=== PATIENT | male | born 1935 | race Caucasian/White ===

== ENCOUNTER → 2016-09-01 | Outpatient (CLI) | payer MEDICARE, OTHER ==
[~2016-09-01] MED LIST: ASPI81TA85 PO; CEFD1CAP8 PO; CLAR10CA3 PO; COUM1TAB17 PO; FAMO20TA PO; FISH1000 PO; FURO40TA2 PO; HYDR1TAB97 PO; IRBE75TA5 PO; NEUR300C PO; NIAC1TAB5 PO; NITR4TASL SL; VITA100041 PO; VITA500T53 PO; ZOCO20TA PO; ZYRT10CA PO
[2016-09-01 09:30] LABS: MEAN CORPUSCULAR HEMOGLOBIN 37.7 pg (27.0-33.0); MEAN CORPUSCULAR VOLUME 110.8 fl (80.0-96.0); WHITE BLOOD COUNT 4.5 K/mm3 (4.0-10.0)
[2016-09-01 09:43] LABS: ALBUMIN 3.6 GM/DL (3.2-5.2); ALBUMIN/GLOBULIN RATIO 1.29 (1.00-1.93); BILIRUBIN,TOTAL 0.5 MG/DL (0.2-1.0); CALCIUM LEVEL 8.3 MG/DL (8.8-10.2); CREATININE FOR GFR 1.49 MG/DL (0.70-1.30); GLOMERULAR FILTRATION RATE 48.3 (>35); MAGNESIUM LEVEL 2.4 MG/DL (1.8-2.4); TOTAL PROTEIN 6.4 GM/DL (6.4-8.2)
== END | disposition home or self-care (01) ==
LOC: M WUC 08:16
PROVIDERS: ATTEND Physician Assistant
DX: I48.2 Chronic atrial fibrillation (principal); I25.10 Atherosclerotic heart disease of native coronary artery without angina pectoris; I50.32 Chronic diastolic (congestive) heart failure; E78.00 Pure hypercholesterolemia, unspecified; Z51.81 Encounter for therapeutic drug level monitoring; Z79.01 Long term (current) use of anticoagulants

== ENCOUNTER → 2016-09-01 | Outpatient (CLI) | payer MEDICARE, OTHER ==
[2016-09-01 09:27] LABS: INR 2.87
== END ==
LOC: M WUC 08:20
PROVIDERS: ATTEND Nurse Practitioner Family
DX: I48.91 Unspecified atrial fibrillation (principal); Z51.81 Encounter for therapeutic drug level monitoring; Z79.01 Long term (current) use of anticoagulants

== ENCOUNTER → 2016-09-02 | Outpatient (REF) | payer MEDICARE, OTHER | END | disposition home or self-care (01) | LOC: M LAB REF 16:26 | PROVIDERS: ATTEND Physician Assistant | DX: Z12.11 Encounter for screening for malignant neoplasm of colon (principal); D64.9 Anemia, unspecified ==

== ENCOUNTER → 2016-09-03 | Outpatient (REF) | payer MEDICARE, OTHER ==
[2016-09-03 18:41] LABS: PERCENT SATURATION 17.8 % (19.7-37.4)
== END | disposition home or self-care (01) ==
LOC: M LAB REF 16:27
PROVIDERS: ATTEND Internal Medicine
DX: D64.9 Anemia, unspecified (principal)

== ENCOUNTER → 2016-09-17 | Outpatient (REF) | payer MEDICARE, OTHER ==
[~2016-09-17] MED LIST changes: +HYDR-3713 PO; -HYDR1TAB97 PO
[2016-09-17 16:31] LABS: INR 2.76
== END | disposition home or self-care (01) ==
LOC: M LAB REF 16:08
PROVIDERS: ATTEND Internal Medicine
DX: I48.2 Chronic atrial fibrillation (principal); Z79.01 Long term (current) use of anticoagulants

== ENCOUNTER → 2016-10-19 | Outpatient (CLI) | payer MEDICARE, OTHER ==
[2016-10-19 15:46] LABS: ALBUMIN 3.5 GM/DL (3.2-5.2); CALCIUM LEVEL 7.6 MG/DL (8.8-10.2); CREATININE FOR GFR 1.65 MG/DL (0.70-1.30); GLOMERULAR FILTRATION RATE 42.9 (>35); PHOSPHORUS LEVEL 2.4 MG/DL (2.5-4.9); POTASSIUM SERUM 4.3 MEQ/L (3.5-5.1)
== END ==
LOC: M WUC 10:57
PROVIDERS: ATTEND Physician Assistant
DX: I50.32 Chronic diastolic (congestive) heart failure (principal)

== ENCOUNTER → 2016-10-27 | Outpatient (CLI) | payer MEDICARE, OTHER ==
[2016-10-27 18:00] LABS: INR 2.23
[2016-10-27 18:01] LABS: CALCIUM LEVEL 8.5 MG/DL (8.8-10.2); CREATININE FOR GFR 1.77 MG/DL (0.70-1.30); GLOMERULAR FILTRATION RATE 39.6 (>35); PHOSPHORUS LEVEL 3.4 MG/DL (2.5-4.9); POTASSIUM SERUM 4.3 MEQ/L (3.5-5.1)
== END ==
LOC: M WUC 11:45
PROVIDERS: ATTEND Physician Assistant
DX: I48.2 Chronic atrial fibrillation (principal); I50.32 Chronic diastolic (congestive) heart failure

== ENCOUNTER → 2016-11-23 | Outpatient (CLI) | payer MEDICARE, OTHER ==
[2016-11-23 13:18] LABS: INR 2.2
== END ==
LOC: M WUC 10:51
PROVIDERS: ATTEND Physician Assistant
DX: I48.2 Chronic atrial fibrillation (principal)

== ENCOUNTER → 2016-12-10 | Outpatient (REF) | payer MEDICARE, OTHER | LOC: M LAB REF 12:13 | PROVIDERS: ATTEND Internal Medicine | DX: D64.9 Anemia, unspecified (principal) ==

== ENCOUNTER → 2017-01-10 | Outpatient (CLI) | payer MEDICARE, OTHER ==
[2017-01-10 17:26] LABS: INR 2.2
== END ==
LOC: M WUC 12:22
PROVIDERS: ATTEND Physician Assistant
DX: I48.2 Chronic atrial fibrillation (principal)

== ENCOUNTER → 2017-01-14 | Outpatient (CLI) | payer MEDICARE, OTHER ==
[~2017-01-14] MED LIST changes: +ALLE180T33 PO; +CALC-196 PO; +FERR140T PO; +MELA5CHW PO; +SPIR25TA2 PO; +TORS20TA2 PO; +TYLE650T35 PO
[2017-01-14 17:55] LABS: ALBUMIN 3.7 GM/DL (3.2-5.2); CALCIUM LEVEL 8.3 MG/DL (8.8-10.2); CREATININE FOR GFR 1.75 MG/DL (0.70-1.30); GLOMERULAR FILTRATION RATE 40.1 (>35); MAGNESIUM LEVEL 2.3 MG/DL (1.8-2.4); PHOSPHORUS LEVEL 2.9 MG/DL (2.5-4.9); POTASSIUM SERUM 4.4 MEQ/L (3.5-5.1)
== END ==
LOC: M WUC 11:51
PROVIDERS: ATTEND Physician Assistant
DX: I50.32 Chronic diastolic (congestive) heart failure (principal); I48.2 Chronic atrial fibrillation

== ENCOUNTER → 2017-01-25 | Outpatient (REF) | payer MEDICARE, OTHER | LOC: M LAB REF 12:46 | PROVIDERS: ATTEND Internal Medicine | DX: I50.33 Acute on chronic diastolic (congestive) heart failure (principal) ==

== ENCOUNTER → 2017-02-07 | Day surgery (SDC) | payer MEDICARE, OTHER ==
[~2017-02-07] VITALS: Ht 182.9 cm; Wt 113.4 kg
[~2017-02-07] MED LIST changes: +ACETAMINOPHEN 325 MG TAB PO PRN; +AcetaZOLAMIDE 500 MG ER CAP PO ONE; +BSS with VANC/TOB/EPI for EYE CASES IR ONE; +CYCLOPENTOLATE 2% OPHTH SOLN 2ML BTL As Ordered ONE; +CYCLOPENTOLATE 2% OPHTH SOLN 2ML BTL OD ONE; +HEALON DUET (HEALON 10MG/ML 0.55ML & HEALON ENDOCOAT 30MG/ML 0.85ML) As Ordered ONE; +KETOROLAC 0.5% OPHTH SOLN OD ONE; +LIDOCAINE 1% SDV 5 ML VIAL As Ordered ONE; +LIDOCAINE 4% INJ 5 ML AMP OU ONE; +LR 1,000 ML IV SCH; +MIDAZOLAM INJ 2 MG/2 ML VIAL (J2250) As Ordered ONE; +MOXIFLOXACIN IN BSS 0.25MG/0.25ML INTRACAMERAL INJ (OR EYE ONLY)(J2280) As Ordered ONE; +OFLOXACIN 0.3 % (OCUFLOX) OPTH SOL 5ML As Ordered ONE; +OFLOXACIN 0.3 % (OCUFLOX) OPTH SOL 5ML OD ONE; +PHENYLEPHRINE 2.5% OPHTH SOL 2ML As Ordered ONE; +PHENYLEPHRINE 2.5% OPHTH SOL 2ML OD ONE; +POVIDONE-IODINE 5% OPHTH PREP SOL 30ML As Ordered ONE; +PROPARACAINE 0.5% OPHTH SOL 15ML OD PRN; +TRIAMCINOLONE PRES FR 40 MG/ML 1ML(TRIESENCE)(OR EYE ONLY)(J3300 PER 1MG) As Ordered ONE; +TRIMETHOBENZAMIDE 300 MG CAP PO PRN; +TROPICAMIDE 1% OPHTH SOLN 2ML As Ordered ONE; +TROPICAMIDE 1% OPHTH SOLN 2ML OD ONE; +fentaNYL 100 MCG/2 ML INJECTION (J3010) As Ordered ONE
[2017-02-07 09:35] VITALS: BP 136/68
== END | disposition home or self-care (01) ==
LOC: M SDC 06:58
PROVIDERS: ATTEND Ophthalmology
DX: H26.9 Unspecified cataract (principal); I25.10 Atherosclerotic heart disease of native coronary artery without angina pectoris; E78.5 Hyperlipidemia, unspecified; R60.0 Localized edema; I13.0 Hypertensive heart and chronic kidney disease with heart failure and stage 1 through stage 4 chronic kidney disease, or unspecified chronic kidney disease; I73.9 Peripheral vascular disease, unspecified; K21.9 Gastro-esophageal reflux disease without esophagitis; D50.9 Iron deficiency anemia, unspecified; R29.898 Other symptoms and signs involving the musculoskeletal system; M12.9 Arthropathy, unspecified; M54.9 Dorsalgia, unspecified; I48.91 Unspecified atrial fibrillation; I50.32 Chronic diastolic (congestive) heart failure; G89.29 Other chronic pain; L40.9 Psoriasis, unspecified; G62.9 Polyneuropathy, unspecified; N18.3 Chronic kidney disease, stage 3 (moderate); Z87.891 Personal history of nicotine dependence; Z88.0 Allergy status to penicillin; Z79.899 Other long term (current) drug therapy; Z79.82 Long term (current) use of aspirin; Z79.01 Long term (current) use of anticoagulants; Z85.9 Personal history of malignant neoplasm, unspecified; Z95.0 Presence of cardiac pacemaker; Z86.718 Personal history of other venous thrombosis and embolism; Z95.5 Presence of coronary angioplasty implant and graft
CPT/HCPCS: 66984; J2250; J2280; J3010; J3300; V2632

== ENCOUNTER → 2017-02-14 | Outpatient (CLI) | payer MEDICARE, OTHER ==
[~2017-02-14] MED LIST changes: -ACETAMINOPHEN 325 MG TAB PO PRN; -AcetaZOLAMIDE 500 MG ER CAP PO ONE; -BSS with VANC/TOB/EPI for EYE CASES IR ONE; -CYCLOPENTOLATE 2% OPHTH SOLN 2ML BTL As Ordered ONE; -CYCLOPENTOLATE 2% OPHTH SOLN 2ML BTL OD ONE; -HEALON DUET (HEALON 10MG/ML 0.55ML & HEALON ENDOCOAT 30MG/ML 0.85ML) As Ordered ONE; -KETOROLAC 0.5% OPHTH SOLN OD ONE; -LIDOCAINE 1% SDV 5 ML VIAL As Ordered ONE; -LIDOCAINE 4% INJ 5 ML AMP OU ONE; -LR 1,000 ML IV SCH; -MIDAZOLAM INJ 2 MG/2 ML VIAL (J2250) As Ordered ONE; -MOXIFLOXACIN IN BSS 0.25MG/0.25ML INTRACAMERAL INJ (OR EYE ONLY)(J2280) As Ordered ONE; -OFLOXACIN 0.3 % (OCUFLOX) OPTH SOL 5ML As Ordered ONE; -OFLOXACIN 0.3 % (OCUFLOX) OPTH SOL 5ML OD ONE; -PHENYLEPHRINE 2.5% OPHTH SOL 2ML As Ordered ONE; -PHENYLEPHRINE 2.5% OPHTH SOL 2ML OD ONE; -POVIDONE-IODINE 5% OPHTH PREP SOL 30ML As Ordered ONE; -PROPARACAINE 0.5% OPHTH SOL 15ML OD PRN; -TRIAMCINOLONE PRES FR 40 MG/ML 1ML(TRIESENCE)(OR EYE ONLY)(J3300 PER 1MG) As Ordered ONE; -TRIMETHOBENZAMIDE 300 MG CAP PO PRN; -TROPICAMIDE 1% OPHTH SOLN 2ML As Ordered ONE; -TROPICAMIDE 1% OPHTH SOLN 2ML OD ONE; -fentaNYL 100 MCG/2 ML INJECTION (J3010) As Ordered ONE
[2017-02-14 12:37] LABS: INR 1.69
== END ==
LOC: M WUC 10:02
PROVIDERS: ATTEND Nurse Practitioner Family
DX: I48.2 Chronic atrial fibrillation (principal)

== ENCOUNTER → 2017-02-15 | Day surgery (SDC) | payer MEDICARE, OTHER ==
[~2017-02-15] VITALS: Ht 182.9 cm; Wt 113.4 kg
[~2017-02-15] MED LIST changes: +ACETAMINOPHEN 325 MG TAB PO PRN; +AcetaZOLAMIDE 500 MG ER CAP PO ONE; +BSS with VANC/TOB/EPI for EYE CASES IR ONE; +CYCLOPENTOLATE 2% OPHTH SOLN 2ML BTL OS ONE; +FERR325T3 PO; +HEALON DUET (HEALON 10MG/ML 0.55ML & HEALON ENDOCOAT 30MG/ML 0.85ML) As Ordered ONE; +KETOROLAC 0.5% OPHTH SOLN XX ONE; +LIDOCAINE 1% SDV 5 ML VIAL As Ordered ONE; +LIDOCAINE 4% INJ 5 ML AMP OU ONE; -MELA5CHW PO; +MELA5TAB20 PO; +MIDAZOLAM INJ 2 MG/2 ML VIAL (J2250) As Ordered ONE; +MOXIFLOXACIN IN BSS 0.25MG/0.25ML INTRACAMERAL INJ (OR EYE ONLY)(J2280) As Ordered ONE; +OFLOXACIN 0.3 % (OCUFLOX) OPTH SOL 5ML OS ONE; +PHENYLEPHRINE 2.5% OPHTH SOL 2ML OS ONE; +POVIDONE-IODINE 5% OPHTH PREP SOL 30ML As Ordered ONE; +PROPARACAINE 0.5% OPHTH SOL 15ML OS PRN; +TRIAMCINOLONE PRES FR 40 MG/ML 1ML(TRIESENCE)(OR EYE ONLY)(J3300 PER 1MG) As Ordered ONE; +TRIMETHOBENZAMIDE 300 MG CAP PO PRN; +TROPICAMIDE 1% OPHTH SOLN 2ML OS ONE; +VALS1TAB49 PO; +VITA-182 PO; -VITA100041 PO; +fentaNYL 100 MCG/2 ML INJECTION (J3010) As Ordered ONE
[2017-02-15 11:00] VITALS: BP 140/68
== END | disposition home or self-care (01) ==
LOC: M SDC 08:27
PROVIDERS: ATTEND Ophthalmology
DX: H26.9 Unspecified cataract (principal); I50.32 Chronic diastolic (congestive) heart failure; I49.5 Sick sinus syndrome; I13.0 Hypertensive heart and chronic kidney disease with heart failure and stage 1 through stage 4 chronic kidney disease, or unspecified chronic kidney disease; I25.10 Atherosclerotic heart disease of native coronary artery without angina pectoris; Z95.5 Presence of coronary angioplasty implant and graft; E78.5 Hyperlipidemia, unspecified; G89.29 Other chronic pain; I73.9 Peripheral vascular disease, unspecified; D50.9 Iron deficiency anemia, unspecified; G90.09 Other idiopathic peripheral autonomic neuropathy; N18.3 Chronic kidney disease, stage 3 (moderate); G47.9 Sleep disorder, unspecified; Z79.899 Other long term (current) drug therapy; Z79.01 Long term (current) use of anticoagulants; Z79.82 Long term (current) use of aspirin; Z88.0 Allergy status to penicillin; Z87.891 Personal history of nicotine dependence
CPT/HCPCS: 66984; J2250; J2280; J3010; J3300; V2632

== ENCOUNTER → 2017-02-21 | Outpatient (CLI) | payer MEDICARE, OTHER ==
[~2017-02-21] MED LIST changes: -ACETAMINOPHEN 325 MG TAB PO PRN; -AcetaZOLAMIDE 500 MG ER CAP PO ONE; -BSS with VANC/TOB/EPI for EYE CASES IR ONE; -CYCLOPENTOLATE 2% OPHTH SOLN 2ML BTL OS ONE; -HEALON DUET (HEALON 10MG/ML 0.55ML & HEALON ENDOCOAT 30MG/ML 0.85ML) As Ordered ONE; -KETOROLAC 0.5% OPHTH SOLN XX ONE; -LIDOCAINE 1% SDV 5 ML VIAL As Ordered ONE; -LIDOCAINE 4% INJ 5 ML AMP OU ONE; -MIDAZOLAM INJ 2 MG/2 ML VIAL (J2250) As Ordered ONE; -MOXIFLOXACIN IN BSS 0.25MG/0.25ML INTRACAMERAL INJ (OR EYE ONLY)(J2280) As Ordered ONE; -OFLOXACIN 0.3 % (OCUFLOX) OPTH SOL 5ML OS ONE; -PHENYLEPHRINE 2.5% OPHTH SOL 2ML OS ONE; -POVIDONE-IODINE 5% OPHTH PREP SOL 30ML As Ordered ONE; -PROPARACAINE 0.5% OPHTH SOL 15ML OS PRN; -TRIAMCINOLONE PRES FR 40 MG/ML 1ML(TRIESENCE)(OR EYE ONLY)(J3300 PER 1MG) As Ordered ONE; -TRIMETHOBENZAMIDE 300 MG CAP PO PRN; -TROPICAMIDE 1% OPHTH SOLN 2ML OS ONE; -fentaNYL 100 MCG/2 ML INJECTION (J3010) As Ordered ONE
[2017-02-21 19:28] LABS: INR 1.61
[2017-02-21 21:30] LABS: CALCIUM LEVEL 8.7 MG/DL (8.8-10.2); CREATININE FOR GFR 1.76 MG/DL (0.70-1.30); GLOMERULAR FILTRATION RATE 39.9 (>35); PHOSPHORUS LEVEL 3.4 MG/DL (2.5-4.9); POTASSIUM SERUM 4.1 MEQ/L (3.5-5.1)
== END ==
LOC: M WUC 11:29
PROVIDERS: ATTEND Physician Assistant
DX: I50.33 Acute on chronic diastolic (congestive) heart failure (principal)

== ENCOUNTER → 2017-03-08 | Outpatient (CLI) | payer MEDICARE, OTHER ==
[2017-03-08 16:36] LABS: INR 1.85
== END ==
LOC: M WUC 13:39
PROVIDERS: ATTEND Nurse Practitioner Family
DX: I48.2 Chronic atrial fibrillation (principal)

== ENCOUNTER → 2017-04-01 | Outpatient (REF) | payer MEDICARE, OTHER ==
[2017-04-05 00:06] LABS: Lyme Disease IgG/IgM Antibodie <0.91 ISR (0.00-0.90); Lyme Disease IgM Ab Quantitati <0.80 index (0.00-0.79)
== END ==
LOC: M LAB REF 17:17
PROVIDERS: ATTEND Internal Medicine
DX: M25.50 Pain in unspecified joint (principal)

== ENCOUNTER → 2017-04-14 | Outpatient (CLI) | payer MEDICARE, OTHER ==
[2017-04-14 17:58] LABS: INR 2.99
== END ==
LOC: M WUC 11:34
PROVIDERS: ATTEND Nurse Practitioner Family
DX: I48.2 Chronic atrial fibrillation (principal)

== ENCOUNTER → 2017-05-01 | Outpatient (CLI) | payer MEDICARE, OTHER ==
[2017-05-01 17:49] LABS: ALBUMIN 3.3 GM/DL (3.2-5.2); CALCIUM LEVEL 8.5 MG/DL (8.8-10.2); CREATININE FOR GFR 1.91 MG/DL (0.70-1.30); GLOMERULAR FILTRATION RATE 36.3 (>35); MAGNESIUM LEVEL 2.6 MG/DL (1.8-2.4); PHOSPHORUS LEVEL 2.8 MG/DL (2.5-4.9); POTASSIUM SERUM 4.4 MEQ/L (3.5-5.1)
== END ==
LOC: M WUC 13:49
PROVIDERS: ATTEND Physician Assistant
DX: I50.33 Acute on chronic diastolic (congestive) heart failure (principal); I48.2 Chronic atrial fibrillation

== ENCOUNTER → 2017-05-01 | Outpatient (CLI) | payer MEDICARE, OTHER ==
[2017-05-01 17:43] LABS: INR 1.95
== END ==
LOC: M WUC 13:45
PROVIDERS: ATTEND Internal Medicine Cardiovascular Disease
DX: I48.2 Chronic atrial fibrillation (principal)

== ENCOUNTER → 2017-05-13 | Outpatient (REF) | payer MEDICARE, OTHER ==
[2017-05-13 18:09] LABS: PERCENT SATURATION 33.7 % (19.7-50.0)
== END ==
LOC: M LAB REF 16:54
PROVIDERS: ATTEND Internal Medicine
DX: D50.9 Iron deficiency anemia, unspecified (principal)

== ENCOUNTER → 2017-05-31 | Outpatient (CLI) | payer MEDICARE, OTHER ==
[2017-05-31 17:23] LABS: INR 4.03
== END ==
LOC: M WUC 11:22
PROVIDERS: ATTEND Nurse Practitioner Family
DX: I48.2 Chronic atrial fibrillation (principal)

== ENCOUNTER → 2017-06-13 | Outpatient (CLI) | payer MEDICARE, OTHER ==
[2017-06-13 20:27] LABS: ALBUMIN 3.5 GM/DL (3.2-5.2); CALCIUM LEVEL 8.4 MG/DL (8.8-10.2); CREATININE FOR GFR 1.69 MG/DL (0.70-1.30); GLOMERULAR FILTRATION RATE 41.7 (>35)
== END ==
LOC: M WUC 15:19
PROVIDERS: ATTEND Physician Assistant
DX: I50.32 Chronic diastolic (congestive) heart failure (principal)

== ENCOUNTER → 2017-06-13 | Outpatient (CLI) | payer MEDICARE, OTHER ==
[2017-06-13 19:43] LABS: INR 3.1
== END ==
LOC: M WUC 15:16
PROVIDERS: ATTEND Nurse Practitioner Family
DX: I48.2 Chronic atrial fibrillation (principal); Z51.81 Encounter for therapeutic drug level monitoring; Z79.01 Long term (current) use of anticoagulants; I50.32 Chronic diastolic (congestive) heart failure

== ENCOUNTER 2017-06-26 05:45 | Inpatient (IN) | payer MEDICARE, OTHER ==
[~2017-06-26] VITALS: Ht 182.9 cm; Wt 116.9 kg
[~2017-06-26 05:45] MED LIST changes: -FERR325T3 PO; -VALS1TAB49 PO
[2017-06-26] MEDS ORDERED: ACETAMINOPHEN 325 MG TAB PO ONE (06:30)
[2017-06-26] MEDS ORDERED: VANCOMYCIN HCL 1,000 MG, VIAL MATE ADAPTER 1 EACH in D5W 250 ML IV ONE (06:30)
[2017-06-26] MEDS ORDERED: NS 500 ML IV ONE ×4 (06:30→11:00)
[2017-06-26] MEDS ORDERED: IMIPENEM/CILASTATIN 500 MG in D5W MINI-BAG PLUS 100 ML IV ONE (06:30)
[2017-06-26 06:33] LABS: BASO % 0.2 % (0.0-1.0); IMMATURE GRANULOCYTE % 1.6 % (0-0); MEAN CORPUSCULAR HEMOGLOBIN 39.2 pg (27.0-33.0); MEAN CORPUSCULAR HGB CONC 33.3 g/dl (32.0-36.5); MONO # 0.2 10^3/uL (0.0-0.8); NEUTROPHILS # 4.5 10^3/uL (1.8-7.7); NEUTROPHILS % 90.2 % (36.0-66.0); PLATELET COUNT, AUTOMATED 146 10^3/uL (150-450); RED CELL DISTRIBUTION WIDTH 13.8 % (11.5-14.5)
[2017-06-26 06:59] LABS: LYMPH # 0.2 10^3/uL (1.5-4.5); MEAN CORPUSCULAR VOLUME 117.6 fl (80.0-96.0); POSITIVE DIFF POS FLAG; POSITIVE MORPH POS FLAG
[2017-06-26 07:00] LABS: ADD MORPHOLOGY? YES
[2017-06-26 07:04] LABS: ALBUMIN 3.1 GM/DL (3.2-5.2); ALBUMIN/GLOBULIN RATIO 1.03 (1.00-1.93); BILIRUBIN,DIRECT 0.5 MG/DL (0.0-0.2); BILIRUBIN,TOTAL 0.8 MG/DL (0.2-1.0); CALCIUM LEVEL 8.5 MG/DL (8.8-10.2); CREATININE FOR GFR 2.33 MG/DL (0.70-1.30); GLOMERULAR FILTRATION RATE 28.8 (>35); POTASSIUM SERUM 4.2 MEQ/L (3.5-5.1); TOTAL PROTEIN 6.1 GM/DL (6.4-8.2)
[2017-06-26] MEDS ORDERED: NS 1,000 ML IV ONE (07:45)
[2017-06-26 07:53] LABS: INR 2.3
--- NOTE | 2017-06-26 11:21 | HPEPDOC ---
General Surgery H&P Date of Admission Jun 26, 2017 Attending Physician: BARBER LAYNE MD History and Physical CHIEF COMPLAINT: abdominal pain, fever, change in mental status HISTORY OF PRESENT ILLNESS: Patient brought in by EMS after being called with patient noted to be confused this morning. He has been having lower quadrant abdominal pain, and fever (102) for the past two days. patient reports crampy abdominal pain associated with anorexia, slight nausea,one episode of vomiting, and loose stool. He initially attributes this to possible food poisoning, gastroenteritis. Reports no sick contacts. In the ER, he was noted to be hypotensive with SBP in the 80s. He has partially responded with IVF boluses. Workup shows possibility of perforated appendicitis vs. Cecitis. ALLERGIES: Please see below. HOME MEDICATIONS: Please see below. PAST MEDICAL HISTORY: 1. CAD 2. Atrial Fibrillation with pacer PAST SURGICAL HISTORY: 1. left bka 2. cardiac stents and pacemaker 3. cataract no abdominal surgery PERSONAL/SOCIAL HISTORY: Denies smoking, alcohol use, or recreational drug use. REVIEW OF SYSTEMS: GENERAL: Reports fever, confusion this morning, anorexia x 2 days. HEENT: Denies blurred vision and double vision. Denies ear symptoms. Denies hoarseness. NECK: Denies any neck pain. CARDIOVASCULAR: Denies chest pain and palpitations. MUSCULOSKELETAL: Reports back pain this morning. SKIN: Denies rash. NEUROLOGIC: Denies headache, stroke and transient ischemic attack. PSYCHIATRIC: Denies anxiety and depression. ENDOCRINE: Denies thyroid disease. HEMATOLOGY/ONCOLOGY: on coumadin. HEART: Denies any chest pains, palpitations, paroxysmal dyspnea, orthopnea. PULMONARY: Denies chronic cough, dyspnea and wheezing. GASTROINTESTINAL: denies rectal bleeding, no previous colonoscopies. GENITOURINARY: Denies dysuria, frequency, hematuria and nocturia. ENDOCRINE: Denies polydipsia, polyphagia, polyuria, heat or cold intolerance. INFECTIOUS: Denies any recent upper respiratory tract infection, UTI, need for use of antibiotics. NUTRITION: reports anorexia. PHYSICAL EXAMINATION: VITAL SIGNS: Please see below. GENERAL APPEARANCE: Patient seen at bedside, appears relatively comfortable. Awake, alert, oriented. HEENT: Normocephalic, atraumatic. Mildly pale palpebral conjunctivae. Anicteric sclerae. Lips dry. CHEST: No chest wall abnormalities. Normal respiratory motion/effort. NECK: Supple. No thyromegaly. No lymphadenopathies. LUNGS: Lung sounds are clear to auscultation bilaterally. No wheezing appreciated. HEART: No chest wall abnormalities. Heart rate 50 to 60s, paced. Pacer on left chest ABDOMEN: [Abdomen is obese, soft, markedly rounded. minimally distended. Mild tenderness to palpation on right lower quadrant area SKIN: Warm, dry EXTREMITIES: left bka, right leg with no edema, good capillary refill. NEUROLOGICAL: awake, alert, oriented ANCILLARIES: . LABORATORY DATA: Please see below. MICROBIOLOGY: Please see below. IMAGING: CT abdomen and pelvis Impression: 1. Extensive inflammatory changes about the cecum and appendix with the appendix dilated with extensive infiltration around it. This suggest appendicitis. There may be one air bubble near by so early perforation may be present versus that air bubble along the cecal margin representing a thin- walled diverticulum. No generalized free air or ascites but with infiltration tracking along the peroneal gutter and lateral caudal fascia below it. Plantar three changes are add and below the iliac crest. 2. Diverticulosis without diverticulitis in the transverse through the sigmoid colon. 3. There are no other significant acute finding is in the abdomen or pelvis. 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 IMPRESSION AND PLAN: Sepsis with hypotention Possible perforated appendicitis with peritonitis Patient came in hypotensive, has responded some with IVF boluses. Not clinically in heart failure. He is on coumadin and his INR is elevated as expected. I will give him 2 u FFP while awaiting OR. Would bring to the OR for diagnostic laparoscopy and appendectomy/bowel resection/ostomy/drainage for control of source of infection. I have communicated with the patient and family that he may get sicker and may get critically ill that may require prolonged ventilation after surgery. I have spokem to Dr. Duncan (critical care) and the hospitalist service to help with his care postoperatively. . Vital Signs Vital Signs Date Time Temp Pulse Resp B/P (MAP) Pulse Ox O2 Delivery O2 Flow Rate FiO2 06/26/17 10:30 92/54 (67) 06/26/17 10:21 56 98 06/26/17 09:51 18 06/26/17 08:52 99.5 06/26/17 07:00 Nasal Cannula 2.0 I&Os I&O- Last 24 Hours up to 6 AM 06/27/17 06:00 Intake Total 1870 ml Output Total 15 ml Balance 1855 ml Laboratory Data Labs 24H Laboratory Tests 2 06/26/17 06:07: Immature Granulocyte % (Auto) 1.6H, White Blood Count 5.0, Red Blood Count 2.22L , Hemoglobin 8.7L, Hematocrit 26.1L, Mean Corpuscular Volume 117.6H, Mean Corpuscular Hemoglobin 39.2H, Mean Corpuscular Hemoglobin Concent 33.3, Red Cell Distribution Width 13.8, Platelet Count 146L, Neutrophils (%) (Auto) 90.2H , Lymphocytes (%) (Auto) 4.0L, Monocytes (%) (Auto) 4.0, Eosinophils (%) (Auto) 0.0, Basophils (%) (Auto) 0.2, Neutrophils # (Auto) 4.5, Lymphocytes # (Auto) 0.2L, Monocytes # (Auto) 0.2, Eosinophils # (Auto) 0.0, Basophils # (Auto) 0.0, Immature Granulocyte # (Auto) 0.1H, Nucleated Red Blood Cells % (auto) 0.0, Platelet Estimate , Macrocytosis 3+, Prothrombin Time 26.2H, Prothromb Time International Ratio 2.30, Activated Partial Thromboplast Time 65.2H, Anion Gap 11, Glomerular Filtration Rate 28.8L, Lactic Acid Level 1.9, Calcium Level 8.5L , Aspartate Amino Transf (AST/SGOT) 40H, Alanine Aminotransferase (ALT/SGPT) 27 , Alkaline Phosphatase 61, Total Bilirubin 0.8, Direct Bilirubin 0.5H, Total Creatine Kinase 443H, Creatine Kinase MB 1.1, Creatine Kinase MB Relative Index 0.24, Troponin I 0.31H, Total Protein 6.1L, Albumin 3.1L, Albumin/Globulin Ratio 1.03 06/26/17 07:40: Urine Appearance HAZY, Urine Color YELLOW, Urine pH 5.0, Urine Specific [place] 1.012, Urine Protein NEGATIVE, Urine Glucose (UA) NEGATIVE, Urine Ketones NEGATIVE, Urine Urobilinogen 0.2, Urine Bilirubin NEGATIVE, Urine Leukocyte Esterase NEGATIVE, Urine Blood 1+H, Urine Nitrite NEGATIVE, Urine WBC (Auto) 2, Urine RBC (Auto) 1, Urine Hyaline Casts (Auto) 5, Urine Bacteria (Auto) NEGATIVE , Urine Squamous Epithelial Cells 1, Urine Sperm (Auto) CBC/BMP Laboratory Tests 06/26/17 06:07 Red Blood Count 2.22 L, Mean Corpuscular Volume 117.6 H, Mean Corpuscular Hemoglobin 39.2 H, Mean Corpuscular Hemoglobin Concent 33.3, Red Cell Distribution Width 13.8, Neutrophils (%) (Auto) 90.2 H, Lymphocytes (%) (Auto) 4.0 L, Monocytes (%) (Auto) 4.0, Eosinophils (%) (Auto) 0.0, Basophils (%) (Auto ) 0.2, Neutrophils # (Auto) 4.5, Lymphocytes # (Auto) 0.2 L, Monocytes # (Auto) 0.2, Eosinophils # (Auto) 0.0, Basophils # (Auto) 0.0 Microbiology Microbiology 06/26/17 Blood Culture, Received Pending 06/26/17 Influenza Virus Type A Antigen - Final, Complete 06/26/17 Influenza Virus Type B Antigen - Final, Complete 06/26/17 Urine Culture, Received Pending Home Medications Scheduled (Calcium Magnesium & Zinc 334-134-5 mg) 1 Tab Tab, 2 TABS PO BID, (Reported) (Melatonin) 5 Mg Chw, 10 MG PO QHS, (Reported) Acetaminophen (Tylenol 8 Hour Arthritis) 650 Mg Tab, 650 MG PO BID, (Reported) TAKES QAM AND NOON Aspirin (Aspir-81) 81 Mg Tab, 81 MG PO QHS, (Reported) Cholecalciferol (Vitamin D3) 1,000 Unit Cap, 1,000 UNIT PO DAILY, (Reported) Famotidine (Pepcid) 20 Mg Tab, 40 MG PO QHS, (Reported) Ferrous Sulfate (Ferrous Sulfate) 325 Mg Tab, 325 MG PO 3XW, (Reported) MON/TUE/FRI Fexofenadine Hydrochloride (Jackie Allergy) 180 Mg Tab, 180 MG PO DAILY, ( Reported) Fish Oil (Fish Oil) 1,000 Mg Cap, 2,000 MG PO DAILY, (Reported) Gabapentin (Neurontin) 300 Mg Cap, 300 MG PO BID, (Reported) Nitroglycerin (Nitrostat) 0.4 Mg Subl, 0.4 MG SL ASDIRECTED, (Reported) Simvastatin (Zocor) 20 Mg Tab, 20 MG PO QHS, (Reported) Torsemide (Torsemide) 20 Mg Tab, 40 MG PO BID, (Reported) Valsartan (Valsartan) 40 Mg Tab, 40 MG PO QHS, (Reported) Warfarin Sod (Coumadin) 5 Mg Tab, 5 MG PO QWEEK, (Reported) TUESDAY EVENINGS Warfarin Sod (Coumadin) 5 Mg Tab, 2.5 MG PO 6XWK, (Reported) EVERYDAY EXCEPT TUESDAY, EVENING TIME Allergies Coded Allergies: Penicillins (Verified Allergy, Unknown, HIVES, 11/27/12) Penicillins Cross Reactors (Verified Allergy, Unknown, HIVES, 11/27/12) BARBER LAYNE MD Jun 26, 2017 11:12
[2017-06-26] MEDS ORDERED: VALS1TAB49 PO (11:22)
[2017-06-26] MEDS ORDERED: FERR325T3 PO (11:22)
[2017-06-26] MEDS: LR 1,000 ML IV SCH ×2 (12:17→15:45)
[2017-06-26] MEDS ORDERED: LIDOCAINE 1% SDV INJ 30 ML VIAL As Ordered ONE (15:15)
[2017-06-26] MEDS ORDERED: BUPIVACAINE HCL 0.25% 30 ML VIAL As Ordered ONE (15:16)
[2017-06-26 15:33] LABS: INR 1.63
--- NOTE | 2017-06-26 15:59 | CR.PDOC ---
[facility] Consultation Consultation DATE OF CONSULTATION: Jun 26, 2017 at 10:45 PRIMARY CARE PHYSICIAN: Dr. Vane Lin REFERRING PROVIDER: Howard Tirado M.D. ATTENDING PHYSICIAN: Dr. Lucas REASON FOR CONSULTATION/CHIEF COMPLAINT: . Appendicitis, possible perforation, Cecitis HISTORY OF PRESENT ILLNESS: . 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 The patient states that this was associated with fevers of 102, nausea, an episode of vomiting, and generalized fatigue/malaise. This culminated over the last 24 hours, and the patient subsequently presents to the ER for further evaluation and management. In the ER, a CT scan of the abdomen revealed extensive inflammatory changes about the cecum and appendix with appendix dilated with extensive infiltration around his suggestive of appendicitis and possible perforation with cecitis. The patient was noted to be hypotensive in the ER with a systolic blood pressure in the 80s. The patient was provided with IV fluid hydration which has resulted in a adequate response of his hemodynamic status. The surgical service was called in the ER, and the patient will be taken emergently for laparoscopic evaluation. ALLERGIES: Please see below. HOME MEDICATIONS: Please see below. PAST MEDICAL HISTORY: As noted above REVIEW OF SYSTEMS: 10 point review of systems negative unless otherwise specified in HPI. PHYSICAL EXAMINATION: VITAL SIGNS: Please see below. GENERAL APPEARANCE: . Awake, alert, in mild distress HEENT: . Normocephalic, atraumatic RESPIRATORY: . Clear to auscultation bilaterally CARDIOVASCULAR: . Irregular rhythm, normal rate ABDOMEN: . Soft, mild tenderness to deep palpation in the lower quadrants. EXTREMITIES: . Left below the knee amputation noted LABORATORY DATA: Please see below. ASSESSMENT/PLAN: Possible Perforated Appendicitis with Peritonitis CT of the Abd/Pelvis noted The surgical service was called in the ER and will emergently take the patient for laparoscopic evaluation Sepsis 2/2 Above The patient's B/P has responded to IVF Hydration The patient has already had blood cultures drawn and been given a dose of empiric abx therapy with Vanco and Primaxin Elevated Troponin Level 2/2 Sepsis Patient with no acute c/o chest pain, palpitations, SOB The patient's Packaging Technician Dr. Mac was contacted by the ER physician Cont to monitor on Telemetry following surgery Acute Kidney Injury Superimposed on CKD Stage III 2/2 Above Serum Cr 2.33 on admission (Baseline 1.6-1.7) IVF Hydration given in the ER Hold Nephrotoxic meds and renally dose other meds Cont to monitor I/O's Will f/u with BMP in the AM Atrial Fibrillation on Coumadin Rate controlled Coumadin on hold 2/2 above--Patient given 2 Units of FFP to reverse INR for surgery The patient will be restarted on AC once cleared by surgery Hypertension Hold antihypertensives given hypotension in the ER Dyslipidemia On statin--held here as the patient is NPO and going for emergent surgery Hx of Left ielyb-bdg-cbin 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 DVT Prophylaxis As per surgery Prognosis: Critical Condition Vital Signs/I&O Vital Signs Date Time Temp Pulse Resp B/P (MAP) Pulse Ox O2 Delivery O2 Flow Rate FiO2 06/26/17 15:16 96.4 47 18 133/58 (83) 99 06/26/17 07:00 Nasal Cannula 2.0 I&O- Last 24 Hours up to 6 AM 06/27/17 06:00 Intake Total 3270 ml Output Total 175 ml Balance 3095 ml Laboratory Data Labs 24H Laboratory Tests 2 06/26/17 06:07: Immature Granulocyte % (Auto) 1.6H, White Blood Count 5.0, Red Blood Count 2.22L , Hemoglobin 8.7L, Hematocrit 26.1L, Mean Corpuscular Volume 117.6H, Mean Corpuscular Hemoglobin 39.2H, Mean Corpuscular Hemoglobin Concent 33.3, Red Cell Distribution Width 13.8, Platelet Count 146L, Neutrophils (%) (Auto) 90.2H , Lymphocytes (%) (Auto) 4.0L, Monocytes (%) (Auto) 4.0, Eosinophils (%) (Auto) 0.0, Basophils (%) (Auto) 0.2, Neutrophils # (Auto) 4.5, Lymphocytes # (Auto) 0.2L, Monocytes # (Auto) 0.2, Eosinophils # (Auto) 0.0, Basophils # (Auto) 0.0, Immature Granulocyte # (Auto) 0.1H, Nucleated Red Blood Cells % (auto) 0.0, Platelet Estimate , Macrocytosis 3+, Prothrombin Time 26.2H, Prothromb Time International Ratio 2.30, Activated Partial Thromboplast Time 65.2H, Anion Gap 11, Glomerular Filtration Rate 28.8L, Lactic Acid Level 1.9, Calcium Level 8.5L , Aspartate Amino Transf (AST/SGOT) 40H, Alanine Aminotransferase (ALT/SGPT) 27 , Alkaline Phosphatase 61, Total Bilirubin 0.8, Direct Bilirubin 0.5H, Total Creatine Kinase 443H, Creatine Kinase MB 1.1, Creatine Kinase MB Relative Index 0.24, Troponin I 0.31H, Total Protein 6.1L, Albumin 3.1L, Albumin/Globulin Ratio 1.03 06/26/17 07:40: Urine Appearance HAZY, Urine Color YELLOW, Urine pH 5.0, Urine Specific [place] 1.012, Urine Protein NEGATIVE, Urine Glucose (UA) NEGATIVE, Urine Ketones NEGATIVE, Urine Urobilinogen 0.2, Urine Bilirubin NEGATIVE, Urine Leukocyte Esterase NEGATIVE, Urine Blood 1+H, Urine Nitrite NEGATIVE, Urine WBC (Auto) 2, Urine RBC (Auto) 1, Urine Hyaline Casts (Auto) 5, Urine Bacteria (Auto) NEGATIVE , Urine Squamous Epithelial Cells 1, Urine Sperm (Auto) 06/26/17 15:15: Prothrombin Time 19.8H, Prothromb Time International Ratio 1.63 CBC/BMP Laboratory Tests 06/26/17 06:07 Red Blood Count 2.22 L, Mean Corpuscular Volume 117.6 H, Mean Corpuscular Hemoglobin 39.2 H, Mean Corpuscular Hemoglobin Concent 33.3, Red Cell Distribution Width 13.8, Neutrophils (%) (Auto) 90.2 H, Lymphocytes (%) (Auto) 4.0 L, Monocytes (%) (Auto) 4.0, Eosinophils (%) (Auto) 0.0, Basophils (%) (Auto ) 0.2, Neutrophils # (Auto) 4.5, Lymphocytes # (Auto) 0.2 L, Monocytes # (Auto) 0.2, Eosinophils # (Auto) 0.0, Basophils # (Auto) 0.0 Microbiology Microbiology 06/26/17 Blood Culture, Received Pending 06/26/17 Influenza Virus Type A Antigen - Final, Complete 06/26/17 Influenza Virus Type B Antigen - Final, Complete 11/5/17 Urine Culture, Received Pending Allergies Coded Allergies: Penicillins (Verified Allergy, Unknown, HIVES, 11/27/12) Penicillins Cross Reactors (Verified Allergy, Unknown, HIVES, 11/27/12) Home Medications Scheduled (Calcium Magnesium & Zinc 334-134-5 mg) 1 Tab Tab, 2 TABS PO BID, (Reported) (Melatonin) 5 Mg Chw, 10 MG PO QHS, (Reported) Acetaminophen (Tylenol 8 Hour Arthritis) 650 Mg Tab, 650 MG PO BID, (Reported) TAKES QAM AND NOON Aspirin (Aspir-81) 81 Mg Tab, 81 MG PO QHS, (Reported) Cetirizine HCl (Zyrtec Allergy) 10 Mg Cap, 20 MG PO QHS, (Reported) Cholecalciferol (Vitamin D3) 1,000 Unit Cap, 1,000 UNIT PO DAILY, (Reported) Famotidine (Pepcid) 20 Mg Tab, 40 MG PO QHS, (Reported) Ferrous Sulfate (Ferrous Sulfate) 325 Mg Tab, 325 MG PO 3XW, (Reported) TUE/TUE/TUE Fexofenadine Hydrochloride (Jackie Allergy) 180 Mg Tab, 180 MG PO DAILY, ( Reported) Fish Oil (Fish Oil) 1,000 Mg Cap, 2,000 MG PO DAILY, (Reported) Gabapentin (Neurontin) 300 Mg Cap, 300 MG PO BID, (Reported) Nitroglycerin (Nitrostat) 0.4 Mg Subl, 0.4 MG SL ASDIRECTED, (Reported) Simvastatin (Zocor) 20 Mg Tab, 20 MG PO QHS, (Reported) Torsemide (Torsemide) 20 Mg Tab, 40 MG PO BID, (Reported) Valsartan (Valsartan) 40 Mg Tab, 40 MG PO QHS, (Reported) Warfarin Sod (Coumadin) 5 Mg Tab, 5 MG PO QWEEK, (Reported) TUESDAY EVENINGS Warfarin Sod (Coumadin) 5 Mg Tab, 2.5 MG PO 6XWK, (Reported) EVERYDAY EXCEPT TUESDAY, EVENING TIME Scheduled PRN Acetaminophen/Hydrocodone (Hydrocodone/Acetaminophen 5-325 mg) 1 Tab Tab, 1 TAB PO QHS PRN for PAIN, (Reported) HOWARD TIRADO MD Jun 26, 2017 15:59
[2017-06-26] MEDS ORDERED: LIDOCAINE 2% INJ 100 MG/5 ML SDV (FOR ANES.) As Ordered ONE (16:27)
[2017-06-26] MEDS ORDERED: dexameTHASONE 4 MG/ML 1ML VIAL (J1100) As Ordered ONE (16:27)
[2017-06-26] MEDS ORDERED: fentaNYL 250 MCG/5 ML INJECTION (J3010) As Ordered ONE (16:27)
[2017-06-26] MEDS ORDERED: GLYCOPYRROLATE INJ 0.2 MG/ML 2 ML VIAL As Ordered ONE (16:27)
[2017-06-26] MEDS ORDERED: PROPOFOL 200 MG/20 ML VIAL As Ordered ONE (16:27)
[2017-06-26] MEDS ORDERED: ROCURONIUM BROMIDE 50 MG/5 ML VIAL As Ordered ONE (16:27)
[2017-06-26] MEDS ORDERED: KETOROLAC 60 MG/2 ML VIAL (J1885) As Ordered ONE (16:27)
[2017-06-26] MEDS ORDERED: MIDAZOLAM INJ 2 MG/2 ML VIAL (J2250) As Ordered ONE (16:27)
[2017-06-26] MEDS ORDERED: NEOSTIGMINE 10 MG/10 ML VIAL (J2710) As Ordered ONE (16:27)
[2017-06-26] MEDS ORDERED: ONDANSETRON 4MG/2ML VIAL (J2405) As Ordered ONE (16:27)
[2017-06-26] MEDS ORDERED: SUCCINYLCHOLINE 100 MG/5 ML SYRINGE (J0330) As Ordered ONE (16:32)
[2017-06-26] MEDS ORDERED: ONDANSETRON 4MG/2ML VIAL (J2405) IV PRN ×2 (17:45→18:15)
[2017-06-26] MEDS ORDERED: MORPHINE 4 MG/ML 1ML SYRINGE IV PRN (17:45)
[2017-06-26] MEDS ORDERED: ACETAMINOPHEN TAB 650MG DOSE (2X325MG) PO PRN (17:45)
[2017-06-26] MEDS ORDERED: NORCO, ANEXSIA 5/325MG TABLET (HYDROcodone/ACETAMINOPHEN) PO PRN (17:45)
[2017-06-26] MEDS ORDERED: NITROGLYCERIN 0.4 MG SUBL TABLET SL SCH (17:45)
--- NOTE | 2017-06-26 17:53 | ROOPDOC ---
[facility] Report Of Operation Report of Operation DATE OF PROCEDURE: 06/26/17 PREPROCEDURE DIAGNOSES: sepsis, acute abdomen. POSTPROCEDURE DIAGNOSES: perforated appendicitis. PROCEDURE: Diagnostic Laparoscopy, Laparoscopic Appendectomy. SURGEON: Luz Marina Lucas MD SPINDLE SANDER: ANESTHESIA: General Anesthesia. ESTIMATED BLOOD LOSS: Approximately 40 mL. COMPLICATIONS: none. REMARKS: 82 M with 2 days history of abdominal pain and fever, found hypotensive on arrival to the ED. He has been taking Coumadin with initial INR of 2.3. He received 2 u FFP prior to the OR. PROCEDURE NOTE: Retrocecal appendix with the appendix gangrenous throughout most of its course. Base appears relatively spared and healthy, but forshortened mesoappendix which needed to be controlled with clips as the mesoappendix was friable and broke apart with the harmonic scalpel. DESCRIPTION OF PROCEDURE: Patient presented to the emergency room with hypotension and sepsis associated with abdominal pain. He was suspected to have sepsis from an intra-abdominal catastrophe, possible perforation. There is evidence of perforated appendicitis on CT. He was given a dose of vancomycin and Invanz in the emergency room. He was resuscitated in the ER with IV fluids as well as given 2 units of fresh frozen plasma to reverse his anticoagulation. He was using Coumadin. He responded to diabetes fluids and the fresh frozen plasma with normalization of his initially low blood pressure. He was taken to the OR, placed supine on the table. Sequential compression device placed for DVT prophylaxis. General endotracheal anesthesia started. The abdomen prepped and draped in usual sterile fashion. After a surgical timeout, we began our surgery Entry into the abdomen done through an incision above the umbilicus. Veress needle inserted on a controlled fashion. Intra-abdominal placement confirmed with saline drop technique. CO2 insufflation started to a pressure of 15 mmHg. Using the same incision a 12 mm port was placed under direct vision of laparoscope. Insertion site was inspected for injury and none was found. He was placed on a Trendelenburg position the right side tilted to about 30 to allow for better visualization of the appendix. 2 working ports were placed at the suprapubic area and left lower quadrant area under direct vision. Operative findings: Initially appendix was not visible. There was hardness at the base of the cecum and this was traced behind it and lateral to it consistent with a retrocecal appendix. There was fibrous covering in the appendix. The midportion and tip of it is noted to be gangrenous with a fecalith visible at the area of the perforation. There was a good amount of purulent fluid in the right gutter and associated fibrin deposition and secondary inflammation of the peritoneum and surrounding mesentery and small bowel. Retrocecal appendix with the appendix gangrenous throughout most of its course. Base appears relatively spared and healthy, but forshortened mesoappendix which needed to be controlled with clips as the mesoappendix was friable and broke apart with the harmonic scalpel. The appendix was located, the adhered bowels and mesentery was widely dissected away from the appendix freeing up the appendix from the inflammatory adhesions using [place] instrument and suction irrigation. The Surrounding bowels retracted away from the appendix. The fibrous attachments of the appendix to the cecal wall was divided under direct vision with the Harmonic Scalpel. This was grasped to pull the base of the appendix into view. The mesoappendix was divided using Harmonic scalpel down to the base. As we were trying to get into the mesial appendix the mesial appendix broke off. Bleeding that was controlled with hemoclips. A 45 mm stapler with a blue load was used to divide the appendix at the base. The stump itself appears healthy. There is small amount of oozing in between the staple line which was controlled with Bovie cautery. Appendix was then delivered into an Endo Catch bag. After re-insufflation the surgical site was inspected for hemostasis, the visualized fluid collections irrigated and suctioned off until clear return. The previous bleeding at the mesial appendix was confirmed to be controlled and no further oozing at the area. Surrounding areas of the abdomen and inspected for fluid collections or signs of injury. A 10 flat ANTOINE drain was left in place close to the abdomen initial stump for monitoring and for drainage of fluid irrigation. The abdomen was deflated. All ports removed. The umbilical fascial defect repaired with 0 Vicryl in a mattress fashion. All skin incisions closed with 4-0 Monocryl in a subcuticular fashion. Steri-Strips and gauze dressing used for wound coverage. Patient was promptly awake and extubated and brought to recovery room stable. All counts of sponges and instruments verified to be correct. BARBER LUCAS MD Jun 26, 2017 17:53
[2017-06-26] MEDS ORDERED: PERCOCET 5MG/325MG TAB As Ordered ONE (17:59)
[2017-06-26] MEDS: PERCOCET 5MG/325MG TAB PO PRN ×2 (18:00→18:32)
[2017-06-26] MEDS ORDERED: LR 1,000 ML IV SCH ×2 (18:00→18:15)
[2017-06-26] MEDS ORDERED: fentaNYL 100 MCG/2 ML INJECTION (J3010) IV PRN (18:15)
[2017-06-26 18:50] VITALS: BP 154/69
--- NOTE | 2017-06-26 19:15 | ECGEPIP ---
Stationary ECG Study [facility] - ED Test Date: 2017-06-26 Pat Name: BERENICE ROSALES Department: Room: - Gender: M Roll Tension Tester: KELBY : [id number] Requested By: Damaris Sanchez Order Number: [id number] Reading MD: Damaris Sanchez Measurements Intervals [place] Rate: 74 P: AL: 0 QRS: -5 QRSD: 83 T: 57 QT: 383 QTc: 426 Interpretive Statements ATRIAL FIBRILLATION LOW QRS VOLTAGE IN PRECORDIAL LEADS SEPTAL MYOCARDIAL INFARCTION, PROBABLY OLD POSSIBLE INFERIOR MYOCARDIAL INFARCTION, PROBABLY OLD NO OLD ECG FOR COMPARISON Electronically Signed On 06-26-2017 19:14:46 EST by Damaris Sanchez
[2017-06-26 19:49] VITALS: BP 153/104
[2017-06-26] MEDS ORDERED: KETOROLAC 30 MG/ML VIAL (J1885) As Ordered ONE (20:14)
[2017-06-26] MEDS ORDERED: KETOROLAC 30 MG/ML VIAL (J1885) IV ONE (20:15)
[2017-06-26 20:30] VITALS: BP 158/70
[2017-06-26] MEDS: CIPROFLOXACIN 400 MG in APPROPRIATE DILUENT 1 EA IV SCH (20:37)
[2017-06-26 21:00] VITALS: BP 127/60
[2017-06-26] MEDS ORDERED: VALSARTAN 40MG TABLET (DIOVAN) PO SCH (21:00)
[2017-06-26] MEDS: FAMOTIDINE 20 MG TAB PO SCH (21:15)
[2017-06-26] MEDS: CETIRIZINE (ZyrTEC) 10 MG TAB PO SCH (21:15)
[2017-06-26] MEDS: GABAPENTIN 300 MG CAP PO SCH (21:15)
[2017-06-26] MEDS: SIMVASTATIN 20 MG TAB PO SCH (21:16)
[2017-06-26] MEDS: metroNIDAZOLE 500 MG in APPROPRIATE DILUENT 1 EA IV SCH (21:16)
[2017-06-26] MEDS: ASPIRIN 81 MG ENTERIC TAB PO SCH (21:16)
[2017-06-26] MEDS: SENOKOT S TAB PO SCH (21:16)
[2017-06-26 21:22] VITALS: BP 127/62
[2017-06-26 23:00] VITALS: BP 125/58
[2017-06-27] VITALS (13 sets, daily range): BP systolic 90–152; BP diastolic 51–67
[2017-06-27] MEDS ORDERED: INFLUENZA VIRUS VACCINE HIGH DOSE 0.5 ML SYRINGE (90662) IM SCH (03:00)
[2017-06-27] MEDS ORDERED: PREVNAR 13 VACCINE SYRINGE (CPT CODE:90670) IM SCH (03:00)
[2017-06-27] MEDS ORDERED: FUROSEMIDE 40 MG/4 ML VIAL (J1940) As Ordered ONE (03:07)
[2017-06-27] MEDS ORDERED: FUROSEMIDE 40 MG/4 ML VIAL (J1940) IV STA (03:10)
[2017-06-27 04:40] LABS: MEAN CORPUSCULAR HEMOGLOBIN 38.8 pg (27.0-33.0); MEAN CORPUSCULAR HGB CONC 32.7 g/dl (32.0-36.5); PLATELET COUNT, AUTOMATED 133 10^3/uL (150-450); RED CELL DISTRIBUTION WIDTH 13.3 % (11.5-14.5); WHITE BLOOD COUNT 7.6 10^3/uL (4.0-10.0)
[2017-06-27 04:41] LABS: ADD MANUAL DIFFER YES; BLASTS POS FLAG; DIFF SLIDE NUMBER 86; LEFT SHIFT POS FLAG; MEAN CORPUSCULAR VOLUME 118.9 fl (80.0-96.0); POSITIVE MORPH POS FLAG
[2017-06-27 04:49] LABS: INR 1.69
[2017-06-27] MEDS: metroNIDAZOLE 500 MG in APPROPRIATE DILUENT 1 EA IV SCH ×3 (04:50→20:15)
[2017-06-27 04:59] LABS: CALCIUM LEVEL 7.7 MG/DL (8.8-10.2); CREATININE FOR GFR 2.67 MG/DL (0.70-1.30); GLOMERULAR FILTRATION RATE 24.6 (>35); POTASSIUM SERUM 4.7 MEQ/L (3.5-5.1)
[2017-06-27 05:25] LABS: BANDS 1 % (< 11)
--- NOTE | 2017-06-27 06:13 | REP ---
CT ABDOMEN AND PELVIS WITHOUT CONTRAST: 06/26/2017. Clinical history: Fever, abdominal pain. Comparison: Portable chest today. Technique: No oral or IV contrast given per request. Coronal and sagittal reconstructions provided in the abdomen and pelvis. Findings: CT abdomen: Lung bases show deep sulcus atelectasis or patchy infiltrates right greater than left. There are calcified pleural plaques on the diaphragms. Some basilar fibrotic changes are noted. Heart shows some artifact from pacer wire. It is mildly prominent. A small hiatal hernia suspected but with abundant fat around it in the lower chest. There is no hepatomegaly or focal hepatic lesion. Some loss of detail as the patient's arms had to be over his lower chest and upper abdomen. There is no splenomegaly or focal splenic lesion. Gallbladder shows no calcified stone or mass. Pancreas without mass, ductal dilatation or inflammatory changes in the adjacent fat. No peripancreatic adenopathy. There is atherosclerotic calcification of the lower thoracic and the abdominal aorta as well as its origin vessels particularly celiac axis and SMA but also the renal artery origins. There is an JORGE with some calcifications noted as well. No adrenal mass identified. The kidneys show no stone, mass, hydronephrosis or cyst. Some perinephric stranding noted. No hydroureter or ureteral stone on either side. There is diverticulosis left colon with a few scattered diverticula in the transverse colon but no diverticulitis in those segments. Scant diverticula in the right colon. However, there are extensive inflammatory changes about the cecum and dilated appendix with inflammation adjacent to it suggesting acute appendicitis. There is one small air bubble on image [id number] adjacent to the cecum that could be a thin-walled diverticulum or free air. No other air bubbles or signs of free air. Inflammatory changes are seen along the lateral coronal fascia and peritoneal gutter. No gross ascites. Small bowel loops unremarkable. The bones show degenerative changes in the lumbar and lower thoracic spine and posterior elements without compression fracture. The visualized ribs were intact. CT pelvis: The bony hips, pelvis, sacrum, and SI joints show degenerative change without destructive lesion. Distal left colon, sigmoid and rectum shows changes of diverticulosis without diverticulitis. No pelvic free fluid or adenopathy. The bladder is nearly empty. No distal ureteral dilatation or stone or bladder calculus. No ventral or inguinal hernia nor pathologic inguinal adenopathy. Impression: 1. Extensive inflammatory changes about the cecum and appendix with the appendix dilated and with extensive infiltration around it. This suggest appendicitis. There may be one air bubble nearby so early perforation may be present versus that air bubble along the cecal margin representing a thin-walled diverticulum. No generalized free air or ascites but with infiltration tracking along the peritoneal gutter and lateral conal fascia below it. Inflammatory changes are at and below the iliac crest. 2. Diverticulosis without diverticulitis in the transverse through the sigmoid colon. 3. There are no other significant acute findings in the abdomen or pelvis. 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 4. Findings discussed with the attending ED physician at 9:38 AM. Signed by Cesar Jones MD 06/26/2017 07:05 P
[2017-06-27] MEDS ORDERED: FUROSEMIDE 100 MG/10 ML VIAL (J1940) IV ONE ×2 (06:30→17:45)
--- NOTE | 2017-06-27 07:38 | REP ---
AP PORTABLE CHEST: 06/26/2017 CLINICAL HISTORY: Fever. COMPARISON: Chest x-ray 05/29/2009. FINDINGS: A lordotic portable chest was performed. The lordotic projection with AP portable technique enlarges the cardiac silhouette beyond normal. It still appears somewhat prominent with a single lead pacer of the left upper chest with lead terminating in the right ventricle. There is pulmonary vascular redistribution. Underlying fibrosis makes early interstitial edema difficult to exclude. The posterior lower lung zones are very poorly evaluated on a lordotic chest. Calcified aortic arch without aneurysm. Airway midline. IMPRESSION: Cardiomegaly with pulmonary venous hypertension. The underlying fibrosis makes early interstitial edema difficult to exclude. No gross infiltrates visible but the posterior lower lung zones cannot be evaluated on a lordotic portable chest. Signed by Cesar Jones MD 06/27/2017 09:05 A
--- NOTE | 2017-06-27 07:39 | REP ---
Portable chest, 06:26 a.m., single AP view, patient sitting: Comparison is 06/26/2017. There is cardiomegaly, unchanged. There is mild interstitial coarsening, unchanged. This could be acute, chronic or combination. There is a pacemaker, unchanged. The elizabeth, mediastinum, bony thorax are unremarkable. Impression: No interval change. Cardiomegaly and mild interstitial coarsening. Signed by Eliecer Bullard MD 06/27/2017 07:30 A
[2017-06-27] MEDS: CIPROFLOXACIN 400 MG in APPROPRIATE DILUENT 1 EA IV SCH ×2 (08:18→20:11)
[2017-06-27] MEDS: VITAMIN D 1,000 INTERNATIONAL UNITS TABLET PO SCH (08:26)
[2017-06-27] MEDS: FEXOFENADINE 60 MG TAB PO SCH (08:26)
[2017-06-27] MEDS: OMEGA-3 1050MG CAPSULE PO SCH (08:26)
[2017-06-27] MEDS: GABAPENTIN 300 MG CAP PO SCH ×2 (08:27→20:14)
[2017-06-27] MEDS: SENOKOT S TAB PO SCH ×2 (08:27→20:14)
[2017-06-27] MEDS: FERROUS SULFATE 325MG TAB PO SCH (08:27)
[2017-06-27] MEDS: NORCO, ANEXSIA 5/325MG TABLET (HYDROcodone/ACETAMINOPHEN) PO PRN (08:35)
[2017-06-27] MEDS ORDERED: TORSEMIDE 20 MG TAB PO SCH (09:00)
--- NOTE | 2017-06-27 10:42 | IPNPDOC ---
Subjective General Date/Time Seen The patient was seen on 06/27/17 at 10:35. Subject Chief Complaint/History The patient is a 82-year-old male admitted with a reason for visit of sepsis from perforated appendicitis Patient remains hemodynamically stable though concerns for his breathing, possible fluid overload, low urine output overnight. He denies any abdominal pain, chest pain. He had some back pains last night. Current Medications Current Medications Current Medications Acetaminophen (Tylenol Tab) 650 mg Q4HP PRN PO MILD PAIN or TEMP > 101; Start 06/26/17 at 17:45; Stop 07/26/17 at 17:44 Acetaminophen/ Hydrocodone Bitart (Isle, Anexsia 5/325) 1 tab Q4HP PRN PO MODERATE PAIN (PS 5-7); Start 06/26/17 at 17:45; Stop 07/03/17 at 17:44 Acetaminophen/ Hydrocodone Bitart (Isle, Anexsia 5/325) 2 tab Q6HP PRN PO SEVERE PAIN (PS 8-10) Last administered on 06/27/17 08:35; Start 06/26/17 at 17 :45; Stop 07/03/17 at 17:44 Albuterol Sulfate (Proventil Neb) 2.5 mg Q4HP PRN NEB SOB/WHEEZING; Start 06/27 at 04:45; Stop 07/27/17 at 04:44 Aspirin (Ecotrin) 81 mg QHS PO Last administered on 06/26/17 21:16; Start 06/26/17 at 21:00; Stop 07/26/17 at 20:59 Cetirizine HCl (ZyrTEC) 20 mg QHS PO Last administered on 06/26/17 21:15; Start 06/26/17 at 21:00; Stop 07/26/17 at 20:59 Ciprofloxacin 400 mg/IV Miscellaneous Supplies 200 ml @ 200 mls/hr Q12H IV Last administered on 06/27/17 08:18; Start 06/26/17 at 20:00; Stop 07/03/17 at 19:59 Famotidine (Pepcid) 40 mg QHS PO Last administered on 06/26/17 21:15; Start 06/26/17 at 21:00; Stop 07/26/17 at 20:59 Fentanyl Citrate (Sublimaze) 25 mcg Q5MP PRN IV MODERATE PAIN (PS 4-7) Last administered on 06/26/17 18:10; Start 06/26/17 at 18:15; Stop 06/26/17 at 19:15 ; Status DC Ferrous Sulfate (Ferrous Sulfate) 325 mg DAILY PO Last administered on 08:27; Start 06/27/17 at 09:00; Stop 07/27/17 at 08:59 Fexofenadine HCl (Jackie) 180 mg DAILY PO Last administered on 06/27/17 08:26 ; Start 06/27/17 at 09:00; Stop 07/27/17 at 08:59 Fish Oil (Blanco-3 (1050mg)) 1 ea DAILY PO Last administered on 06/27/17 08:26 ; Start 06/27/17 at 09:00; Stop 07/27/17 at 08:59 Furosemide (LASIX injection) 40 mg STAT STAT IV Last administered on 03:17; Start 06/27/17 at 03:10; Stop 06/27/17 at 03:12; Status DC Gabapentin (Neurontin) 300 mg BID PO Last administered on 06/27/17 08:27; Start 06/26/17 at 21:00; Stop 07/26/17 at 20:59 Home Med (Med Rec Complete!) ASDIRECTED XX ; Start 06/26/17 at 11:30; Stop 06/26/17 at 11:30; Status DC Influenza Virus Vaccine (Fluzone High Dose) 0.5 ml ASDIRECTED IM ; Start at 03:00; Stop 07/27/17 at 02:59 Lactated Ringer's 1,000 ml @ 100 mls/hr Q10H IV Last administered on 21:23; Start 06/26/17 at 18:00; Stop 06/27/17 at 00:29; Status DC Lactated Ringer's 1,000 ml @ 100 mls/hr Q10H IV ; Start 06/26/17 at 18:15; Stop 06/26/17 at 19:15; Status DC Lactated Ringer's 1,000 ml @ 250 mls/hr Q4H IV Last administered on 06/26/17 12:17; Start 06/26/17 at 11:45; Stop 06/26/17 at 17:53; Status DC Metronidazole 500 mg/IV Miscellaneous Supplies 100 ml @ 100 mls/hr Q8H IV Last administered on 06/27/17 04:50; Start 06/26/17 at 21:00; Stop 07/03/17 at 20:59 Miscellaneous (Unresolved Clarification Entry) SEE LABEL COMMENTS UNRESOLVED XX ; Start 06/26/17 at 00:01; Stop 06/26/17 at 17:53; Status DC Morphine Sulfate (Morphine Sulfate Inj) 4 mg Q2HP PRN IV SEVERE PAIN (PS 8-10) Last administered on 06/26/17 19:45; Start 06/26/17 at 17:45; Stop 07/03/17 at 17:44 Nitroglycerin (Nitrostat (1/ 150)) 0.4 mg ASDIRECTED SL ; Start 06/26/17 at 17: 45; Stop 07/26/17 at 17:44 Ondansetron HCl (ZOFRAN INJection) 4 mg Q4HP PRN IV NAUSEA OR VOMITING; Start 06/26/17 at 18:15; Stop 06/26/17 at 19:15; Status DC Ondansetron HCl (ZOFRAN INJection) 4 mg Q6HP PRN IV NAUSEA OR VOMITING; Start 06/26/17 at 17:45; Stop 07/26/17 at 17:44 Oxycodone/ Acetaminophen (Percocet 5mg/ 325mg Tablet) 1 tab ASDIRECTED PRN PO MILD/MODERATE PAIN (PS 1-7) Last administered on 06/26/17 18:32; Start at 18:15; Stop 06/26/17 at 19:15; Status DC Pneumococcal Polyvalent Vaccine (Prevnar 13) 0.5 ml ASDIRECTED IM ; Start at 03:00; Stop 07/27/17 at 02:59 Senna/Docusate Sodium (Senokot S) 1 tab BID PO Last administered on 06/27/17 08:27; Start 06/26/17 at 21:00; Stop 07/26/17 at 20:59 Simvastatin (Zocor) 20 mg QHS PO Last administered on 06/26/17 21:16; Start 06/26/17 at 21:00; Stop 07/26/17 at 20:59 Torsemide (Demadex) 40 mg BID@0900,1700 PO Last administered on 06/27/17 08:27 ; Start 06/27/17 at 09:00; Stop 07/27/17 at 08:59 Valsartan (Diovan) 40 mg QHS PO Last administered on 06/26/17 21:22; Start at 21:00; Stop 06/27/17 at 07:43; Status DC Vitamin D (Vitamin D) 1,000 units DAILY PO Last administered on 06/27/17 08:26 ; Start 06/27/17 at 09:00; Stop 07/27/17 at 08:59 Allergies Coded Allergies: Penicillins (Verified Allergy, Unknown, HIVES, 11/27/12) Penicillins Cross Reactors (Verified Allergy, Unknown, HIVES, 11/27/12) Objective Physical Examination Examination GENERAL APPEARANCE: Appears comfortable. SKIN: Warm and dry. HEENT: Normocephalic, atraumatic. Mildly pale palpebral conjunctiva, anicteric sclerae. Lips and mucosa appear dry NECK: Supple, no thyromegaly. No obvious jugular venous distention. LUNGS: Audible gurgling with his breathing until his lung sounds are fairly clear with no wheezing, occasional mild crackles. HEART: No chest wall abnormalities. Regular rate and rhythm with no murmurs appreciated. Pacer located in the left chest ABDOMEN: Abdomen is round, soft, mild distended port sites are clean, dry and intact. ANTOINE drain has minimal serosanguineous fluid. EXTREMITIES: Left BKA. Mild edema identified. Vital Signs Vital Signs Date Time Temp Pulse Resp B/P (MAP) Pulse Ox O2 Delivery O2 Flow Rate FiO2 06/27/17 10:00 60 16 118/58 (78) 93 Nasal Cannula 3.0 06/27/17 08:00 99.0 I&Os I&O- Last 24 Hours up to 6 AM 06/28/17 06:00 Intake Total 240 ml Output Total 200 ml Balance 40 ml Laboratory Data Labs 24H Laboratory Tests 2 06/26/17 15:15: Prothrombin Time 19.8H, Prothromb Time International Ratio 1.63 06/27/17 04:14: Prothrombin Time 20.4H, Prothromb Time International Ratio 1.69, Nucleated Red Blood Cells % (auto) 0.0, Neutrophils 86H, Band Neutrophils 1, Lymphocytes ( Manual) 4L, Monocytes (Manual) 8, Myelocytes 1H, Platelet Estimate DECREASED, Macrocytosis 3+, Anion Gap 7L, Glomerular Filtration Rate 24.6L, Blood Urea Nitrogen 51H, Creatinine 2.67H, Sodium Level 135L, Potassium Level 4.7, Chloride Level 103, Carbon Dioxide Level 25, Calcium Level 7.7L, Total Creatine Kinase 945#H, Creatine Kinase MB 2.9, Creatine Kinase MB Relative Index 0.30, Troponin I 1.59#*H CBC/BMP Laboratory Tests 06/27/17 04:14 Red Blood Count 2.06 L, Mean Corpuscular Volume 118.9 H, Mean Corpuscular Hemoglobin 38.8 H, Mean Corpuscular Hemoglobin Concent 32.7, Red Cell Distribution Width 13.3, Calcium Level 7.7 L, Total Creatine Kinase 945 #H Microbiology Microbiology 06/26/17 Blood Culture - Preliminary, Resulted No growth after 24 hours . All specim... 06/26/17 Influenza Virus Type A Antigen - Final, Complete 06/26/17 Influenza Virus Type B Antigen - Final, Complete 06/26/17 Urine Culture, Received Pending Impression Sepsis with hypotension on presentation from perforated appendicitis status post laparoscopic appendectomy On anticoagulation with Coumadin which is reversed with FFP History of congestive heart failure Acute renal failure with oliguria He is starting to respond with 80 mg of Lasix. There were concerns over night of how he is breathing felt like he was fluid overloaded. IV fluid is on hold. He initially did not respond to 40 mg of Lasix. He appears relatively comfortable and not short of breath but not taking much deep breaths. His lungs sounds are fairly clear. Chest x-ray shows some mild coursing but no gross pulmonary edema. Hopefully the Lasix we'll convert his oliguria and would have to watch his fluid status carefully. He has some elevation of his troponin which is reactive to his hypotensive presentation, we'll trend this for now. I have resumed his aspirin and Coumadin is on hold. Probably can resume this later today has no signs of active bleeding on the ANTOINE drain. Medical services concurrently seeing him. Plan / VTE VTE Prophylaxis Ordered?: No VTE Exclusion Mechanical Proph: Other (on coumadin) BARBER LAYNE MD Jun 27, 2017 10:42
--- NOTE | 2017-06-27 11:40 | IPNPDOC ---
Subjective Date Seen The patient was seen on 06/27/17. Subjective Chief Complaint/HPI Patient seen and examined at the bedside. States that he is feeling a bit groggy this morning from the surgery last night. He denies any complaints of abdominal pain, or shortness of breath, chest pain, palpitations. Otherwise does not offer any acute complaints at this time. Objective Physical Examination General Exam: Positive: Alert, Cooperative, No Acute Distress ENT Exam: Positive: Atraumatic, Mucous membr. moist/pink Neck Exam: Negative: JVD Chest Exam: Positive: Diminished, Other (faint bibasilar crackles noted on auscultation) Heart Exam: Positive: Rate Normal, Normal S1, Normal S2 Abdomen Exam: Positive: Soft, Other (Mildly distended with ANTOINE drain noted to be draining serosanguionous fluid), Negative: Tenderness Extremity Exam: Positive: Other (Left BKA noted. ), Negative: Tenderness Assessment /Plan Plan/VTE VTE Prophylaxis Ordered?: Yes VTE Exclusion Mechanical Proph: Other (on coumadin) Plan Possible Perforated Appendicitis with Peritonitis s/p Laparoscopic Appendectomy on 06/26/17 CT of the Abd/Pelvis noted s/p ANTOINE Drain placement On Cipro/Flagyl as per surgery Sepsis 2/2 Above The patient's B/P responded to IVF Hydration Blood cultures pending Patient with normal WBC this am, and afebrile overnight Cont on Cipro and Flagyl as per surgery Elevated Troponin Level 2/2 Sepsis, Hypotension on presentation Patient with no acute c/o chest pain, palpitations, SOB The patient's Optical Assistant Dr. Mac was contacted by the ER physician Cont to monitor on Telemetry Acute Kidney Injury Superimposed on CKD Stage III 2/2 Above Serum Cr up from 2.33 to 2.67 this AM (Baseline 1.6-1.7) s/p IVF Hydration Hold Nephrotoxic meds and renally dose other meds The patient's UOP was low overnight, however he was given doses of Lasix due to dyspnea We will with hold further diuretic therapy at this time, as the patient's Serum Cr is worsening, and is likely attributable Sepsis, Hypotension Cont to monitor I/O's Will f/u with BMP in the AM Nephrology consulted Atrial Fibrillation on Coumadin Rate controlled Coumadin restarted as per Surgery--we will cont to monitor INR's Macrocytic Anemia Hgb down from 8.7 on admission to 8.0 this AM--likely 2/2 underlying CKD, surgical blood loss Consider blood transfusion for Hgb <8.0 Hypertension, stable Dyslipidemia On statin 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 VS, I&O, 24H, Fishbone Vital Signs/I&O Vital Signs Date Time Temp Pulse Resp B/P (MAP) Pulse Ox O2 Delivery O2 Flow Rate FiO2 06/27/17 10:00 60 16 118/58 (78) 93 Nasal Cannula 3.0 06/27/17 08:00 99.0 I&O- Last 24 Hours up to 6 AM 06/28/17 06:00 Intake Total 240 ml Output Total 200 ml Balance 40 ml Laboratory Data 24H LABS Laboratory Tests 2 06/26/17 15:15: Prothrombin Time 19.8H, Prothromb Time International Ratio 1.63 06/27/17 04:14: Prothrombin Time 20.4H, Prothromb Time International Ratio 1.69, Nucleated Red Blood Cells % (auto) 0.0, Neutrophils 86H, Band Neutrophils 1, Lymphocytes ( Manual) 4L, Monocytes (Manual) 8, Myelocytes 1H, Platelet Estimate DECREASED, Macrocytosis 3+, Anion Gap 7L, Glomerular Filtration Rate 24.6L, Blood Urea Nitrogen 51H, Creatinine 2.67H, Sodium Level 135L, Potassium Level 4.7, Chloride Level 103, Carbon Dioxide Level 25, Calcium Level 7.7L, Total Creatine Kinase 945#H, Creatine Kinase MB 2.9, Creatine Kinase MB Relative Index 0.30, Troponin I 1.59#*H CBC/BMP Laboratory Tests 06/27/17 04:14 Red Blood Count 2.06 L, Mean Corpuscular Volume 118.9 H, Mean Corpuscular Hemoglobin 38.8 H, Mean Corpuscular Hemoglobin Concent 32.7, Red Cell Distribution Width 13.3, Calcium Level 7.7 L, Total Creatine Kinase 945 #H Microbiology Microbiology 06/26/17 Blood Culture - Preliminary, Resulted No growth after 24 hours . All specim... 06/26/17 Influenza Virus Type A Antigen - Final, Complete 06/26/17 Influenza Virus Type B Antigen - Final, Complete 06/26/17 Urine Culture - Final, Complete EMILY TIRADO MD Jun 27, 2017 11:40
[2017-06-27 13:05] LABS: CALCIUM LEVEL 7.9 MG/DL (8.8-10.2); CREATININE FOR GFR 3.12 MG/DL (0.70-1.30); GLOMERULAR FILTRATION RATE 20.5 (>35); POTASSIUM SERUM 4.6 MEQ/L (3.5-5.1)
[2017-06-27] MEDS: WARFARIN SOD 2.5 MG TAB PO SCH (16:15)
[2017-06-27] MEDS: CETIRIZINE (ZyrTEC) 10 MG TAB PO SCH (20:14)
[2017-06-27] MEDS: SIMVASTATIN 20 MG TAB PO SCH (20:14)
[2017-06-27] MEDS: FAMOTIDINE 20 MG TAB PO SCH (20:14)
[2017-06-27] MEDS: ASPIRIN 81 MG ENTERIC TAB PO SCH (20:14)
[2017-06-28] VITALS (13 sets, daily range): BP systolic 92–153; BP diastolic 50–76
[2017-06-28] MEDS: metroNIDAZOLE 500 MG in APPROPRIATE DILUENT 1 EA IV SCH ×3 (05:11→21:50)
[2017-06-28 05:25] LABS: MEAN CORPUSCULAR HEMOGLOBIN 38.4 pg (27.0-33.0); MEAN CORPUSCULAR HGB CONC 32.4 g/dl (32.0-36.5); PLATELET COUNT, AUTOMATED 109 10^3/uL (150-450); RED CELL DISTRIBUTION WIDTH 13.3 % (11.5-14.5); WHITE BLOOD COUNT 6.7 10^3/uL (4.0-10.0)
[2017-06-28 05:26] LABS: ADD MANUAL DIFFER YES; DIFF SLIDE NUMBER 75; LEFT SHIFT POS FLAG; MEAN CORPUSCULAR VOLUME 118.4 fl (80.0-96.0); POS COUNT POS FLAG; POSITIVE MORPH POS FLAG
[2017-06-28 05:27] LABS: CALCIUM LEVEL 7.5 MG/DL (8.8-10.2); CREATININE FOR GFR 3.64 MG/DL (0.70-1.30); GLOMERULAR FILTRATION RATE 17.2 (>35); POTASSIUM SERUM 4.4 MEQ/L (3.5-5.1)
[2017-06-28 05:34] LABS: INR 2.26
[2017-06-28 06:34] LABS: BANDS 1 % (< 11)
[2017-06-28] MEDS: CIPROFLOXACIN 400 MG in APPROPRIATE DILUENT 1 EA IV SCH (07:43)
[2017-06-28] MEDS: VITAMIN D 1,000 INTERNATIONAL UNITS TABLET PO SCH (08:21)
[2017-06-28] MEDS: OMEGA-3 1050MG CAPSULE PO SCH (08:21)
[2017-06-28] MEDS: GABAPENTIN 300 MG CAP PO SCH ×2 (08:21→20:33)
[2017-06-28] MEDS: SENOKOT S TAB PO SCH ×2 (08:21→20:34)
[2017-06-28] MEDS: FERROUS SULFATE 325MG TAB PO SCH (08:21)
[2017-06-28] MEDS: FEXOFENADINE 60 MG TAB PO SCH (08:22)
[2017-06-28] MEDS ORDERED: FUROSEMIDE 100 MG/10 ML VIAL (J1940) IV ONE ×2 (09:45→20:00)
--- NOTE | 2017-06-28 11:54 | CR ---
DATE OF CONSULTATION: 06/27/2017 NEPHROLOGY CONSULTATION FOR: Gary Lucas MD at the request Dr. Howard Bernabe. REASON FOR CONSULTATION: Acute renal failure in this gentleman who is in intensive care unit following surgery for a ruptured appendix. HISTORY OF PRESENT ILLNESS: Mr. De Anda is 82-year-old gentleman who was brought to emergency room at [facility] on 06/26/2017 due to abdominal pain for 2 days and fever up to 102 degrees Fahrenheit. CAT scan of abdomen and pelvis done in emergency room showed inflammation around the appendix with possible air bubble. A diagnosis for early perforation of appendix was made and patient was taken to operating room (OR) last evening after fluid resuscitation for hypotension. On presentation to emergency room, he was quite hypotensive with blood pressure down in 70s. He has known history of atrial fibrillation and has been on chronic anticoagulation for which he received fresh frozen plasma (FFP) for reversal. Following surgery, he is admitted to intensive care unit and continued to have decreased urine output. His creatinine has increased to 3.1 today due to which a nephrology consultation was requested this afternoon. PAST MEDICAL AND SURGICAL HISTORY: Significant for: 1. History of hypertension. 2. History of coronary artery disease. 3. History of dyslipidemia. 4. 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 5. History of stage III of chronic kidney disease. 6. History of chronic atrial fibrillation on anticoagulation. 7. History of permanent pacemaker placement. Past surgical history is significant for pacemaker placement, left zyqpr-ngn-[id number] amputation, coronary angioplasty with stents. MEDICATIONS: His home medications include: - aspirin 81 mg daily - vitamin D 1000 units daily - Pepcid 20 mg at bedtime - ferrous sulfate 325 mg daily - Jackie 180 mg daily - gabapentin 300 mg twice a day - nitroglycerin as needed - simvastatin 20 mg daily - torsemide 20 mg daily - valsartan 40 mg daily - Coumadin 5 mg once a week and 2.5 mg six days a week Current medications in the hospital include: - Coumadin 2.5 mg daily - vitamin D 1000 units daily - ferrous sulfate 325 mg daily - Jackie 180 mg daily - fish oil one tablet daily - albuterol nebulizers every 4 hour as needed for dyspnea - metronidazole 500 mg every 8 hours - Senokot-S one tablet twice a day - aspirin 81 mg daily - Pepcid 40 mg daily - Neurontin 300 mg twice a day - Zocor 20 mg daily - ciprofloxacin 400 mg every 12 hours - He also receiving Truman for pain control in addition to morphine for severe pain and Zofran for nausea. ALLERGIES: Patient has allergy to PENICILLIN. PERSONAL AND SOCIAL HISTORY: Patient denies any alcohol or drug use. He has no history of smoking. REVIEW OF SYSTEMS: Patient is not a great historian. He is just not feeling well. He did have fever up to 102 degrees Fahrenheit prior to admission. He was hypotensive on admission and received aggressive IV fluid hydration with fluid boluses. He is currently in intensive care unit and not on any pressors. His appetite is poor and there is no vomiting. He underwent appendix surgery this last evening. He is not very active at home and reports difficulty with ambulating. He denies any chest pain. However, he is short of breath. On review of endocrine system, there is no history of diabetes or thyroid problems. Hematological system is significant for chronic anticoagulation with Coumadin due to atrial fibrillation. Neurological system is significant for peripheral neuropathy but no history of seizures. PHYSICAL EXAMINATION: Elderly gentleman, lying in the bed with head elevated at about 70 degrees. His temperature is 98.6 degrees Fahrenheit, heart rate about 60 per minute and respiratory rate 22 per minute. Blood pressure is 105/50 mmHg and he is using oxygen via nasal cannula. His oxygen saturation is about 90%. Head is atraumatic. Pupils are equal and reactive to light and sclera is anicteric. Neck veins are distended about 12 cm above sternal angle. There is no thyroid enlargement. Heart sounds are irregular in rhythm. Lungs have bilateral wheezing and rhonchi. Abdomen: Obese and soft. Surgical dressings are intact in lower abdomen. Bowel sounds are hypoactive. Extremities have no cyanosis or clubbing. He has left xktbb-cro-wdrk amputation and right leg has 2+ edema. Skin has no rash or ulcers. Neurologically, he is awake, grossly intact and able to answer questions. LABORATORY DATA: On admission, his BUN was 43 and creatinine 2.33. Today, his BUN is 56 and creatinine 3.12. CPK is up to 928 and troponin was initially 0.31, then 1.59 and today 0.93. Sodium is 135 and potassium 4.6. WBC count 7.6, hemoglobin 8.0, hematocrit 24.5. INR today is 1.69. Urinalysis showed only 1+ blood and no protein. Chest x-ray done this morning showed cardiomegaly and mild interstitial coarsening. CT scan of abdomen and pelvis that was done in the emergency room on admission showed extensive inflammatory changes about cecum and appendix with dilated appendix and extensive inflammation around it. Diverticulosis was noted. There was no hydronephrosis and kidneys were reported unremarkable. PROBLEMS: 1. Acute renal failure superimposed on chronic kidney disease. Patient has reported history of stage III of chronic kidney disease and he did have elevated creatinine on admission. His true baseline kidney function is not known. He is currently oliguric, which is most likely related to septic shock as patient presented with blood pressure in 70s yesterday. He has received large amount of IV fluid and now he is somewhat hypervolemic. He has not responded to doses of diuretic that he has received earlier. I have discussed with the patient and his family, who is present in the room, about potential need for dialysis within next 24 hours unless his kidney function starts improving. His blood pressure is only borderline and we can try a dose of Lasix 100 mg intravenously and see if he responds. 2. Congestive heart failure. At present, patient is volume overloaded and short of breath. He is not suitable for further IV fluid and we will try to diurese him with intravenous Lasix 100 mg and see how he responds. 3. Anemia. Most likely he has chronic anemia as he presented with hemoglobin of 8.7. He did not have any significant blood loss and some anemia is now related to dilution as he received large amount of IV fluid. We will hold off on any plans for transfusion due to volume overload. 4. Acute appendicitis with perforation, status post appendectomy and laparoscopy. Patient is on IV metronidazole and Cipro. We may need to cut down his dose of Cipro to 400 mg every 24 hours should his kidney function not improve in next well 12-24 hours. I have discussed with patient's family about his condition and prognosis. His prognosis remains guarded due to ongoing hypertension in the setting of sepsis and renal failure. It remains to be seen how his hemodynamics improve and if he will be able to tolerate dialysis should he reach a point where dialysis will need to be considered. I thank you for involving me in the care of Mr. De Anda. I will follow him along with you.
--- NOTE | 2017-06-28 15:21 | IPN ---
DATE: 06/28/2017 SUBJECTIVE: The patient is seen and examined in the room today. The patient is breathing comfortably in room air. Denies any acute complaints. The patient's abdominal pain has been improving. Per documentation, the patient started to have increased urinary output noted on the Ferguson catheter. OBJECTIVE: VITAL SIGNS: Temperature is 97.4, pulse is 62, respiratory rate 18, blood pressure is 143/67, pulse oximetry is 97% in room air. GENERAL: No sign of acute distress, alert and oriented times three. HEENT: Normocephalic, atraumatic. Extraocular motor grossly intact. CARDIOVASCULAR: Positive S1, S2, irregular. LUNGS: Positive crackles noted on the bilateral base. ABDOMEN: Slim-Willett (ANTOINE) drainage noted on the left lower abdomen, covered with a dressing. The dressing is clean and dry. Bowel sounds present. No abdominal tenderness upon palpation. EXTREMITIES: Left below-knee amputation (BKA). No sign of cyanosis. LABORATORY DATA: WBC is 6.7, hemoglobin 7.1, hematocrit 21.9, platelet count is 109. Sodium is 133, potassium 4.4, chloride is 99, carbon dioxide 24, BUN 64, creatinine is 3.64, GFR is 17.2, fasting glucose is 110, calcium is 7.5. ASSESSMENT AND PLAN: 1. Possible perforated appendicitis with peritonitis, status post laparoscopic appendectomy on 06/26/2017. Currently, the patient has a Slim-Willett (ANTOINE) drain in place. The patient is on Cipro and Flagyl. 2. Sepsis, secondary to possible perforated appendicitis and peritonitis. Blood pressure is in the satisfactory range. Currently, the patient is on Cipro and Flagyl. 3. Elevated troponin, secondary to septic shock. Troponin started to trend down on 06/27/2017. The patient denies any chest pain. 4. Acute on chronic kidney injury. At baseline, the patient has chronic kidney disease (CKD), stage III. Nephrology has been assisting on the case. We appreciate Dr. Quach's recommendations. The patient started to have good urinary output. The patient is getting intermittent Lasix based on the patient's clinical picture. 5. Atrial fibrillation, on Coumadin. Today's international normalized ratio (INR ) is in the therapeutic range. It is 2.26. Heart rate in the satisfactory range. 6. Dyslipidemia, on statin. 7. Hypertension. The patient previously had septic shock. Current blood pressure is in the satisfactory range. The patient's blood pressure medication has been on hold due to the acute on chronic kidney injury and prior septic shock. 8. 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 9. Acute on chronic anemia. The patient has a baseline macrocytic anemia. The patient also has chronic kidney disease. Today, the patient's hemoglobin dropped below 8. We will start two packed red blood cell transfusions. 10. Deep vein thrombosis (DVT) prophylaxis, on Coumadin. Therapeutic INR. MTDD
[2017-06-28] MEDS: WARFARIN SOD 2.5 MG TAB PO SCH (16:39)
[2017-06-28] MEDS: CETIRIZINE (ZyrTEC) 10 MG TAB PO SCH (20:33)
[2017-06-28] MEDS: SIMVASTATIN 20 MG TAB PO SCH (20:33)
[2017-06-28] MEDS: ASPIRIN 81 MG ENTERIC TAB PO SCH (20:33)
[2017-06-28] MEDS: FAMOTIDINE 20 MG TAB PO SCH (20:33)
[2017-06-29] VITALS (7 sets, daily range): BP systolic 118–164; BP diastolic 55–74
--- NOTE | 2017-06-29 01:18 | IPN ---
DATE OF SERVICE: 06/28/2017 Mr. De Anda is seen this morning on his bedside. He is sitting in the chair and just finished eating breakfast. He is feeling much better today compared with yesterday. He did have some urine output. However, no significant response to diuretic. He still has dyspnea, however, oxygenating well. The patient has no fever or chills. He denies any nausea or vomiting. PHYSICAL EXAMINATION: Temperature 98.6 degrees Fahrenheit, heart rate 60 per minute and respiratory rate 18 per minute. Blood pressure of 111/57 mmHg and oxygen saturation 92%. Intake and output records from last 24 hours showed total intake 1780 and output only 470 mL. His head is atraumatic. Neck veins are still markedly distended up to angle of the jaw. Nose and throat are unremarkable. Heart sounds are slightly irregular in rhythm. Lungs with bilateral rales. Abdomen: Soft, obese and nontender. Bowel sounds are present. Extremities have no cyanosis or clubbing. He has left zqrul-lms-nnct amputation and right leg 2+ edema. Neurologically, he is much more alert and oriented today. Today's labs show WBC count 6.7, hemoglobin 7.1 and hematocrit 21.9. Platelets 109. Sodium 133 and potassium 4.4. CO2 24, BUN 64 and creatinine 3.64. Calcium level 7.5. PROBLEMS: 1. Acute renal failure superimposed on chronic kidney disease. The patient has oliguric renal failure and continues to have increase in his BUN and creatinine. He is also volume overloaded due to large amounts of intravenous (IV) fluid given at the time of admission when he was in septic shock. At this point, he does not have any uremic symptoms and no significant electrolyte abnormalities. There is no emergent need for dialysis today and we will reevaluate him again tomorrow morning. In the meantime, we will continue to try to convert him to nonoliguric state. 2. Congestive heart failure. His volume status remains decompensated. He is oxygenating reasonably well. However, has not responded to diuretics. We will give him another dose of Lasix 100 mg intravenously and monitor response. I will repeat another dose of Lasix later in the afternoon. Should he not respond to diuretics and kidney function continues to get worse, then we will consider dialysis in next 24-48 hours. In any event, I will reevaluate him tomorrow for potential need for dialysis. 3. Anemia. The patient had significant chronic anemia with some acute worsening related to dilutional effect of IV fluids and surgery. He also had septic shock which probably contributed to his anemia. He will be transfused 2 units packed red blood cells (RBCs) and I will give him Lasix 100 mg prior to transfusion. 4. Hypotension and sepsis. The patient is hemodynamically stable and afebrile. He remains on intravenous antibiotics including metronidazole and Cipro.
[2017-06-29] MEDS: metroNIDAZOLE 500 MG in APPROPRIATE DILUENT 1 EA IV SCH ×3 (04:35→21:29)
[2017-06-29 06:05] LABS: BASO % 0.3 % (0.0-1.0); EOS # 0.1 10^3/uL (0.0-0.50); EOS % 1.7 % (0.0-3.0); LYMPH # 0.7 10^3/uL (1.5-4.5); LYMPH % 11.5 % (24.0-44.0); MEAN CORPUSCULAR HEMOGLOBIN 37.3 pg (27.0-33.0); MEAN CORPUSCULAR HGB CONC 34.2 g/dl (32.0-36.5); MONO # 0.5 10^3/uL (0.0-0.8); MONO % 9.2 % (0.0-5.0); NEUTROPHILS # 4.3 10^3/uL (1.8-7.7); NEUTROPHILS % 74.3 % (36.0-66.0); PLATELET COUNT, AUTOMATED 133 10^3/uL (150-450); RED CELL DISTRIBUTION WIDTH 17.4 % (11.5-14.5); WHITE BLOOD COUNT 5.7 10^3/uL (4.0-10.0)
[2017-06-29 06:13] LABS: INR 1.98
[2017-06-29 06:17] LABS: CALCIUM LEVEL 7.5 MG/DL (8.8-10.2); CREATININE FOR GFR 2.95 MG/DL (0.70-1.30); GLOMERULAR FILTRATION RATE 21.9 (>35); POTASSIUM SERUM 3.9 MEQ/L (3.5-5.1)
[2017-06-29] MEDS: NORCO, ANEXSIA 5/325MG TABLET (HYDROcodone/ACETAMINOPHEN) PO PRN ×2 (07:52→15:50)
[2017-06-29] MEDS: OMEGA-3 1050MG CAPSULE PO SCH (07:52)
[2017-06-29] MEDS: FEXOFENADINE 60 MG TAB PO SCH (07:52)
[2017-06-29] MEDS: FERROUS SULFATE 325MG TAB PO SCH (07:52)
[2017-06-29] MEDS: GABAPENTIN 300 MG CAP PO SCH ×2 (07:52→21:28)
[2017-06-29] MEDS: SENOKOT S TAB PO SCH ×2 (07:53→21:28)
[2017-06-29] MEDS: VITAMIN D 1,000 INTERNATIONAL UNITS TABLET PO SCH (07:53)
[2017-06-29] MEDS: CIPROFLOXACIN 400 MG in APPROPRIATE DILUENT 1 EA IV SCH (08:18)
[2017-06-29] MEDS ORDERED: INFLUENZA VIRUS VACCINE HIGH DOSE 0.5 ML SYRINGE (90662) IM ONE (09:00)
[2017-06-29] MEDS ORDERED: PREVNAR 13 VACCINE SYRINGE (CPT CODE:90670) IM ONE (09:00)
[2017-06-29] MEDS ORDERED: FUROSEMIDE 100 MG/10 ML VIAL (J1940) IV ONE (10:30)
[2017-06-29] MEDS ORDERED: NYSTATIN 100,000 UNITS/GM TOPICAL PWD 15 GM TOP PRN (12:00)
--- NOTE | 2017-06-29 18:19 | IPN ---
DATE: 06/26/2017 SUBJECTIVE: Patient seen and examined in the room today. Patient denies any acute complaints. Abdominal pain has been improving. Patient continues to have good urinary output. On the cardiac telemetry patient was noted to have bradycardia, especially during the evening time. Per patient, his pacemaker was inserted by Dr. Mac and he has his pacemaker checked. OBJECTIVE: VITAL SIGNS: Temperature is 97.7, pulse is 50, respirations 20, blood pressure is 121/55, pulse oximetry 98% in room air. GENERAL: Morbidly obese. No sign of acute distress. Alert and oriented times three. HEENT: Normocephalic, atraumatic. Extraocular motor grossly intact. CARDIOVASCULAR: Positive S1, S2, irregular. LUNGS: Positive crackles, especially in bilateral bases. ABDOMEN: Slim-Willett (ANTOINE) drainage located at the left lower quadrant covered with a dressing. Dressing is clean and dry. Bowel sounds present. No abdominal tenderness upon palpation. EXTREMITIES: Patient has left below-knee amputation. Positive right lower extremity edema. LABORATORY DATA: WBC 5.7, hemoglobin 9.1, hematocrit is 26.6, platelet count is 133. Sodium is 137, potassium 3.9, chloride 103, carbon dioxide 23, BUN 71, creatinine is 2.95, GFR is 21.9, fasting glucose 109, calcium 7.5. ASSESSMENT AND PLAN: 1. Positive perforated appendicitis with peritonitis, status post laparoscopic appendectomy on 06/26/2017. Patient has ANTOINE drainage in place. Patient is currently on Cipro and Flagyl. 2. Sepsis secondary to positive perforated appendicitis and peritonitis. Blood pressure has been improved since patient on Cipro and Flagyl. One of the blood cultures obtained on 06/26/2017 preliminary showed positive for gram-negative rods. With current antibiotic regimen, patient's vital signs show improvement. No more hypotensive episodes. Will obtain a two sets of blood cultures. 3. Acute on chronic kidney injury. At baseline, patient has chronic kidney disease (CKD), stage III. In the last 24 hours patient's renal function has started to improve. Patient is currently on intermittent Lasix diuresis. Based on patient clinical picture Nephrology has been assisting on the case. We appreciate Dr. Quach's recommendations. 4. History of elevated troponin secondary to septic shock. Troponin started to trend down on 06/27/2017. Patient denies any chest pain. 5. Atrial fibrillation, Heart rate is in the satisfactory range. Intermittently patient was noted to have bradycardia. Patient is not on any rate control medications. Has pacemaker. warfarin is hold in case patient need dialysis cath placement. 6. Dyslipidemia, on statin. 7. Hypertension. Previously patient had septic shock. Blood pressure medication has been on hold due to shock. Currently blood pressure is in satisfactory range. We will continue to monitor. 8. 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 9. Acute on chronic anemia. Patient has baseline microcytic anemia. Patient with chronic kidney disease. Patient had 2 packed red blood cells transfusions on 06/28/2017. Will continue to follow patient's hemoglobin and hematocrit. 10. Deep vein thrombosis (DVT) prophylaxis. INR is close to 2. MTDD
--- NOTE | 2017-06-29 19:12 | IPN ---
DATE: 06/29/2017 The patient is now 3 days postoperative from a laparoscopic appendectomy for perforated appendicitis. He has had problems with decreased urine output, though this has been improved with diuresis by the customer pricing manager. The patient denies any nausea or vomiting. He is taking some food but his appetite is off. He has not had a bowel movement since surgery. Vital signs show that he has been afebrile with a pulse from 58 to 63 and an acceptable blood pressure. Intake and output yesterday; he had 1925 in and 1645 out. He did receive 2 units of packed red blood cells for a low hematocrit. His abdominal drain had 15 mL out yesterday and 15 mL this morning. PHYSICAL EXAMINATION The patient is alert and oriented. He has some faint wheezing with respiration, which he says is actually better than it has been. Heart exam shows a regular rhythm. The lungs do show a few faint end-expiratory wheezes on the right, in particular. The abdomen is obese and soft. He has three small bandages in place with a drain exiting his left lower quadrant connected to a Slim-Willett bulb. There is some minimal serosanguineous fluid in the bottle and in the tubing. He is wearing the rubber portion of his left below-knee amputation prosthesis but reports that he has been unable to wear the prosthesis itself because of swelling in his stump. LABORATORY DATA CBC shows a white count of 5.7 with 74% neutrophils and 12% lymphocytes with 9% monocytes. Hemoglobin is 9 with a hematocrit of 27. Chemistry profile shows BUN 71, creatinine 2.9, which is improved from 3.6 on the 7th. His electrolytes are normal. PT and INR today are 23.2 and 2. IMPRESSION: The patient is doing very well now 3 days after his laparoscopic appendectomy. His renal function is much improved with diuretics and diuresis. He has received 2 units of packed cells with improvement in his hematocrit. PLAN: The patient's antibiotics will be continued with Cipro and Flagyl. His renal function will continue to be managed by nephrology. I would anticipate that we will remove his abdominal drain in the next day or so. As he diureses, I anticipate the swelling in his stump will improve and he will be able to utilize his prosthesis. I note that an order has already been placed for physical therapy to assist in his rehabilitation. [facility]ITAL[facility]
[2017-06-29] MEDS: ASPIRIN 81 MG ENTERIC TAB PO SCH (21:27)
[2017-06-29] MEDS: FAMOTIDINE 20 MG TAB PO SCH (21:28)
[2017-06-29] MEDS: SIMVASTATIN 20 MG TAB PO SCH (21:28)
[2017-06-29] MEDS: CETIRIZINE (ZyrTEC) 10 MG TAB PO SCH (21:29)
[2017-06-30 04:00] VITALS: BP 142/67
[2017-06-30] MEDS: metroNIDAZOLE 500 MG in APPROPRIATE DILUENT 1 EA IV SCH ×2 (05:36→12:41)
[2017-06-30 06:13] LABS: MEAN CORPUSCULAR HEMOGLOBIN 36.2 pg (27.0-33.0); MEAN CORPUSCULAR HGB CONC 32.9 g/dl (32.0-36.5); PLATELET COUNT, AUTOMATED 158 10^3/uL (150-450); RED CELL DISTRIBUTION WIDTH 17.2 % (11.5-14.5); WHITE BLOOD COUNT 5.8 10^3/uL (4.0-10.0)
[2017-06-30 06:15] LABS: ADD MANUAL DIFFER YES; DIFF SLIDE NUMBER 30; POS COUNT POS FLAG; POSITIVE MORPH POS FLAG
[2017-06-30 06:17] LABS: INR 1.56
[2017-06-30 06:29] LABS: CALCIUM LEVEL 7.8 MG/DL (8.8-10.2); CREATININE FOR GFR 2.15 MG/DL (0.70-1.30); GLOMERULAR FILTRATION RATE 31.6 (>35); POTASSIUM SERUM 3.9 MEQ/L (3.5-5.1)
[2017-06-30 06:56] LABS: BASOPHILS 1 % (0-4); EOSINOPHILS 5 % (0-5)
[2017-06-30 06:58] LABS: ANISOCYTOSIS 1+; TOXIC GRANULATION 1+
[2017-06-30 07:30] VITALS: BP 171/77
[2017-06-30] MEDS: ALBUTEROL SULFATE 2.5 MG/0.5 ML INH NEB SOLN NEB PRN (08:16)
[2017-06-30] MEDS: GABAPENTIN 300 MG CAP PO SCH ×2 (08:47→20:48)
[2017-06-30] MEDS: VITAMIN D 1,000 INTERNATIONAL UNITS TABLET PO SCH (08:47)
[2017-06-30] MEDS: FERROUS SULFATE 325MG TAB PO SCH (08:47)
[2017-06-30] MEDS: FEXOFENADINE 60 MG TAB PO SCH (08:47)
[2017-06-30] MEDS: OMEGA-3 1050MG CAPSULE PO SCH (08:47)
[2017-06-30] MEDS: CIPROFLOXACIN 400 MG in APPROPRIATE DILUENT 1 EA IV SCH (08:47)
[2017-06-30] MEDS: SENOKOT S TAB PO SCH ×2 (08:48→20:47)
[2017-06-30] MEDS: NORCO, ANEXSIA 5/325MG TABLET (HYDROcodone/ACETAMINOPHEN) PO PRN (09:02)
[2017-06-30] MEDS ORDERED: POTASSIUM CHLORIDE 10 MEQ SR TABLET PO ONE (10:00)
[2017-06-30] MEDS ORDERED: FUROSEMIDE 100 MG/10 ML VIAL (J1940) IV ONE (10:00)
[2017-06-30 12:30] VITALS: BP 128/63
--- NOTE | 2017-06-30 15:22 | IPN ---
DATE: 06/29/2017 Mr. De Anda is seen this morning on his bedside. He is feeling better. However, he still has shortness of breath and peripheral edema. He denies any fever or chills. He is tolerating a diet very well. He was admitted with right lower quadrant abdominal pain and was found to have perforated appendix. He did undergo surgery and still has a Slim-Willett (ANTOINE) drain in place. He remains on antibiotics. He developed oliguric acute renal failure due to septic shock. However, he did make some urine yesterday with IV Lasix. The patient was also severely anemic and has received two units of packed red blood cells (RBCs). At present, he is feeling much better today. However, he is still weak and gets tired easily. PHYSICAL EXAMINATION: On physical examination, temperature 96.7 degrees Fahrenheit, heart rate 60 per minute and respiratory rate 20 per minute. Blood pressure 164/74 mmHg and oxygen saturation is 98% on room air. His head is atraumatic. Neck veins are significantly distended. There is no thyroid enlargement. Ears, nose and throat are unremarkable. Heart examination reveals irregular rhythm but no pericardial friction rub. Lungs have diminished breath sounds and bilateral rales. Abdomen is soft, obese and nontender. There is no palpable organomegaly. Neurologically, he is awake, alert and oriented times three. Extremities have no cyanosis or clubbing. He has left lqygb-odz-oppx amputation and right leg has at least 3+ edema. Skin has no rash or ulcers. LABORATORY DATA: Today's laboratories show WBC count 5.7, hemoglobin 9.1 and hematocrit 26.6. Platelets 133. Sodium 137 and potassium 3.9. BUN 71 and creatinine 2.95. PROBLEMS: 1. Oliguric acute renal failure, superimposed on chronic kidney disease. The patient is nonoliguric now and kidney function has slightly improved which is very encouraging. I was concerned about the potential need for dialysis yesterday. However, now I have reassured him that there does not seem to be any need for dialysis at this point. We will continue to monitor his kidney function on a daily basis. The patient does not have any uremic symptoms. 2. Hyponatremia. Sodium level has corrected and we will continue our efforts to diurese him as he is grossly volume overloaded. 3. Congestive heart failure, mostly related to oliguric acute renal failure. The patient has responded only mildly to IV diuretics. He was hypotensive initially and could not use high-dose diuretics. Now, his blood pressure has improved and he is more likely to respond to diuretic dose. We will give him 100 mg Lasix now and monitor his response. I will give doses of Lasix if needed. 4. Anemia. His anemia has improved following transfusion. At this point, no intervention is indicated. 5. Septic shock with perforated appendix. The patient is currently on metronidazole and Cipro. He is hemodynamically stable and improving. Cipro dose has already been adjusted for his renal function.
[2017-06-30 16:00] VITALS: BP 141/63
[2017-06-30] MEDS ORDERED: WARFARIN SOD 5 MG TAB PO ONE (17:00)
--- NOTE | 2017-06-30 17:23 | IPNPDOC ---
Text Note Date of Service The patient was seen on 06/30/17. NOTE SUBJECTIVE: Patient seen and examined in the room today. Patient denies any acute complaints. Abdominal pain has been improving. Patient continues to have good urinary output. On the cardiac telemetry patient continues having intermittent bradycardia. OBJECTIVE: VITAL SIGNS: Listed below GENERAL: Morbidly obese. No sign of acute distress. Alert and oriented times three. HEENT: Normocephalic, atraumatic. Extraocular motor grossly intact. CARDIOVASCULAR: Positive S1, S2, irregular. LUNGS: Positive crackles, especially in bilateral bases. ABDOMEN: Slim-Willett (ANTOINE) drainage located at the left lower quadrant covered with a dressing. Dressing is clean and dry. Bowel sounds present. No abdominal tenderness upon palpation. EXTREMITIES: Patient has left below-knee amputation. Positive right lower extremity edema. LABORATORY DATA: Listed below ASSESSMENT AND PLAN: 1. Positive perforated appendicitis with peritonitis, status post laparoscopic appendectomy on 06/26/2017. Patient has ANTOINE drainage in place. Patient is currently on Cipro and Flagyl. 2. Sepsis secondary to positive perforated appendicitis and peritonitis. Blood pressure has been improved since patient on Cipro and Flagyl. One of the blood cultures obtained on 06/26/2017 showed E coli sensitive to fluoroquinolone. With current antibiotic regimen, patient's vital signs show improvement. No more hypotensive episodes. Will follow new two sets of blood cultures. 3. Acute on chronic kidney injury. At baseline, patient has chronic kidney disease (CKD), stage III. In the last 24 hours patient's renal function has started to improve. Patient is currently on intermittent Lasix diuresis. Based on patient clinical picture Nephrology has been assisting on the case. We appreciate Dr. Quach's recommendations. 4. History of elevated troponin secondary to septic shock. Troponin started to trend down on 06/27/2017. Patient denies any chest pain. 5. Atrial fibrillation. Heart rate is in the satisfactory range. Intermittently patient was noted to have bradycardia. Patient is not on any rate control medications. Renal function is improving. No need for dialysis. Warfarin was on hold for possible dialysis cath placement. Will restart the warfarin. 6. Dyslipidemia, on statin. 7. Hypertension. Previously patient had septic shock. Blood pressure medication has been on hold due to shock. Currently blood pressure is in satisfactory range. We will continue to monitor. 8. 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 9. Acute on chronic anemia. Patient has baseline microcytic anemia. Patient with chronic kidney disease. Patient had 2 packed red blood cells transfusions on 06/28/2017. Will continue to follow patient's hemoglobin and hematocrit. 10. Deep vein thrombosis (DVT) prophylaxis. On compression stocking. Warfarin restarted. VS,Fishbone, I+O VS, Fishbone, I+O Laboratory Tests 06/30/17 05:28 Red Blood Count 2.60 L, Mean Corpuscular Volume 110.0 H, Mean Corpuscular Hemoglobin 36.2 H, Mean Corpuscular Hemoglobin Concent 32.9, Red Cell Distribution Width 17.2 H, Calcium Level 7.8 L Vital Signs Date Time Temp Pulse Resp B/P (MAP) Pulse Ox O2 Delivery O2 Flow Rate FiO2 06/30/17 16:00 97.7 60 20 141/63 (89) 99 Room Air 06/28/17 04:00 3.0 I&O- Last 24 Hours up to 6 AM 07/01/17 06:00 Intake Total 480 ml Output Total 865 ml Balance -385 ml LORNE AG DO Jun 30, 2017 17:23
[2017-06-30] MEDS: CIPROFLOXACIN 500 MG TAB PO SCH (17:29)
[2017-06-30 20:00] VITALS: BP 156/69
[2017-06-30] MEDS ORDERED: CIPROFLOXACIN 400 MG in APPROPRIATE DILUENT 1 EA IV SCH (20:00)
[2017-06-30] MEDS: metroNIDAZOLE (FLAGYL) 500 MG TAB PO SCH (20:47)
[2017-06-30] MEDS: FAMOTIDINE 20 MG TAB PO SCH (20:47)
[2017-06-30] MEDS: CETIRIZINE (ZyrTEC) 10 MG TAB PO SCH (20:48)
[2017-06-30] MEDS: SIMVASTATIN 20 MG TAB PO SCH (20:48)
[2017-06-30] MEDS: ASPIRIN 81 MG ENTERIC TAB PO SCH (20:48)
--- NOTE | 2017-06-30 22:16 | IPN ---
DATE: 06/30/2017 Mr. De Anda is seen this morning on his bedside. He still remains short of breath even at rest. He denies any nausea or vomiting. He is not feeling comfortable due to back pain. He denies any fever or chills. PHYSICAL EXAMINATION: Temperature 98.0 degrees Fahrenheit, heart rate 62 per minute and respiratory rate 20 per minute. Blood pressure 171/77 mmHg and oxygen saturation 95% on room air. Intake and output records from yesterday showed total intake 1980 and output 4210 mL. His head is atraumatic. Neck is supple and jugular venous distention (JVD) is significantly elevated. Ears, nose and throat are unremarkable. Heart: Sounds are regular and without a pericardial friction rub. Lungs: Have diminished breath sounds and bilateral rales. Abdomen: Obese, soft and nontender. Surgical drain is present in lower abdomen and surgical dressing is intact. Extremities have no cyanosis or clubbing. He has left [id number] amputation previously. His right extremity has significant edema. Neurologically, he is awake, alert and oriented times three. Skin has no rash or ulcers. Today's labs show WBC count 5.8, hemoglobin 9.4 and hematocrit 28.6. Platelets 158. Sodium 139 and potassium 3.9. BUN 66 and creatinine 2.15. Glucose 100 and calcium 7.8. PROBLEMS: 1. Acute renal failure. The patient is now nonoliguric while initially she had oliguric acute renal failure due to septic shock. Kidney function is improving with good urine output. 2. Congestive heart failure. The patient remains decompensated with significant volume overload as he was given a large amount of IV fluids due to septic shock. He is responding well to diuretics and we will give him another dose of Lasix 100 mg intravenously today. 3. Anemia. His anemia is stable since he was transfused and hemoglobin has improved slightly. Will continue to monitor and no intervention is indicated at present. 4. Septic shock. The patient presented with septic shock due to perforated appendix and underwent appendectomy. He remains on intravenous Cipro and metronidazole. I am going to change his Cipro dose back to 400 mg every 12 hours. His kidney function has now improved and the dose can be changed back to every 12 hours. 5. Hypotension. Blood pressure has improved and now in fact his blood pressure is high. I will not give him any antihypertensive at this point as at times he gets bradycardiac and hypertension is likely to improve with diuresis. All other issues are being addressed by hospitalist service and surgery.
[2017-06-30 23:59] VITALS: BP 156/62
[2017-07-01] MEDS: ALBUTEROL SULFATE 2.5 MG/0.5 ML INH NEB SOLN NEB PRN (00:02)
--- NOTE | 2017-07-01 00:19 | IPN ---
DATE: 06/30/2017 The patient is now day #4 from a laparoscopic appendectomy for perforated appendicitis. A blood culture from 06/26/2017 has grown Escherichia (E) coli sensitive to all tested antibiotics. Vital signs reveal that he has been afebrile for the past 24 hours. Pulse is in the 50s to 60s, and his blood pressure is fine. Intake and output yesterday showed 1980 in and 4200 out. His drain yesterday had 35 mL, and there is nothing recorded this morning. PHYSICAL EXAMINATION: The patient is dozing when I entered and rouses to voice and light touch. He seems quite tired. He reports that he is weak and has no appetite. Sclerae are anicteric. His mucous membranes are somewhat dry. Lung exam showed some faint expiratory wheezes on the right, though they seem improved from yesterday. His heart exam shows a regular rate and rhythm. The abdomen is obese and soft. His incisions are healing well. He has a drain in his left lower quadrant, which has a minimal amount of serosanguineous fluid in the tubing and the bulb. I tried to milk this and there was no additional drainage. The abdomen otherwise shows bowel sounds present and is soft and without undue tenderness. Laboratory studies showed a white count of 5.8 with a hemoglobin of 9, hematocrit of 29 and a platelet count of 158,000. Differential count shows 71% neutrophils , 15 lymphocytes and 6 monocytes. Chemistry profile shows normal electrolytes with a BUN of 66 and a creatinine down to 2.15 today. His PT was 19 with an INR of 1.56 today. MEDICATIONS: The patient has been on ciprofloxacin and Flagyl intravenously (IV) , and the pharmacy contacted me and we agreed to change these to oral. The hospitalist has ordered an increased dose of warfarin for today based on the patient labs. IMPRESSION: 1. Acute perforated appendicitis with positive Escherichia coli blood culture, now improving. 2. Acute kidney injury, resolving. 3. Hypertension. 4. Coronary artery disease. 5. Dyslipidemia. 6. Status post left below-knee amputation. 7. Chronic atrial fibrillation. PLAN: We will remove the patient's abdominal drain today. He has been screened by the acute rehabilitation unit, and they are willing to accept him for rehabilitation services effective 07/01/2017. He will remain on his oral antibiotics to complete a week of antibiotics. His Ferguson catheter remains in place at this time to monitor his urine output and due to his poor mobility at this time. FERNANDO
[2017-07-01 04:00] VITALS: BP 157/70
[2017-07-01 05:20] LABS: MEAN CORPUSCULAR HEMOGLOBIN 35.2 pg (27.0-33.0); MEAN CORPUSCULAR HGB CONC 32.3 g/dl (32.0-36.5); MEAN CORPUSCULAR VOLUME 108.9 fl (80.0-96.0); PLATELET COUNT, AUTOMATED 191 10^3/uL (150-450); RED CELL DISTRIBUTION WIDTH 16.6 % (11.5-14.5); WHITE BLOOD COUNT 6.3 10^3/uL (4.0-10.0)
[2017-07-01 05:23] LABS: POS COUNT POS FLAG; POSITIVE MORPH POS FLAG
[2017-07-01 05:24] LABS: ADD MANUAL DIFFER YES; DIFF SLIDE NUMBER 10
[2017-07-01 05:29] LABS: INR 1.66
[2017-07-01 05:38] LABS: CREATININE FOR GFR 1.75 MG/DL (0.70-1.30); POTASSIUM SERUM 4.1 MEQ/L (3.5-5.1)
[2017-07-01 05:53] LABS: BANDS 2 % (< 11); EOSINOPHILS 1 % (0-5)
[2017-07-01 05:54] LABS: ANISOCYTOSIS 1+
[2017-07-01] MEDS: CIPROFLOXACIN 500 MG TAB PO SCH (06:13)
[2017-07-01] MEDS: metroNIDAZOLE (FLAGYL) 500 MG TAB PO SCH (06:13)
[2017-07-01 08:00] VITALS: BP 144/66
[2017-07-01] MEDS: FEXOFENADINE 60 MG TAB PO SCH (08:28)
[2017-07-01] MEDS: SENOKOT S TAB PO SCH (08:28)
[2017-07-01] MEDS: VITAMIN D 1,000 INTERNATIONAL UNITS TABLET PO SCH (08:29)
[2017-07-01] MEDS: GABAPENTIN 300 MG CAP PO SCH (08:29)
[2017-07-01] MEDS: OMEGA-3 1050MG CAPSULE PO SCH (08:29)
[2017-07-01] MEDS: FERROUS SULFATE 325MG TAB PO SCH (08:29)
[2017-07-01] MEDS ORDERED: TORSEMIDE 20 MG TAB PO SCH (09:00)
[2017-07-01] MEDS ORDERED: NEOSPORIN TOP OINT 15GM TOP SCH (09:00)
--- NOTE | 2017-07-01 16:39 | IPNPDOC ---
Text Note Date of Service The patient was seen on 07/01/17. NOTE SUBJECTIVE: Patient seen and examined in the room today. Patient denies any acute complaints. Abdominal pain has been improving. On the cardiac telemetry patient continues having intermittent bradycardia. OBJECTIVE: VITAL SIGNS: Listed below GENERAL: Morbidly obese. No sign of acute distress. Alert and oriented times three. HEENT: Normocephalic, atraumatic. Extraocular motor grossly intact. CARDIOVASCULAR: Positive S1, S2, irregular. LUNGS: Positive crackles, especially in bilateral bases. ABDOMEN: Bowel sounds present. No abdominal tenderness upon palpation. EXTREMITIES: Patient has left below-knee amputation. Positive right lower extremity edema. LABORATORY DATA: Listed below ASSESSMENT AND PLAN: 1. Positive perforated appendicitis with peritonitis, status post laparoscopic appendectomy on 06/26/2017. Patient has ANTOINE drainage in place. Patient is currently on PO Cipro and Flagyl. 2. Sepsis secondary to positive perforated appendicitis and peritonitis. Blood pressure has been improved since patient on Cipro and Flagyl. One of the blood cultures obtained on 06/26/2017 showed E coli sensitive to fluoroquinolone. With current antibiotic regimen, patient's vital signs show improvement. No more hypotensive episodes. Will follow new two sets of blood cultures. 3. Acute on chronic kidney injury. At baseline, patient has chronic kidney disease (CKD), stage III. In the last 24 hours patient's renal function has started to improve. Patient is on scheduled diuretic. 4. History of elevated troponin secondary to septic shock. Troponin started to trend down on 06/27/2017. Patient denies any chest pain. 5. Atrial fibrillation. Heart rate is in the satisfactory range. Intermittently patient was noted to have bradycardia. Patient is not on any rate control medications. Renal function is improving. No need for dialysis. Warfarin was on hold for possible dialysis cath placement. Will restart the warfarin. 6. Dyslipidemia, on statin. 7. Hypertension. Previously patient had septic shock. Blood pressure medication has been on hold due to shock. Currently blood pressure is in satisfactory range. We will continue to monitor. 8. 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 9. Acute on chronic anemia. Patient has baseline microcytic anemia. Patient with chronic kidney disease. Patient had 2 packed red blood cells transfusions on 06/28/2017. Will continue to follow patient's hemoglobin and hematocrit. 10. Deep vein thrombosis (DVT) prophylaxis. On compression stocking. Warfarin restarted. VS,Fishbone, I+O VS, Fishbone, I+O Laboratory Tests 07/01/17 05:06 Red Blood Count 2.70 L, Mean Corpuscular Volume 108.9 H, Mean Corpuscular Hemoglobin 35.2 H, Mean Corpuscular Hemoglobin Concent 32.3, Red Cell Distribution Width 16.6 H, Calcium Level 8.0 L Vital Signs Date Time Temp Pulse Resp B/P (MAP) Pulse Ox O2 Delivery O2 Flow Rate FiO2 07/01/17 08:00 97.2 56 17 144/66 (92) 96 Room Air 06/28/17 04:00 3.0 I&O- Last 24 Hours up to 6 AM 07/02/17 06:00 Intake Total 360 ml Output Total 150 ml Balance 210 ml LORNE AG DO Jul 01, 2017 16:38
--- NOTE | 2017-07-02 00:56 | IPN ---
DATE OF SERVICE: 07/01/2017 Mr. De Anda is seen this morning on his bedside. He remains mostly bedridden. The patient denies any nausea or vomiting. He has chronic dyspnea, but denies any chest pain. He also has back problems. PHYSICAL EXAMINATION: Temperature 97.2 degrees Fahrenheit, heart rate 56 per minute and respiratory rate 18 per minute. Blood pressure 144/66 mmHg and oxygen saturation 96% on room air. Head is atraumatic. Neck is supple and jugular venous distention (JVD) is elevated at least about 12 cm above sternal angle. Ears, nose and throat are unremarkable. Heart sounds are regular with systolic murmur grade 2/6. There is no pericardial friction rub. Lungs with moderate air entry and diminished breath sounds at bases. There are bibasilar rales. Abdomen is obese, soft and nontender. Bowel sounds are normal. Extremities have no cyanosis or clubbing. His left [id number] amputation and right lower extremity have 3+ edema. Intake and output records from yesterday show a negative fluid balance of about 2 liters. Today's labs show WBC count 6.3, hemoglobin 9.5 and hematocrit 29.4. Sodium 141 and potassium 4.1. BUN 56 and creatinine 1.75. PROBLEMS: 1. Congestive heart failure. The patient remains decompensated; however, he is responding to diuretic very well. He has been in negative fluid balance of about 2 liters for the last few days. I am going to start him on torsemide 20 mg twice a day and will make further adjustments depending upon his response. 2. Acute renal failure superimposed on chronic kidney disease. Kidney function is improving every day and his electrolytes are within normal range. No intervention is indicated at this point. 3. Anemia. Anemia has been stable since he was transfused. He will continue with iron supplement. 4. Septic shock with perforated appendix. The patient underwent appendectomy and has been doing very well. He remains on Cipro and metronidazole. I will defer to surgery about his antibiotics. 5. Severe deconditioning. The patient remains severely deconditioned and he is being considered for acute rehabilitation. From a renal standpoint, the patient is stable for discharge to acute rehabilitation service. Nephrology service will continue to follow him for his hypervolemia, acute renal failure and diuretic adjustment.
--- NOTE | 2017-07-20 10:43 | DS.PDOC ---
Discharge Summary General Date of Admission Jun 26, 2017 at 19:37 Date of Discharge 07/01/2017 Attending Physician: BARBER LAYNE MD Specialist/Consultants Involve: Raza Quach MD Discharge Summary PROCEDURES PERFORMED DURING STAY: Laparoscopic appendectomy ADMITTING DIAGNOSES: 1. Sepsis with hypotension 2. Perforated appendicitis 3. Atrial fibrillation on Coumadin 4. Acute renal failure superimposed on Chronic kidney disease DISCHARGE DIAGNOSES: 1. Perforated Appendicitis status post laparoscopic appendectomy 2. Sepsis with hypotension resolved 3. Atrial fibrillation, resumed on Coumadin 4. Acute renal failure superimposed on chronic kidney disease improved to baseline COMPLICATIONS/CHIEF COMPLAINT: Hypotension HISTORY OF PRESENT ILLNESS: See HPI HOSPITAL COURSE: Patient presented with hypotension in the emergency room. Aggressive IV fluid resuscitation started. He has been having lower abdominal pain for [address] scan of the abdomen and pelvis was suggestive of either see colitis or perforated appendicitis. He was on Coumadin and initial INR was elevated. He was given 2 units of fresh frozen plasma to reverse this. His blood pressure improved with IV fluid administration as well as with the administration of fresh frozen plasma. He was seen by the hospitalist service for concurrent management of his medical problems. Have also spoken to our critical care person. He was subsequently brought to the operating room. He underwent laparoscopic appendectomy. He tolerated the procedure relatively well. He was extubated. A drain was left in place for monitoring. He was brought to the ICU for perioperative monitoring. Overnight he was noted to be wheezing and his urine output has dropped down markedly. His IV fluid was discontinued. He was given a dose of 40 mg of IV Lasix. He transiently responded with increased urine output for this. He continued to have low urine output with increasing evidence for fluid overload with increasing wheezing and decreasing pulse oximetry reading to below 90%. We consulted Dr. Quach ( nephrology) in anticipation for possible dialysis need. He was closely monitored. He was given high dose of IV Lasix. Initially did not respond to this. A second dose he started making or increasing his urine output. With increased urine output his breathing also has improved with improved oxygenation. Once he is to have lysed we started mobilizing him. His Coumadin was likewise restarted. Physical therapy was consulted. He had been debilitated secondary to his severe, septic presentation. Once he was stable and able to tolerate diet, he was subsequently transferred to acute rehabilitation care. DISCHARGE MEDICATIONS: Please see below. ALLERGIES: Please see below. PHYSICAL EXAMINATION ON DISCHARGE: VITAL SIGNS: Please see below. GENERAL: Comfortable HEENT: Mildly pale palpebral conjunctiva, lips and mucosa moist, NECK: short thick neck. No obvious jugular venous distention] CARDIOVASCULAR EXAMINATION: Irregular heart rhythm, regular rate RESPIRATORY EXAMINATION: Clear to auscultation bilaterally ABDOMINAL EXAMINATION: Round, soft, nondistended. Drain was removed. Drain site is clean and dry. Rest of the port site incisions are healing accordingly EXTREMITIES: Left below-knee amputation with a prosthesis, right leg with 2+ edema SKIN: No skin rashes NEUROLOGICAL EXAMINATION: Awake, alert, oriented PSYCHIATRIC EXAMINATION: Mood and affect are normal LABORATORY DATA: Please see below. IMAGING: CT scan of the abdomen and pelvis was done on presentation in the emergency room PROGNOSIS: Good ACTIVITY: As tolerated. DIET: Regular. DISCHARGE PLAN: Patient is discharged to rehabilitation facility for acute rehabilitation care DISPOSITION: 62 D/T Rehab Facility. DISCHARGE INSTRUCTIONS: Patient's regular medications are continued. He has been placed on oral diuretics and this is managed by nephrology. He was followed up by Dr. Ortiz in my absence. DISCHARGE CONDITION: Stable. TIME SPENT ON DISCHARGE: Greater than 45 minutes. Discharge Medications Scheduled (Calcium Magnesium & Zinc 334-134-5 mg) 1 Tab Tab, 2 TABS PO BID, (Reported) (Melatonin) 5 Mg Chw, 10 MG PO QHS, (Reported) Acetaminophen (Tylenol 8 Hour Arthritis) 650 Mg Tab, 650 MG PO BID, (Reported) TAKES QAM AND NOON Aspirin (Aspir-81) 81 Mg Tab, 81 MG PO QHS, (Reported) Cholecalciferol (Vitamin D3) 1,000 Unit Cap, 1,000 UNIT PO DAILY, (Reported) Famotidine (Pepcid) 20 Mg Tab, 40 MG PO QHS, (Reported) Ferrous Sulfate (Ferrous Sulfate) 325 Mg Tab, 325 MG PO 3XW, (Reported) MON/WED/FRI Fexofenadine Hydrochloride (Jackie Allergy) 180 Mg Tab, 180 MG PO DAILY, ( Reported) Fish Oil (Fish Oil) 1,000 Mg Cap, 2,000 MG PO DAILY, (Reported) Gabapentin (Neurontin) 300 Mg Cap, 300 MG PO BID, (Reported) Nitroglycerin (Nitrostat) 0.4 Mg Subl, 0.4 MG SL ASDIRECTED, (Reported) Simvastatin (Zocor) 20 Mg Tab, 20 MG PO QHS, (Reported) Torsemide (Torsemide) 20 Mg Tab, 40 MG PO BID, (Reported) Valsartan (Valsartan) 40 Mg Tab, 40 MG PO QHS, (Reported) Warfarin Sod (Coumadin) 5 Mg Tab, 5 MG PO QWEEK, (Reported) TUESDAY EVENINGS Warfarin Sod (Coumadin) 5 Mg Tab, 2.5 MG PO 6XWK, (Reported) EVERYDAY EXCEPT TUESDAY, EVENING TIME Allergies Coded Allergies: Penicillins (Verified Allergy, Unknown, HIVES, 11/27/12) Penicillins Cross Reactors (Verified Allergy, Unknown, HIVES, 11/27/12) BARBER LAYNE MD Jul 20, 2017 10:42
== END 2017-07-01 09:35 | DRG 853 ==
LOC: EDBD 05:45 → M ED 05:45 → M SDC 10:45 → M ICU 18:50 → M PCU 06-28 12:06
PROVIDERS: ADMIT Surgery; ATTEND Surgery
PROC: 30253N1 (ICD-10-PCS; 2017-06-26)
PROC: 30253K1 (ICD-10-PCS; 2017-06-26)
PROC: 0DTJ4ZZ Resection of Appendix, Percutaneous Endoscopic Approach (ICD-10-PCS; principal; 2017-06-26 11:11)
DX: A41.51 Sepsis due to Escherichia coli [E. coli] (principal); K35.2 Acute appendicitis with generalized peritonitis; R65.21 Severe sepsis with septic shock; N17.9 Acute kidney failure, unspecified; I13.0 Hypertensive heart and chronic kidney disease with heart failure and stage 1 through stage 4 chronic kidney disease, or unspecified chronic kidney disease; E87.1 Hypo-osmolality and hyponatremia; I25.10 Atherosclerotic heart disease of native coronary artery without angina pectoris; K57.30 Diverticulosis of large intestine without perforation or abscess without bleeding; N18.3 Chronic kidney disease, stage 3 (moderate); Z66 Do not resuscitate; E78.5 Hyperlipidemia, unspecified; E66.01 Morbid (severe) obesity due to excess calories; D63.1 Anemia in chronic kidney disease; I50.9 Heart failure, unspecified; I48.2 Chronic atrial fibrillation; Z95.0 Presence of cardiac pacemaker; Z89.512 Acquired absence of left leg below knee; Z95.5 Presence of coronary angioplasty implant and graft; Z79.01 Long term (current) use of anticoagulants; Z79.82 Long term (current) use of aspirin; Z79.899 Other long term (current) drug therapy; Z88.0 Allergy status to penicillin; Z68.37 Body mass index [BMI] 37.0-37.9, adult

== ENCOUNTER 2017-07-01 09:26 | Inpatient (IN) | payer MEDICARE, OTHER ==
[~2017-07-01] VITALS: Ht 182.9 cm; Wt 114.0 kg
[~2017-07-01 09:26] MED LIST changes: +FERR325T3 PO; +VALS1TAB49 PO
[2017-07-01] MEDS ORDERED: ALBUTEROL 90 MCG/ACT 8GM HFA INHALER INH PRN (09:45)
[2017-07-01] MEDS ORDERED: BISACODYL 5 MG TAB PO PRN (09:45)
[2017-07-01] MEDS ORDERED: NITROGLYCERIN 0.4 MG SUBL TABLET SL PRN (09:45)
[2017-07-01] MEDS ORDERED: MOM 30ML SUSPENSION UDC PO PRN (09:45)
[2017-07-01] MEDS ORDERED: NYSTATIN 100,000 UNITS/GM TOPICAL PWD 15 GM TOP PRN (09:45)
[2017-07-01 10:00] VITALS: BP 157/71
[2017-07-01 14:00] VITALS: BP 139/66
[2017-07-01] MEDS: metroNIDAZOLE (FLAGYL) 500 MG TAB PO SCH ×2 (14:37→21:46)
[2017-07-01] MEDS: NYSTATIN 500,000 U/5 ML SUSP UDC PO SCH ×3 (14:38→20:25)
[2017-07-01] MEDS: TORSEMIDE 5MG TABLET PO SCH (18:05)
[2017-07-01] MEDS: WARFARIN SOD 2.5 MG TAB PO SCH (18:05)
[2017-07-01] MEDS: CIPROFLOXACIN 500 MG TAB PO SCH (18:05)
[2017-07-01] MEDS: NEOSPORIN TOP OINT 15GM TOP SCH (18:06)
[2017-07-01 20:19] VITALS: BP 138/76
[2017-07-01] MEDS: CETIRIZINE (ZyrTEC) 10 MG TAB PO SCH (20:25)
[2017-07-01] MEDS: SIMVASTATIN 20 MG TAB PO SCH (20:25)
[2017-07-01] MEDS: FAMOTIDINE 20 MG TAB PO SCH (20:25)
[2017-07-01] MEDS: GABAPENTIN 300 MG CAP PO SCH (20:25)
[2017-07-01] MEDS: SENOKOT S TAB PO SCH (20:25)
[2017-07-01] MEDS: ACETAMINOPHEN TAB 650MG DOSE (2X325MG) PO PRN (20:25)
[2017-07-01] MEDS: ASPIRIN 81 MG ENTERIC TAB PO SCH (20:25)
[2017-07-01] MEDS: oxyCODONE 5MG TAB PO PRN (21:47)
[2017-07-02] MEDS: CIPROFLOXACIN 500 MG TAB PO SCH ×2 (05:12→17:24)
[2017-07-02] MEDS: metroNIDAZOLE (FLAGYL) 500 MG TAB PO SCH ×3 (05:12→21:53)
[2017-07-02 06:00] VITALS: BP 131/67
[2017-07-02 07:07] LABS: MEAN CORPUSCULAR HEMOGLOBIN 35.9 pg (27.0-33.0); MEAN CORPUSCULAR HGB CONC 32.2 g/dl (32.0-36.5); MEAN CORPUSCULAR VOLUME 111.6 fl (80.0-96.0); PLATELET COUNT, AUTOMATED 220 10^3/uL (150-450); RED CELL DISTRIBUTION WIDTH 16.5 % (11.5-14.5); WHITE BLOOD COUNT 6.3 10^3/uL (4.0-10.0)
[2017-07-02 07:12] LABS: ADD MANUAL DIFFER YES; DIFF SLIDE NUMBER 64; POS COUNT POS FLAG; POSITIVE MORPH POS FLAG
[2017-07-02 07:20] LABS: INR 1.9
[2017-07-02] MEDS: oxyCODONE 5MG TAB PO PRN ×3 (07:25→20:23)
[2017-07-02 07:31] LABS: ALBUMIN 2.5 GM/DL (3.2-5.2); ALBUMIN/GLOBULIN RATIO 0.93 (1.00-1.93); BILIRUBIN,TOTAL 0.5 MG/DL (0.2-1.0); CALCIUM LEVEL 7.9 MG/DL (8.8-10.2); CREATININE FOR GFR 1.5 MG/DL (0.70-1.30); GLOMERULAR FILTRATION RATE 47.8 (>35); POTASSIUM SERUM 4.1 MEQ/L (3.5-5.1); TOTAL PROTEIN 5.2 GM/DL (6.4-8.2)
[2017-07-02 07:35] LABS: BANDS 1 % (< 11); EOSINOPHILS 3 % (0-5)
[2017-07-02] MEDS: OMEGA-3 1050MG CAPSULE PO SCH (08:43)
[2017-07-02] MEDS: TORSEMIDE 5MG TABLET PO SCH (08:43)
[2017-07-02] MEDS: NYSTATIN 500,000 U/5 ML SUSP UDC PO SCH ×4 (08:43→20:20)
[2017-07-02] MEDS: SENOKOT S TAB PO SCH ×2 (08:44→20:20)
[2017-07-02] MEDS: NEOSPORIN TOP OINT 15GM TOP SCH (08:44)
[2017-07-02] MEDS: FEXOFENADINE 60 MG TAB PO SCH (08:44)
[2017-07-02] MEDS: FERROUS SULFATE 325MG TAB PO SCH (08:44)
[2017-07-02] MEDS: GABAPENTIN 300 MG CAP PO SCH ×2 (08:44→20:21)
[2017-07-02] MEDS: VITAMIN D 1,000 INTERNATIONAL UNITS TABLET PO SCH (08:44)
--- NOTE | 2017-07-02 11:48 | PMRHPE ---
DATE OF ADMISSION: 07/01/2017 REASON FOR ADMISSION: Rehabilitation of multi-illness debilitation in this right-handed gentleman status post ruptured appendix with sepsis, acute on chronic kidney disease stage III, congestive heart failure, and hypotension. HISTORY OF PRESENT ILLNESS: The patient is an 82-year-old white male who is right-handed with prior left below knee amputation, who was brought to [facility] emergency room due to abdominal pain of 2 days standing with a temperature of 102 degrees Fahrenheit. Evaluation disclosed an inflamed appendix with possible air in the peroneum. He was taken to the emergency room and was treated for ruptured appendix and also fluid resuscitated for hypotension with systolic blood pressures down in the 70s. This resulted in the patient having acute kidney injury with creatinine going up to 3.1 and stress on his atherosclerotic cardiovascular disease with congestive failure and extremity and pulmonary fluid retention being noted. The patient has been managed as well as general surgery by nephrology who has been managing his diuresis without hemodialysis or peritoneal dialysis. The patient has been treated with antibiotics and currently transitioned to Cipro and Flagyl. He was started in trials of physical therapy and occupational therapy and had noted difficult due to edema in the left lower extremity with pain into his prosthesis but now has been able to return to wearing it, but has only been able to do a couple of steps. The gentleman does need to markedly improve his ambulation and activities of daily living (ADLs) before returning home with his elderly . He is highly motivated to therapy. He has also been challenged by his diverticulosis as well as the hypotension, renal and congestive failure aspect. PAST MEDICAL HISTORY: Atherosclerotic cardiovascular disease. Coronary artery disease status post angioplasty with stent placement. Hypertension. Hyperlipidemia. Peripheral vascular disease. 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 He has chronic stage III kidney disease now exacerbated by acute kidney disease. He has chronic atrial fibrillation for which he remains on anticoagulation and has a permanent pacemaker placement. PAST SURGICAL HISTORY: Angioplasty with stent placement. Pacemaker placement. Below knee amputation. FAMILY HISTORY: Noncontributory to his current problems. SOCIAL HISTORY: The patient is retired and lives with his in a one-story home with four stairs into it. He does not smoke. Does not use alcohol and does not use recreational or illicit drugs. REVIEW OF SYSTEMS: He notes some fatigue and being very dry-mouthed. Otherwise negative 10-point evaluation except for those things noted above. ALLERGIES: PENICILLINS and PENICILLIN CROSS REACTORS. MEDICATIONS: (on admission) - Tylenol 650 mg every 6 hours as needed pain or fever - Proventil inhaler two puffs every 4 hours as needed shortness of breath - enteric coated aspirin 81 mg nightly for clot prevention and cardiac benefit - Dulcolax tablets 5 mg daily as needed constipation - Zyrtec 10 mg at night for allergies - Cipro 500 mg twice a day for sepsis - Senokot S one tablet by mouth twice a day for bowel program. - Pepcid 40 mg nightly for stomach protection - iron sulfate 325 mg daily for anemia - Jackie 180 mg every morning for allergies - gabapentin 300 mg twice a day for nerve pain - Flagyl 500 mg every 8 hours for sepsis - Milk of Magnesia 30 mL daily as needed constipation - Neosporin ointment to abdominal incision drain site with wound dressing - Nitrostat 1/150 one tablet sublingual every 5 minutes times three as needed for chest pain. - Nystatin powder to groin topically twice a day for rash - Nystatin suspension 5 mL four times a day, swish and expectorate for oral thrush - Bill III fatty acids 1 gram daily for hyperlipidemia - oxycodone 5 mg every 4 hours as needed moderate to severe pain - Zocor 20 mg nightly for cholesterol control - Demadex 5 mg by mouth twice a day for edema/congestion - vitamin D 1000 international units daily - Coumadin. Patient is currently on 2.5 mg daily target INR has not been given in discharge records for this gentleman. At this time, the patient is 1.66 and appears targeted range is 1.72 to 2.0. LABORATORY DATA: Hemoglobin and hematocrit 9.5 and 29.4. Electrolytes on BMP are normal, however , BUN is 56 and creatinine 1.75, which is notably improved during the course of the last 4 days. PHYSICAL EXAMINATION: The patient is a 6 foot tall, 125.7 kg elderly white male who actually looks a bit less than his stated age with some apparent peripheral edema but is alert and well oriented and pleasant and cooperative. VITAL SIGNS: Temperature 98.1, blood pressure 157/71, pulse 67, respirations 20, pulse oximetry 99% on room air. HEENT: Normocephalic, atraumatic. Of note, the patient is status post cataract surgery. Hearing is fairly good. No tenderness found. Head, face showing normal symmetry. Tongue is midline, however, does have notable thrush present and some crevices in the tongue with dark brown coating and erythema on the tongue itself. Extraocular motions are intact. Pupils equal, round, and reactive to light and accommodation and are 5 mm and react down to 4 mm briskly. Speech is clear without any dysarthria. No signs of any dysphagia noted. NECK: Supple, nontender. No carotid bruits were appreciated. LUNGS: Clear throughout but there is some dullness down to the lower aspects along the bases bilaterally. However, no rales, wheezes or rhonchi were appreciated. CORONARY: Irregularly irregular rhythm. However, rate is very stable with 2/4 to 3/4 bilateral radial pulses. Good perfusion in the hands and right lower extremity. Bilateral upper extremity with functional range of motion. Right lower extremity with functional range of motion. Left lower extremity with an Iceross suspension-lined modular prosthesis with simple-type connecting the socket to the foot, which was not examined inside this. The patient is unable to wear any stump socks. 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 Light touch or vibration are intact in bilateral upper extremity and the proximal two-thirds of the right lower extremity and left lower extremity. However in the distal third to the foot of the left lower extremity, light touch and vibration are somewhat decreased. Tone is within normal limits in bilateral upper and lower extremities. The patient is alert and oriented times four. Speech is, as noted above, clear, coherent and appropriate with out any dysarthria, curdling or abnormalities noted. Content is appropriate. Affect is pleasant, cooperative. Memory appears to be intact. Motor is functional in bilateral upper and right lower extremity. However, endurance is poor. Balance was not tested. The patient does have multiple abdominal healing laparoscopic sites in the midline to left upper and lower abdomen with mild distention. No palpable masses or significant tenderness and normal bowel sounds in all quadrants. ASSESSMENT/PLAN: 1. Debilitation secondary to multiple medical problems principally ruptured appendix and sepsis status post washout of peritonitis and bacteremia treatment with antibiotics but secondary hypotension causing acute on chronic kidney disease and hypotension. The patient medically is improving from these conditions and continuing on antibiotic management, diuretic management to treat the infections and normalize body fluid and control his congestion. However, he has become deconditioned by these events and needs reconditioning and retraining of efficient ADLs and mobility with physical and occupational therapy. Of important note is the left below knee amputation and the need to particularly get fluid control and limp shaped down to fit the prosthesis appropriately. Therefore, the stump vegetable trimmer should be used whenever the patient is not wearing the leg. [place] starch should be used for helping to slide it on appropriately. This will help the patient have better sensation and control of his prosthesis for standing transfers and ambulation, which will be the focus of physical therapy along with building his endurance. Occupational therapy will need to work on these and progressing in basic ADLs, essentially hygiene as well as appropriate dressing and the supportive transfer techniques. 2. Acute on chronic kidney disease, stage III. I will go ahead and consult Dr. Quach who will follow the patient and work to try and adjust medication to improve renal function, which is presumably improved on lab testing. This should also ease the burden on the patient and his atherosclerotic cardiovascular disease and allow him to have better energy for therapy. 3. Atherosclerotic cardiovascular disease including coronary artery disease, status post angioplasty with stent placement, congestive heart failure, hypertension and hyperlipidemia. We will go ahead and continue the mediations noted above for this as well as try to get better fluid balance. Medicine consultation has been sent. Dr. Feliciano has been notified and will coordinate our efforts to optimize this,. 4. Sepsis: The patient to continue on the antibiotics noted above and, of necessary, consultation with Dr. Talley and further adjustments. However, the patient seems to have responded fairly well to his current regimen. However, we will watch for any recurrence of infection especially as we start to stress the patient more. Just as we will be watching for increase in pleural effusions and other congestive effects for any stress upon the renal effects by the activity and exercising. POST ADMISSION EVALUATION: The patient is consistent with pre-admission and evaluation and screening. He is very motivated to participate and I do believe by appropriately having multiple sessions per day of physical therapy and occupational therapy to appropriate lengths, will be able to participate in and will benefit from 3 hours of acute intensive therapy per day with a fair to good prognosis for return to home with his . My estimated length of stay is 14 days. Time spent on history and physical, chart review and documentation is greater than 70 minutes. MTDD
[2017-07-02 14:00] VITALS: BP 149/68
[2017-07-02] MEDS: TORSEMIDE 20 MG TAB PO SCH (17:24)
[2017-07-02] MEDS: WARFARIN SOD 2.5 MG TAB PO SCH (17:25)
[2017-07-02] MEDS: ASPIRIN 81 MG ENTERIC TAB PO SCH (20:20)
[2017-07-02] MEDS: FAMOTIDINE 20 MG TAB PO SCH (20:21)
[2017-07-02] MEDS: SIMVASTATIN 20 MG TAB PO SCH (20:21)
[2017-07-02] MEDS: CETIRIZINE (ZyrTEC) 10 MG TAB PO SCH (20:21)
[2017-07-02 20:25] VITALS: BP 138/82
[2017-07-02] MEDS: ACETAMINOPHEN TAB 650MG DOSE (2X325MG) PO PRN (21:54)
[2017-07-03 06:00] VITALS: BP 140/76
[2017-07-03] MEDS: CIPROFLOXACIN 500 MG TAB PO SCH ×2 (06:01→17:17)
[2017-07-03] MEDS: metroNIDAZOLE (FLAGYL) 500 MG TAB PO SCH ×3 (06:01→21:51)
[2017-07-03] MEDS: oxyCODONE 5MG TAB PO PRN ×3 (06:03→20:25)
[2017-07-03 06:57] LABS: INR 2.2
[2017-07-03] MEDS: NYSTATIN 500,000 U/5 ML SUSP UDC PO SCH ×4 (08:33→20:24)
[2017-07-03] MEDS: FEXOFENADINE 60 MG TAB PO SCH (08:34)
[2017-07-03] MEDS: TORSEMIDE 20 MG TAB PO SCH ×2 (08:34→17:15)
[2017-07-03] MEDS: FERROUS SULFATE 325MG TAB PO SCH (08:34)
[2017-07-03] MEDS: OMEGA-3 1050MG CAPSULE PO SCH (08:34)
[2017-07-03] MEDS: GABAPENTIN 300 MG CAP PO SCH ×2 (08:34→20:24)
[2017-07-03] MEDS: ACETAMINOPHEN TAB 650MG DOSE (2X325MG) PO PRN ×3 (08:35→21:51)
[2017-07-03] MEDS: SENOKOT S TAB PO SCH ×2 (08:35→20:25)
[2017-07-03] MEDS: NEOSPORIN TOP OINT 15GM TOP SCH (08:35)
[2017-07-03] MEDS: VITAMIN D 1,000 INTERNATIONAL UNITS TABLET PO SCH (08:35)
[2017-07-03 08:59] LABS: ALBUMIN 2.4 GM/DL (3.2-5.2); ALBUMIN/GLOBULIN RATIO 0.73 (1.00-1.93); BILIRUBIN,TOTAL 0.5 MG/DL (0.2-1.0); CALCIUM LEVEL 8.1 MG/DL (8.8-10.2); CREATININE FOR GFR 1.6 MG/DL (0.70-1.30); GLOMERULAR FILTRATION RATE 44.4 (>35); POTASSIUM SERUM 4.1 MEQ/L (3.5-5.1); TOTAL PROTEIN 5.7 GM/DL (6.4-8.2)
[2017-07-03 14:00] VITALS: BP 141/65
--- NOTE | 2017-07-03 15:18 | IPN ---
DATE: 07/02/2017 SUBJECTIVE: The patient is seen this morning at the bedside. He is now transferred to the acute rehabilitation unit. He is feeling well, tolerating oral intake without issue. The patient requests Ferguson catheter to be discontinued for trial void. He reports back pain with physical therapy. Otherwise, no complaints. REVIEW OF SYSTEMS: Positive for back pain and debilitation. Review of systems is negative for fevers, chills, chest pain, palpitations, shortness of breath, nausea, vomiting, or diarrhea. Remainder of review of systems is negative. VITAL SIGNS: Temperature 98.2, pulse 59, respiratory rate 16, blood pressure 149/68, saturating 98% on room air. INTAKE AND OUTPUT: Urine output yesterday is recorded as 1025 mL and today thus far, the patient has made 1600 mL with two recorded bowel movements. PHYSICAL EXAMINATION: He is seen out of bed to chair, eating lunch, comfortable. Family is present at the bedside. He looks younger than his stated age. HEAD AND NECK: Normocephalic, atraumatic. Moist mucous membranes. Neck is supple. Extraocular muscles are intact. No significant jugular venous distention or bruit. LUNGS: Seen on room air, comfortable, diminished breath sounds at the base. CARDIAC: Mildly bradycardic, irregular rhythm, 2+ radial pulse bilaterally. Pitting edema is present in the peripheries in the dependent area and below the knees. ABDOMEN: Soft, obese, nontender. Positive bowel sounds with healing laparoscopic sites. GENITOURINARY: Ferguson catheter is present with urine. NEUROLOGIC: No focal deficits. PSYCHIATRIC: Appropriate mood and affect. LABORATORY DATA: White count 6.3, hemoglobin 9.3, platelets 220. Sodium 143, potassium 4.1, bicarbonate 28, BUN 43, creatinine 1.5, INR 1.9. INPATIENT MEDICATIONS: Reviewed by myself. The patient continues on ciprofloxacin and Flagyl, both orally. I have adjusted his diuretic to torsemide 20 mg by mouth twice a day. Remainder of medications are unchanged from prior. PLAN: 1. Acute renal failure superimposed on chronic kidney disease. The patient's baseline creatinine is about 1.6 to 1.7 and he is back to his baseline range. His electrolytes are stable. I will continue to hold his home angiotensin-receptor lopez (ARB), valsartan due to recent renal recovery from acute kidney injury. 2. Decompensated volume status. The patient remains with peripheral edema but is responding to torsemide well. His home regimen was torsemide 40 mg by mouth twice a day. Currently, he is doing well on torsemide 20 mg by mouth twice a day and remains in negative fluid balance. We will continue him on the same. 3. Anemia. Hemoglobin has been stable since his transfusion. He remains on oral iron supplement. 4. Recent septic shock, secondary to perforated appendix, status post appendectomy. The patient is significantly improved, hemodynamically stable, and now transferred to rehabilitation. He remains on oral ciprofloxacin and Flagyl. I will discontinue his Ferguson catheter at this time with a voiding trial. 5. Physical debilitation. The patient is now receiving acute rehabilitation with physical therapy and occupational therapy. He complains of back pain that is limiting his physical activity and range of motion. We will defer to the primary team regarding the same.
[2017-07-03] MEDS: WARFARIN SOD 2.5 MG TAB PO SCH (17:16)
--- NOTE | 2017-07-03 19:09 | IPN ---
DATE: 07/01/2017 The patient had presented initially with perforated appendicitis and developed acute renal failure secondary to sepsis following surgery. He was transferred to the acute rehabilitation unit on the morning of 07/01/2017. VITAL SIGNS: The patient has remained afebrile with the exception of a single temperature to 100.5 at about midnight on 06/30/2017. His pulse is in the high 50s to low 60s. Blood pressure is fine. Intake and output showed 960 in and 3 liters out on 06/30/2017. PHYSICAL EXAMINATION: The patient appears slightly less fatigued today than he did on 06/30/2017. He denies any significant pain. He denies any nausea or vomiting. He has been having bowel movements. Heart exam shows a regular rhythm. The lungs are clear. The abdomen is obese and soft. His drain site is covered with a small dressing which is dry and his other trocar sites are clean and healing well. The abdomen is soft and without undue tenderness. LABORATORY STUDIES: Show a white count of 6 with a hemoglobin of 10, hematocrit 29 and platelet count of 191,000. Chemistry profile showed normal electrolytes with BUN of 56 and a creatinine down to 1.75. IMPRESSION: The patient is responding well to treatment for his perforated appendicitis with sepsis. He has resolved his acute kidney injury and his urine output is good. He is tolerating a diet and has now been moved to rehabilitation. RECOMMENDATIONS: I would continue his antibiotics through one full week from the time of his surgery. He can participate in activity as tolerated. Once he is discharged he can followup with Dr. Lucas in the office in about 2 weeks. FERNANDO
--- NOTE | 2017-07-03 19:19 | IPN ---
DATE: 07/03/2017 SUBJECTIVE: The patient is seen this morning at the bedside. He complains of ongoing back pain, otherwise has no complaints. His Ferguson catheter was removed yesterday and he was voiding without issue afterwards. REVIEW OF SYSTEMS: Negative for fevers, chills, chest pain, palpitations, nausea, vomiting or diarrhea. Review of systems is positive for shortness of breath with exertion, right lower extremity edema and back pain worse from prior. Remainder of review of systems is negative. OBJECTIVE: VITAL SIGNS: Temperature 98.2, pulse 60, respiratory rate 18, blood pressure 140/76, saturating 97% on room air. INTAKE AND OUTPUT: Oral intake yesterday is not fully recorded it seems, only 600 mL. Urine output yesterday was 1900 mL. He is recorded as net-negative fluid balance of 1.3 liters; however, weight in the bed scale has increased compared to prior. PHYSICAL EXAMINATION: The patient is seen sitting out of bed to the chair in no acute distress. GENERAL: Comfortable. Appears younger than stated age. HEAD/NECK: Extraocular muscles are intact. Neck is supple. Oral mucosa is moist. LUNGS: There is coarse and diminished breath sounds at the bases. He is comfortable on room air in no respiratory distress. CARDIAC: S1, S2, two plus radial pulse. There is pitting edema present in the right lower extremity up to the hip 2+. There is also dependent edema in the left hip. ABDOMEN: Obese, nontender. bowel sounds present GENITOURINARY: No Ferguson catheter. Sin: no rash, normal temperature NEUROLOGIC: No focal deficits. PSYCHIATRIC: Appropriate mood and affect. LABORATORY DATA: White count 6.3, hemoglobin 9.3, platelets 220. Sodium 141, potassium 4.1, bicarbonate 28, BUN 36, creatinine 1.6, calcium corrected 9.3, glucose 113. INPATIENT MEDICATIONS: Reviewed by myself. There is no significant change in the past 24 hours. ASSESSMENT AND PLAN: 1. Decompensated volume status with pitting edema. I am going to increase the patient's torsemide. I do not think that his oral intake is being fully recorded. Despite having a documented net-negative weight, his daily weight seems to have risen, and at home, he is on a higher dose of torsemide chronically than what he has been receiving in the hospital. 2. Acute renal failure, resolved. The patient remains within his baseline renal function range, with stable electrolytes. His Ferguson was discontinued and he reports voiding without issue. 3. Back pain. The patient reports worsening back pain over the course of this admission. We will defer to the primary team regarding the same. 4. Status post episode of sepsis in the setting of perforated appendix. The patient remains on Flagyl and ciprofloxacin, and he is afebrile with no leukocytosis. 5. Anemia. The patient's hemoglobin has been low but stable, and he continues on iron supplement. MTDD
[2017-07-03] MEDS: CETIRIZINE (ZyrTEC) 10 MG TAB PO SCH (20:24)
[2017-07-03] MEDS: ASPIRIN 81 MG ENTERIC TAB PO SCH (20:24)
[2017-07-03] MEDS: FAMOTIDINE 20 MG TAB PO SCH (20:24)
[2017-07-03] MEDS: SIMVASTATIN 20 MG TAB PO SCH (20:24)
[2017-07-03 20:28] VITALS: BP 140/72
[2017-07-04] MEDS: oxyCODONE 5MG TAB PO PRN ×4 (01:51→21:12)
[2017-07-04 05:25] VITALS: BP 160/68
[2017-07-04] MEDS: ACETAMINOPHEN TAB 650MG DOSE (2X325MG) PO PRN (05:25)
[2017-07-04] MEDS: CIPROFLOXACIN 500 MG TAB PO SCH ×2 (05:25→17:34)
[2017-07-04] MEDS: metroNIDAZOLE (FLAGYL) 500 MG TAB PO SCH ×3 (05:25→21:11)
[2017-07-04 06:00] VITALS: BP 160/68
[2017-07-04 07:52] LABS: CALCIUM LEVEL 7.9 MG/DL (8.8-10.2); CREATININE FOR GFR 1.39 MG/DL (0.70-1.30); GLOMERULAR FILTRATION RATE 52.2 (>35); MAGNESIUM LEVEL 1.9 MG/DL (1.8-2.4); POTASSIUM SERUM 4.1 MEQ/L (3.5-5.1)
[2017-07-04 07:54] LABS: INR 2.57
[2017-07-04] MEDS: FEXOFENADINE 60 MG TAB PO SCH (08:29)
[2017-07-04] MEDS: TORSEMIDE 20 MG TAB PO SCH ×2 (08:29→17:34)
[2017-07-04] MEDS: NYSTATIN 500,000 U/5 ML SUSP UDC PO SCH ×4 (08:29→21:11)
[2017-07-04] MEDS: GABAPENTIN 300 MG CAP PO SCH ×2 (08:30→21:11)
[2017-07-04] MEDS: OMEGA-3 1050MG CAPSULE PO SCH (08:30)
[2017-07-04] MEDS: VITAMIN D 1,000 INTERNATIONAL UNITS TABLET PO SCH (08:30)
[2017-07-04] MEDS: FERROUS SULFATE 325MG TAB PO SCH (08:31)
[2017-07-04] MEDS: NEOSPORIN TOP OINT 15GM TOP SCH (08:31)
[2017-07-04] MEDS: SENOKOT S TAB PO SCH ×2 (08:34→21:11)
--- NOTE | 2017-07-04 11:24 | IPNPDOC ---
Date Seen The patient was seen on 07/04/17. Progress Note HPI: 82year old M with a past medical history significant for perforated appendicitis with peritonitis/sepsis s/p laparoscopic appendectomy 06/26/[address] Ortiz. nephrology following related to THALIA. Pt transferred to the care of [facility] Caldwell 07/02/17. Denies any fevers, chills, weakness, fatigue, Headache, Chest Pain, Shortness of breath, cough, palpitations, abdominal pain, N/V/D or changes in bowel or bladder habits. PMHx/PSHx: hypertension dyslipidemia left [id number] 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 coronary artery disease chronic kidney disease stage III atrial fibrillation on Coumadin GERD allergic rhinitis. Obesity PE: GEN: 82yoM, appears stated age. No acute distress. Alert and oriented x 3. HEENT: Normocephalic, atraumatic. Sclera are nonicteric. Conjunctiva without injection. Nose midline. No facial asymmetry. Moist mucous membranes. Pharynx pink and moist. Neck supple, trachea midline. No lymphadenopathy or thyromegaly appreciated. CHEST: irreg irreg+S1, +S2 LUNGS: Clear to auscultation bilaterally. No wheezes, rales, or rhonchi. Breathing appears symmetric and easy. ABD: Round, soft, non-tender, non-distended. +Bowel sounds throughout. No rebound or guarding. No costovertebral angle tenderness. EXT: 1-2mm lower extremity edema appreciated. SKIN: [place], dry, warm. Capillary refill <2sec. No rashes. NEURO: No focal deficits appreciated. A&P: 82year old M with a past medical history significant for perforated appendicitis with peritonitis/sepsis s/p laparoscopic cholecystectomy 06/26/[address] Ortiz. nephrology following related to THALIA. Pt transferred to the care of ABI Caldwell 07/02/17. 1. Perforated appendicitis, peritonitis, sepsis, S/P Lap appendectomy 06/26/17. BC x 1 06/26/17 E Coli sensitive to fluoroquinolone. BC x 2 06/29/17 neg. managment as per Surgery. Dr Ortiz following. Pt to finish course of Cipro/Flagyl. PT/OT as per Dr Jacklyn ALEX. Bowel care as per Dr Jacklyn ALEX. Pain control as per Dr Jacklyn ALEX. DVT prophylaxis. Pt is on coumadin. 2. THALIA/CKD3. Nephrology following/managing. SCr continues to trend downward. 3. HTN/Fluid overload. BP 138-160 Nephrology managing diuretics. Torsemide increased last PM to 30mg BID. Monitor need for additional antihypertensives. (Home dose Torsemide 40BID, Valsartan 40 HS.) 4. H/O elevated troponin. ASA 81mg SL NTG as needed. 5. Chronic Afib. HR 56-63 bpm. Coumadin 1 mg daily. (previous home dose 5 mg 1x/wk, 2.5mg daily ROW) INR 2.57 Cont INR daily. 6. HLD. Zocor 20 mg daily. 7. 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 8. Allergic rhinitis. Zyrtec. 9. GERD. Pepcid. 10. Fe def anemia. Continue Fe supplement. Hgb 9.3. 11. Obesity. Complicates care, BMI 36.5. VS, I&O, [facility]H, [facility] Vital Signs/I&O Vital Signs Date Time Temp Pulse Resp B/P (MAP) Pulse Ox O2 Delivery O2 Flow Rate FiO2 07/04/17 09:00 18 07/04/17 08:30 Room Air 07/04/17 06:00 98.2 63 160/68 (98) 97 I&O- Last 24 Hours up to 6 AM 07/05/17 06:00 Intake Total 360 ml Output Total 325 ml Balance 35 ml Laboratory Data 24H LABS Laboratory Tests 2 07/04/17 06:29: Prothrombin Time 28.7H, Prothromb Time International Ratio 2.57, Anion Gap 7L, Glomerular Filtration Rate 52.2, Blood Urea Nitrogen 32H, Creatinine 1.39H, Sodium Level 142, Potassium Level 4.1, Chloride Level 106, Carbon Dioxide Level 29, Calcium Level 7.9L, Magnesium Level 1.9 CBC/BMP Laboratory Tests 07/04/17 06:29 Calcium Level 7.9 L Paulette Meredith Jul 04, 2017 11:24
--- NOTE | 2017-07-04 12:30 | IPN ---
DATE OF SERVICE: 07/04/2017 SUBJECTIVE: The patient is seen this morning at the bedside. He reports he had therapy this morning and tolerated it well. Denies any shortness of breath with his exercises. Reports good oral intake and no trouble voiding urine. His creatinine has continued to trend down. REVIEW OF SYSTEMS: Is positive for back pain and increase in exercise tolerance. Otherwise, negative. VITAL SIGNS: Temperature 98.2, pulse 63, respiratory rate 18, blood pressure 160/68, saturating 97% on room air. INTAKE AND OUTPUT: Intake yesterday 660 mL. Urine output 1175 mL. Weight on the bed scale today 122.1 kg, likely inaccurate. Three recorded bowel movements. PHYSICAL EXAM: The patient is seen in bed. He is comfortable and in no acute distress. HEAD/NECK: Extraocular muscles are intact. His oral mucosa is moist. His lungs are clear to auscultation, and he is comfortable on room air. CARDIAC: S1, S2, 2+ radial pulse. Pitting edema is present in the right lower extremity below the knee and dependent in the hip as well. The abdomen is soft, nontender, obese. There is a small dressing at laparoscopic site. Neurologic: no focal deficit Psychiatric: appropriate mood and affect LABS: Sodium 142, potassium 4.1, bicarbonate 29, creatinine 1.3, BUN 32, magnesium 1.9. INPATIENT MEDICATIONS: The patient continues on ciprofloxacin and Flagyl. There are no significant changes in his medications from prior. PROBLEMS: 1. Decompensated volume status with pitting edema. The patient remains in daily negative fluid balance, although, it is likely that his complete oral intake may not be recorded. I will continue him on torsemide 30 mg by mouth twice a day for now, and he is diuresing well on that. 2. Acute renal failure, resolved. The patient's renal function remains within his baseline range. Creatinine has improved over the past couple days. His electrolytes are stable, and he is voiding well without Ferguson catheter. 3. Atrial fibrillation. The patient continues on Coumadin with therapeutic INR. At the present, he is not on any antiarrhythmics or rate controlling medications , and his heart rate is in the 60s. [facility]
[2017-07-04 13:19] LABS: CALCIUM LEVEL 7.8 MG/DL (8.8-10.2); CREATININE FOR GFR 1.5 MG/DL (0.70-1.30); GLOMERULAR FILTRATION RATE 47.8 (>35); POTASSIUM SERUM 4.4 MEQ/L (3.5-5.1)
[2017-07-04 14:00] VITALS: BP 160/65
--- NOTE | 2017-07-04 17:14 | IPNPDOC ---
PM&R Progress Note Submarine Advisory Team Watch Officer Progress Note DATE OF SERVICE: 07/04/17 DATE OF ADMISSION: Jul 01, 2017 at 09:37 INPATIENT REHABILITATION ADMISSION DAY: #4 SUBJECTIVE: Patient is a 82-year-old handed white male with multiple debilitation secondary to ruptured appendix with peritonitis/sepsis/bacteremia, acute kidney injury on chronic kidney disease 3, congestive heart failure. Patient participating in physical and occupational therapy using left BKA prosthesis for ambulation and transfers as well as occasional wheelchair mobility. A should also having problems with some incontinence of bowel and bladder. He does not note all these having to go to the bathroom and timely fashion as family notes that this existed before the recent illnesses area. Patient overall does note feeling better today though he remains fatigued and has limited endurance and therapy. He notes some back pain which he initially reported as new but his and our confirms it is been a chronic problem for him. Patient knowing the back pain as intractable appears to be in mild musculoskeletal distress. ALLERGIES: See Below MEDICATIONS: Reviewed, see below. OBJECTIVE: VITAL SIGNS: Please see below. PHYSICAL EXAMINATION: GENERAL: Overweight somewhat edematous elderly white male who is alert and oriented to person, place, time and general situation. Patient appears to be in mild musculoskeletal distress. HEENT: Normocephalic/atraumatic with less thrush on tongue. CARDIOVASCULAR: Regular paced ventricles with ongoing regular auricles and 2/4 bilateral radial pulses. LUNGS: Some initial crackles in the left base that cleared and good breath sounds heard further down into the bases bilaterally and and all other lung [place]. ABDOMEN: Obese, nontender with Steri-Stripped laparoscopy insertion sites that are noninflamed, and normal bowel sounds in all quadrants. NEUROLOGICAL: Memory is fair to good, affect is pleasant and cooperative with some anxiousness. Motor is fair in the upper and lower extremities with supportive fair endurance that is improving. SKIN: Left BKA skin intact with marked reduction in edema since Tuesday. Notable decrease edema in right lower extremity as well though pitting edema remains present. LABORATORY DATA: Reviewed. Please see below. MICROBIOLOGY: Please see below. IMAGING: No new imaging. DVT prophylaxis ordered?: Coumadin with YUNG hose and sequential stocking of the right lower extremity. Rn Surgical Pcu on the left lower extremity. INR 2.57 with target INR 2.0-3.0. ASSESSMENT AND PLAN: 1. Rehabilitation multiple debilitation: Patient has made significant improvements physically on his acute kidney injury and congestive heart failure with clearing of excess edema using oral diuretics. Patient has shown notable improvement in ambulation since Tuesday with physical therapy but continues have lots problems with transfers in and out of bed and gaiting his prosthesis and rapidly enough to remain continent. Patient will be started on voiding trials. Patient reviewed in rehabilitation team rounds today and anticipated length of stay is to 07/12/17. Please see attached therapy notes below. 2. Acute kidney injury on chronic kidney disease 3: Patient with notable improvement in BUN and creatinine down down to 32 for BUN and 1.39 for creatinine. Nephrology continues to follow and has patient on a regular dose of diuretics at this time. 3. Anemia: Patient with moderate anemia with H&H of 9.3 and 28.9 from 07/02/17. 4. Hypoalbuminemia: 07/02/17 labs shows albumin 2.4. We will work to improve this. 5. Left below-knee amputation: Patient doing much better with better fit on his prosthesis now actually becoming loose in the socket and having to add 8 ply of stump sock. By the end of therapy though more edema had cleared and patient needs to bring in additional stump socks from home. TIME SPENT: Chart Review, examination and documentation require greater than 25 minutes. Patient: Caio De Anda : 1935 Age/Sex: 82/M Unit#: [id number] Room/Bed: M4146/01 User: Alisa Cruz OT [facility] Date: 07/04/17 11:21 Type: OT Progress Time In * 07:02 Time Out * 08:03 OT Treatment Time-Minutes * 61 mins Type of Therapy Provided * Individual Precautions * Fall Unit * Acute Inpatient Rehab Pain Comment * No c/o pain this session, pt reports relief with heating pad. Subjective * Pt received for session supine in bed, reporting he feels tired as he did not sleep well last night but agreeable to OT session. Cognition * Within Normal Limits Cognition Comments * no significant cognitive impairments observed Supine to Sit * Minimum Assist Sit to Supine * Moderate Assist Rolling * Minimum Assist Bed Mobility Notes * Pt performed supine>sit with min A at posterior trunk with HOB elevated using bed rail. Pt required min A to roll side to side for performing hygiene/washing buttocks in bed. Pt returned to supine at end of session to use urinal with mod A for lifting LEs onto bed. Sit to Stand * Moderate Assist Stand to Sit * Minimum Assist Toilet/Commode * Moderate Assist Functional Transfer Notes: * Pt with improved functional mobility this date, ambulated bedside<>bathroom with RW and min A x 2 for initial sit>stand with bed elevated and mod A x 1 to perform sit>stand from raised commode. Bathing * Minimum Assist Dressing-Lower Body * Minimum Assist Toileting * Maximum Assist ADL Training Note * Pt participated with lower body bathing in supine using long handled sponge with assist to wash buttocks only. Pt trained on use of AE to perform LB dressing and was able to doff sock with dressing stick and don clean sock with sock aid, SBA and visual demo. Pt donned pants over LEs in sitting EOB with quality review specialist and donned pants to waist in standing with occasional support of RW and min A x 1 for maintaining bal. Min A provided this date for adjusting LLE sock and donning prosthesis. Pt performed toileting tasks s/p bm and required assistance for hygiene as well as clothing management due to fatigue; however, pt was able to pull pants up on L side with unilateral support on RW. Pt used urinal later in the session to void while supine in bed with s/u. C. Toileting Hygiene (not transfers): * 02.Substantial/Max Assist Toileting Hygiene Comments: * See ADL note E. Shower/Bathe Self (not transfers, can be sponge bath): * 03.Partial/Mod Assist Shower/Bathe Self Comments: * See ADL note. G. Lower Body Dressing (includes briefs and knee braces): * 03.Partial/Mod Assist Lower Body Dressing Comments: * See ADL note. H. Putting on/taking off footwear (includes TEDS and AFO): * 03.Partial/Mod Assist Putting on/taking off footwear Comments: * See ADL note. Sit-Static * G Sit-Dynamic * G- Stand-Static * G- Stand-Dynamic * F+ Balance Training Note * Sitting observed at EOB, standing during ADLs with and without use of RW OT Intervention Note * Pt participated with ADLs as noted above and demonstrates improved independence with functional mobility and increased functional activity tolerance. Pt left supine in bed at end of session to use urinal with mari garcia in reach, RN informed. OT Goal Note * Continue with OT plan of care. Discharge Recommendations * Home w/services Safe for discharge at this time * No Patient: AdilsonCaio : 1935 Age/Sex: 82/M Unit#: [id number] Room/Bed: M4146/01 User: Alisa Cruz OT [facility] Date: 07/04/17 11:37 Type: OT Progress Time In * 10:48 Time Out * 11:17 OT Treatment Time-Minutes * 29 mins Type of Therapy Provided * Individual Precautions * Fall Unit * Acute Inpatient Rehab Pain Comment * No c/o pain this session. Subjective * Pt received for session supine in bed resting comfortably, agreeable to OT session to focus on strengthening in room. Cognition * Within Normal Limits Cognition Comments * No significant cognitive deficits observed. OT Intervention Note * Pt participated with UB strengthening exercises to facilitate increased independence with ADL routines including bicep curls with 2# x 3 sets 10 reps BUEs, LUE chest press and flys with 1# x 3 sets 10 reps, active horizontal ab/adduction RUE and scapular retraction. Pt participated well throughout the session and was left supine in bed with call garcia in reach and all needs met. OT Goal Note * Continue with OT plan of care. Discharge Recommendations * Home w/services Safe for discharge at this time * No Patient: AdilsonCaio : 1935 Age/Sex: 82/M Unit#: [id number] Room/Bed: M4146/01 User: Carolyn Pierre PT [facility] PT Date: 07/04/17 12:48 Type: PT Progress Note Time In * 09:00 Time Out * 10:00 PT Treatment Time-Minutes * 60 mins Type of Therapy Provided * Individual Precautions * Fall Unit * Acute Inpatient Rehab Pain Start of Session * 5 Pain End of Session * 6 Subjective * Pt states "I was tired before I started". Reported prosthesis feeling loose by end of session. Willing to participate Cognition * Within Normal Limits Cognition Comments * No significant cognitive deficits observed. Supine to Sit * Not Tested Sit to Supine * Moderate Assist Rolling * Not Tested Bed Mobility Notes * Mod assist of 1 for sit to supine for right LE and repostioning in bed. Assists with right bridge but unable to fully clear buttocks. Sit to Stand * Moderate Assist Stand to Sit * Minimum Assist Bed to Chair * Minimum Assist Chair to Bed * Minimum Assist Toilet/Commode * Moderate Assist Transfer Training Notes * Mod assist 1 from chair with pillows in seat to elevate. Mod assist 2 from standard wheelchair height. Pt reports has 3 lift chairs at home. Sit-Static * G Sit-Dynamic * G- Stand-Static * G- Stand-Dynamic * F+ Balance Training Note * Sitting observed at EOB, standing during parallel bar activities and with RW Ambulation Distance * 90 Feet Ambulation Level of Assist * Contact Guard Assist Assistive Device Used * Rolling Walker * Lower Body Prosthesis * Gait Belt Gait Training Note * Pt given some VC's for improved posture. Slow step to gait pattern with left leading. Dec foot clearance. CG of 1 for support Wheelchair Mobility Level of Assist * Not Tested Number of Stairs Completed * 4 Stairs Level of Assist for Stairs * Minimum Assist Stair Training Note * 4 six inch steps, forward up and backward down Completed in parallel bars A. Roll Left and Right: * 88.Not Attempted B. Sit to Lying: * 03.Partial/Mod Assist Sit to Lying Comments: * modA with right LE and repositioning once in bed C. Lying to Sitting on Side of Bed: * 88.Not Attempted D. Sit to Stand: * 03.Partial/Mod Assist Sit to Stand Comments: * VC's for proper technique E. Chair/Sfe-tw-Lxgxd Transfer: * 03.Partial/Mod Assist Chair/Qtf-du-Llnfy Transfer Comments: * assist primarily for STS. once upright CG only F. Toilet Transfer: * 88.Not Attempted G. Car Transfer: * 88.Not Attempted H. Does the patient walk?: * 2. Yes I. Walk 10 Feet: * 04.Sup/Touch Assist J. Walk 50' with Two Turns: * 04.Sup/Touch Assist Walk 50' with Two Turns Comments: * see gait note K. Walk 150 Feet: * 88.Not Attempted L. Walking 10' on uneven surfaces: * 88.Not Attempted M. 1 Step (curb): * 88.Not Attempted N. 4 Steps (with or without railing): * 03.Partial/Mod Assist O. 12 Steps (with or without railing): * 88.Not Attempted P. Picking up Object from the Floor (from a standing): * 88.Not Attempted Q. Does the patient use a w/c (other than just transport): * 1. Yes R. Wheel 50' with 2 Turns(seated in w/c): * 88.Not Attempted RR. What type of w/c?: * 1. Manual S. Wheel 150' (seated in w/c): * 88.Not Attempted SS. What type of w/c?: * 1. Manual Lower Extremity Exercised * Bilateral Supine Exercises * Quad Sets * Glut Sets Sitting Exercises * Long Arc Quads * Marching * Hip Abduction * Hip Adduction Other Sitting Exercises * glute sets Number of Reps Sitting * 10-15 Reps Other Standing Exercises * sit to stand x 12 total from variety of surfaces. Varying amounts of assist depending on surface Therapeutic Exercises Note * Pt required [place] with LE's (B) in sitting PT Interventions * Gait Training * Therapeutic Excercise * Functional Training * Balance Activities * Safety/Precautions * Pt./Family Education PT Progress Note * Signif improved ambulation distance. Once upright requires only CG. Transfer assist varies depending on height of surface. Poor flexion of BKA limits ability to assist with left LE and needs some assist to stabilize left for transfer. PT Goal Note * Continue with POC Discharge Recommendations * Home w/services Safe for discharge at this time * No Patient: Caio De Anda : 1935 Age/Sex: 82/M Unit#: [id number] Room/Bed: M4146/01 User: Carolyn Pierre, HELGA [facility] PT Date: 07/04/17 15:03 Type: PT Progress Note Time In * 13:00 Time Out * 13:30 PT Treatment Time-Minutes * 30 mins Type of Therapy Provided * Individual Precautions * Fall Unit * Acute Inpatient Rehab Pain Start of Session * 5 Pain End of Session * 6 Pain Comment * No c/o pain this session. Subjective * Pt very fatigued. Agreed to participate but has less energy than this AM Cognition * Within Normal Limits Cognition Comments * No significant cognitive deficits observed. Supine to Sit * Minimum Assist Rolling * Moderate Assist Bed Mobility Notes * Min assist 1 sup to sit Sit to Stand * Minimum Assist Stand to Sit * Minimum Assist Bed to Chair * Not Tested Chair to Bed * Not Tested Toilet/Commode * Minimum Assist Transfer Training Notes * Min assist for transfers from elevated bed and commode Sit-Static * G Sit-Dynamic * G- Stand-Static * G- Stand-Dynamic * F+ Balance Training Note * Donning prosthesis indep Ambulation Distance * 20 Feet Ambulation Level of Assist * Contact Guard Assist Assistive Device Used * Rolling Walker * Lower Body Prosthesis * Gait Belt Gait Training Note * Dec distance, pt needing commode at end of session Wheelchair Mobility Level of Assist * Not Tested Number of Stairs Completed * 0 Stairs Level of Assist for Stairs * Minimum Assist Stair Training Note * 4 six inch steps, forward up and backward down Completed in parallel bars A. Roll Left and Right: * 03.Partial/Mod Assist B. Sit to Lying: * 88.Not Attempted Sit to Lying Comments: * modA with right LE and repositioning once in bed C. Lying to Sitting on Side of Bed: * 03.Partial/Mod Assist D. Sit to Stand: * 03.Partial/Mod Assist Sit to Stand Comments: * VC's for proper technique E. Chair/Pxj-wz-Tkjyz Transfer: * 03.Partial/Mod Assist Chair/Mxh-ud-Rcbfd Transfer Comments: * assist primarily for STS. once upright CG only F. Toilet Transfer: * 03.Partial/Mod Assist G. Car Transfer: * 88.Not Attempted H. Does the patient walk?: * 2. Yes I. Walk 10 Feet: * 04.Sup/Touch Assist Walk 10 Feet Comments: * see gait note J. Walk 50' with Two Turns: * 88.Not Attempted Walk 50' with Two Turns Comments: * see gait note K. Walk 150 Feet: * 88.Not Attempted L. Walking 10' on uneven surfaces: * 88.Not Attempted M. 1 Step (curb): * 88.Not Attempted N. 4 Steps (with or without railing): * 03.Partial/Mod Assist O. 12 Steps (with or without railing): * 88.Not Attempted P. Picking up Object from the Floor (from a standing): * 88.Not Attempted Q. Does the patient use a w/c (other than just transport): * 1. Yes R. Wheel 50' with 2 Turns(seated in w/c): * 88.Not Attempted RR. What type of w/c?: * 1. Manual S. Wheel 150' (seated in w/c): * 88.Not Attempted SS. What type of w/c?: * 1. Manual Lower Extremity Exercised * Bilateral Supine Exercises * Ankle Pumps * Quad Sets * Glut Sets * Heel Slides * Hip Abductions Other Supine Exercises * glute sets Number of Reps Sitting * 10-15 Reps PT Interventions * Gait Training * Therapeutic Excercise * Functional Training * Balance Activities * Safety/Precautions * Pt./Family Education PT Progress Note * Less difficulty with sup to sit than sit to supine. able to get bilat LE's over edge of bed. Slow with donning prosthesis, Needed mod assist to doff clothing for toileting, unable to do SLR with right LE. PT Goal Note * Continue with POC Discharge Recommendations * Home w/services Safe for discharge at this time * No Allergies Coded Allergies: Penicillins (Verified Allergy, Unknown, HIVES, 11/27/12) Penicillins Cross Reactors (Verified Allergy, Unknown, HIVES, 11/27/12) Vital Signs Vital Signs Date Time Temp Pulse Resp B/P (MAP) Pulse Ox O2 Delivery O2 Flow Rate FiO2 07/04/17 14:00 98.9 60 20 160/65 (96) 98 Room Air Laboratory Data CBC/BMP Laboratory Tests 07/04/17 06:29 Calcium Level 7.9 L 07/04/17 12:02 Calcium Level 7.8 L Labs 24H Laboratory Tests 2 07/04/17 06:29: Prothrombin Time 28.7H, Prothromb Time International Ratio 2.57, Anion Gap 7L, Glomerular Filtration Rate 52.2, Blood Urea Nitrogen 32H, Creatinine 1.39H, Sodium Level 142, Potassium Level 4.1, Chloride Level 106, Carbon Dioxide Level 29, Calcium Level 7.9L, Magnesium Level 1.9 07/04/17 12:02: Anion Gap 6L, Glomerular Filtration Rate 47.8, Blood Urea Nitrogen 32H, Creatinine 1.50H, Sodium Level 141, Potassium Level 4.4, Chloride Level 104, Carbon Dioxide Level 31, Calcium Level 7.8L Current Medications Current Medications Current Medications Acetaminophen (Tylenol Tab) 650 mg Q6HP PRN PO PAIN OR FEVER Last administered on 07/04/17 05:25; Start 07/01/17 at 09:45; Stop 07/31/17 at 09:44 Albuterol Sulfate (Proventil, Ventolin Hfa) 2 puff Q4HP PRN INH SHORTNESS OF BREATH; Start 07/01/17 at 09:45; Stop 07/31/17 at 09:44 Aspirin (Ecotrin) 81 mg QHS PO Last administered on 07/03/17 20:24; Start at 21:00; Stop 07/31/17 at 20:59 Bisacodyl (Dulcolax Tab) 5 mg DAILYPRN PRN PO CONSTIPATION; Start 07/01/17 at 09:45; Stop 07/31/17 at 09:44 Cetirizine HCl (ZyrTEC) 10 mg QHS PO Last administered on 07/03/17 20:24; Start 07/01/17 at 21:00; Stop 07/31/17 at 20:59 Ciprofloxacin (Cipro) 500 mg BID@06,18 PO Last administered on 07/04/17 05:25 ; Start 07/01/17 at 18:00; Stop 07/07/17 at 23:55 Famotidine (Pepcid) 40 mg QHS PO Last administered on 07/03/17 20:24; Start 07/01/17 at 21:00; Stop 07/31/17 at 20:59 Ferrous Sulfate (Ferrous Sulfate) 325 mg DAILY PO Last administered on 08:31; Start 07/02/17 at 09:00; Stop 08/01/17 at 08:59 Fexofenadine HCl (Jackie) 180 mg QAM PO Last administered on 07/04/17 08:29 ; Start 07/02/17 at 09:00; Stop 08/01/17 at 08:59 Fish Oil (Ruby-3 (1050mg)) 1 ea DAILY PO Last administered on 07/04/17 08:30 ; Start 07/02/17 at 09:00; Stop 08/01/17 at 08:59 Gabapentin (Neurontin) 300 mg BID PO Last administered on 07/04/17 08:30; Start 07/01/17 at 21:00; Stop 07/31/17 at 20:59 Magnesium Hydroxide (Milk Of Magnesia) 30 ml DAILYPRN PRN PO CONSTIPATION; Start 07/01/17 at 09:45; Stop 07/31/17 at 09:44 Metronidazole (Flagyl) 500 mg Q8H PO Last administered on 07/04/17 13:24; Start 07/01/17 at 14:00; Stop 07/07/17 at 13:59 Neomycin/ Polymyxin/ Bacitracin (Neosporin) Abdominal incision dress... DAILY TOP Last administered on 07/04/17 08:31; Start 07/01/17 at 09:00; Stop 06/07 at 08:59 Nitroglycerin (Nitrostat (1/ 150)) 0.4 mg Q5MP PRN SL CHEST PAIN; Start at 09:45; Stop 07/31/17 at 09:44 Nystatin (Mycostatin Powder, Nystop) APPLY TO GROIN AND FATTY FOLDS BIDP PRN TOP RASH; Start 07/01/17 at 09:45; Stop 07/31/17 at 09:44 Nystatin (Mycostatin) 5 ml QID PO Last administered on 07/04/17 13:24; Start 07/01/17 at 13:00; Stop 07/08/17 at 09:00 Oxycodone HCl (Roxicodone, Oxyir) 5 mg Q4HP PRN PO PAIN SCALE 6-10 Last administered on 07/04/17 13:25; Start 07/01/17 at 09:45; Stop 07/08/17 at 09 :44 Senna/Docusate Sodium (Senokot S) 1 tab BID PO Last administered on 07/04/17 08:34; Start 07/01/17 at 21:00; Stop 07/31/17 at 20:59 Simvastatin (Zocor) 20 mg QHS PO Last administered on 07/03/17 20:24; Start 07/01/17 at 21:00; Stop 07/31/17 at 20:59 Torsemide (Demadex) 5 mg BID@ PO Last administered on 07/02/17 08:43; Start 07/01/17 at 17:00; Stop 07/02/17 at 15:35; Status DC Torsemide (Demadex) 20 mg BID@, PO Last administered on 07/03/17 08:34; Start 07/02/17 at 17:00; Stop 07/03/17 at 13:20; Status DC Torsemide (Demadex) 30 mg BID@, PO Last administered on 07/04/17 08:29; Start 07/03/17 at 17:00; Stop 08/02/17 at 16:59 Vitamin D (Vitamin D) 1,000 units DAILY PO Last administered on 11/13/17at 08: 30; Start 07/02/17 at 09:00; Stop 08/01/17 at 08:59 Warfarin Sodium (Coumadin) 1 mg DAILY@17 PO ; Start 07/04/17 at 17:00; Stop at 09:00 Warfarin Sodium (Coumadin) 2.5 mg DAILY@17 PO Last administered on 07/03/17t 17:16; Start 07/01/17 at 17:00; Stop 07/04/17 at 08:44; Status DC SARAH SOTO MD Jul 04, 2017 17:14
[2017-07-04] MEDS: WARFARIN SOD 1 MG TAB PO SCH (17:34)
--- NOTE | 2017-07-04 17:53 | IPN ---
DATE: 07/04/2017 The patient remains on the acute rehabilitation unit, now eight days postoperative from his perforated appendicitis. He reports that he is doing well with no nausea or vomiting and is eating well and gaining strength. Vital signs show that he has been afebrile over the weekend with a pulse in the 60s and a good blood pressure. Intake and output for 07/03/2017 is 660 in and 1175 out. Physical examination reveals a somewhat obese man, lying quietly in the hospital bed. He is alert and oriented. He denies pain. Heart and lung examination is unremarkable. The abdomen is obese, soft and without significant tenderness. LABORATORY STUDIES: Show that he had a sodium of 141, potassium 4.4, chloride 104, CO2 of 31, BUN of 32, creatinine 1.5 and a glucose of 126. He did not have a CBC today. IMPRESSION: Excellent progress, now eight days postoperative from his laparoscopic appendectomy. PLAN: The patient remains on antibiotics but I believe they can be stopped at this point. He can continue his rehabilitation without restriction and he can be discharged home whenever he satisfies discharge criteria for rehabilitation. FERNANDO
[2017-07-04 17:54] LABS: CALCIUM LEVEL 7.9 MG/DL (8.8-10.2); CREATININE FOR GFR 1.52 MG/DL (0.70-1.30); GLOMERULAR FILTRATION RATE 47.1 (>35); POTASSIUM SERUM 3.6 MEQ/L (3.5-5.1)
[2017-07-04 20:14] VITALS: BP 168/66
[2017-07-04] MEDS: SIMVASTATIN 20 MG TAB PO SCH (21:11)
[2017-07-04] MEDS: ASPIRIN 81 MG ENTERIC TAB PO SCH (21:13)
[2017-07-04] MEDS: FAMOTIDINE 20 MG TAB PO SCH (21:13)
[2017-07-04] MEDS: CETIRIZINE (ZyrTEC) 10 MG TAB PO SCH (21:13)
[2017-07-04 23:50] LABS: CALCIUM LEVEL 8.1 MG/DL (8.8-10.2); CREATININE FOR GFR 1.48 MG/DL (0.70-1.30); GLOMERULAR FILTRATION RATE 48.6 (>35); POTASSIUM SERUM 4.3 MEQ/L (3.5-5.1)
[2017-07-05 04:57] VITALS: BP 168/66
[2017-07-05] MEDS: CIPROFLOXACIN 500 MG TAB PO SCH (04:59)
[2017-07-05] MEDS: metroNIDAZOLE (FLAGYL) 500 MG TAB PO SCH (04:59)
[2017-07-05] MEDS: oxyCODONE 5MG TAB PO PRN (04:59)
[2017-07-05 06:50] LABS: MEAN CORPUSCULAR HEMOGLOBIN 36.8 pg (27.0-33.0); MEAN CORPUSCULAR HGB CONC 33.2 g/dl (32.0-36.5); MEAN CORPUSCULAR VOLUME 110.7 fl (80.0-96.0); PLATELET COUNT, AUTOMATED 286 10^3/uL (150-450); WHITE BLOOD COUNT 7.3 10^3/uL (4.0-10.0)
[2017-07-05 07:03] LABS: INR 2.83
[2017-07-05 07:07] LABS: CALCIUM LEVEL 8.1 MG/DL (8.8-10.2); CREATININE FOR GFR 1.41 MG/DL (0.70-1.30); GLOMERULAR FILTRATION RATE 51.4 (>35); POTASSIUM SERUM 4.1 MEQ/L (3.5-5.1)
[2017-07-05] MEDS ORDERED: FLEET ENEMA PR PRN (09:00)
[2017-07-05] MEDS: VITAMIN D 1,000 INTERNATIONAL UNITS TABLET PO SCH (09:45)
[2017-07-05] MEDS: SENOKOT S TAB PO SCH ×2 (09:45→21:21)
[2017-07-05] MEDS: FERROUS SULFATE 325MG TAB PO SCH (09:45)
[2017-07-05] MEDS: OMEGA-3 1050MG CAPSULE PO SCH (09:45)
[2017-07-05] MEDS: GABAPENTIN 300 MG CAP PO SCH ×2 (09:45→21:20)
[2017-07-05] MEDS: TORSEMIDE 20 MG TAB PO SCH ×2 (09:46→16:59)
[2017-07-05] MEDS: FEXOFENADINE 60 MG TAB PO SCH (09:46)
[2017-07-05] MEDS: NYSTATIN 500,000 U/5 ML SUSP UDC PO SCH ×4 (09:48→21:20)
[2017-07-05] MEDS: NEOSPORIN TOP OINT 15GM TOP SCH (09:49)
--- NOTE | 2017-07-05 11:38 | IPNPDOC ---
PM&R Progress Note Car Installations Supervisor Progress Note DATE OF SERVICE: 07/05/17 DATE OF ADMISSION: Jul 01, 2017 at 09:37 INPATIENT REHABILITATION ADMISSION DAY: #5 SUBJECTIVE: Patient is a 82-year-old handed white male with multiple debilitation secondary to ruptured appendix with peritonitis/sepsis/bacteremia, acute kidney injury on chronic kidney disease 3, congestive heart failure. Patient participating in physical and occupational therapy using left BKA prosthesis for ambulation and transfers as well as occasional wheelchair mobility. A should also having problems with some incontinence of bowel and bladder. He does not note all these having to go to the bathroom and timely fashion as family notes that this existed before the recent illnesses area. Patient overall does note feeling better today though he remains fatigued and has limited endurance and therapy. He notes some back pain which he initially reported as new but his and our confirms it is been a chronic problem for him. Patient knowing the back pain as intractable appears to be in mild musculoskeletal distress. He declined OT this morning due to rectal pain and feeling bloated. ALLERGIES: See Below MEDICATIONS: Reviewed, see below. OBJECTIVE: VITAL SIGNS: Please see below. PHYSICAL EXAMINATION: GENERAL: Overweight somewhat edematous elderly white male who is alert and oriented to person, place, time and general situation. Patient appears to be in mild musculoskeletal distress. HEENT: Normocephalic/atraumatic with less thrush on tongue. CARDIOVASCULAR: Regular paced ventricles with ongoing regular auricles and 2/4 bilateral radial pulses. LUNGS: Some initial crackles in the left base that cleared and good breath sounds heard further down into the bases bilaterally and and all other lung [place]. ABDOMEN: Obese, nontender with Steri-Stripped laparoscopy insertion sites that are noninflamed, and normal bowel sounds in all quadrants, but tympany over gastric bubble and right upper quadrant at ascending/transverse colon junction with stool palpable in the ascending, transverse and decending colon. NEUROLOGICAL: Memory is fair to good, affect is pleasant and cooperative with some anxiousness. Motor is fair in the upper and lower extremities with supportive fair endurance that is improving. SKIN: Left BKA skin intact with marked reduction in edema since Tuesday. Notable decrease edema in right lower extremity as well though pitting edema remains present. LABORATORY DATA: Reviewed. Please see below. MICROBIOLOGY: Please see below. IMAGING: No new imaging. DVT prophylaxis ordered?: Coumadin with YUNG hose and sequential stocking of the right lower extremity. Historiography Teacher on the left lower extremity. INR 2.83 with target INR 2.0-3.0. ASSESSMENT AND PLAN: 1. Rehabilitation multiple debilitation: Patient has made significant improvements physically on his acute kidney injury and congestive heart failure with clearing of excess edema using oral diuretics. Patient has shown notable improvement in ambulation since Tuesday with physical therapy but continues have lots problems with transfers in and out of bed and gaiting his prosthesis and rapidly enough to remain continent. Patient will be started on voiding trials. Patient reviewed in rehabilitation team rounds today and anticipated length of stay is to 07/12/17. Please see attached therapy notes below. 2. Acute kidney injury on chronic kidney disease 3: Patient with notable improvement in BUN and creatinine down down to 29 for BUN and 1.41 for creatinine today on 07/05/17. Nephrology continues to follow and has patient on a regular dose of diuretics at this time. 3. Anemia: Patient with moderate anemia stable at H&H of 9.6 and 28.9 today on 07/05/17. 4. Hypoalbuminemia: 07/02/17 labs shows albumin 2.4. We will work to improve this. 5. Left below-knee amputation: Patient doing much better with better fit on his prosthesis now actually becoming loose in the socket and having to add 8 ply of stump sock. By the end of therapy though more edema had cleared and patient needs to bring in additional stump socks from home. 6. Constipation: Patient with gas and stool throughout the colon. I will try Dulcolax and Fleets this morning to clear and if not successful a large volume enema this afternoon. Patient with frequent small soft stools likely has a hard stool mass and some ball valve effect. He needs to clean out his colon. TIME SPENT: Chart Review, examination and documentation require greater than 25 minutes. Allergies Coded Allergies: Penicillins (Verified Allergy, Unknown, HIVES, 11/27/12) Penicillins Cross Reactors (Verified Allergy, Unknown, HIVES, 11/27/12) Vital Signs Vital Signs Date Time Temp Pulse Resp B/P (MAP) Pulse Ox O2 Delivery O2 Flow Rate FiO2 07/05/17 05:40 20 07/05/17 04:57 98.9 60 168/66 (100) 96 Room Air Laboratory Data CBC/BMP Laboratory Tests 07/04/17 12:02 Calcium Level 7.8 L 07/04/17 17:13 Calcium Level 7.9 L 07/04/17 23:10 Calcium Level 8.1 L 07/05/17 06:39 Calcium Level 8.1 L, Red Blood Count 2.61 L, Mean Corpuscular Volume 110.7 H, Mean Corpuscular Hemoglobin 36.8 H, Mean Corpuscular Hemoglobin Concent 33.2, Red Cell Distribution Width 16.0 H Labs 24H Laboratory Tests 2 07/04/17 12:02: Anion Gap 6L, Glomerular Filtration Rate 47.8, Blood Urea Nitrogen 32H, Creatinine 1.50H, Sodium Level 141, Potassium Level 4.4, Chloride Level 104, Carbon Dioxide Level 31, Calcium Level 7.8L 07/04/17 17:13: Anion Gap 7L, Glomerular Filtration Rate 47.1, Blood Urea Nitrogen 31H, Creatinine 1.52H, Sodium Level 139, Potassium Level 3.6, Chloride Level 104, Carbon Dioxide Level 28, Calcium Level 7.9L 07/04/17 20:26: Urine Appearance CLEAR, Urine Color YELLOW, Urine pH 5.0, Urine Specific [place] 1.009, Urine Protein NEGATIVE, Urine Glucose (UA) NEGATIVE, Urine Ketones NEGATIVE, Urine Urobilinogen 0.2, Urine Bilirubin NEGATIVE, Urine Leukocyte Esterase NEGATIVE, Urine Blood NEGATIVE, Urine Nitrite NEGATIVE, Urine WBC (Auto) 0, Urine RBC (Auto) 3, Urine Hyaline Casts (Auto) 17, Urine Bacteria (Auto) NEGATIVE, Urine Squamous Epithelial Cells 0, Urine Mucus (Auto) SMALL, Urine Sperm (Auto) 07/04/17 23:10: Anion Gap 4L, Glomerular Filtration Rate 48.6, Blood Urea Nitrogen 30H, Creatinine 1.48H, Sodium Level 142, Potassium Level 4.3, Chloride Level 104, Carbon Dioxide Level 34H, Calcium Level 8.1L 07/05/17 06:39: Nucleated Red Blood Cells % (auto) 0.0, Prothrombin Time 31.0H, Prothromb Time International Ratio 2.83, Anion Gap 8, Glomerular Filtration Rate 51.4, Blood Urea Nitrogen 29H, Creatinine 1.41H, Sodium Level 141, Potassium Level 4.1, Chloride Level 104, Carbon Dioxide Level 29, Calcium Level 8.1L Current Medications Current Medications Current Medications Acetaminophen (Tylenol Tab) 650 mg Q6HP PRN PO PAIN OR FEVER Last administered on 07/04/17 05:25; Start 07/01/17 at 09:45; Stop 07/31/17 at 09:44 Albuterol Sulfate (Proventil, Ventolin Hfa) 2 puff Q4HP PRN INH SHORTNESS OF BREATH; Start 07/01/17 at 09:45; Stop 07/31/17 at 09:44 Amlodipine Besylate (Norvasc) 2.5 mg DAILY PO ; Start 07/05/17 at 09:00; Stop 08/04/17 at 08:59 Aspirin (Ecotrin) 81 mg QHS PO Last administered on 07/04/17 21:13; Start at 21:00; Stop 07/31/17 at 20:59 Bisacodyl (Dulcolax Tab) 5 mg DAILYPRN PRN PO CONSTIPATION; Start 07/01/17 at 09:45; Stop 07/31/17 at 09:44 Cetirizine HCl (ZyrTEC) 10 mg QHS PO Last administered on 07/04/17 21:13; Start 07/01/17 at 21:00; Stop 07/31/17 at 20:59 Ciprofloxacin (Cipro) 500 mg BID@,18 PO Last administered on 07/05/17 04:59 ; Start 07/01/17 at 18:00; Stop 07/05/17 at 07:46; Status DC Famotidine (Pepcid) 40 mg QHS PO Last administered on 07/04/17 21:13; Start 07/01/17 at 21:00; Stop 07/31/17 at 20:59 Ferrous Sulfate (Ferrous Sulfate) 325 mg DAILY PO Last administered on 09:45; Start 07/02/17 at 09:00; Stop 08/01/17 at 08:59 Fexofenadine HCl (Jackie) 180 mg QAM PO Last administered on 07/05/17 09:46 ; Start 07/02/17 at 09:00; Stop 08/01/17 at 08:59 Fish Oil ([place]-3 (1050mg)) 1 ea DAILY PO Last administered on 07/05/17 09:45 ; Start 07/02/17 at 09:00; Stop 08/01/17 at 08:59 Gabapentin (Neurontin) 300 mg BID PO Last administered on 07/05/17 09:45; Start 07/01/17 at 21:00; Stop 07/31/17 at 20:59 Magnesium Hydroxide (Milk Of Magnesia) 30 ml DAILYPRN PRN PO CONSTIPATION; Start 07/01/17 at 09:45; Stop 07/31/17 at 09:44 Metronidazole (Flagyl) 500 mg Q8H PO Last administered on 07/05/17 04:59; Start 07/01/17 at 14:00; Stop 07/05/17 at 07:46; Status DC Neomycin/ Polymyxin/ Bacitracin (Neosporin) Abdominal incision dress... DAILY TOP Last administered on 07/05/17 09:49; Start 07/01/17 at 09:00; Stop 06/07 at 08:59 Nitroglycerin (Nitrostat (1/ 150)) 0.4 mg Q5MP PRN SL CHEST PAIN; Start at 09:45; Stop 07/31/17 at 09:44 Nystatin (Mycostatin Powder, Nystop) APPLY TO GROIN AND FATTY FOLDS BIDP PRN TOP RASH; Start 07/01/17 at 09:45; Stop 07/31/17 at 09:44 Nystatin (Mycostatin) 5 ml QID PO Last administered on 07/05/17 09:48; Start 07/01/17 at 13:00; Stop 07/08/17 at 09:00 Oxycodone HCl (Roxicodone, Oxyir) 5 mg Q4HP PRN PO PAIN SCALE 6-10 Last administered on 07/05/17 04:59; Start 07/01/17 at 09:45; Stop 07/08/17 at 09 :44 Senna/Docusate Sodium (Senokot S) 1 tab BID PO Last administered on 07/05/17 09:45; Start 07/01/17 at 21:00; Stop 07/31/17 at 20:59 Simvastatin (Zocor) 20 mg QHS PO Last administered on 07/04/17 21:11; Start 07/01/17 at 21:00; Stop 07/31/17 at 20:59 Sodium Biphosphate/ Sodium Phosphate (Fleet Enema) 1 ENEMA DAILYPRN PRN [place] CONSTIPATION; Start 07/05/17 at 09:00 Torsemide (Demadex) 5 mg BID@ PO Last administered on 07/02/17 08:43; Start 07/01/17 at 17:00; Stop 07/02/17 at 15:35; Status DC Torsemide (Demadex) 20 mg BID@ PO Last administered on 07/03/17 08:34; Start 07/02/17 at 17:00; Stop 07/03/17 at 13:20; Status DC Torsemide (Demadex) 30 mg BID@ PO Last administered on 07/05/17 09:46; Start 07/03/17 at 17:00; Stop 08/02/17 at 16:59 Vitamin D (Vitamin D) 1,000 units DAILY PO Last administered on 07/05/17 09: 45; Start 07/02/17 at 09:00; Stop 08/01/17 at 08:59 Warfarin Sodium (Coumadin) 1 mg DAILY@17 PO Last administered on 07/04/17 17: 34; Start 07/04/17 at 17:00; Stop 07/06/17 at 09:00 Warfarin Sodium (Coumadin) 2.5 mg DAILY@17 PO Last administered on 07/03/17 17:16; Start 07/01/17 at 17:00; Stop 07/04/17 at 08:44; Status DC SARAH SOTO MD Jul 05, 2017 11:38
[2017-07-05 14:00] VITALS: BP 160/72
[2017-07-05 14:14] LABS: CREATININE FOR GFR 1.61 MG/DL (0.70-1.30); GLOMERULAR FILTRATION RATE 44.1 (>35); POTASSIUM SERUM 4.3 MEQ/L (3.5-5.1)
[2017-07-05] MEDS: ACETAMINOPHEN TAB 650MG DOSE (2X325MG) PO PRN (15:22)
[2017-07-05] MEDS: WARFARIN SOD 1 MG TAB PO SCH (16:59)
--- NOTE | 2017-07-05 17:20 | IPN ---
DATE: 07/05/2017 SUBJECTIVE: Chart reviewed. Patient declined occupational therapy this morning. He is receiving a bowel regimen. I could not examine him as he was toileting. Noted that he is getting basic metabolic panel (BMP) every 6 hours and seems to be unnecessary. Discussed discontinuing every 6 hours BMP with the nursing staff. VITAL SIGNS: Temperature 98.9, pulse 60, respiratory rate 20, blood pressure 168/66, saturating 96% on room air. INTAKE AND OUTPUT: Urine output yesterday 2250 with 3 recorded bowel movements. PHYSICAL EXAMINATION: Patient could not be examined as he was toileting. LABORATORY: Sodium 141, potassium 4.1, bicarbonate 29, BUN 29, creatinine 1.4, calcium 8.1, hemoglobin 9.6, platelets 286. INPATIENT MEDICATIONS: I started the patient on Norvasc 2.5 mg by mouth daily today with holding parameter. His ciprofloxacin and Flagyl were discontinued. His remainder of medications are unchanged from prior. PROBLEMS: 1. Hypertension. The patient's blood pressure has been above goal. I will not start his home valsartan as he has recently recovered from acute kidney injury. Will put him on Norvasc 2.5 mg by mouth daily with holding parameters. 2. Decompensated volume status with pitting edema. The patient continues on torsemide 30 mg by mouth twice a day. I could not physically examine him today, but he does continue on daily net negative fluid balance. He does not need every 6 hourly BMP, and I have discussed with the nursing staff to discontinue the same. 3. Atrial fibrillation. The patient continues on Coumadin with therapeutic international normalized ratio (INR). 4. Rehabilitation with multiple debilitations. Continue as per rehab. 5. Anemia. The patient's hemoglobin is low but stable in the 9's.
[2017-07-05 20:30] VITALS: BP 157/85
[2017-07-05] MEDS: CETIRIZINE (ZyrTEC) 10 MG TAB PO SCH (21:21)
[2017-07-05] MEDS: ASPIRIN 81 MG ENTERIC TAB PO SCH (21:21)
[2017-07-05] MEDS: SIMVASTATIN 20 MG TAB PO SCH (21:21)
[2017-07-05] MEDS: FAMOTIDINE 20 MG TAB PO SCH (21:21)
[2017-07-06 05:42] VITALS: BP 158/63
[2017-07-06 07:16] LABS: MEAN CORPUSCULAR HEMOGLOBIN 35.2 pg (27.0-33.0); MEAN CORPUSCULAR HGB CONC 31.9 g/dl (32.0-36.5); MEAN CORPUSCULAR VOLUME 110.5 fl (80.0-96.0); PLATELET COUNT, AUTOMATED 327 10^3/uL (150-450); RED CELL DISTRIBUTION WIDTH 15.9 % (11.5-14.5); WHITE BLOOD COUNT 7.6 10^3/uL (4.0-10.0)
[2017-07-06 07:23] LABS: INR 2.85
[2017-07-06] MEDS: SENOKOT S TAB PO SCH ×2 (09:00→20:32)
[2017-07-06] MEDS: NYSTATIN 500,000 U/5 ML SUSP UDC PO SCH ×4 (09:18→20:32)
[2017-07-06] MEDS: OMEGA-3 1050MG CAPSULE PO SCH (09:18)
[2017-07-06] MEDS: FEXOFENADINE 60 MG TAB PO SCH (09:18)
[2017-07-06] MEDS: FERROUS SULFATE 325MG TAB PO SCH (09:19)
[2017-07-06] MEDS: VITAMIN D 1,000 INTERNATIONAL UNITS TABLET PO SCH (09:19)
[2017-07-06] MEDS: TORSEMIDE 20 MG TAB PO SCH ×2 (09:19→17:36)
[2017-07-06] MEDS: GABAPENTIN 300 MG CAP PO SCH ×2 (09:19→20:32)
[2017-07-06] MEDS: NEOSPORIN TOP OINT 15GM TOP SCH (09:20)
[2017-07-06 10:08] LABS: CALCIUM LEVEL 7.8 MG/DL (8.8-10.2); CREATININE FOR GFR 1.43 MG/DL (0.70-1.30); GLOMERULAR FILTRATION RATE 50.5 (>35); POTASSIUM SERUM 3.7 MEQ/L (3.5-5.1)
[2017-07-06 14:00] VITALS: BP 162/70
--- NOTE | 2017-07-06 16:14 | IPN ---
DATE: 07/06/2017 SUBJECTIVE: The patient is seen this morning out of bed to the chair. He reports he feels very well after having multiple bowel movements yesterday. He denies any acute complaints, has been receiving physical therapy and denies any significant dyspnea on exertion. REVIEW OF SYSTEMS: Negative for dizziness, headaches, fevers, chills, chest pain, palpitations, shortness of breath at rest, nausea, vomiting. Positive for lower extremity edema, recent bowel movements and improving physical activity. Remainder of review of systems is negative. VITAL SIGNS: Temperature 97.8, pulse 96, respiratory rate 18, blood pressure 158/63, saturating 97% on room air. INTAKE AND OUTPUT: Urine output yesterday does not appear to be fully recorded. There is no weight on the bed scale to day. PHYSICAL EXAMINATION: The patient is seen sitting out of bed to the chair, comfortable, in no acute distress, eating lunch. Extraocular muscles are intact. His oral mucosa is moist. His neck is supple. His lungs are clear to auscultation bilaterally and comfortable in room air. Cardiac: S1, S2. 2+ radial pulse. There is pitting edema present on the right lower extremity all the way to the hip, which does not seem significantly changed from prior. The abdomen is soft, obese, nontender. Extremity: Right lower extremity with edema to the hip. Left lower extremity status post [id number] (BKA). Skin: No rashes. Neurologic: No focal deficits. Appropriate interactive and conversational. Psychiatric: Appropriate mood and affect. LABORATORIES: Sodium 142, potassium 3.7, bicarbonate 31, BUN 31, creatinine 1.4, calcium 7.8 without albumin for correction. White count 7.6, hemoglobin 9.4, platelets 327. INPATIENT MEDICATIONS: The patient is started on Norvasc 2.5 mg by mouth daily. Remainder of medications are unchanged from prior. PROBLEMS: 1. Hypertension: The patient's blood pressures have been ranging from systolic 150s-160s. I will increase his Norvasc with holding parameters. Will continue to hold his home angiotensin receptor lopez (ARB) due to recent acute kidney injury. 2. Decompensated volume status with pitting edema: The patient's renal function has remained fairly stable on current dose of diuretics, torsemide 30 mg by mouth twice a day, and he remains a net negative volume status. His urine output has not been fully recorded due to incontinent voids. Continue torsemide 30 mg by mouth twice a day. 3. Atrial fibrillation. The patient continues on Coumadin with a therapeutic international normalized ratio (INR). 4. Rehabilitation with multiple debilitations. The patient is improving. Continue as per rehabilitation. 5. Anemia. The patient's hemoglobin is low in the 9s but stable, and he continues on an iron supplement.
--- NOTE | 2017-07-06 17:33 | IPNPDOC ---
PM&R Progress Note Senior Scrum Master Progress Note DATE OF SERVICE: 07/06/17 DATE OF ADMISSION: Jul 01, 2017 at 09:37 INPATIENT REHABILITATION ADMISSION DAY: #6 SUBJECTIVE: Patient is a 82-year-old handed white male with multiple debilitation secondary to ruptured appendix with peritonitis/sepsis/bacteremia, acute kidney injury on chronic kidney disease 3, congestive heart failure. Patient participating in physical and occupational therapy using left BKA prosthesis for ambulation and transfers as well as occasional wheelchair mobility. A should also having problems with some incontinence of bowel and bladder. He does not note all these having to go to the bathroom and timely fashion as family notes that this existed before the recent illnesses area. Patient overall does note feeling better today though he remains fatigued and has limited endurance and therapy. He notes some back pain which he initially reported as new but his and our confirms it is been a chronic problem for him. Patient feels much better today with just his normal arthritis pain. ALLERGIES: See Below MEDICATIONS: Reviewed, see below. OBJECTIVE: VITAL SIGNS: Please see below. PHYSICAL EXAMINATION: GENERAL: Overweight somewhat edematous elderly white male who is alert and oriented to person, place, time and general situation. Patient appears to be in mild musculoskeletal distress. HEENT: Normocephalic/atraumatic with less thrush on tongue. CARDIOVASCULAR: Regular paced ventricles with ongoing regular auricles and 2/4 bilateral radial pulses. LUNGS: Some initial crackles in the left base that cleared and good breath sounds heard further down into the bases bilaterally and and all other lung [place]. ABDOMEN: Obese, nontender with Steri-Stripped laparoscopy insertion sites that are noninflamed, and normal bowel sounds in all quadrants. NEUROLOGICAL: Memory is fair to good, affect is pleasant and cooperative with some anxiousness. Motor is fair in the upper and lower extremities with supportive fair endurance that is improving. SKIN: Left BKA skin intact with marked reduction in edema since Tuesday. Notable decrease edema in right lower extremity as well though pitting edema remains present. LABORATORY DATA: Reviewed. Please see below. MICROBIOLOGY: Please see below. IMAGING: No new imaging. DVT prophylaxis ordered?: Coumadin with YUNG hose and sequential stocking of the right lower extremity. Biomass Technician on the left lower extremity. INR 2.85 with target INR 2.0-3.0. 1mg of Coumadin today. ASSESSMENT AND PLAN: 1. Rehabilitation multiple debilitation: Patient has made significant improvements physically on his acute kidney injury and congestive heart failure with clearing of excess edema using oral diuretics. Patient has shown notable improvement in ambulation since Tuesday with physical therapy but continues have lots problems with transfers in and out of bed and gaiting his prosthesis and rapidly enough to remain continent. Patient will be started on voiding trials. Patient reviewed in rehabilitation team rounds today and anticipated length of stay is to 07/12/17. 2. Acute kidney injury on chronic kidney disease 3: Patient with 31 for BUN and 1.43 for creatinine today on 07/06/17. Nephrology continues to follow and has patient on a regular dose of diuretics at this time. 3. Anemia: Patient with moderate anemia stable at H&H of 9.4 and 29.5 today on 07/06/17. 4. Hypoalbuminemia: 07/02/17 labs shows albumin 2.4. We will work to improve this. 5. Left below-knee amputation: Patient doing much better with better fit on his prosthesis now actually becoming loose in the socket and having to add 8 ply of stump sock. By the end of therapy though more edema had cleared and patient needs to bring in additional stump socks from home. 6. Constipation:Since high volume enema yesterday started the patient has cleared a lot of gas and soft to liquid stool, and this morning the large firm stools without the abdominal and rectal pain now. Patient tolerating therapy much better and abdominal exam without the tympany and palpable stools now. TIME SPENT: Chart Review, examination and documentation require greater than 25 minutes. Allergies Coded Allergies: Penicillins (Verified Allergy, Unknown, HIVES, 11/27/12) Penicillins Cross Reactors (Verified Allergy, Unknown, HIVES, 11/27/12) Vital Signs Vital Signs Date Time Temp Pulse Resp B/P (MAP) Pulse Ox O2 Delivery O2 Flow Rate FiO2 07/06/17 14:00 97.6 69 18 162/70 (100) 97 Room Air Laboratory Data CBC/BMP Laboratory Tests 07/06/17 06:55 Calcium Level 7.8 L 07/06/17 06:57 Red Blood Count 2.67 L, Mean Corpuscular Volume 110.5 H, Mean Corpuscular Hemoglobin 35.2 H, Mean Corpuscular Hemoglobin Concent 31.9 L, Red Cell Distribution Width 15.9 H Labs 24H Laboratory Tests 2 07/06/17 06:55: Anion Gap 6L, Glomerular Filtration Rate 50.5, Blood Urea Nitrogen 31H, Creatinine 1.43H, Sodium Level 142, Potassium Level 3.7, Chloride Level 105, Carbon Dioxide Level 31, Calcium Level 7.8L 07/06/17 06:57: Nucleated Red Blood Cells % (auto) 0.0, Prothrombin Time 31.1H, Prothromb Time International Ratio 2.85 Current Medications Current Medications Current Medications Acetaminophen (Tylenol Tab) 650 mg Q6HP PRN PO PAIN OR FEVER Last administered on 07/05/17 15:22; Start 07/01/17 at 09:45; Stop 07/31/17 at 09:44 Albuterol Sulfate (Proventil, Ventolin Hfa) 2 puff Q4HP PRN INH SHORTNESS OF BREATH; Start 07/01/17 at 09:45; Stop 07/31/17 at 09:44 Amlodipine Besylate (Norvasc) 2.5 mg DAILY PO Last administered on 07/06/17 09:19; Start 07/05/17 at 09:00; Stop 07/06/17 at 15:42; Status DC Amlodipine Besylate (Norvasc) 5 mg DAILY PO ; Start 07/07/17 at 09:00; Stop at 08:59 Aspirin (Ecotrin) 81 mg QHS PO Last administered on 07/05/17 21:21; Start at 21:00; Stop 07/31/17 at 20:59 Bisacodyl (Dulcolax Tab) 5 mg DAILYPRN PRN PO CONSTIPATION; Start 07/01/17 at 09:45; Stop 07/31/17 at 09:44 Cetirizine HCl (ZyrTEC) 10 mg QHS PO Last administered on 07/05/17 21:21; Start 07/01/17 at 21:00; Stop 07/31/17 at 20:59 Ciprofloxacin (Cipro) 500 mg BID@,18 PO Last administered on 07/05/17 04:59 ; Start 07/01/17 at 18:00; Stop 07/05/17 at 07:46; Status DC Famotidine (Pepcid) 40 mg QHS PO Last administered on 07/05/17 21:21; Start 07/01/17 at 21:00; Stop 07/31/17 at 20:59 Ferrous Sulfate (Ferrous Sulfate) 325 mg DAILY PO Last administered on 09:19; Start 07/02/17 at 09:00; Stop 08/01/17 at 08:59 Fexofenadine HCl (Jackie) 180 mg QAM PO Last administered on 07/06/17 09:18 ; Start 07/02/17 at 09:00; Stop 08/01/17 at 08:59 Fish Oil ([place]-3 (1050mg)) 1 ea DAILY PO Last administered on 07/06/17 09:18 ; Start 07/02/17 at 09:00; Stop 08/01/17 at 08:59 Gabapentin (Neurontin) 300 mg BID PO Last administered on 07/06/17 09:19; Start 07/01/17 at 21:00; Stop 07/31/17 at 20:59 Magnesium Hydroxide (Milk Of Magnesia) 30 ml DAILYPRN PRN PO CONSTIPATION; Start 07/01/17 at 09:45; Stop 07/31/17 at 09:44 Metronidazole (Flagyl) 500 mg Q8H PO Last administered on 07/05/17 04:59; Start 07/01/17 at 14:00; Stop 07/05/17 at 07:46; Status DC Neomycin/ Polymyxin/ Bacitracin (Neosporin) Abdominal incision dress... DAILY TOP Last administered on 07/06/17 09:20; Start 07/01/17 at 09:00; Stop 06/07 at 08:59 Nitroglycerin (Nitrostat (1/ 150)) 0.4 mg Q5MP PRN SL CHEST PAIN; Start at 09:45; Stop 07/31/17 at 09:44 Nystatin (Mycostatin Powder, Nystop) APPLY TO GROIN AND FATTY FOLDS BIDP PRN TOP RASH; Start 07/01/17 at 09:45; Stop 07/31/17 at 09:44 Nystatin (Mycostatin) 5 ml QID PO Last administered on 07/06/17 13:09; Start 07/01/17 at 13:00; Stop 07/08/17 at 09:00 Oxycodone HCl (Roxicodone, Oxyir) 5 mg Q4HP PRN PO PAIN SCALE 6-10 Last administered on 07/05/17 04:59; Start 07/01/17 at 09:45; Stop 07/13/17 at 23 :55 Senna/Docusate Sodium (Senokot S) 1 tab BID PO Last administered on 07/05/17 21:21; Start 07/01/17 at 21:00; Stop 07/31/17 at 20:59 Simvastatin (Zocor) 20 mg QHS PO Last administered on 07/05/17 21:21; Start 07/01/17 at 21:00; Stop 07/31/17 at 20:59 Sodium Biphosphate/ Sodium Phosphate (Fleet Enema) 1 ENEMA DAILYPRN PRN [place] CONSTIPATION Last administered on 07/05/17 15:15; Start 07/05/17 at 09:00; Stop 07/05/17 at 15:15; Status DC Torsemide (Demadex) 5 mg BID@ PO Last administered on 07/02/17 08:43; Start 07/01/17 at 17:00; Stop 07/02/17 at 15:35; Status DC Torsemide (Demadex) 20 mg BID@, PO Last administered on 07/03/17 08:34; Start 07/02/17 at 17:00; Stop 07/03/17 at 13:20; Status DC Torsemide (Demadex) 30 mg BID@ PO Last administered on 07/06/17 09:19; Start 07/03/17 at 17:00; Stop 08/02/17 at 16:59 Vitamin D (Vitamin D) 1,000 units DAILY PO Last administered on 07/06/17 09: 19; Start 07/02/17 at 09:00; Stop 08/01/17 at 08:59 Warfarin Sodium (Coumadin) 1 mg DAILY@17 PO Last administered on 07/05/17 16: 59; Start 07/04/17 at 17:00; Stop 07/07/17 at 09:00 Warfarin Sodium (Coumadin) 2.5 mg DAILY@17 PO Last administered on 07/03/17 17:16; Start 07/01/17 at 17:00; Stop 07/04/17 at 08:44; Status DC SARAH SOTO MD Jul 06, 2017 17:33
[2017-07-06] MEDS: WARFARIN SOD 1 MG TAB PO SCH (17:36)
[2017-07-06] MEDS: SIMVASTATIN 20 MG TAB PO SCH (20:32)
[2017-07-06] MEDS: FAMOTIDINE 20 MG TAB PO SCH (20:32)
[2017-07-06] MEDS: ASPIRIN 81 MG ENTERIC TAB PO SCH (20:32)
[2017-07-06] MEDS: CETIRIZINE (ZyrTEC) 10 MG TAB PO SCH (20:32)
[2017-07-06 22:08] VITALS: BP 124/54
--- NOTE | 2017-07-07 06:26 | IPN ---
DATE OF VISIT: 07/05/2017 The patient is now approximately 10 days postoperative from his surgery for perforated appendicitis. He today is sitting up in a chair with his prosthesis in place and reports he that feels pretty good. PHYSICAL EXAMINATION: VITAL SIGNS: Vital signs show that he has been afebrile with stable vitals over the last 24 hours. Intake and output shows 700 in and 700 out with several bowel movements. GENERAL: The patient is alert, oriented and cooperative. He denies any pain and has no nausea or vomiting. HEART: Heart exam shows a regular rhythm. LUNGS: Lungs are clear. ABDOMEN: The abdomen is obese but soft and nontender. LABORATORY STUDIES: White count of 7.6 and a hemoglobin of 30. Chemistry shows normal electrolytes with a BUN of 31, creatinine 1.4. IMPRESSION: The patient is doing well status post appendicitis with perforation and sepsis. RECOMMENDATIONS: There is no need for any further acute care for his appendicitis. He has been off antibiotics and shows no signs of recurrent infection. He can be discharged whenever he satisfies discharge criteria for rehabilitation. He should follow up with Dr. Lucas in a week to ten days after discharge for his final postoperative check. FERNANDO
[2017-07-07 06:47] VITALS: BP 162/72
[2017-07-07 06:50] LABS: MEAN CORPUSCULAR HEMOGLOBIN 35.8 pg (27.0-33.0); MEAN CORPUSCULAR HGB CONC 32.6 g/dl (32.0-36.5); MEAN CORPUSCULAR VOLUME 109.9 fl (80.0-96.0); PLATELET COUNT, AUTOMATED 386 10^3/uL (150-450); RED CELL DISTRIBUTION WIDTH 15.9 % (11.5-14.5); WHITE BLOOD COUNT 7.9 10^3/uL (4.0-10.0)
[2017-07-07 07:02] LABS: INR 2.54
[2017-07-07 07:15] LABS: CALCIUM LEVEL 8.3 MG/DL (8.8-10.2); CREATININE FOR GFR 1.49 MG/DL (0.70-1.30); GLOMERULAR FILTRATION RATE 48.2 (>35); POTASSIUM SERUM 3.4 MEQ/L (3.5-5.1)
[2017-07-07] MEDS: NYSTATIN 500,000 U/5 ML SUSP UDC PO SCH ×4 (09:19→20:08)
[2017-07-07] MEDS: FEXOFENADINE 60 MG TAB PO SCH (09:19)
[2017-07-07] MEDS: FERROUS SULFATE 325MG TAB PO SCH (09:19)
[2017-07-07] MEDS: OMEGA-3 1050MG CAPSULE PO SCH (09:20)
[2017-07-07] MEDS: amLODIPine 5 MG TAB PO SCH (09:20)
[2017-07-07] MEDS: SENOKOT S TAB PO SCH ×2 (09:20→20:08)
[2017-07-07] MEDS: GABAPENTIN 300 MG CAP PO SCH ×2 (09:20→20:08)
[2017-07-07] MEDS: VITAMIN D 1,000 INTERNATIONAL UNITS TABLET PO SCH (09:20)
[2017-07-07] MEDS: NEOSPORIN TOP OINT 15GM TOP SCH (09:21)
[2017-07-07] MEDS: TORSEMIDE 20 MG TAB PO SCH ×2 (11:06→17:56)
[2017-07-07] MEDS ORDERED: POTASSIUM CHLORIDE 10 MEQ SR TABLET PO ONE (12:00)
--- NOTE | 2017-07-07 12:00 | IPNPDOC ---
Date Seen The patient was seen on 07/07/17. Progress Note HPI: 82year old M with a past medical history significant for perforated appendicitis with peritonitis/sepsis s/p laparoscopic appendectomy 06/26/[address] Ortiz. nephrology following related to THALIA. Pt transferred to the care of ABI Caldwell 07/02/17. Pt is OOB with PT this AM. States he feels like he is gaining strength. Denies any fevers, chills, weakness, fatigue, Headache, Chest Pain, Shortness of breath, cough, palpitations, abdominal pain, N/V/D or changes in bowel or bladder habits. 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 Obesity PE: GEN: 82yoM, appears stated age. No acute distress. Alert and oriented x 3. HEENT: Normocephalic, atraumatic. Sclera are nonicteric. Conjunctiva without injection.Moist mucous membranes. CHEST: irreg irreg+S1, +S2 LUNGS: Clear to auscultation bilaterally. No wheezes, rales, or rhonchi. Breathing appears symmetric and easy. ABD: Round, soft, non-tender, non-distended. +Bowel sounds throughout. No rebound or guarding. No costovertebral angle tenderness. EXT: 1-2mm RLE edema appreciated. SKIN: [place], dry, warm. Capillary refill <2sec. No rashes. NEURO: No focal deficits appreciated. A&P: 82year old M with a past medical history significant for perforated appendicitis with peritonitis/sepsis s/p laparoscopic cholecystectomy 06/26/[address] Ortiz. nephrology following related to THALIA. Pt transferred to the care of ABI Caldwell 07/02/17. 1. Perforated appendicitis, peritonitis, sepsis, S/P Lap appendectomy 06/26/17. BC x 1 06/26/17 E Coli sensitive to fluoroquinolone. BC x 2 06/29/17 neg. managment as per Surgery. Plan is for outpt F/U with Surgery. Pt completed course of Cipro/Flagyl. PT/OT as per Dr Jacklyn ALEX. Bowel care as per Dr Jacklyn ALEX. Pain control as per Dr Jacklyn ALEX. DVT prophylaxis. Pt is on coumadin. 2. THALIA/CKD3. Nephrology following/managing. SCr 1.49. 3. HTN/Fluid overload. Nephrology managing diuretics. Torsemide increased to 40mg BID. Norvasc 5 mg daily. (Home dose Torsemide 40BID, Valsartan 40 HS.) ARB d/cd related to THALIA. 4. H/O elevated troponin. ASA 81mg SL NTG as needed. 5. Chronic Afib. HR 56-63 bpm. Coumadin 2 mg daily. (previous home dose 5 mg 1x/wk, 2.5mg daily ROW) INR 2.54 Cont INR daily. 6. HLD. Zocor 20 mg daily. 7. 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 8. Allergic rhinitis. Zyrtec. 9. GERD. Pepcid. 10. Fe def anemia. Continue Fe supplement. Hgb 9.8. 11. Obesity. Complicates care, BMI 36.5. 12. Hypokalemia. K 3.4 as per labs today. KCL po x 1 dose today. Recheck BMP in AM. VS, I&O, 24H, Fishbone Vital Signs/I&O Vital Signs Date Time Temp Pulse Resp B/P (MAP) Pulse Ox O2 Delivery O2 Flow Rate FiO2 07/07/17 09:20 58 162/72 07/07/17 06:47 99.2 16 95 Room Air I&O- Last 24 Hours up to 6 AM 07/08/17 06:00 Intake Total 360 ml Output Total 475 ml Balance -115 ml Laboratory Data 24H LABS Laboratory Tests 2 07/07/17 06:31: Nucleated Red Blood Cells % (auto) 0.0, Prothrombin Time 28.3H, Prothromb Time International Ratio 2.54, Anion Gap 9, Glomerular Filtration Rate 48.2, Blood Urea Nitrogen 30H, Creatinine 1.49H, Sodium Level 143, Potassium Level 3.4L, Chloride Level 105, Carbon Dioxide Level 29, Calcium Level 8.3L CBC/BMP Laboratory Tests 07/07/17 06:31 Red Blood Count 2.74 L, Mean Corpuscular Volume 109.9 H, Mean Corpuscular Hemoglobin 35.8 H, Mean Corpuscular Hemoglobin Concent 32.6, Red Cell Distribution Width 15.9 H, Calcium Level 8.3 L Paulette Meredith Jul 07, 2017 12:00
--- NOTE | 2017-07-07 12:57 | IPNPDOC ---
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 Patient participating in physical and occupational therapy using left BKA prosthesis for ambulation and transfers as well as occasional wheelchair mobility. A should also having problems with some incontinence of bowel and bladder. He does not note all these having to go to the bathroom and timely fashion as family notes that this existed before the recent illnesses area. Patient overall does note feeling better today though he remains fatigued and has limited endurance and therapy. He notes some back pain which he initially reported as new but his and our confirms it is been a chronic problem for him. Patient feels much better today with just his normal arthritis pain. ALLERGIES: See Below MEDICATIONS: Reviewed, see below. OBJECTIVE: VITAL SIGNS: Please see below. PHYSICAL EXAMINATION: GENERAL: Overweight somewhat edematous elderly white male who is alert and oriented to person, place, time and general situation. Patient appears to be in mild musculoskeletal distress. HEENT: Normocephalic/atraumatic with less thrush on tongue. CARDIOVASCULAR: Regular paced ventricles with ongoing regular auricles and 2/4 bilateral radial pulses. LUNGS: Some initial crackles in the left base that cleared and good breath sounds heard further down into the bases bilaterally and and all other lung [place]. ABDOMEN: Obese, nontender with Steri-Stripped laparoscopy insertion sites that are noninflamed, and normal bowel sounds in all quadrants. NEUROLOGICAL: Memory is fair to good, affect is pleasant and cooperative with some anxiousness. Motor is fair in the upper and lower extremities with supportive fair endurance that is improving. SKIN: Left BKA skin intact with marked reduction in edema since Tuesday. Notable decrease edema in right lower extremity as well though pitting edema remains present. LABORATORY DATA: Reviewed. Please see below. MICROBIOLOGY: Please see below. IMAGING: No new imaging. DVT prophylaxis ordered?: Coumadin with YUNG hose and sequential stocking of the right lower extremity. Radiotelephone Technical Operator on the left lower extremity. INR 2.54 with target INR 2.0-3.0. 2mg of Coumadin daily for the next four nights at 1700 hours. ASSESSMENT AND PLAN: 1. Rehabilitation multiple debilitation: Patient has made significant improvements physically on his acute kidney injury and congestive heart failure with clearing of excess edema using oral diuretics. Patient has shown notable improvement in ambulation since Tuesday with physical therapy but continues have lots problems with transfers in and out of bed and gaiting his prosthesis and rapidly enough to remain continent. Patient will be started on voiding trials. Patient to be reviewed in rehabilitation team rounds today and anticipated length of stay is to 07/12/17. 2. Acute kidney injury on chronic kidney disease 3: Patient with 30 for BUN and 1.49 for creatinine today on 07/07/17 which is stable. Nephrology continues to follow and has patient on a regular dose of diuretics at this time. 3. Anemia: Patient with moderate anemia stable at H&H of 9.8 and 30.1% today on 07/07/17. 4. Hypoalbuminemia: 07/02/17 labs shows albumin 2.4. We will work to improve this. 5. Left below-knee amputation: Patient doing much better with better fit on his prosthesis now actually becoming loose in the socket and having to add 8 ply of stump sock. By the end of therapy though more edema had cleared and patient needs to bring in additional stump socks from home. 6. Constipation: Since the high volume enema, the patient is without the abdominal and rectal pain now. Patient tolerating therapy much better and abdominal exam without the tympany and palpable stools now. TIME SPENT: Chart Review, examination and documentation require greater than 25 minutes. Allergies Coded Allergies: Penicillins (Verified Allergy, Unknown, HIVES, 11/27/12) Penicillins Cross Reactors (Verified Allergy, Unknown, HIVES, 11/27/12) Vital Signs Vital Signs Date Time Temp Pulse Resp B/P (MAP) Pulse Ox O2 Delivery O2 Flow Rate FiO2 07/07/17 09:20 58 162/72 07/07/17 06:47 99.2 16 95 Room Air Laboratory Data CBC/BMP Laboratory Tests 07/07/17 06:31 Red Blood Count 2.74 L, Mean Corpuscular Volume 109.9 H, Mean Corpuscular Hemoglobin 35.8 H, Mean Corpuscular Hemoglobin Concent 32.6, Red Cell Distribution Width 15.9 H, Calcium Level 8.3 L Labs 24H Laboratory Tests 2 07/07/17 06:31: Nucleated Red Blood Cells % (auto) 0.0, Prothrombin Time 28.3H, Prothromb Time International Ratio 2.54, Anion Gap 9, Glomerular Filtration Rate 48.2, Blood Urea Nitrogen 30H, Creatinine 1.49H, Sodium Level 143, Potassium Level 3.4L, Chloride Level 105, Carbon Dioxide Level 29, Calcium Level 8.3L Current Medications Current Medications Current Medications Acetaminophen (Tylenol Tab) 650 mg Q6HP PRN PO PAIN OR FEVER Last administered on 07/05/17 15:22; Start 07/01/17 at 09:45; Stop 07/31/17 at 09:44 Albuterol Sulfate (Proventil, Ventolin Hfa) 2 puff Q4HP PRN INH SHORTNESS OF BREATH; Start 07/01/17 at 09:45; Stop 07/31/17 at 09:44 Amlodipine Besylate (Norvasc) 2.5 mg DAILY PO Last administered on 07/06/17 09:19; Start 07/05/17 at 09:00; Stop 07/06/17 at 15:42; Status DC Amlodipine Besylate (Norvasc) 5 mg DAILY PO Last administered on 07/07/17 09: 20; Start 07/07/17 at 09:00; Stop 08/06/17 at 08:59 Aspirin (Ecotrin) 81 mg QHS PO Last administered on 07/06/17 20:32; Start at 21:00; Stop 07/31/17 at 20:59 Bisacodyl (Dulcolax Tab) 5 mg DAILYPRN PRN PO CONSTIPATION; Start 07/01/17 at 09:45; Stop 07/31/17 at 09:44 Cetirizine HCl (ZyrTEC) 10 mg QHS PO Last administered on 07/06/17 20:32; Start 07/01/17 at 21:00; Stop 07/31/17 at 20:59 Ciprofloxacin (Cipro) 500 mg BID@,18 PO Last administered on 07/05/17 04:59 ; Start 07/01/17 at 18:00; Stop 07/05/17 at 07:46; Status DC Famotidine (Pepcid) 40 mg QHS PO Last administered on 07/06/17 20:32; Start 07/01/17 at 21:00; Stop 07/31/17 at 20:59 Ferrous Sulfate (Ferrous Sulfate) 325 mg DAILY PO Last administered on 09:19; Start 07/02/17 at 09:00; Stop 08/01/17 at 08:59 Fexofenadine HCl (Jackie) 180 mg QAM PO Last administered on 07/07/17 09:19 ; Start 07/02/17 at 09:00; Stop 08/01/17 at 08:59 Fish Oil (Mary Alice-3 (1050mg)) 1 ea DAILY PO Last administered on 07/07/17 09:20 ; Start 07/02/17 at 09:00; Stop 08/01/17 at 08:59 Gabapentin (Neurontin) 300 mg BID PO Last administered on 07/07/17 09:20; Start 07/01/17 at 21:00; Stop 07/31/17 at 20:59 Magnesium Hydroxide (Milk Of Magnesia) 30 ml DAILYPRN PRN PO CONSTIPATION; Start 07/01/17 at 09:45; Stop 07/31/17 at 09:44 Metronidazole (Flagyl) 500 mg Q8H PO Last administered on 07/05/17 04:59; Start 07/01/17 at 14:00; Stop 07/05/17 at 07:46; Status DC Neomycin/ Polymyxin/ Bacitracin (Neosporin) Abdominal incision dress... DAILY TOP Last administered on 07/07/17 09:21; Start 07/01/17 at 09:00; Stop 06/07 at 08:59 Nitroglycerin (Nitrostat (1/ 150)) 0.4 mg Q5MP PRN SL CHEST PAIN; Start at 09:45; Stop 07/31/17 at 09:44 Nystatin (Mycostatin Powder, Nystop) APPLY TO GROIN AND FATTY FOLDS BIDP PRN TOP RASH; Start 07/01/17 at 09:45; Stop 07/31/17 at 09:44 Nystatin (Mycostatin) 5 ml QID PO Last administered on 07/07/17 12:44; Start 07/01/17 at 13:00; Stop 07/08/17 at 09:00 Oxycodone HCl (Roxicodone, Oxyir) 5 mg Q4HP PRN PO PAIN SCALE 6-10 Last administered on 07/05/17 04:59; Start 07/01/17 at 09:45; Stop 07/13/17 at 23 :55 Senna/Docusate Sodium (Senokot S) 1 tab BID PO Last administered on 07/07/17 09:20; Start 07/01/17 at 21:00; Stop 07/31/17 at 20:59 Simvastatin (Zocor) 20 mg QHS PO Last administered on 07/06/17 20:32; Start 07/01/17 at 21:00; Stop 07/31/17 at 20:59 Sodium Biphosphate/ Sodium Phosphate (Fleet Enema) 1 ENEMA DAILYPRN PRN MT CONSTIPATION Last administered on 07/05/17 15:15; Start 07/05/17 at 09:00; Stop 07/05/17 at 15:15; Status DC Torsemide (Demadex) 5 mg BID@ PO Last administered on 07/02/17 08:43; Start 07/01/17 at 17:00; Stop 07/02/17 at 15:35; Status DC Torsemide (Demadex) 20 mg BID@ PO Last administered on 07/03/17 08:34; Start 07/02/17 at 17:00; Stop 07/03/17 at 13:20; Status DC Torsemide (Demadex) 30 mg BID@, PO Last administered on 07/06/17 17:36; Start 07/03/17 at 17:00; Stop 07/07/17 at 09:19; Status DC Torsemide (Demadex) 40 mg BID@ PO Last administered on 07/07/17 11:06; Start 07/07/17 at 09:00; Stop 08/06/17 at 08:59 Vitamin D (Vitamin D) 1,000 units DAILY PO Last administered on 07/07/17 09: 20; Start 07/02/17 at 09:00; Stop 08/01/17 at 08:59 Warfarin Sodium (Coumadin) 1 mg DAILY@17 PO Last administered on 07/06/17 17: 36; Start 07/04/17 at 17:00; Stop 07/07/17 at 08:49; Status DC Warfarin Sodium (Coumadin) 2 mg DAILY@17 PO ; Start 07/07/17 at 17:00; Stop at 16:59 Warfarin Sodium (Coumadin) 2.5 mg DAILY@17 PO Last administered on 07/03/17t 17:16; Start 07/01/17 at 17:00; Stop 07/04/17 at 08:44; Status DC SARAH SOTO MD Jul 07, 2017 12:57
[2017-07-07 14:00] VITALS: BP 129/62
[2017-07-07] MEDS: WARFARIN SOD 1 MG TAB PO SCH (17:56)
[2017-07-07 20:00] VITALS: BP 120/58
[2017-07-07] MEDS: ASPIRIN 81 MG ENTERIC TAB PO SCH (20:08)
[2017-07-07] MEDS: FAMOTIDINE 20 MG TAB PO SCH (20:08)
[2017-07-07] MEDS: SIMVASTATIN 20 MG TAB PO SCH (20:08)
[2017-07-07] MEDS: CETIRIZINE (ZyrTEC) 10 MG TAB PO SCH (20:08)
--- NOTE | 2017-07-07 22:19 | IPN ---
DATE: 07/07/2017 SUBJECTIVE: The patient is seen this morning at the gym where he is receiving therapy. He denies any acute complaints. No issues overnight. He states he feels like he is getting much stronger and wonders when he can be discharged. Reports good appetite. No trouble voiding. He does continue to have edema present in the right lower extremity. REVIEW OF SYSTEMS: The patient denies headache, fevers, chills, chest pains, palpitations, shortness of breath at rest, nausea, vomiting, diarrhea, trouble passing urine, abdominal cramps, rashes or depression. Remainder of review of systems is negative. VITAL SIGNS: Temperature 97.8, pulse 69, respiratory rate 18, blood pressure 129/62, saturating 98% on room air. INTAKE AND OUTPUT: Oral intake yesterday was 1680 mL. Urine output seems to not be fully recorded due to incontinent voids. There is no weight on the bed scale today. PHYSICAL EXAMINATION: The patient is seen in the gym, sitting in a wheelchair receiving physical therapy, in no acute distress. He appears a little bit younger than stated age. He is in good spirits. HEAD AND NECK: Extraocular muscles are intact but sclerae are anicteric. The oral mucosa is moist. The neck is supple. CARDIOVASCULAR: S1, S2, 2+ radial pulse, pitting edema present in the right lower extremity, all the way up to the hip and dependent areas. There is much less pitting edema present in the left lower extremity. LUNGS: Moving air well bilaterally. Comfortable on room air No accessory muscle use. ABDOMEN: Soft, obese, nontender. Positive bowel sounds. NEUROLOGIC: No focal deficits. The patient is appropriately interactive and conversational. PSYCHIATRIC: Appropriate mood and affect. EXTREMITIES: Right lower extremity with pitting edema all the way to the hip and dependent area. Left lower extremity status post below-knee amputation (BKA) and the thigh and hip have less edema. LABORATORY: White count 7.9, hemoglobin 9.8, platelets 386. Sodium 143, potassium 3.4, bicarbonate 29, BUN 30, creatinine 1.4, calcium 8.3, glucose 113. INPATIENT MEDICATIONS: The patient continues on the inpatient medications. I have increased the patient's amlodipine to 5 mg by mouth daily, and I have also increased his torsemide to his home regimen of 40 mg by mouth twice a day. He received a one-time dose of potassium today, and his remainder medications are unchanged from prior. PROBLEMS: 1. Hypertension. The patient's blood pressures have remained a little bit suboptimal with systolic blood pressure ranging from 120s to 160s. I increased the patient's Norvasc to 5 mg by mouth daily with holding parameters. As an outpatient, we can decide about resuming his ARB or keeping him off of it indefinitely due to underlying advanced age and moderate chronic kidney disease. 2. Decompensated volume status with pitting edema. I have increased the patient' s torsemide to 40 mg by mouth daily, which was his home regimen. It looks like his urine output is not being fully recorded due to incontinent voids. Continue with oral fluid restriction. 3. Atrial fibrillation. The patient continues on Coumadin with a therapeutic international normalized ratio (INR). MTDD
[2017-07-08 06:00] VITALS: BP 141/67
[2017-07-08 06:39] LABS: MEAN CORPUSCULAR HEMOGLOBIN 35.3 pg (27.0-33.0); MEAN CORPUSCULAR HGB CONC 31.8 g/dl (32.0-36.5); MEAN CORPUSCULAR VOLUME 110.9 fl (80.0-96.0); PLATELET COUNT, AUTOMATED 394 10^3/uL (150-450); RED CELL DISTRIBUTION WIDTH 15.9 % (11.5-14.5); WHITE BLOOD COUNT 6.4 10^3/uL (4.0-10.0)
[2017-07-08 06:54] LABS: INR 2.47
[2017-07-08 07:00] LABS: CALCIUM LEVEL 7.9 MG/DL (8.8-10.2); CREATININE FOR GFR 1.38 MG/DL (0.70-1.30); GLOMERULAR FILTRATION RATE 52.6 (>35); MAGNESIUM LEVEL 1.9 MG/DL (1.8-2.4); POTASSIUM SERUM 3.8 MEQ/L (3.5-5.1)
[2017-07-08] MEDS: NYSTATIN 500,000 U/5 ML SUSP UDC PO SCH (08:50)
[2017-07-08] MEDS: FEXOFENADINE 60 MG TAB PO SCH (08:50)
[2017-07-08] MEDS: GABAPENTIN 300 MG CAP PO SCH ×2 (08:50→20:24)
[2017-07-08] MEDS: TORSEMIDE 20 MG TAB PO SCH ×2 (08:50→16:06)
[2017-07-08] MEDS: OMEGA-3 1050MG CAPSULE PO SCH (08:50)
[2017-07-08] MEDS: FERROUS SULFATE 325MG TAB PO SCH (08:51)
[2017-07-08] MEDS: SENOKOT S TAB PO SCH ×2 (08:51→20:24)
[2017-07-08] MEDS: VITAMIN D 1,000 INTERNATIONAL UNITS TABLET PO SCH (08:51)
[2017-07-08] MEDS: amLODIPine 5 MG TAB PO SCH (08:54)
[2017-07-08] MEDS: NEOSPORIN TOP OINT 15GM TOP SCH (09:39)
--- NOTE | 2017-07-08 12:40 | IPNPDOC ---
Date Seen The patient was seen on 07/08/17. Progress Note HPI: 82year old M with a past medical history significant for perforated appendicitis with peritonitis/sepsis s/p laparoscopic appendectomy 06/26/[address] Ortiz. nephrology following related to THALIA. Pt transferred to the care of ABI Caldwell 07/02/17. Pt noted to have 3 skin breaks on the stump and one where prosthesis touches inner thigh. Denies any fevers, chills, weakness, fatigue, Headache, Chest Pain, Shortness of breath, cough, palpitations, abdominal pain, N/V/D or changes in bowel or bladder habits. PMHx/PSHx: hypertension dyslipidemia left alfzc-afy-oxoy 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 coronary artery disease chronic kidney disease stage III atrial fibrillation on Coumadin GERD allergic rhinitis. Obesity PE: GEN: 82yoM, appears stated age. No acute distress. Alert and oriented x 3. HEENT: Normocephalic, atraumatic. Sclera are nonicteric. Conjunctiva without injection.Moist mucous membranes. CHEST: irreg irreg+S1, +S2 LUNGS: Clear to auscultation bilaterally. No wheezes, rales, or rhonchi. Breathing appears symmetric and easy. ABD: Round, soft, non-tender, non-distended. +Bowel sounds throughout. No rebound or guarding. No costovertebral angle tenderness. EXT: 1-2mm RLE edema appreciated. SKIN: [place], dry, warm. Capillary refill <2sec. No rashes. NEURO: No focal deficits appreciated. A&P: 82year old M with a past medical history significant for perforated appendicitis with peritonitis/sepsis s/p laparoscopic cholecystectomy 06/26/[address] Ortiz. nephrology following related to THALIA. Pt transferred to the care of ABI Caldwell 07/02/17. 1. Perforated appendicitis, peritonitis, sepsis, S/P Lap appendectomy 06/26/17. BC x 1 06/26/17 E Coli sensitive to fluoroquinolone. BC x 2 06/29/17 neg. managment as per Surgery. Plan is for outpt F/U with Surgery. Pt completed course of Cipro/Flagyl. PT/OT as per Dr Jacklyn ALEX. Bowel care as per Dr Jacklyn ALEX. Pain control as per Dr Jacklyn ALEX. DVT prophylaxis. Pt is on coumadin. 2. THALIA/CKD3. Nephrology following/managing. SCr 1.49. 3. HTN/Fluid overload. Nephrology managing diuretics. Torsemide increased to 40mg BID. Norvasc 5 mg daily. (Home dose Torsemide 40BID, Valsartan 40 HS.) ARB d/cd related to THALIA. 4. H/O elevated troponin. ASA 81mg SL NTG as needed. 5. Chronic Afib. HR 56-63 bpm. Coumadin 2 mg daily. (previous home dose 5 mg 1x/wk, 2.5mg daily ROW) INR 2.47 Cont INR daily. 6. HLD. Zocor 20 mg daily. 7. 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 8. Allergic rhinitis. Zyrtec. 9. GERD. Pepcid. 10. Fe def anemia. Continue Fe supplement. 11. Obesity. Complicates care, BMI 36.5. 12. Hypokalemia. s/p supplement. WNL. 13. Lt BKA. Pt noted to have 3 small areas on stump and 1 on thigh. Wound care/foam dressing. Pt to ensure he wears sock under prosthesis. VS, I&O, 24H, Fishbone Vital Signs/I&O Vital Signs Date Time Temp Pulse Resp B/P (MAP) Pulse Ox O2 Delivery O2 Flow Rate FiO2 07/08/17 08:54 65 169/79 07/08/17 06:00 98.0 16 96 Room Air I&O- Last 24 Hours up to 6 AM 07/09/17 06:00 Intake Total 566 ml Balance 566 ml Laboratory Data 24H LABS Laboratory Tests 2 07/08/17 06:23: Nucleated Red Blood Cells % (auto) 0.0, Prothrombin Time 27.8H, Prothromb Time International Ratio 2.47, Anion Gap 7L, Glomerular Filtration Rate 52.6, Blood Urea Nitrogen 30H, Creatinine 1.38H, Sodium Level 141, Potassium Level 3.8, Chloride Level 105, Carbon Dioxide Level 29, Calcium Level 7.9L, Magnesium Level 1.9 CBC/BMP Laboratory Tests 07/08/17 06:23 Red Blood Count 2.75 L, Mean Corpuscular Volume 110.9 H, Mean Corpuscular Hemoglobin 35.3 H, Mean Corpuscular Hemoglobin Concent 31.8 L, Red Cell Distribution Width 15.9 H, Calcium Level 7.9 L Paulette Meredith Jul 08, 2017 12:40
[2017-07-08 14:12] VITALS: BP 144/74
[2017-07-08] MEDS: WARFARIN SOD 1 MG TAB PO SCH (16:06)
[2017-07-08 20:00] VITALS: BP 165/70
[2017-07-08] MEDS: CETIRIZINE (ZyrTEC) 10 MG TAB PO SCH (20:24)
[2017-07-08] MEDS: SIMVASTATIN 20 MG TAB PO SCH (20:24)
[2017-07-08] MEDS: FAMOTIDINE 20 MG TAB PO SCH (20:24)
[2017-07-08] MEDS: ASPIRIN 81 MG ENTERIC TAB PO SCH (20:24)
[2017-07-09 04:53] VITALS: BP 170/77
[2017-07-09 06:56] LABS: MEAN CORPUSCULAR HEMOGLOBIN 35.6 pg (27.0-33.0); MEAN CORPUSCULAR HGB CONC 32.4 g/dl (32.0-36.5); MEAN CORPUSCULAR VOLUME 109.7 fl (80.0-96.0); PLATELET COUNT, AUTOMATED 397 10^3/uL (150-450); RED CELL DISTRIBUTION WIDTH 15.9 % (11.5-14.5)
[2017-07-09 07:09] LABS: INR 2.43
[2017-07-09] MEDS: OMEGA-3 1050MG CAPSULE PO SCH (08:53)
[2017-07-09] MEDS: GABAPENTIN 300 MG CAP PO SCH ×2 (08:53→20:47)
[2017-07-09] MEDS: FEXOFENADINE 60 MG TAB PO SCH (08:53)
[2017-07-09] MEDS: FERROUS SULFATE 325MG TAB PO SCH (08:53)
[2017-07-09] MEDS: VITAMIN D 1,000 INTERNATIONAL UNITS TABLET PO SCH (08:53)
[2017-07-09] MEDS: SENOKOT S TAB PO SCH ×2 (08:53→20:48)
[2017-07-09] MEDS: TORSEMIDE 20 MG TAB PO SCH ×2 (08:53→18:37)
[2017-07-09] MEDS: amLODIPine 5 MG TAB PO SCH (08:54)
[2017-07-09] MEDS: NEOSPORIN TOP OINT 15GM TOP SCH (08:55)
[2017-07-09] MEDS: VALSARTAN 40MG TABLET (DIOVAN) PO SCH (12:41)
[2017-07-09 14:00] VITALS: BP 131/60
--- NOTE | 2017-07-09 16:03 | IPN ---
DATE: 07/09/2017 SUBJECTIVE: Patient was seen and examined today morning in the rehabilitation unit. Patient was sitting in the chair. He denies any active complaints at this time apart from edema of the right leg. He is otherwise hemodynamically stable, and renal function continues to gradually improved. Creatinine is down to 1.3 today. REVIEW OF SYSTEMS: Patient denies any fevers, chills, rigors, headaches, nausea, vomiting, chest pain, shortness of breath. He does report lower extremity edema. Rest of review of systems is negative. OBJECTIVE: Vital signs: Temperature is 98.3 degrees Fahrenheit, blood pressure is 131/60, pulse is 58, respiratory rate of 18, saturating 99% on room air. His blood pressures last 24 hours were ranging in systolic of 160s to 170s. Intake and output: Urine output is not recorded well. Bed scale weight is not available today. PHYSICAL EXAMINATION: GENERAL: Patient is awake, alert, oriented times three, sitting in the chair in No apparent distress. HEAD AND NECK: Extraocular muscles intact. Pupils equally round and reactive to light. Mucous membranes are moist. Neck is supple. There is no jugular venous distention (JVD). CARDIOVASCULAR: S1, S2, regular rate. Patient is 2+ pitting edema of the right leg. RESPIRATORY: Chest is Clear to auscultation bilaterally. Bilateral equal air entry. No rales or rhonchi. ABDOMEN: Soft, obese, nontender. Positive bowel sounds. Patient has Steri-Strips at the surgical in the abdomen. MUSCULOSKELETAL: Patient as left below-knee amputation, and he has a prosthesis on the left leg. His right extremity has about 2+ edema. PSYCHIATRIC: Normal mood and affect. CENTRAL NERVOUS SYSTEM: No focal neurologic deficit. Power is 5/5 in all extremities. LABORATORY REVIEW: CBC showed a WBC of 6, hemoglobin 9.5, platelets are 297. BMP showed sodium 141, potassium 3.8, chloride 105, bicarbonate 29, BUN is 30. Creatinine is 1.38; it was 1.49 yesterday. Calcium is 7.9. CURRENT INPATIENT MEDICATIONS: Patient's medications were all reviewed by me. He continues to be on torsemide 40 mg by mouth twice a day. I also started him back on valsartan 40 mg by mouth daily. ASSESSMENT: An 82-year-old male with recent acute kidney injury secondary to sepsis, hypertension, and lower extremity edema. PLAN: 1. Acute kidney injury. Patient's renal function is stable. Creatinine has been fluctuating at around 1.4. Okay to continue the diuretics, and it is okay to restart the angiotensin receptor blockers as well. 2. Hypertension. Blood pressure is not well controlled at this time. Patient is only on amlodipine at this time. I am going to restart the valsartan 40 mg daily, and while he is here we can keep an eye on his renal function as well. 3. Lower extremity edema. Patient has pitting edema in the right leg. Continue current dose of torsemide 40 mg by mouth twice a day. His intake and output are not recorded very well, but as reported by nursing, patient is making good amount of urine.
[2017-07-09] MEDS: WARFARIN SOD 1 MG TAB PO SCH (18:37)
[2017-07-09 20:25] VITALS: BP 151/68
[2017-07-09] MEDS: SIMVASTATIN 20 MG TAB PO SCH (20:47)
[2017-07-09] MEDS: CETIRIZINE (ZyrTEC) 10 MG TAB PO SCH (20:48)
[2017-07-09] MEDS: ASPIRIN 81 MG ENTERIC TAB PO SCH (20:48)
[2017-07-09] MEDS: FAMOTIDINE 20 MG TAB PO SCH (20:48)
[2017-07-10 05:23] VITALS: BP 152/71
[2017-07-10 06:54] LABS: MEAN CORPUSCULAR HEMOGLOBIN 36.1 pg (27.0-33.0); MEAN CORPUSCULAR HGB CONC 32.7 g/dl (32.0-36.5); MEAN CORPUSCULAR VOLUME 110.4 fl (80.0-96.0); PLATELET COUNT, AUTOMATED 373 10^3/uL (150-450); WHITE BLOOD COUNT 5.5 10^3/uL (4.0-10.0)
[2017-07-10 07:07] LABS: INR 2.38
[2017-07-10] MEDS: FERROUS SULFATE 325MG TAB PO SCH (09:38)
[2017-07-10] MEDS: TORSEMIDE 20 MG TAB PO SCH ×2 (09:38→17:29)
[2017-07-10] MEDS: VITAMIN D 1,000 INTERNATIONAL UNITS TABLET PO SCH (09:38)
[2017-07-10] MEDS: FEXOFENADINE 60 MG TAB PO SCH (09:38)
[2017-07-10] MEDS: OMEGA-3 1050MG CAPSULE PO SCH (09:38)
[2017-07-10] MEDS: GABAPENTIN 300 MG CAP PO SCH ×2 (09:39→21:10)
[2017-07-10] MEDS: SENOKOT S TAB PO SCH ×2 (09:39→21:11)
[2017-07-10] MEDS: VALSARTAN 40MG TABLET (DIOVAN) PO SCH (09:39)
[2017-07-10] MEDS: NEOSPORIN TOP OINT 15GM TOP SCH (09:39)
[2017-07-10] MEDS: amLODIPine 5 MG TAB PO SCH (09:39)
[2017-07-10 14:00] VITALS: BP 118/58
[2017-07-10] MEDS: WARFARIN SOD 1 MG TAB PO SCH (17:29)
[2017-07-10 20:00] VITALS: BP 145/67
[2017-07-10] MEDS: SIMVASTATIN 20 MG TAB PO SCH (21:11)
[2017-07-10] MEDS: FAMOTIDINE 20 MG TAB PO SCH (21:11)
[2017-07-10] MEDS: CETIRIZINE (ZyrTEC) 10 MG TAB PO SCH (21:11)
[2017-07-10] MEDS: ASPIRIN 81 MG ENTERIC TAB PO SCH (21:11)
--- NOTE | 2017-07-10 21:27 | IPN ---
DATE: 07/10/2017 SUBJECTIVE: Patient was seen and examined at the bedside today morning. In the rehabilitation unit, patient was getting his physical therapy done. He is hemodynamically stable. Blood pressure is slightly better today. He continues to have right lower extremity edema. Renal function is stable. Creatinine has improved to 1.3 today. REVIEW OF SYSTEMS: Patient denies any fevers, chills, rigors, headaches, nausea, vomiting, chest pain, shortness of breath, pain in abdomen, constipation, or diarrhea. He does report right lower extremity edema. Rest of review of systems is negative. OBJECTIVE: VITAL SIGNS: Temperature is 97.3 degrees Fahrenheit, blood pressure is 118/58, pulse is 60, respiratory rate of 18, saturating 99% on room air. Intake and output: Urine output recorded is 150 mL overnight, however is not being recorded well, patient has multiple incontinent voids. Weight in the bed scale is 112.9 kg. PHYSICAL EXAMINATION: GENERAL: Patient is awake, alert, oriented times three, sitting in the sofa, no apparent distress. HEAD and NECK EXAM: Extraocular muscles intact. Pupils equally round and reactive to light. Mucous membranes are moist. Neck is supple. There is no jugular venous distention (JVD). CARDIOVASCULAR: S1, S2, regular rate. Patient has 2+ edema of the right lower extremity. RESPIRATORY: Chest is clear to auscultation bilaterally. Bilateral equal air entry. No rales or rhonchi. ABDOMEN: Soft, obese. Positive bowel sounds. Nontender. No ascites. No organomegaly. MUSCULOSKELETAL: Patient has left below-knee amputation and has a prosthesis. Right extremity has a compression dressing and it has 2+ edema. PSYCHIATRIC: Normal mood and affect. CENTRAL NERVOUS SYSTEM (SITE MEDICAL DIRECTOR): No focal neurologic deficit. Power is 5/5 in all extremities. LABORATORY REVIEW: CBC showed a WBC of 5.5, hemoglobin 9, platelets are 373. INR is 2.3. BMP showed sodium 141, potassium 3.8, chloride 105, bicarbonate 29, BUN 30, creatinine is 1.38; it was 1.49 yesterday, calcium is 7.9, magnesium 1.9. CURRENT INPATIENT MEDICATIONS: Patient's medications were all reviewed by me. He was started on valsartan yesterday. There is no other change in the medications today as compared with yesterday. ASSESSMENT: 82-year-old male with recent acute kidney injury secondary to sepsis, hypertension, and lower extremity edema. PLAN: 1. Acute kidney injury. Patient's renal function continues to improve. Creatinine is down to 1.3. Okay to continue the diuretics. Angiotensin receptor lopez was started yesterday and renal function is stable. 2. Hypertension. Blood pressure is better controlled now. He was started on valsartan 40 mg daily. Continue current dose of amlodipine as well. If blood pressure drops to less than 110, then amlodipine will be slowly weaned off. 3. Lower extremity edema. Continue current dose of torsemide 40 mg by mouth twice a day. Continue daily weights. Patient is slowly losing weight and edema is gradually improving.
[2017-07-11 06:00] VITALS: BP 142/72
[2017-07-11 07:00] LABS: MEAN CORPUSCULAR HEMOGLOBIN 35.7 pg (27.0-33.0); MEAN CORPUSCULAR HGB CONC 32.7 g/dl (32.0-36.5); MEAN CORPUSCULAR VOLUME 109.2 fl (80.0-96.0); PLATELET COUNT, AUTOMATED 471 10^3/uL (150-450); WHITE BLOOD COUNT 6.3 10^3/uL (4.0-10.0)
[2017-07-11 07:10] LABS: INR 2.17
[2017-07-11] MEDS: FERROUS SULFATE 325MG TAB PO SCH (09:22)
[2017-07-11] MEDS: FEXOFENADINE 60 MG TAB PO SCH (09:22)
[2017-07-11] MEDS: VITAMIN D 1,000 INTERNATIONAL UNITS TABLET PO SCH (09:22)
[2017-07-11] MEDS: VALSARTAN 40MG TABLET (DIOVAN) PO SCH (09:22)
[2017-07-11] MEDS: NEOSPORIN TOP OINT 15GM TOP SCH (09:23)
[2017-07-11] MEDS: SENOKOT S TAB PO SCH ×2 (09:23→19:42)
[2017-07-11] MEDS: GABAPENTIN 300 MG CAP PO SCH ×2 (09:23→19:42)
[2017-07-11] MEDS: amLODIPine 5 MG TAB PO SCH (09:23)
[2017-07-11] MEDS: TORSEMIDE 20 MG TAB PO SCH ×2 (09:23→18:05)
[2017-07-11] MEDS: OMEGA-3 1050MG CAPSULE PO SCH (09:23)
--- NOTE | 2017-07-11 12:59 | IPN ---
DATE OF SERVICE: 07/11/2017 SUBJECTIVE: The patient was seen and examined at the bedside today morning. The patient reports lower extremity edema. He is otherwise getting physical therapy, getting stronger. His blood pressures are also better controlled at this time. REVIEW OF SYSTEMS: The patient denies any fevers, chills, rigors, headache, chest pain, shortness of breath, pain abdomen, constipation, or diarrhea. He does report lower extremity edema. The rest of review of systems is negative. OBJECTIVE: VITAL SIGNS: Temperature is 98.8 degrees Fahrenheit, blood pressure is 142/72, pulse is 68, respiratory rate of 18, saturating 95% on room air. INTAKE AND OUTPUT: Urine output is not recorded well. Weight in the bed scale is 114.2 kg, which is higher than yesterday. PHYSICAL EXAMINATION: GENERAL: The patient is awake, alert, oriented times three, sitting in the sofa, no apparent distress. HEAD AND NECK EXAMINATION: Extraocular muscles intact. Pupils equally round and reactive to light. Mucous membranes are moist. Neck is supple. There is no jugular venous distention (JVD). CARDIOVASCULAR: S1, S2, regular rate. He has 2+ edema of the right lower extremity. RESPIRATORY: Chest is clear to auscultation bilaterally. Bilateral equal air entry. No rales or rhonchi. ABDOMEN: Soft, obese. Positive bowel sounds. Nontender. No ascites. No organomegaly. MUSCULOSKELETAL: The patient has left below-knee amputation with a prosthesis. He has edema in the left thigh and right extremity has a compression dressing and he has 2+ edema of the right leg. PSYCHIATRIC: Normal mood and affect. CENTRAL NERVOUS SYSTEM (VIDEO SYSTEM REPAIRER): No focal neurological deficit. Power is 5/5 in all extremities. LABORATORY REVIEW: CBC showed a hemoglobin of 10 today. Today, BMP is pending. CURRENT INPATIENT MEDICATIONS: The patient's medications were all reviewed by me. He continues to be on amlodipine 5 mg daily, valsartan 40 mg daily, and torsemide 40 mg by mouth twice a day. There is no change in the medications today. ASSESSMENT: An 82-year-old male with recent acute kidney injury secondary to sepsis, hypertension, and lower extremity edema. PLAN: 1. Acute kidney injury. The patient's creatinine was 1.3 three days ago. Today's basic metabolic profile (BMP) is pending. Okay to continue diuretics and angiotensin-converting enzyme (DAVI) inhibitors at this time. 2. Hypertension. The patient's blood pressure is still fluctuating. Continue current dose of valsartan 40 mg daily. Continue current dose of amlodipine 5 mg daily. If the patient's potassium is acceptable, I would add spironolactone which will lower blood pressure and improve edema, as well. 3. Lower extremity edema. Continue current dose of torsemide 40 mg by mouth twice a day. I am going to start the patient on spironolactone, as well.
[2017-07-11] MEDS: SPIRONOLACTONE 25 MG TAB PO SCH (13:02)
[2017-07-11 14:00] VITALS: BP 139/70
[2017-07-11] MEDS ORDERED: WARFARIN SOD 2 MG TAB PO ONE (17:00)
[2017-07-11 18:47] LABS: CALCIUM LEVEL 8.2 MG/DL (8.8-10.2); CREATININE FOR GFR 1.36 MG/DL (0.70-1.30); GLOMERULAR FILTRATION RATE 53.5 (>35); PHOSPHORUS LEVEL 3.4 MG/DL (2.5-4.9)
[2017-07-11] MEDS: FAMOTIDINE 20 MG TAB PO SCH (19:42)
[2017-07-11] MEDS: CETIRIZINE (ZyrTEC) 10 MG TAB PO SCH (19:42)
[2017-07-11] MEDS: ASPIRIN 81 MG ENTERIC TAB PO SCH (19:42)
[2017-07-11] MEDS: SIMVASTATIN 20 MG TAB PO SCH (19:42)
[2017-07-11 20:00] VITALS: BP 138/60
[2017-07-12 06:00] VITALS: BP 130/58
[2017-07-12 06:50] LABS: INR 2.13
[2017-07-12] MEDS: OMEGA-3 1050MG CAPSULE PO SCH (09:02)
[2017-07-12 09:03] VITALS: BP 130/58
[2017-07-12] MEDS: VITAMIN D 1,000 INTERNATIONAL UNITS TABLET PO SCH (09:03)
[2017-07-12] MEDS: SPIRONOLACTONE 25 MG TAB PO SCH (09:03)
[2017-07-12] MEDS: FERROUS SULFATE 325MG TAB PO SCH (09:03)
[2017-07-12] MEDS: amLODIPine 5 MG TAB PO SCH (09:03)
[2017-07-12] MEDS: TORSEMIDE 20 MG TAB PO SCH (09:03)
[2017-07-12] MEDS: VALSARTAN 40MG TABLET (DIOVAN) PO SCH (09:03)
[2017-07-12] MEDS: GABAPENTIN 300 MG CAP PO SCH (09:03)
[2017-07-12] MEDS: SENOKOT S TAB PO SCH (09:03)
[2017-07-12] MEDS: FEXOFENADINE 60 MG TAB PO SCH (09:04)
[2017-07-12] MEDS: NEOSPORIN TOP OINT 15GM TOP SCH (09:05)
--- NOTE | 2017-07-12 10:41 | IPNPDOC ---
Date Seen The patient was seen on 07/11/17. Progress Note HPI: 82year old M with a past medical history significant for perforated appendicitis with peritonitis/sepsis s/p laparoscopic appendectomy 06/26/[address] Ortiz. nephrology following related to THALIA. Pt transferred to the care of ABI Caldwell 07/02/17. Denies any fevers, chills, weakness, fatigue, Headache, Chest Pain, Shortness of breath, cough, palpitations, abdominal pain, N/V/D or changes in bowel or bladder habits. 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 Obesity PE: GEN: 82yoM, appears stated age. No acute distress. Alert and oriented x 3. HEENT: Normocephalic, atraumatic. Sclera are nonicteric. Conjunctiva without injection.Moist mucous membranes. CHEST: irreg irreg+S1, +S2 LUNGS: Clear to auscultation bilaterally. No wheezes, rales, or rhonchi. Breathing appears symmetric and easy. ABD: Round, soft, non-tender, non-distended. +Bowel sounds throughout. No rebound or guarding. No costovertebral angle tenderness. EXT: 1-2mm RLE edema appreciated. SKIN: Manti, dry, warm. Capillary refill <2sec. No rashes. NEURO: No focal deficits appreciated. A&P: 82year old M with a past medical history significant for perforated appendicitis with peritonitis/sepsis s/p laparoscopic cholecystectomy 06/26/[address] Ortiz. nephrology following related to THALIA. Pt transferred to the care of ABI Caldwell 07/02/17. 1. Perforated appendicitis, peritonitis, sepsis, S/P Lap appendectomy 06/26/17. BC x 1 06/26/17 E Coli sensitive to fluoroquinolone. BC x 2 06/29/17 neg. managment as per Surgery. Plan is for outpt F/U with Surgery. Pt completed course of Cipro/Flagyl. PT/OT as per Dr Jacklyn ALEX. Bowel care as per Dr Jacklyn ALEX. Pain control as per Dr Jacklyn ALEX. DVT prophylaxis. Pt is on coumadin. 2. THALIA/CKD3. Nephrology following/managing. Arrange Oupt f/u as well. SCr 1.36. 3. HTN/Fluid overload. Nephrology managing diuretics. Torsemide 40mg BID. Norvasc 5 mg daily. Valsartan 40 daily 4. H/O elevated troponin. ASA 81mg SL NTG as needed. 5. Chronic Afib. HR 56-63 bpm. Coumadin 2 mg daily. (previous home dose 5 mg 1x/wk, 2.5mg daily ROW) INR 2.13 Cont INR daily. 6. HLD. Zocor 20 mg daily. 7. 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 8. Allergic rhinitis. Zyrtec. 9. GERD. Pepcid. 10. Fe def anemia. Continue Fe supplement. 11. Obesity. Complicates care, BMI 36.5. 12. Hypokalemia. s/p supplement. WNL. VS, I&O, 24H, Fishbone Vital Signs/I&O Vital Signs Date Time Temp Pulse Resp B/P (MAP) Pulse Ox O2 Delivery O2 Flow Rate FiO2 07/12/17 09:03 130/58 07/12/17 09:03 60 07/12/17 06:00 98.4 16 96 Room Air I&O- Last 24 Hours up to 6 AM 07/13/17 05:59 Intake Total 360 ml Output Total 350 ml Balance 10 ml Laboratory Data 24H LABS Laboratory Tests 2 07/12/17 06:21: Prothrombin Time 24.6H, Prothromb Time International Ratio 2.13 Paulette Meredith Jul 12, 2017 10:41
--- NOTE | 2017-07-13 06:39 | IPN ---
DATE: 07/12/2017 SUBJECTIVE: The patient was seen and examined at the bedside today morning. He was sitting on the sofa. The patient reports that his leg edema is getting better. He is tolerating the spironolactone dose. Patient is hemodynamically stable. OBJECTIVE: VITAL SIGNS: Temperature is 98.4 degrees Fahrenheit, blood pressure is 130/58, pulse is 60, respiratory rate of 16, saturating 96% on room air. INTAKE AND OUTPUT: Urine output is not recorded well. Weight in the bed scale is 114 kg. PHYSICAL EXAMINATION: GENERAL: The patient is awake, alert, oriented times three, sitting on the sofa, no apparent distress. HEAD AND NECK EXAMINATION: Extraocular muscles intact. Pupils equally round and reactive to light. CARDIOVASCULAR: S1, S2, regular rate. He has 1+ edema of the right lower extremity, which has a compression stocking as well. RESPIRATORY: Chest is clear to auscultation bilaterally. Bilateral equal air entry. No rales or rhonchi. ABDOMEN: Soft, obese. Positive bowel sounds. Nontender. No ascites. No organomegaly. MUSCULOSKELETAL: The patient has left below-knee amputation and he has edema of the right leg, which is improving. CENTRAL NERVOUS SYSTEM (ESOL INSTRUCTOR): No focal neurological deficit. LABORATORY REVIEW: There are no labs available from today. The latest creatinine is from yesterday, which was 1.36. CURRENT INPATIENT MEDICATIONS: The patient's medications were all reviewed by me and there is no change in the medications today as compared with yesterday. ASSESSMENT: 82-year-old male with recent acute kidney injury secondary to sepsis, hypotension. The patient has lower extremity edema. PLAN: 1. Lower extremity edema. Continue current dose of torsemide 40 mg by mouth twice a day and spironolactone 25 mg daily. 2. Hypertension. Blood pressure is controlled. Continue current dose of valsartan and amlodipine along with spironolactone. 3. Acute kidney injury. Renal function continues to gradually improve. Latest creatinine is 1.36 from yesterday. DISPOSITION: It is okay to discharge the patient from a nephrology standpoint.
--- NOTE | 2017-07-17 15:57 | PMRDS ---
DATE OF ADMISSION: 07/01/2017 DATE OF DISCHARGE: 07/12/2016 DISCHARGE DIAGNOSIS: Rehabilitation of multiple debilitation secondary to ruptured appendix with sepsis causing acute on chronic kidney disease stage III, congestive heart failure, respiratory distress, and hypotension. HISTORY/HOSPITAL COURSE: The patient is a right-handed 82-year-old white male who has peripheral vascular disease and is status post left below-knee amputation and developed onset of abdominal pain and then got progressively worse, and the patient became more ill over the course of the next two days, and then sought care at [facility] on June 26, 2017. He was found to have peritonitis from a ruptured appendix and had developed acute kidney failure, hypotension related to the secondary sepsis. The patient had respiratory distress with this and was medically managed and followed by medicine, nephrology, and general surgery services. The patient was unable to function at a level that would allow him to go home, and was admitted on 07/01/2017, to acute rehabilitation unit for training with physical and occupational therapy, rehabilitation nursing, physiatry, internal medicine, and also for ongoing surgical followup. The patient participated in three hours of acute intensive rehabilitation for almost all days of his admission, though he did have some difficulty throughout with endurance and fever regulation. However, the patient was able to participate in the therapies and advance from total assist in toileting, toilet transfers, other transfers, and minimal assist with bed mobility and only fair to fair plus balance, to modified independence to standby assistance in activities of daily living (ADLs) and transfers, with good balance, and in physical therapy from being able to only walk six feet with minimum assist of two people and a front-wheel walker and gait belt and not able to do any stairs, to modified independence, ambulating 150 or more feet at a time with modified independence using the rolling walker and his left BKA prosthesis which was now fitting again following some compression from stump shrinkers when not in the device, and having 200 foot wheelchair distance and being able to do eight stairs. Past medical history of non-ST segment elevation myocardial infarction, coronary artery disease, thrush, and neuropathy, and status post coronary artery angioplasty with stent and left below-knee amputation (BKA). The patient's laboratory shows a hemoglobin and hematocrit of 9.3 and 28.9% on admission, and improved to 10.1 and 30.9 at the time of discharge, with BUN and creatinine on admission of 32 and 1.39 improved to 28 and 1.36 at the time of discharge. DISCHARGE MEDICATIONS: - Tylenol eight-hour arthritis 650 mg twice a day - aspirin 81 mg at bedtime - calcium, magnesium, zinc tablets two tablets twice a day - vitamin D3 1000 international units daily - Pepcid 40 mg at bedtime - iron sulfate 325 mg three times a week - Jackie 180 mg daily - fish oil 1000 mg capsules two capsules daily - gabapentin 300 mg twice a day - melatonin 5 mg chewable tablets, two tablets at bedtime for sleep - Nitrostat as needed for angina - simvastatin 30 mg at bedtime for cholesterol - torsemide 40 mg twice a day for fluid control - valsartan 40 mg at bedtime for hypertension - Coumadin 5 mg once a week and the other six days 2.5 mg for atrial fibrillation The patient is discharged to home with family and home care, to see primary care within two weeks and surgery within two weeks. Patient with home care nursing, physical therapy (PT) and occupational therapy (OT). TIME SPENT ON DISCHARGE: Greater than 35 minutes. MTDD
== END 2017-07-12 12:50 | disposition home health service (06) | DRG 947 ==
LOC: M PM&R 09:37
PROVIDERS: ADMIT Physical Medicine & Rehabilitation; ATTEND Physical Medicine & Rehabilitation
DX: R53.81 Other malaise (principal); A41.9 Sepsis, unspecified organism; B37.0 Candidal stomatitis; I13.0 Hypertensive heart and chronic kidney disease with heart failure and stage 1 through stage 4 chronic kidney disease, or unspecified chronic kidney disease; I25.10 Atherosclerotic heart disease of native coronary artery without angina pectoris; E78.5 Hyperlipidemia, unspecified; I73.9 Peripheral vascular disease, unspecified; N18.3 Chronic kidney disease, stage 3 (moderate); I48.2 Chronic atrial fibrillation; K21.9 Gastro-esophageal reflux disease without esophagitis; I50.9 Heart failure, unspecified; I25.2 Old myocardial infarction; E66.9 Obesity, unspecified; R15.9 Full incontinence of feces; E88.09 Other disorders of plasma-protein metabolism, not elsewhere classified; M54.9 Dorsalgia, unspecified; K59.00 Constipation, unspecified; R32 Unspecified urinary incontinence; K57.90 Diverticulosis of intestine, part unspecified, without perforation or abscess without bleeding; D50.9 Iron deficiency anemia, unspecified; E87.6 Hypokalemia; Z95.0 Presence of cardiac pacemaker; Z95.5 Presence of coronary angioplasty implant and graft; Z79.01 Long term (current) use of anticoagulants; Z79.899 Other long term (current) drug therapy; Z89.512 Acquired absence of left leg below knee; Z68.36 Body mass index [BMI] 36.0-36.9, adult; Z98.890 Other specified postprocedural states

== ENCOUNTER → 2017-07-22 | Outpatient (CLI) | payer MEDICARE, OTHER ==
[2017-07-22 19:07] LABS: INR 2.85
== END ==
LOC: M WUC 13:16
PROVIDERS: ATTEND Nurse Practitioner Family
DX: I48.2 Chronic atrial fibrillation (principal)

== ENCOUNTER 2017-08-04 10:25 | Inpatient (IN) | payer MEDICARE, OTHER ==
[2017-08-04 11:53] LABS: BASO % 0.2 % (0.0-1.0); IMMATURE GRANULOCYTE % 0.7 % (0-0); LYMPH # 0.8 10^3/uL (1.5-4.5); LYMPH % 13.1 % (24.0-44.0); MEAN CORPUSCULAR HEMOGLOBIN 36.4 pg (27.0-33.0); MEAN CORPUSCULAR HGB CONC 33.1 g/dl (32.0-36.5); MEAN CORPUSCULAR VOLUME 110.1 fl (80.0-96.0); MONO # 0.6 10^3/uL (0.0-0.8); NEUTROPHILS # 4.3 10^3/uL (1.8-7.7); PLATELET COUNT, AUTOMATED 136 10^3/uL (150-450); RED CELL DISTRIBUTION WIDTH 16.2 % (11.5-14.5); WHITE BLOOD COUNT 5.7 10^3/uL (4.0-10.0)
[2017-08-04 12:04] LABS: INR 2.18
[2017-08-04 12:38] LABS: ALBUMIN 3.1 GM/DL (3.2-5.2); ALBUMIN/GLOBULIN RATIO 0.91 (1.00-1.93); ALKALINE PHOSPHATASE 66 U/L (45-117); ALT/SGPT 18 U/L (12-78); ANION GAP 7 MEQ/L (8-16); AST/SGOT 25 U/L (7-37); BILIRUBIN,DIRECT 0.2 MG/DL (0.0-0.2); BILIRUBIN,TOTAL 0.6 MG/DL (0.2-1.0); BLOOD UREA NITROGEN 27 MG/DL (7-18); CARBON DIOXIDE LEVEL 29 MEQ/L (21-32); CHLORIDE LEVEL 102 MEQ/L (98-107); CREATININE FOR GFR 1.87 MG/DL (0.70-1.30); GLOMERULAR FILTRATION RATE 37.1 (>35); GLUCOSE, FASTING 139 MG/DL (83-110); POTASSIUM SERUM 4.4 MEQ/L (3.5-5.1); SODIUM LEVEL 138 MEQ/L (136-145); TOTAL PROTEIN 6.5 GM/DL (6.4-8.2)
[2017-08-04 12:41] LABS: LACTIC ACID SEPSIS PROTOCOL 2.4 MMOL/L (0.4-2.0)
[2017-08-04] MEDS: ACETAMINOPHEN 325 MG TAB PO (12:52)
[2017-08-04] MEDS: LevoFLOXacin IV 750 MG in APPROPRIATE DILUENT 1 EA IV (13:55)
[2017-08-04] MEDS: FUROSEMIDE 40 MG/4 ML VIAL (J1940) IV ×2 (13:55→20:56)
[2017-08-04] MEDS ORDERED: NITROGLYCERIN 0.4 MG SUBL TABLET SL (16:30)
[2017-08-04] MEDS: NORCO, ANEXSIA 5/325MG TABLET (HYDROcodone/ACETAMINOPHEN) PO (17:28)
[2017-08-04] MEDS: ASPIRIN 81 MG ENTERIC TAB PO (18:12)
[2017-08-04] MEDS: WARFARIN SOD 2.5 MG TAB PO (18:13)
[2017-08-04] MEDS: GABAPENTIN 300 MG CAP PO (20:56)
[2017-08-04] MEDS: SIMVASTATIN 20 MG TAB PO (20:56)
[2017-08-04] MEDS: FAMOTIDINE 20 MG TAB PO (20:56)
[2017-08-04] MEDS: ACETAMINOPHEN 650MG ER TAB (TYLENOL ARTHRITIS) PO (21:23)
[2017-08-05] MEDS: ACETAMINOPHEN 650MG ER TAB (TYLENOL ARTHRITIS) PO ×3 (06:09→21:00)
[2017-08-05 06:37] LABS: MEAN CORPUSCULAR HGB CONC 33.1 g/dl (32.0-36.5); MEAN CORPUSCULAR VOLUME 108.7 fl (80.0-96.0); PLATELET COUNT, AUTOMATED 121 10^3/uL (150-450); RED CELL DISTRIBUTION WIDTH 16.1 % (11.5-14.5); WHITE BLOOD COUNT 5.5 10^3/uL (4.0-10.0)
[2017-08-05 07:03] LABS: ALBUMIN 2.8 GM/DL (3.2-5.2); ANION GAP 10 MEQ/L (8-16); BLOOD UREA NITROGEN 27 MG/DL (7-18); CALCIUM LEVEL 7.7 MG/DL (8.8-10.2); CARBON DIOXIDE LEVEL 27 MEQ/L (21-32); CHLORIDE LEVEL 102 MEQ/L (98-107); CREATININE FOR GFR 1.78 MG/DL (0.70-1.30); GLOMERULAR FILTRATION RATE 39.2 (>35); GLUCOSE, FASTING 114 MG/DL (83-110); MAGNESIUM LEVEL 2.5 MG/DL (1.8-2.4); POTASSIUM SERUM 3.8 MEQ/L (3.5-5.1); SODIUM LEVEL 139 MEQ/L (136-145)
[2017-08-05] MEDS: CALCIUM GLUCONATE 1,000 MG in D5W MINI-BAG PLUS 100 ML IV (08:56)
[2017-08-05] MEDS: VITAMIN D 1,000 INTERNATIONAL UNITS TABLET PO (08:56)
[2017-08-05] MEDS: GABAPENTIN 300 MG CAP PO ×2 (08:56→20:58)
[2017-08-05] MEDS: FEXOFENADINE 60 MG TAB PO (08:56)
[2017-08-05] MEDS: FERROUS SULFATE 325MG TAB PO (08:56)
[2017-08-05 10:55] LABS: FERRITIN 219 NG/ML (26-388); PERCENT SATURATION 10.4 % (19.7-50.0); TOTAL IRON BINDING CAPACITY 222 UG/DL (250-450)
[2017-08-05] MEDS: VANCOMYCIN HCL 1,000 MG, VIAL MATE ADAPTER 1 EACH in D5W 250 ML IV (11:15)
[2017-08-05 11:41] LABS: ERYTHROCYTE SEDIMENTATION RATE 91 mm/hr (0-20)
[2017-08-05] MEDS: VANCOMYCIN HCL 750 MG, VIAL MATE ADAPTER 1 EACH in D5W 250 ML IV (12:40)
[2017-08-05] MEDS: WARFARIN SOD 2.5 MG TAB PO (18:19)
[2017-08-05] MEDS: ASPIRIN 81 MG ENTERIC TAB PO (18:19)
[2017-08-05] MEDS: SIMVASTATIN 20 MG TAB PO (20:58)
[2017-08-05] MEDS: FAMOTIDINE 20 MG TAB PO (20:59)
[2017-08-05] MEDS: amLODIPine 5 MG TAB PO (22:20)
[2017-08-06] MEDS: VANCOMYCIN HCL 750 MG, VIAL MATE ADAPTER 1 EACH in D5W 250 ML IV ×2 (00:09→11:59)
[2017-08-06] MEDS: ACETAMINOPHEN 650MG ER TAB (TYLENOL ARTHRITIS) PO ×3 (05:59→21:19)
[2017-08-06] MEDS: AZTREONAM IV ×3 (06:00→21:18)
[2017-08-06] MEDS: DILUENT IV ×3 (06:00→21:18)
[2017-08-06] MEDS: amLODIPine 5 MG TAB PO (08:46)
[2017-08-06] MEDS: GABAPENTIN 300 MG CAP PO ×2 (08:56→21:19)
[2017-08-06] MEDS: VITAMIN D 1,000 INTERNATIONAL UNITS TABLET PO (08:56)
[2017-08-06] MEDS: FEXOFENADINE 60 MG TAB PO (10:20)
[2017-08-06 11:49] LABS: BASO % 0.2 % (0.0-1.0); EOS % 0.7 % (0.0-3.0); IMMATURE GRANULOCYTE % 0.9 % (0-0); LYMPH # 0.8 10^3/uL (1.5-4.5); MEAN CORPUSCULAR HEMOGLOBIN 35.6 pg (27.0-33.0); MEAN CORPUSCULAR HGB CONC 32.7 g/dl (32.0-36.5); MEAN CORPUSCULAR VOLUME 108.9 fl (80.0-96.0); MONO # 0.5 10^3/uL (0.0-0.8); MONO % 11.4 % (0.0-5.0); NEUTROPHILS # 2.9 10^3/uL (1.8-7.7); NEUTROPHILS % 67.8 % (36.0-66.0); PLATELET COUNT, AUTOMATED 134 10^3/uL (150-450); RED CELL DISTRIBUTION WIDTH 15.8 % (11.5-14.5); WHITE BLOOD COUNT 4.3 10^3/uL (4.0-10.0)
[2017-08-06 11:58] LABS: INR 2.11
[2017-08-06 12:29] LABS: ALBUMIN 2.9 GM/DL (3.2-5.2); ANION GAP 6 MEQ/L (8-16); BLOOD UREA NITROGEN 26 MG/DL (7-18); CALCIUM LEVEL 8.2 MG/DL (8.8-10.2); CARBON DIOXIDE LEVEL 31 MEQ/L (21-32); CHLORIDE LEVEL 101 MEQ/L (98-107); CREATININE FOR GFR 1.44 MG/DL (0.70-1.30); GLOMERULAR FILTRATION RATE 50.1 (>35); GLUCOSE, FASTING 129 MG/DL (83-110); PHOSPHORUS LEVEL 2.9 MG/DL (2.5-4.9); POTASSIUM SERUM 3.5 MEQ/L (3.5-5.1); SODIUM LEVEL 138 MEQ/L (136-145)
[2017-08-06] MEDS: ASPIRIN 81 MG ENTERIC TAB PO (17:45)
[2017-08-06] MEDS: WARFARIN SOD 2.5 MG TAB PO (17:46)
[2017-08-06] MEDS: SIMVASTATIN 20 MG TAB PO (21:19)
[2017-08-06] MEDS: FAMOTIDINE 20 MG TAB PO (21:19)
[2017-08-07] MEDS: VANCOMYCIN HCL 750 MG, VIAL MATE ADAPTER 1 EACH in D5W 250 ML IV
[2017-08-07] MEDS: MORPHINE 2 MG/ML 1ML SYRINGE IV ×2 (01:25→21:39)
[2017-08-07] MEDS: ACETAMINOPHEN 650MG ER TAB (TYLENOL ARTHRITIS) PO ×3 (05:31→21:33)
[2017-08-07] MEDS: DILUENT IV ×3 (05:31→21:32)
[2017-08-07] MEDS: AZTREONAM IV ×3 (05:31→21:32)
[2017-08-07 05:37] LABS: BASO % 0.3 % (0.0-1.0); EOS # 0.1 10^3/uL (0.0-0.50); EOS % 3.9 % (0.0-3.0); IMMATURE GRANULOCYTE % 1.3 % (0-0); LYMPH % 31.8 % (24.0-44.0); MEAN CORPUSCULAR HEMOGLOBIN 35.5 pg (27.0-33.0); MEAN CORPUSCULAR VOLUME 107.5 fl (80.0-96.0); MONO # 0.3 10^3/uL (0.0-0.8); NEUTROPHILS # 1.6 10^3/uL (1.8-7.7); NEUTROPHILS % 51.7 % (36.0-66.0); PLATELET COUNT, AUTOMATED 124 10^3/uL (150-450); RED CELL DISTRIBUTION WIDTH 15.7 % (11.5-14.5); WHITE BLOOD COUNT 3.1 10^3/uL (4.0-10.0)
[2017-08-07 05:47] LABS: INR 2.21
[2017-08-07 05:49] LABS: ALBUMIN 2.3 GM/DL (3.2-5.2); ANION GAP 9 MEQ/L (8-16); BLOOD UREA NITROGEN 33 MG/DL (7-18); CALCIUM LEVEL 7.1 MG/DL (8.8-10.2); CARBON DIOXIDE LEVEL 25 MEQ/L (21-32); CHLORIDE LEVEL 106 MEQ/L (98-107); CREATININE FOR GFR 1.46 MG/DL (0.70-1.30); GLOMERULAR FILTRATION RATE 49.3 (>35); GLUCOSE, FASTING 129 MG/DL (83-110); PHOSPHORUS LEVEL 4.5 MG/DL (2.5-4.9); POTASSIUM SERUM 3.3 MEQ/L (3.5-5.1); SODIUM LEVEL 140 MEQ/L (136-145)
[2017-08-07] MEDS: VITAMIN D 1,000 INTERNATIONAL UNITS TABLET PO (08:33)
[2017-08-07] MEDS: GABAPENTIN 300 MG CAP PO ×2 (08:33→21:32)
[2017-08-07] MEDS: amLODIPine 5 MG TAB PO (08:33)
[2017-08-07] MEDS: FEXOFENADINE 60 MG TAB PO (08:33)
[2017-08-07] MEDS: POTASSIUM CHLORIDE 10 MEQ SR TABLET PO ×2 (11:42→16:54)
[2017-08-07] MEDS: TORSEMIDE 10 MG TABLET PO (12:29)
[2017-08-07] MEDS: ASPIRIN 81 MG ENTERIC TAB PO (16:54)
[2017-08-07] MEDS: WARFARIN SOD 2.5 MG TAB PO (16:54)
[2017-08-07] MEDS: SIMVASTATIN 20 MG TAB PO (21:32)
[2017-08-07] MEDS: FAMOTIDINE 20 MG TAB PO (21:32)
[2017-08-08 05:27] LABS: BASO % 0.3 % (0.0-1.0); EOS # 0.2 10^3/uL (0.0-0.50); EOS % 6.1 % (0.0-3.0); IMMATURE GRANULOCYTE # 0.1 10^3/uL (0-0); IMMATURE GRANULOCYTE % 1.5 % (0-0); LYMPH # 1.2 10^3/uL (1.5-4.5); LYMPH % 33.7 % (24.0-44.0); MEAN CORPUSCULAR HEMOGLOBIN 36.3 pg (27.0-33.0); MEAN CORPUSCULAR HGB CONC 32.9 g/dl (32.0-36.5); MEAN CORPUSCULAR VOLUME 110.3 fl (80.0-96.0); MONO # 0.3 10^3/uL (0.0-0.8); MONO % 9.9 % (0.0-5.0); NEUTROPHILS # 1.7 10^3/uL (1.8-7.7); NEUTROPHILS % 48.5 % (36.0-66.0); PLATELET COUNT, AUTOMATED 152 10^3/uL (150-450); RED CELL DISTRIBUTION WIDTH 15.9 % (11.5-14.5); WHITE BLOOD COUNT 3.4 10^3/uL (4.0-10.0)
[2017-08-08 05:48] LABS: INR 2.44
[2017-08-08 05:49] LABS: ALBUMIN 2.5 GM/DL (3.2-5.2); ANION GAP 7 MEQ/L (8-16); BLOOD UREA NITROGEN 36 MG/DL (7-18); CARBON DIOXIDE LEVEL 28 MEQ/L (21-32); CHLORIDE LEVEL 108 MEQ/L (98-107); CREATININE FOR GFR 1.34 MG/DL (0.70-1.30); GLOMERULAR FILTRATION RATE 54.5 (>35); GLUCOSE, FASTING 108 MG/DL (83-110); PHOSPHORUS LEVEL 3.6 MG/DL (2.5-4.9); POTASSIUM SERUM 4.5 MEQ/L (3.5-5.1); SODIUM LEVEL 143 MEQ/L (136-145)
[2017-08-08] MEDS: AZTREONAM IV ×2 (05:56→13:44)
[2017-08-08] MEDS: DILUENT IV ×2 (05:56→13:44)
[2017-08-08] MEDS: ACETAMINOPHEN 650MG ER TAB (TYLENOL ARTHRITIS) PO ×3 (05:57→21:27)
[2017-08-08] MEDS: amLODIPine 5 MG TAB PO (08:40)
[2017-08-08] MEDS: TORSEMIDE 10 MG TABLET PO (08:41)
[2017-08-08] MEDS: VITAMIN D 1,000 INTERNATIONAL UNITS TABLET PO (08:41)
[2017-08-08] MEDS: GABAPENTIN 300 MG CAP PO ×2 (08:41→21:27)
[2017-08-08] MEDS: FERROUS SULFATE 325MG TAB PO (08:41)
[2017-08-08] MEDS: FEXOFENADINE 60 MG TAB PO (08:41)
[2017-08-08 15:24] LABS: FOLATE 11.5 NG/ML (>5.4)
[2017-08-08 15:24] LABS: VITAMIN B12 LEVEL 481 PG/ML (247-911)
[2017-08-08] MEDS: TORSEMIDE 20 MG TAB PO (17:23)
[2017-08-08] MEDS: ASPIRIN 81 MG ENTERIC TAB PO (17:23)
[2017-08-08] MEDS: WARFARIN SOD 5 MG TAB PO (17:24)
[2017-08-08] MEDS: VANCOMYCIN HCL 1,000 MG, VIAL MATE ADAPTER 1 EACH in D5W 250 ML IV (17:24)
[2017-08-08] MEDS: SIMVASTATIN 20 MG TAB PO (21:27)
[2017-08-08] MEDS: FAMOTIDINE 20 MG TAB PO (21:27)
[2017-08-08] MEDS: MORPHINE 2 MG/ML 1ML SYRINGE IV (21:32)
[2017-08-09 05:25] LABS: BASO % 0.3 % (0.0-1.0); EOS # 0.2 10^3/uL (0.0-0.50); EOS % 5.7 % (0.0-3.0); IMMATURE GRANULOCYTE # 0.1 10^3/uL (0-0); IMMATURE GRANULOCYTE % 2.1 % (0-0); LYMPH # 1.2 10^3/uL (1.5-4.5); MEAN CORPUSCULAR HEMOGLOBIN 35.1 pg (27.0-33.0); MEAN CORPUSCULAR HGB CONC 32.4 g/dl (32.0-36.5); MEAN CORPUSCULAR VOLUME 108.2 fl (80.0-96.0); MONO # 0.5 10^3/uL (0.0-0.8); NEUTROPHILS # 1.8 10^3/uL (1.8-7.7); NEUTROPHILS % 47.9 % (36.0-66.0); PLATELET COUNT, AUTOMATED 187 10^3/uL (150-450); RED CELL DISTRIBUTION WIDTH 15.7 % (11.5-14.5); WHITE BLOOD COUNT 3.8 10^3/uL (4.0-10.0)
[2017-08-09 05:45] LABS: INR 2.53
[2017-08-09 05:50] LABS: ALBUMIN 2.6 GM/DL (3.2-5.2); ANION GAP 9 MEQ/L (8-16); BLOOD UREA NITROGEN 35 MG/DL (7-18); CALCIUM LEVEL 7.3 MG/DL (8.8-10.2); CARBON DIOXIDE LEVEL 23 MEQ/L (21-32); CHLORIDE LEVEL 108 MEQ/L (98-107); CREATININE FOR GFR 1.32 MG/DL (0.70-1.30); GLOMERULAR FILTRATION RATE 55.4 (>35); GLUCOSE, FASTING 99 MG/DL (83-110); PHOSPHORUS LEVEL 3.2 MG/DL (2.5-4.9); POTASSIUM SERUM 3.9 MEQ/L (3.5-5.1); SODIUM LEVEL 140 MEQ/L (136-145)
[2017-08-09] MEDS: ACETAMINOPHEN 650MG ER TAB (TYLENOL ARTHRITIS) PO ×3 (05:50→21:58)
[2017-08-09] MEDS: VANCOMYCIN HCL 1,000 MG, VIAL MATE ADAPTER 1 EACH in D5W 250 ML IV ×2 (05:50→17:33)
[2017-08-09 06:55] LABS: ERYTHROCYTE SEDIMENTATION RATE 107 mm/hr (0-20)
[2017-08-09] MEDS: VITAMIN D 1,000 INTERNATIONAL UNITS TABLET PO (09:42)
[2017-08-09] MEDS: TORSEMIDE 20 MG TAB PO ×2 (09:43→17:33)
[2017-08-09] MEDS: FEXOFENADINE 60 MG TAB PO (09:43)
[2017-08-09] MEDS: GABAPENTIN 300 MG CAP PO ×2 (09:43→21:13)
[2017-08-09] MEDS: amLODIPine 5 MG TAB PO (09:44)
[2017-08-09] MEDS ORDERED: LevoFLOXacin IV 750 MG in APPROPRIATE DILUENT 1 EA IV (16:00)
[2017-08-09] MEDS: WARFARIN SOD 2.5 MG TAB PO (17:34)
[2017-08-09] MEDS: ASPIRIN 81 MG ENTERIC TAB PO (17:35)
[2017-08-09] MEDS: FAMOTIDINE 20 MG TAB PO (21:13)
[2017-08-09] MEDS: SIMVASTATIN 20 MG TAB PO (21:13)
[2017-08-10 05:00] LABS: BASO % 0.5 % (0.0-1.0); EOS # 0.2 10^3/uL (0.0-0.50); EOS % 4.6 % (0.0-3.0); IMMATURE GRANULOCYTE # 0.1 10^3/uL (0-0); IMMATURE GRANULOCYTE % 2.7 % (0-0); LYMPH # 1.3 10^3/uL (1.5-4.5); LYMPH % 30.4 % (24.0-44.0); MEAN CORPUSCULAR HEMOGLOBIN 35.9 pg (27.0-33.0); MEAN CORPUSCULAR HGB CONC 33.7 g/dl (32.0-36.5); MEAN CORPUSCULAR VOLUME 106.5 fl (80.0-96.0); MONO # 0.6 10^3/uL (0.0-0.8); MONO % 13.2 % (0.0-5.0); NEUTROPHILS # 2.1 10^3/uL (1.8-7.7); NEUTROPHILS % 48.6 % (36.0-66.0); PLATELET COUNT, AUTOMATED 210 10^3/uL (150-450); RED CELL DISTRIBUTION WIDTH 15.6 % (11.5-14.5); WHITE BLOOD COUNT 4.4 10^3/uL (4.0-10.0)
[2017-08-10] MEDS: VANCOMYCIN HCL 1,000 MG, VIAL MATE ADAPTER 1 EACH in D5W 250 ML IV ×2 (05:00→12:10)
[2017-08-10 05:19] LABS: INR 2.71
[2017-08-10] MEDS: ACETAMINOPHEN 650MG ER TAB (TYLENOL ARTHRITIS) PO ×3 (07:52→22:12)
[2017-08-10 08:06] LABS: ANION GAP 8 MEQ/L (8-16); BLOOD UREA NITROGEN 33 MG/DL (7-18); CALCIUM LEVEL 7.5 MG/DL (8.8-10.2); CARBON DIOXIDE LEVEL 26 MEQ/L (21-32); CHLORIDE LEVEL 107 MEQ/L (98-107); CREATININE FOR GFR 1.27 MG/DL (0.70-1.30); GLOMERULAR FILTRATION RATE 57.9 (>35); GLUCOSE, FASTING 100 MG/DL (83-110); POTASSIUM SERUM 3.9 MEQ/L (3.5-5.1); SODIUM LEVEL 141 MEQ/L (136-145)
[2017-08-10] MEDS: EUCERIN 120GM CREAM TOP ×2 (09:00→18:52)
[2017-08-10] MEDS: FEXOFENADINE 60 MG TAB PO (09:14)
[2017-08-10] MEDS: VITAMIN D 1,000 INTERNATIONAL UNITS TABLET PO (09:14)
[2017-08-10] MEDS: FERROUS SULFATE 325MG TAB PO (09:14)
[2017-08-10] MEDS: GABAPENTIN 300 MG CAP PO ×2 (09:14→22:11)
[2017-08-10] MEDS: amLODIPine 5 MG TAB PO (09:15)
[2017-08-10] MEDS: TORSEMIDE 20 MG TAB PO ×2 (09:15→18:37)
[2017-08-10] MEDS ORDERED: SLF 3 ML SYR IV (13:00)
[2017-08-10] MEDS: SLF 3 ML SYR IV ×2 (14:25→22:12)
[2017-08-10] MEDS ORDERED: fentaNYL 100 MCG/2 ML INJECTION (J3010) As Ordered (17:23)
[2017-08-10] MEDS ORDERED: LIDOCAINE 2% INJ 100 MG/5 ML SDV (FOR ANES.) As Ordered (17:23)
[2017-08-10] MEDS ORDERED: PROPOFOL 200 MG/20 ML VIAL As Ordered (17:23)
[2017-08-10] MEDS ORDERED: fentaNYL 100 MCG/2 ML INJECTION (J3010) IV (18:15)
[2017-08-10] MEDS: LR 1,000 ML IV (18:15)
[2017-08-10] MEDS ORDERED: ONDANSETRON 4MG/2ML VIAL (J2405) IV (18:15)
[2017-08-10] MEDS: WARFARIN SOD 2.5 MG TAB PO (18:35)
[2017-08-10] MEDS: ASPIRIN 81 MG ENTERIC TAB PO (18:35)
[2017-08-10] MEDS: FAMOTIDINE 20 MG TAB PO (22:11)
[2017-08-10] MEDS: SIMVASTATIN 20 MG TAB PO (22:12)
[2017-08-11 05:52] LABS: BASO % 0.2 % (0.0-1.0); EOS # 0.2 10^3/uL (0.0-0.50); EOS % 3.7 % (0.0-3.0); IMMATURE GRANULOCYTE # 0.1 10^3/uL (0-0); LYMPH # 1.2 10^3/uL (1.5-4.5); LYMPH % 29.9 % (24.0-44.0); MEAN CORPUSCULAR HEMOGLOBIN 35.1 pg (27.0-33.0); MEAN CORPUSCULAR HGB CONC 32.9 g/dl (32.0-36.5); MEAN CORPUSCULAR VOLUME 106.8 fl (80.0-96.0); MONO # 0.6 10^3/uL (0.0-0.8); MONO % 14.9 % (0.0-5.0); NEUTROPHILS % 49.3 % (36.0-66.0); PLATELET COUNT, AUTOMATED 233 10^3/uL (150-450); RED CELL DISTRIBUTION WIDTH 15.7 % (11.5-14.5)
[2017-08-11 06:07] LABS: ANION GAP 8 MEQ/L (8-16); BLOOD UREA NITROGEN 33 MG/DL (7-18); CALCIUM LEVEL 7.3 MG/DL (8.8-10.2); CARBON DIOXIDE LEVEL 27 MEQ/L (21-32); CHLORIDE LEVEL 108 MEQ/L (98-107); CREATININE FOR GFR 1.14 MG/DL (0.70-1.30); GLOMERULAR FILTRATION RATE > 60.0 (>35); GLUCOSE, FASTING 114 MG/DL (83-110); POTASSIUM SERUM 3.3 MEQ/L (3.5-5.1); SODIUM LEVEL 143 MEQ/L (136-145)
[2017-08-11] MEDS: ACETAMINOPHEN 650MG ER TAB (TYLENOL ARTHRITIS) PO ×2 (06:08→14:08)
[2017-08-11] MEDS: SLF 3 ML SYR IV (06:09)
[2017-08-11 06:10] LABS: VANCOMYCIN RANDOM 22.3 UG/ML
[2017-08-11 06:16] LABS: INR 2.63
[2017-08-11] MEDS: FEXOFENADINE 60 MG TAB PO (09:07)
[2017-08-11] MEDS: TORSEMIDE 20 MG TAB PO (09:07)
[2017-08-11] MEDS: GABAPENTIN 300 MG CAP PO (09:07)
[2017-08-11] MEDS: VITAMIN D 1,000 INTERNATIONAL UNITS TABLET PO (09:07)
[2017-08-11] MEDS: amLODIPine 5 MG TAB PO (09:07)
[2017-08-11] MEDS: POTASSIUM CHLORIDE 10 MEQ SR TABLET PO (09:08)
[2017-08-11] MEDS: EUCERIN 120GM CREAM TOP (09:08)
== END 2017-08-11 16:22 | disposition home health service (06) | DRG 872 ==
LOC: M PCU 08-05 22:55 → M ED 10:25 → M ED INP 13:09
PROC: B246ZZ4 Ultrasonography of Right and Left Heart, Transesophageal (ICD-10-PCS; principal; 2017-08-10 08:51)
DX: R78.81 Bacteremia (principal); N17.9 Acute kidney failure, unspecified; I13.0 Hypertensive heart and chronic kidney disease with heart failure and stage 1 through stage 4 chronic kidney disease, or unspecified chronic kidney disease; I50.9 Heart failure, unspecified; I25.10 Atherosclerotic heart disease of native coronary artery without angina pectoris; N18.3 Chronic kidney disease, stage 3 (moderate); D51.9 Vitamin B12 deficiency anemia, unspecified; E78.5 Hyperlipidemia, unspecified; I48.2 Chronic atrial fibrillation; E66.9 Obesity, unspecified; E88.81 Metabolic syndrome and other insulin resistance; G89.29 Other chronic pain; E87.6 Hypokalemia; B95.2 Enterococcus as the cause of diseases classified elsewhere; D50.9 Iron deficiency anemia, unspecified; E55.9 Vitamin D deficiency, unspecified; Z88.0 Allergy status to penicillin; Z79.82 Long term (current) use of aspirin; Z79.899 Other long term (current) drug therapy; Z95.5 Presence of coronary angioplasty implant and graft; Z95.0 Presence of cardiac pacemaker; Z79.01 Long term (current) use of anticoagulants; Z89.512 Acquired absence of left leg below knee; Z85.828 Personal history of other malignant neoplasm of skin

== ENCOUNTER → 2017-08-28 | Outpatient (CLI) | payer MEDICARE, OTHER ==
[2017-08-28 18:13] LABS: INR 2.96; PROTHROMBIN TIME 32.1 SECONDS (12.4-14.5)
[2017-08-28 18:25] LABS: ALBUMIN 3.4 GM/DL (3.2-5.2); ANION GAP 9 MEQ/L (8-16); BLOOD UREA NITROGEN 40 MG/DL (7-18); CALCIUM LEVEL 7.8 MG/DL (8.8-10.2); CARBON DIOXIDE LEVEL 29 MEQ/L (21-32); CHLORIDE LEVEL 104 MEQ/L (98-107); CREATININE FOR GFR 2.06 MG/DL (0.70-1.30); GLOMERULAR FILTRATION RATE 33.2 (>35); GLUCOSE, FASTING 136 MG/DL (83-110); PHOSPHORUS LEVEL 3.5 MG/DL (2.5-4.9); POTASSIUM SERUM 4.1 MEQ/L (3.5-5.1); SODIUM LEVEL 142 MEQ/L (136-145)
== END ==
LOC: M WUC 13:37
DX: I48.2 Chronic atrial fibrillation (principal); I50.32 Chronic diastolic (congestive) heart failure
CPT/HCPCS: 80069

== ENCOUNTER → 2017-09-01 | Outpatient (CLI) | payer MEDICARE, OTHER | LOC: M WUC 11:16 | DX: I51.7 Cardiomegaly (principal); I50.40 Unspecified combined systolic (congestive) and diastolic (congestive) heart failure; Z95.0 Presence of cardiac pacemaker | CPT/HCPCS: 71046 ==

== ENCOUNTER → 2017-09-04 | Outpatient (CLI) | payer MEDICARE, OTHER ==
[2017-09-04 18:41] LABS: ALBUMIN 3.5 GM/DL (3.2-5.2); ANION GAP 9 MEQ/L (8-16); BLOOD UREA NITROGEN 30 MG/DL (7-18); CALCIUM LEVEL 8.1 MG/DL (8.8-10.2); CARBON DIOXIDE LEVEL 29 MEQ/L (21-32); CHLORIDE LEVEL 104 MEQ/L (98-107); CREATININE FOR GFR 1.91 MG/DL (0.70-1.30); GLOMERULAR FILTRATION RATE 36.2 (>35); GLUCOSE, FASTING 101 MG/DL (83-110); PHOSPHORUS LEVEL 4.1 MG/DL (2.5-4.9); POTASSIUM SERUM 3.8 MEQ/L (3.5-5.1); SODIUM LEVEL 142 MEQ/L (136-145)
== END ==
LOC: M WUC 13:47
DX: I50.33 Acute on chronic diastolic (congestive) heart failure (principal)
CPT/HCPCS: 80069

== ENCOUNTER → 2017-09-11 | Outpatient (CLI) | payer MEDICARE, OTHER ==
[2017-09-11 18:26] LABS: ALBUMIN 3.6 GM/DL (3.2-5.2); ANION GAP 8 MEQ/L (8-16); BLOOD UREA NITROGEN 34 MG/DL (7-18); CALCIUM LEVEL 8.2 MG/DL (8.8-10.2); CARBON DIOXIDE LEVEL 30 MEQ/L (21-32); CHLORIDE LEVEL 104 MEQ/L (98-107); CREATININE FOR GFR 1.91 MG/DL (0.70-1.30); GLOMERULAR FILTRATION RATE 36.2 (>35); GLUCOSE, FASTING 107 MG/DL (83-110); PHOSPHORUS LEVEL 3.8 MG/DL (2.5-4.9); SODIUM LEVEL 142 MEQ/L (136-145)
== END ==
LOC: M WUC 15:40
DX: I50.33 Acute on chronic diastolic (congestive) heart failure (principal)
CPT/HCPCS: 80069

== ENCOUNTER → 2017-09-22 | Outpatient (REF) | payer MEDICARE, OTHER ==
[2017-09-22 20:28] LABS: IRON (FE) 69 UG/DL (65-175); PERCENT SATURATION 22.4 % (19.7-50.0); TOTAL IRON BINDING CAPACITY 308 UG/DL (250-450)
[2017-09-23 11:56] LABS: VITAMIN B12 LEVEL 331 PG/ML
[2017-09-23 13:05] LABS: FOLATE 15.8 NG/ML
== END ==
LOC: M LAB REF 17:28
DX: D50.9 Iron deficiency anemia, unspecified (principal); D53.1 Other megaloblastic anemias, not elsewhere classified
CPT/HCPCS: 82746

== ENCOUNTER → 2017-10-04 | Outpatient (CLI) | payer MEDICARE, OTHER | LOC: M RAD 11:14 | DX: N28.1 Cyst of kidney, acquired (principal) | CPT/HCPCS: 76775 ==

== ENCOUNTER → 2017-10-05 | Outpatient (CLI) | payer MEDICARE, OTHER ==
[2017-10-05 12:17] LABS: INR 2.21; PROTHROMBIN TIME 25.3 SECONDS (12.4-14.5)
== END ==
LOC: M LAB 11:47
DX: I48.2 Chronic atrial fibrillation (principal)
CPT/HCPCS: 85610

== ENCOUNTER → 2017-10-17 | Outpatient (CLI) | payer MEDICARE, OTHER ==
[2017-10-17 16:45] LABS: INR 3.43; PROTHROMBIN TIME 36.2 SECONDS (12.4-14.5)
[2017-10-17 17:31] LABS: ALBUMIN 3.6 GM/DL (3.2-5.2); ANION GAP 10 MEQ/L (8-16); BLOOD UREA NITROGEN 44 MG/DL (7-18); CALCIUM LEVEL 8.4 MG/DL (8.8-10.2); CARBON DIOXIDE LEVEL 29 MEQ/L (21-32); CHLORIDE LEVEL 104 MEQ/L (98-107); CREATININE FOR GFR 2.13 MG/DL (0.70-1.30); GLOMERULAR FILTRATION RATE 31.9 (>35); GLUCOSE, FASTING 133 MG/DL (70-100); PHOSPHORUS LEVEL 3.7 MG/DL (2.5-4.9); SODIUM LEVEL 143 MEQ/L (136-145)
== END ==
LOC: M WUC 12:04
DX: I50.33 Acute on chronic diastolic (congestive) heart failure (principal)
CPT/HCPCS: 80069

== ENCOUNTER → 2017-10-25 | Outpatient (REF) | payer MEDICARE, OTHER ==
[2017-10-25 17:37] LABS: INR 3.73; PROTHROMBIN TIME 38.7 SECONDS (12.4-14.5)
== END ==
LOC: M LABWUC 16:15
DX: I48.2 Chronic atrial fibrillation (principal)
CPT/HCPCS: 85610

== ENCOUNTER 2017-10-26 19:47 | Inpatient (IN) | payer MEDICARE, OTHER ==
[2017-10-26 21:31] LABS: BASO % 0.2 % (0.0-1.0); EOS # 0.1 10^3/uL (0.0-0.50); EOS % 1.2 % (0.0-3.0); HEMATOCRIT 26.8 % (42.0-52.0); HEMOGLOBIN 8.9 g/dl (14.0-18.0); IMMATURE GRANULOCYTE % 0.6 % (0-3.0); LYMPH # 0.9 10^3/uL (1.5-4.5); LYMPH % 16.8 % (24.0-44.0); MEAN CORPUSCULAR HEMOGLOBIN 35.3 pg (27.0-33.0); MEAN CORPUSCULAR HGB CONC 33.2 g/dl (32.0-36.5); MEAN CORPUSCULAR VOLUME 106.3 fl (80.0-96.0); MONO # 0.6 10^3/uL (0.0-0.8); MONO % 11.4 % (0.0-5.0); NEUTROPHILS # 3.6 10^3/uL (1.8-7.7); NEUTROPHILS % 69.8 % (36.0-66.0); PLATELET COUNT, AUTOMATED 177 10^3/uL (150-450); RED BLOOD COUNT 2.52 10^6/uL (4.30-6.10); RED CELL DISTRIBUTION WIDTH 14.4 % (11.5-14.5); WHITE BLOOD COUNT 5.1 10^3/uL (4.0-10.0)
[2017-10-26] MEDS: NS 1,000 ML IV (21:35)
[2017-10-26 21:50] LABS: INR 3.79; PROTHROMBIN TIME 39.3 SECONDS (12.4-14.5)
[2017-10-26 21:59] LABS: ALBUMIN 3.4 GM/DL (3.2-5.2); ALBUMIN/GLOBULIN RATIO 0.94 (1.00-1.93); ALKALINE PHOSPHATASE 90 U/L (45-117); ALT/SGPT 17 U/L (12-78); ANION GAP 8 MEQ/L (8-16); AST/SGOT 18 U/L (7-37); BILIRUBIN,DIRECT < 0.1 MG/DL (0.0-0.2); BILIRUBIN,TOTAL 0.3 MG/DL (0.2-1.0); BLOOD UREA NITROGEN 47 MG/DL (7-18); CALCIUM LEVEL 8.3 MG/DL (8.8-10.2); CARBON DIOXIDE LEVEL 30 MEQ/L (21-32); CHLORIDE LEVEL 100 MEQ/L (98-107); CREATININE FOR GFR 2.21 MG/DL (0.70-1.30); GLOMERULAR FILTRATION RATE 30.6 (>35); GLUCOSE, FASTING 191 MG/DL (70-100); LIPASE 202 U/L (73-393); POTASSIUM SERUM 4.2 MEQ/L (3.5-5.1); SODIUM LEVEL 138 MEQ/L (136-145)
[2017-10-26 22:00] LABS: LACTIC ACID SEPSIS PROTOCOL 1.4 MMOL/L (0.4-2.0)
[2017-10-26] MEDS: GASTROGRAFIN SOLUTION 30ML PO ×2 (22:45→23:15)
[2017-10-26 22:58] LABS: KETONE, URINE AUTO RFX NEGATIVE (NEGATIVE); LEUKOCYTE ESTERASE UR AUTO RFX NEGATIVE (NEGATIVE); MUCUS, URINE RFX SMALL (NEGATIVE); NITRITE, URINE AUTO RFX NEGATIVE (NEGATIVE); RBC, URINE AUTO RFX 2 /HPF (0-3); SPECIFIC GRAVITY UR AUTO RFX 1.011 (1.002-1.035); SQUAM EPITHELIAL CELL UR AURFX 0 /HPF (0-6); WBC, URINE AUTO RFX 0 /HPF (0-3)
[2017-10-26 23:01] LABS: PARTIAL THROMBOPLASTIN TIME 97.9 SECONDS (26.8-37.9)
[2017-10-26 23:22] LABS: CPK CREATINE PHOSPHOKINASE 45 U/L (39-308); MB/CK RELATIVE INDEX 2.22 (< OR =4); TROPONIN I 0.02 NG/ML (< 0.10)
[2017-10-27] MEDS ORDERED: ONDANSETRON 4MG/2ML VIAL (J2405) IV (01:45)
[2017-10-27] MEDS: CIPROFLOXACIN 200 MG in APPROPRIATE DILUENT 1 EA IV ×2 (01:45→12:58)
[2017-10-27] MEDS ORDERED: ACETAMINOPHEN TAB 650MG DOSE (2X325MG) PO (01:45)
[2017-10-27] MEDS: metroNIDAZOLE 500 MG in APPROPRIATE DILUENT 1 EA IV ×3 (03:12→17:26)
[2017-10-27] MEDS: NS 1,000 ML IV (03:12)
[2017-10-27] MEDS: PERCOCET 5MG/325MG TAB PO ×2 (03:51→21:44)
[2017-10-27] MEDS ORDERED: NITROGLYCERIN 0.4 MG SUBL TABLET SL (05:00)
[2017-10-27] MEDS: VITAMIN D 1,000 INTERNATIONAL UNITS TABLET PO (09:04)
[2017-10-27] MEDS: ALLOPURINOL 100 MG TAB PO (09:04)
[2017-10-27] MEDS: GABAPENTIN 300 MG CAP PO ×2 (09:05→21:36)
[2017-10-27] MEDS: FEXOFENADINE 60 MG TAB PO (09:05)
[2017-10-27] MEDS: TORSEMIDE (DEMADEX) 50 MG PER 1/2 TAB PO ×2 (09:06→21:37)
[2017-10-27] MEDS ORDERED: WARFARIN SOD 2.5 MG TAB PO (17:00)
[2017-10-27] MEDS: ASPIRIN 81 MG ENTERIC TAB PO (21:36)
[2017-10-27] MEDS: SIMVASTATIN 20 MG TAB PO (21:36)
[2017-10-27] MEDS: FAMOTIDINE 20 MG TAB PO (21:36)
[2017-10-27] MEDS: VALSARTAN 40MG TABLET (DIOVAN) PO (21:42)
[2017-10-28] MEDS: CIPROFLOXACIN 200 MG in APPROPRIATE DILUENT 1 EA IV ×2 (00:21→12:44)
[2017-10-28] MEDS: metroNIDAZOLE 500 MG in APPROPRIATE DILUENT 1 EA IV ×3 (01:26→17:40)
[2017-10-28 06:20] LABS: HEMATOCRIT 23.8 % (42.0-52.0); HEMOGLOBIN 7.7 g/dl (14.0-18.0); MEAN CORPUSCULAR HGB CONC 32.4 g/dl (32.0-36.5); MEAN CORPUSCULAR VOLUME 108.2 fl (80.0-96.0); PLATELET COUNT, AUTOMATED 153 10^3/uL (150-450); RED CELL DISTRIBUTION WIDTH 14.5 % (11.5-14.5)
[2017-10-28 06:35] LABS: ALBUMIN 2.9 GM/DL (3.2-5.2); ANION GAP 8 MEQ/L (8-16); BLOOD UREA NITROGEN 52 MG/DL (7-18); CARBON DIOXIDE LEVEL 27 MEQ/L (21-32); CHLORIDE LEVEL 103 MEQ/L (98-107); CREATININE FOR GFR 2.26 MG/DL (0.70-1.30); GLOMERULAR FILTRATION RATE 29.8 (>35); GLUCOSE, FASTING 113 MG/DL (70-100); PHOSPHORUS LEVEL 4.2 MG/DL (2.5-4.9); PROTHROMBIN TIME 32.5 SECONDS (12.4-14.5); SODIUM LEVEL 138 MEQ/L (136-145)
[2017-10-28] MEDS: FEXOFENADINE 60 MG TAB PO (08:40)
[2017-10-28] MEDS: TORSEMIDE (DEMADEX) 50 MG PER 1/2 TAB PO ×2 (08:41→21:02)
[2017-10-28] MEDS: GABAPENTIN 300 MG CAP PO ×2 (08:41→21:02)
[2017-10-28] MEDS: VITAMIN D 1,000 INTERNATIONAL UNITS TABLET PO (08:41)
[2017-10-28] MEDS: ALLOPURINOL 100 MG TAB PO (08:41)
[2017-10-28] MEDS: FERROUS SULFATE 325MG TAB PO (08:41)
[2017-10-28 18:18] LABS: HEMATOCRIT 25.5 % (42.0-52.0); HEMOGLOBIN 8.5 g/dl (14.0-18.0)
[2017-10-28] MEDS: VALSARTAN 40MG TABLET (DIOVAN) PO (21:01)
[2017-10-28] MEDS: ASPIRIN 81 MG ENTERIC TAB PO (21:02)
[2017-10-28] MEDS: FAMOTIDINE 20 MG TAB PO (21:02)
[2017-10-28] MEDS: SIMVASTATIN 20 MG TAB PO (21:03)
[2017-10-28] MEDS: PERCOCET 5MG/325MG TAB PO (21:09)
[2017-10-29] MEDS: CIPROFLOXACIN 200 MG in APPROPRIATE DILUENT 1 EA IV ×2 (01:09→12:24)
[2017-10-29] MEDS: metroNIDAZOLE 500 MG in APPROPRIATE DILUENT 1 EA IV ×3 (02:45→17:26)
[2017-10-29 05:56] LABS: HEMATOCRIT 25.4 % (42.0-52.0); HEMOGLOBIN 8.4 g/dl (14.0-18.0); MEAN CORPUSCULAR HEMOGLOBIN 36.1 pg (27.0-33.0); MEAN CORPUSCULAR HGB CONC 33.1 g/dl (32.0-36.5); PLATELET COUNT, AUTOMATED 156 10^3/uL (150-450); RED BLOOD COUNT 2.33 10^6/uL (4.30-6.10); RED CELL DISTRIBUTION WIDTH 14.5 % (11.5-14.5); WHITE BLOOD COUNT 3.3 10^3/uL (4.0-10.0)
[2017-10-29 06:07] LABS: INR 2.29; PROTHROMBIN TIME 26.1 SECONDS (12.4-14.5)
[2017-10-29 06:13] LABS: ALBUMIN 3.1 GM/DL (3.2-5.2); ANION GAP 8 MEQ/L (8-16); BLOOD UREA NITROGEN 49 MG/DL (7-18); CALCIUM LEVEL 8.2 MG/DL (8.8-10.2); CARBON DIOXIDE LEVEL 29 MEQ/L (21-32); CHLORIDE LEVEL 104 MEQ/L (98-107); CREATININE FOR GFR 2.05 MG/DL (0.70-1.30); GLOMERULAR FILTRATION RATE 33.3 (>35); GLUCOSE, FASTING 123 MG/DL (70-100); PHOSPHORUS LEVEL 4.1 MG/DL (2.5-4.9); POTASSIUM SERUM 3.8 MEQ/L (3.5-5.1); SODIUM LEVEL 141 MEQ/L (136-145)
[2017-10-29] MEDS: ALLOPURINOL 100 MG TAB PO (08:06)
[2017-10-29] MEDS: FEXOFENADINE 60 MG TAB PO (08:06)
[2017-10-29] MEDS: TORSEMIDE (DEMADEX) 50 MG PER 1/2 TAB PO ×2 (08:06→21:17)
[2017-10-29] MEDS: VITAMIN D 1,000 INTERNATIONAL UNITS TABLET PO (08:06)
[2017-10-29] MEDS: GABAPENTIN 300 MG CAP PO ×2 (08:06→21:18)
[2017-10-29] MEDS: ASPIRIN 81 MG ENTERIC TAB PO (21:18)
[2017-10-29] MEDS: SIMVASTATIN 20 MG TAB PO (21:18)
[2017-10-29] MEDS: VALSARTAN 40MG TABLET (DIOVAN) PO (21:18)
[2017-10-29] MEDS: FAMOTIDINE 20 MG TAB PO (21:19)
[2017-10-29] MEDS: MORPHINE 4 MG/ML 1ML VIAL (J2270) IV (21:19)
[2017-10-29] MEDS: metroNIDAZOLE (FLAGYL) 500 MG TAB PO (23:25)
[2017-10-30 05:56] LABS: HEMATOCRIT 26.4 % (42.0-52.0); HEMOGLOBIN 8.6 g/dl (14.0-18.0); MEAN CORPUSCULAR HEMOGLOBIN 35.5 pg (27.0-33.0); MEAN CORPUSCULAR HGB CONC 32.6 g/dl (32.0-36.5); MEAN CORPUSCULAR VOLUME 109.1 fl (80.0-96.0); PLATELET COUNT, AUTOMATED 181 10^3/uL (150-450); RED BLOOD COUNT 2.42 10^6/uL (4.30-6.10); RED CELL DISTRIBUTION WIDTH 14.4 % (11.5-14.5); WHITE BLOOD COUNT 3.5 10^3/uL (4.0-10.0)
[2017-10-30 06:02] LABS: INR 1.84; PROTHROMBIN TIME 21.8 SECONDS (12.4-14.5)
[2017-10-30] MEDS: metroNIDAZOLE (FLAGYL) 500 MG TAB PO ×3 (06:22→21:14)
[2017-10-30] MEDS: CIPROFLOXACIN 250 MG TAB PO ×2 (06:23→17:23)
[2017-10-30 06:25] LABS: ANION GAP 9 MEQ/L (8-16); BLOOD UREA NITROGEN 49 MG/DL (7-18); CALCIUM LEVEL 7.9 MG/DL (8.8-10.2); CARBON DIOXIDE LEVEL 27 MEQ/L (21-32); CHLORIDE LEVEL 105 MEQ/L (98-107); CREATININE FOR GFR 2.12 MG/DL (0.70-1.30); GLOMERULAR FILTRATION RATE 32.1 (>35); GLUCOSE, FASTING 122 MG/DL (70-100); PHOSPHORUS LEVEL 3.7 MG/DL (2.5-4.9); POTASSIUM SERUM 3.7 MEQ/L (3.5-5.1); SODIUM LEVEL 141 MEQ/L (136-145)
[2017-10-30] MEDS: VITAMIN D 1,000 INTERNATIONAL UNITS TABLET PO (08:38)
[2017-10-30] MEDS: FEXOFENADINE 60 MG TAB PO (08:38)
[2017-10-30] MEDS: GABAPENTIN 300 MG CAP PO ×2 (08:39→21:15)
[2017-10-30] MEDS: ALLOPURINOL 100 MG TAB PO (08:39)
[2017-10-30] MEDS: TORSEMIDE (DEMADEX) 50 MG PER 1/2 TAB PO ×2 (08:39→21:14)
[2017-10-30] MEDS: WARFARIN SOD 2.5 MG TAB PO (17:23)
[2017-10-30] MEDS: FAMOTIDINE 20 MG TAB PO (21:14)
[2017-10-30] MEDS: ASPIRIN 81 MG ENTERIC TAB PO (21:15)
[2017-10-30] MEDS: SIMVASTATIN 20 MG TAB PO (21:15)
[2017-10-30] MEDS: MORPHINE 4 MG/ML 1ML VIAL (J2270) IV (21:25)
[2017-10-30] MEDS: VALSARTAN 40MG TABLET (DIOVAN) PO (21:46)
[2017-10-31 05:58] LABS: HEMATOCRIT 25.2 % (42.0-52.0); HEMOGLOBIN 8.3 g/dl (14.0-18.0); MEAN CORPUSCULAR HEMOGLOBIN 35.3 pg (27.0-33.0); MEAN CORPUSCULAR HGB CONC 32.9 g/dl (32.0-36.5); MEAN CORPUSCULAR VOLUME 107.2 fl (80.0-96.0); PLATELET COUNT, AUTOMATED 197 10^3/uL (150-450); RED BLOOD COUNT 2.35 10^6/uL (4.30-6.10); RED CELL DISTRIBUTION WIDTH 14.5 % (11.5-14.5); WHITE BLOOD COUNT 3.1 10^3/uL (4.0-10.0)
[2017-10-31] MEDS: CIPROFLOXACIN 250 MG TAB PO (06:04)
[2017-10-31] MEDS: metroNIDAZOLE (FLAGYL) 500 MG TAB PO (06:04)
[2017-10-31 06:05] LABS: INR 1.62; PROTHROMBIN TIME 19.7 SECONDS (12.4-14.5)
[2017-10-31] MEDS: PERCOCET 5MG/325MG TAB PO (06:05)
[2017-10-31 06:12] LABS: ANION GAP 8 MEQ/L (8-16); BLOOD UREA NITROGEN 45 MG/DL (7-18); CALCIUM LEVEL 8.2 MG/DL (8.8-10.2); CARBON DIOXIDE LEVEL 27 MEQ/L (21-32); CHLORIDE LEVEL 106 MEQ/L (98-107); CREATININE FOR GFR 1.74 MG/DL (0.70-1.30); GLOMERULAR FILTRATION RATE 40.3 (>35); GLUCOSE, FASTING 124 MG/DL (70-100); PHOSPHORUS LEVEL 3.4 MG/DL (2.5-4.9); POTASSIUM SERUM 3.3 MEQ/L (3.5-5.1); SODIUM LEVEL 141 MEQ/L (136-145)
[2017-10-31] MEDS: POTASSIUM CHLORIDE 10 MEQ SR TABLET PO (08:22)
[2017-10-31] MEDS: TORSEMIDE (DEMADEX) 50 MG PER 1/2 TAB PO (08:22)
[2017-10-31] MEDS: ALLOPURINOL 100 MG TAB PO (08:22)
[2017-10-31] MEDS: GABAPENTIN 300 MG CAP PO (08:22)
[2017-10-31] MEDS: FEXOFENADINE 60 MG TAB PO (08:22)
[2017-10-31] MEDS: FERROUS SULFATE 325MG TAB PO (08:22)
[2017-10-31] MEDS: VITAMIN D 1,000 INTERNATIONAL UNITS TABLET PO (08:23)
[2017-10-31] MEDS ORDERED: WARFARIN SOD 5 MG TAB PO (17:00)
== END 2017-10-31 12:05 | disposition home or self-care (01) | DRG 392 ==
LOC: M ED INP 10-27 01:32 → M MSPAV 10-27 03:01 → M ED 19:47
DX: K57.32 Diverticulitis of large intestine without perforation or abscess without bleeding (principal); N18.4 Chronic kidney disease, stage 4 (severe); N17.9 Acute kidney failure, unspecified; I13.0 Hypertensive heart and chronic kidney disease with heart failure and stage 1 through stage 4 chronic kidney disease, or unspecified chronic kidney disease; E78.00 Pure hypercholesterolemia, unspecified; I25.10 Atherosclerotic heart disease of native coronary artery without angina pectoris; I48.2 Chronic atrial fibrillation; I50.9 Heart failure, unspecified; J30.2 Other seasonal allergic rhinitis; E53.8 Deficiency of other specified B group vitamins; G89.29 Other chronic pain; D64.9 Anemia, unspecified; Z85.828 Personal history of other malignant neoplasm of skin; Z89.512 Acquired absence of left leg below knee; Z95.0 Presence of cardiac pacemaker; Z95.5 Presence of coronary angioplasty implant and graft; Z79.01 Long term (current) use of anticoagulants; Z79.82 Long term (current) use of aspirin; Z79.899 Other long term (current) drug therapy; Z88.0 Allergy status to penicillin

== ENCOUNTER 2017-11-08 18:52 | Inpatient (IN) | payer MEDICARE, OTHER ==
[2017-11-08 20:14] LABS: BASO % 0.2 % (0.0-1.0); EOS # 0.1 10^3/uL (0.0-0.50); EOS % 1.6 % (0.0-3.0); HEMATOCRIT 28.8 % (42.0-52.0); HEMOGLOBIN 9.6 g/dl (14.0-18.0); IMMATURE GRANULOCYTE % 0.8 % (0-3.0); LYMPH # 1.1 10^3/uL (1.5-4.5); LYMPH % 16.5 % (24.0-44.0); MEAN CORPUSCULAR HGB CONC 33.3 g/dl (32.0-36.5); MEAN CORPUSCULAR VOLUME 107.9 fl (80.0-96.0); MONO # 1.1 10^3/uL (0.0-0.8); MONO % 16.4 % (0.0-5.0); NEUTROPHILS # 4.2 10^3/uL (1.8-7.7); NEUTROPHILS % 64.5 % (36.0-66.0); PLATELET COUNT, AUTOMATED 252 10^3/uL (150-450); RED BLOOD COUNT 2.67 10^6/uL (4.30-6.10); RED CELL DISTRIBUTION WIDTH 14.6 % (11.5-14.5); WHITE BLOOD COUNT 6.4 10^3/uL (4.0-10.0)
[2017-11-08 20:25] LABS: INR 2.16; PROTHROMBIN TIME 24.9 SECONDS (12.4-14.5)
[2017-11-08 20:26] LABS: PARTIAL THROMBOPLASTIN TIME 52.5 SECONDS (26.8-37.9)
[2017-11-08] MEDS: PANTOPRAZOLE 40MG INJ (PROTONIX) (C9113) IV (20:35)
[2017-11-08 20:59] LABS: ALBUMIN 3.4 GM/DL (3.2-5.2); ALKALINE PHOSPHATASE 77 U/L (45-117); ALT/SGPT 16 U/L (12-78); ANION GAP 8 MEQ/L (8-16); AST/SGOT 26 U/L (7-37); BILIRUBIN,DIRECT 0.1 MG/DL (0.0-0.2); BLOOD UREA NITROGEN 48 MG/DL (7-18); CALCIUM LEVEL 8.2 MG/DL (8.8-10.2); CARBON DIOXIDE LEVEL 32 MEQ/L (21-32); CHLORIDE LEVEL 97 MEQ/L (98-107); CPK CREATINE PHOSPHOKINASE 47 U/L (39-308); CREATININE FOR GFR 2.29 MG/DL (0.70-1.30); FREE T4 1.02 NG/DL (0.76-1.46); GLOMERULAR FILTRATION RATE 29.3 (>35); GLUCOSE, FASTING 170 MG/DL (70-100); MAGNESIUM LEVEL 2.4 MG/DL (1.8-2.4); POTASSIUM SERUM 4.6 MEQ/L (3.5-5.1); SODIUM LEVEL 137 MEQ/L (136-145); TOTAL PROTEIN 6.5 GM/DL (6.4-8.2); TROPONIN I 0.02 NG/ML (< 0.10)
[2017-11-08 21:04] LABS: BILIRUBIN,TOTAL 0.2 MG/DL (0.2-1.0); MB/CK RELATIVE INDEX 2.12 (< OR =4)
[2017-11-09 02:26] LABS: HEMOGLOBIN 8.6 g/dl (14.0-18.0)
[2017-11-09] MEDS ORDERED: HEPARIN SOD (PORCINE) 5000 UNITS/ML VIAL SC (06:00)
[2017-11-09 07:09] LABS: HEMATOCRIT 25.8 % (42.0-52.0); HEMOGLOBIN 8.7 g/dl (14.0-18.0)
[2017-11-09 07:28] LABS: PROTHROMBIN TIME 23.4 SECONDS (12.4-14.5)
[2017-11-09] MEDS: FEXOFENADINE 60 MG TAB PO (08:49)
[2017-11-09] MEDS: VITAMIN D 1,000 INTERNATIONAL UNITS TABLET PO (08:49)
[2017-11-09] MEDS: ALLOPURINOL 100 MG TAB PO (08:49)
[2017-11-09] MEDS: GABAPENTIN 300 MG CAP PO ×2 (08:49→20:29)
[2017-11-09] MEDS: TORSEMIDE 100 MG TAB PO ×2 (08:49→17:04)
[2017-11-09] MEDS: PANTOPRAZOLE 40MG INJ (PROTONIX) (C9113) IV ×2 (08:49→20:29)
[2017-11-09] MEDS: ACETAMINOPHEN 650MG ER TAB (TYLENOL ARTHRITIS) PO ×2 (08:49→20:29)
[2017-11-09] MEDS ORDERED: TORSEMIDE 100 MG TAB PO (09:00)
[2017-11-09] MEDS: GOLYTELY SOLN 4000 ML BTL PO (11:02)
[2017-11-09 14:17] LABS: HEMATOCRIT 28.7 % (42.0-52.0); HEMOGLOBIN 9.4 g/dl (14.0-18.0)
[2017-11-09] MEDS: VALSARTAN 40MG TABLET (DIOVAN) PO (17:04)
[2017-11-09] MEDS: FAMOTIDINE 20 MG TAB PO (20:29)
[2017-11-10 06:51] LABS: BASO % 0.3 % (0.0-1.0); EOS # 0.2 10^3/uL (0.0-0.50); EOS % 4.5 % (0.0-3.0); HEMATOCRIT 24.6 % (42.0-52.0); HEMOGLOBIN 8.1 g/dl (14.0-18.0); IMMATURE GRANULOCYTE % 0.6 % (0-3.0); LYMPH # 1.1 10^3/uL (1.5-4.5); LYMPH % 33.2 % (24.0-44.0); MEAN CORPUSCULAR HEMOGLOBIN 34.9 pg (27.0-33.0); MEAN CORPUSCULAR HGB CONC 32.9 g/dl (32.0-36.5); MONO # 0.5 10^3/uL (0.0-0.8); MONO % 14.4 % (0.0-5.0); NEUTROPHILS # 1.6 10^3/uL (1.8-7.7); PLATELET COUNT, AUTOMATED 227 10^3/uL (150-450); RED BLOOD COUNT 2.32 10^6/uL (4.30-6.10); RED CELL DISTRIBUTION WIDTH 14.3 % (11.5-14.5); WHITE BLOOD COUNT 3.3 10^3/uL (4.0-10.0)
[2017-11-10 07:04] LABS: ANION GAP 9 MEQ/L (8-16); BLOOD UREA NITROGEN 40 MG/DL (7-18); CALCIUM LEVEL 7.9 MG/DL (8.8-10.2); CARBON DIOXIDE LEVEL 31 MEQ/L (21-32); CHLORIDE LEVEL 102 MEQ/L (98-107); CREATININE FOR GFR 1.78 MG/DL (0.70-1.30); GLOMERULAR FILTRATION RATE 39.2 (>35); GLUCOSE, FASTING 109 MG/DL (70-100); POTASSIUM SERUM 3.4 MEQ/L (3.5-5.1); SODIUM LEVEL 142 MEQ/L (136-145)
[2017-11-10] MEDS: TORSEMIDE 100 MG TAB PO ×2 (10:23→17:39)
[2017-11-10] MEDS: GABAPENTIN 300 MG CAP PO ×2 (10:23→19:58)
[2017-11-10] MEDS: ALLOPURINOL 100 MG TAB PO (10:23)
[2017-11-10] MEDS: FEXOFENADINE 60 MG TAB PO (10:24)
[2017-11-10] MEDS: PANTOPRAZOLE 40MG INJ (PROTONIX) (C9113) IV ×2 (10:24→19:58)
[2017-11-10] MEDS: VITAMIN D 1,000 INTERNATIONAL UNITS TABLET PO (10:24)
[2017-11-10] MEDS: ACETAMINOPHEN 650MG ER TAB (TYLENOL ARTHRITIS) PO ×2 (10:24→19:58)
[2017-11-10] MEDS: VALSARTAN 40MG TABLET (DIOVAN) PO (17:39)
[2017-11-10] MEDS: POTASSIUM CHLORIDE 10 MEQ SR TABLET PO (17:39)
[2017-11-10] MEDS: FAMOTIDINE 20 MG TAB PO (19:58)
[2017-11-11 06:35] LABS: BASO % 0.6 % (0.0-1.0); EOS # 0.2 10^3/uL (0.0-0.50); EOS % 5.3 % (0.0-3.0); HEMATOCRIT 27.9 % (42.0-52.0); HEMOGLOBIN 9.1 g/dl (14.0-18.0); IMMATURE GRANULOCYTE % 0.6 % (0-3.0); LYMPH # 1.2 10^3/uL (1.5-4.5); LYMPH % 34.5 % (24.0-44.0); MEAN CORPUSCULAR HEMOGLOBIN 35.7 pg (27.0-33.0); MEAN CORPUSCULAR HGB CONC 32.6 g/dl (32.0-36.5); MEAN CORPUSCULAR VOLUME 109.4 fl (80.0-96.0); MONO # 0.5 10^3/uL (0.0-0.8); MONO % 12.9 % (0.0-5.0); NEUTROPHILS # 1.7 10^3/uL (1.8-7.7); NEUTROPHILS % 46.1 % (36.0-66.0); PLATELET COUNT, AUTOMATED 241 10^3/uL (150-450); RED BLOOD COUNT 2.55 10^6/uL (4.30-6.10); RED CELL DISTRIBUTION WIDTH 14.4 % (11.5-14.5); RETIC HEMOGLOBIN EQUIVALENT 37.6 pg (24-36); RETICULOCYTE # 57.1 10^9/L (17-77); RETICULOCYTE % 2.2 % (0.5-1.5); WHITE BLOOD COUNT 3.6 10^3/uL (4.0-10.0)
[2017-11-11 07:06] LABS: ANION GAP 9 MEQ/L (8-16); BLOOD UREA NITROGEN 30 MG/DL (7-18); CARBON DIOXIDE LEVEL 31 MEQ/L (21-32); CHLORIDE LEVEL 103 MEQ/L (98-107); CREATININE FOR GFR 1.66 MG/DL (0.70-1.30); GLOMERULAR FILTRATION RATE 42.5 (>35); GLUCOSE, FASTING 115 MG/DL (70-100); MAGNESIUM LEVEL 2.3 MG/DL (1.8-2.4); POTASSIUM SERUM 3.6 MEQ/L (3.5-5.1); SODIUM LEVEL 143 MEQ/L (136-145)
[2017-11-11] MEDS: PANTOPRAZOLE 40MG INJ (PROTONIX) (C9113) IV ×2 (08:28→21:03)
[2017-11-11] MEDS: VITAMIN D 1,000 INTERNATIONAL UNITS TABLET PO (08:54)
[2017-11-11] MEDS: ALLOPURINOL 100 MG TAB PO (08:54)
[2017-11-11] MEDS: ACETAMINOPHEN 650MG ER TAB (TYLENOL ARTHRITIS) PO ×2 (08:55→19:34)
[2017-11-11] MEDS: FEXOFENADINE 60 MG TAB PO (08:55)
[2017-11-11] MEDS: GABAPENTIN 300 MG CAP PO ×2 (08:55→21:03)
[2017-11-11] MEDS: TORSEMIDE 100 MG TAB PO ×2 (08:56→19:34)
[2017-11-11 09:35] LABS: VITAMIN B12 LEVEL 422 PG/ML (247-911)
[2017-11-11] MEDS ORDERED: PROPOFOL 200 MG/20 ML VIAL As Ordered ×4 (11:11→12:23)
[2017-11-11] MEDS ORDERED: LIDOCAINE 2% INJ 100 MG/5 ML SDV (FOR ANES.) As Ordered (11:13)
[2017-11-11] MEDS ORDERED: fentaNYL 100 MCG/2 ML INJECTION (J3010) IV (13:15)
[2017-11-11] MEDS ORDERED: ONDANSETRON 4MG/2ML VIAL (J2405) IV (13:15)
[2017-11-11] MEDS ORDERED: PERCOCET 5MG/325MG TAB PO (13:15)
[2017-11-11] MEDS: LR 1,000 ML IV (13:15)
[2017-11-11] MEDS: oxyCODONE 5MG TAB PO (16:42)
[2017-11-11 16:44] LABS: BEDSIDE GLUCOSE 180 MG/DL (83-110)
[2017-11-11] MEDS ORDERED: D5W/0.45% SODIUM CHLORIDE 1,000 ML IV (17:15)
[2017-11-11 18:30] LABS: HEMATOCRIT 29.6 % (42.0-52.0); HEMOGLOBIN 9.5 g/dl (14.0-18.0); MEAN CORPUSCULAR HEMOGLOBIN 34.8 pg (27.0-33.0); MEAN CORPUSCULAR HGB CONC 32.1 g/dl (32.0-36.5); MEAN CORPUSCULAR VOLUME 108.4 fl (80.0-96.0); PLATELET COUNT, AUTOMATED 292 10^3/uL (150-450); RED BLOOD COUNT 2.73 10^6/uL (4.30-6.10); RED CELL DISTRIBUTION WIDTH 14.6 % (11.5-14.5); WHITE BLOOD COUNT 6.1 10^3/uL (4.0-10.0)
[2017-11-11 18:52] LABS: ANION GAP 9 MEQ/L (8-16); BLOOD UREA NITROGEN 31 MG/DL (7-18); CALCIUM LEVEL 8.1 MG/DL (8.8-10.2); CARBON DIOXIDE LEVEL 30 MEQ/L (21-32); CHLORIDE LEVEL 103 MEQ/L (98-107); CREATININE FOR GFR 1.92 MG/DL (0.70-1.30); GLUCOSE, FASTING 163 MG/DL (70-100); POTASSIUM SERUM 3.9 MEQ/L (3.5-5.1); SODIUM LEVEL 142 MEQ/L (136-145)
[2017-11-11] MEDS ORDERED: SODIUM CHLORIDE 0.9% 1000 ML IV ×2 (19:15→20:15)
[2017-11-11] MEDS: VALSARTAN 40MG TABLET (DIOVAN) PO (19:34)
[2017-11-11] MEDS: NS 1,000 ML IV (20:00)
[2017-11-11] MEDS: ALBUTEROL SULFATE 2.5 MG/0.5 ML INH NEB SOLN NEB (20:00)
[2017-11-11] MEDS: FAMOTIDINE 20 MG TAB PO (21:03)
[2017-11-11] MEDS: LevoFLOXacin IV 500 MG in APPROPRIATE DILUENT 1 EA IV (21:04)
[2017-11-12] MEDS: NS 1,000 ML IV ×2 (01:00→05:15)
[2017-11-12] MEDS: ALBUTEROL SULFATE 2.5 MG/0.5 ML INH NEB SOLN NEB ×7 (04:00→23:45)
[2017-11-12 06:00] LABS: BASO % 0.1 % (0.0-1.0); HEMATOCRIT 23.3 % (42.0-52.0); HEMOGLOBIN 7.6 g/dl (14.0-18.0); IMMATURE GRANULOCYTE % 1.5 % (0-3.0); LYMPH # 0.7 10^3/uL (1.5-4.5); MEAN CORPUSCULAR HEMOGLOBIN 35.8 pg (27.0-33.0); MEAN CORPUSCULAR HGB CONC 32.6 g/dl (32.0-36.5); MEAN CORPUSCULAR VOLUME 109.9 fl (80.0-96.0); MONO # 0.8 10^3/uL (0.0-0.8); MONO % 5.9 % (0.0-5.0); NEUTROPHILS # 11.7 10^3/uL (1.8-7.7); NEUTROPHILS % 87.5 % (36.0-66.0); RED BLOOD COUNT 2.12 10^6/uL (4.30-6.10); RED CELL DISTRIBUTION WIDTH 14.7 % (11.5-14.5); WHITE BLOOD COUNT 13.3 10^3/uL (4.0-10.0)
[2017-11-12 06:06] LABS: PLATELET COUNT, AUTOMATED 187 10^3/uL (150-450)
[2017-11-12 06:21] LABS: ANION GAP 8 MEQ/L (8-16); BLOOD UREA NITROGEN 37 MG/DL (7-18); CALCIUM LEVEL 7.8 MG/DL (8.8-10.2); CARBON DIOXIDE LEVEL 29 MEQ/L (21-32); CHLORIDE LEVEL 106 MEQ/L (98-107); CREATININE FOR GFR 2.44 MG/DL (0.70-1.30); GLOMERULAR FILTRATION RATE 27.3 (>35); GLUCOSE, FASTING 139 MG/DL (70-100); POTASSIUM SERUM 3.9 MEQ/L (3.5-5.1); SODIUM LEVEL 143 MEQ/L (136-145)
[2017-11-12] MEDS: GABAPENTIN 300 MG CAP PO ×2 (10:45→20:22)
[2017-11-12] MEDS: VITAMIN D 1,000 INTERNATIONAL UNITS TABLET PO (10:46)
[2017-11-12] MEDS: FEXOFENADINE 60 MG TAB PO (10:46)
[2017-11-12] MEDS: PANTOPRAZOLE 40MG INJ (PROTONIX) (C9113) IV ×2 (10:47→20:22)
[2017-11-12] MEDS: ALLOPURINOL 100 MG TAB PO (10:47)
[2017-11-12] MEDS: ACETAMINOPHEN 650MG ER TAB (TYLENOL ARTHRITIS) PO ×2 (10:47→20:22)
[2017-11-12] MEDS: LIDOCAINE 5% (LIDODERM) PATCH TD (12:20)
[2017-11-12 15:05] LABS: IMMEDIATE SPIN CROSSMATCH 1 2
[2017-11-12] MEDS: LevoFLOXacin IV 250 MG in APPROPRIATE DILUENT 1 EA IV (20:22)
[2017-11-12] MEDS: FAMOTIDINE 20 MG TAB PO (20:22)
[2017-11-12] MEDS: **NOTE PATIENT COMMENT** MISC XX (20:23)
[2017-11-13] MEDS: ALBUTEROL SULFATE 2.5 MG/0.5 ML INH NEB SOLN NEB ×6 (03:53→23:52)
[2017-11-13 06:02] LABS: BASO % 0.2 % (0.0-1.0); EOS # 0.1 10^3/uL (0.0-0.50); EOS % 0.5 % (0.0-3.0); HEMATOCRIT 29.7 % (42.0-52.0); IMMATURE GRANULOCYTE % 1.8 % (0-3.0); LYMPH # 0.7 10^3/uL (1.5-4.5); LYMPH % 5.6 % (24.0-44.0); MEAN CORPUSCULAR HEMOGLOBIN 34.8 pg (27.0-33.0); MEAN CORPUSCULAR HGB CONC 32.7 g/dl (32.0-36.5); MEAN CORPUSCULAR VOLUME 106.5 fl (80.0-96.0); MONO # 0.6 10^3/uL (0.0-0.8); MONO % 4.8 % (0.0-5.0); NEUTROPHILS # 11.4 10^3/uL (1.8-7.7); NEUTROPHILS % 87.1 % (36.0-66.0); PLATELET COUNT, AUTOMATED 188 10^3/uL (150-450); RED BLOOD COUNT 2.79 10^6/uL (4.30-6.10); RED CELL DISTRIBUTION WIDTH 18.5 % (11.5-14.5); WHITE BLOOD COUNT 13.1 10^3/uL (4.0-10.0)
[2017-11-13 06:11] LABS: HEMOGLOBIN 9.7 g/dl (14.0-18.0)
[2017-11-13 06:22] LABS: ANION GAP 10 MEQ/L (8-16); BLOOD UREA NITROGEN 40 MG/DL (7-18); CARBON DIOXIDE LEVEL 24 MEQ/L (21-32); CHLORIDE LEVEL 104 MEQ/L (98-107); CREATININE FOR GFR 2.31 MG/DL (0.70-1.30); GLOMERULAR FILTRATION RATE 29.1 (>35); GLUCOSE, FASTING 110 MG/DL (70-100); POTASSIUM SERUM 3.9 MEQ/L (3.5-5.1); SODIUM LEVEL 138 MEQ/L (136-145)
[2017-11-13] MEDS: ACETAMINOPHEN 650MG ER TAB (TYLENOL ARTHRITIS) PO ×2 (09:57→20:12)
[2017-11-13] MEDS: GABAPENTIN 300 MG CAP PO ×2 (09:57→20:12)
[2017-11-13] MEDS: PANTOPRAZOLE 40MG INJ (PROTONIX) (C9113) IV (09:57)
[2017-11-13] MEDS: VITAMIN D 1,000 INTERNATIONAL UNITS TABLET PO (09:58)
[2017-11-13] MEDS: LIDOCAINE 5% (LIDODERM) PATCH TD (09:58)
[2017-11-13] MEDS: ALLOPURINOL 100 MG TAB PO (09:58)
[2017-11-13] MEDS: FEXOFENADINE 60 MG TAB PO (09:58)
[2017-11-13] MEDS: FAMOTIDINE 20 MG TAB PO (20:12)
[2017-11-13] MEDS: LevoFLOXacin IV 250 MG in APPROPRIATE DILUENT 1 EA IV (20:12)
[2017-11-13] MEDS: **NOTE PATIENT COMMENT** MISC XX (20:51)
[2017-11-14] MEDS: ALBUTEROL SULFATE 2.5 MG/0.5 ML INH NEB SOLN NEB ×5 (03:37→21:16)
[2017-11-14 05:55] LABS: BASO % 0.1 % (0.0-1.0); EOS # 0.1 10^3/uL (0.0-0.50); EOS % 0.6 % (0.0-3.0); HEMATOCRIT 28.8 % (42.0-52.0); HEMOGLOBIN 9.3 g/dl (14.0-18.0); IMMATURE GRANULOCYTE % 1.3 % (0-3.0); LYMPH # 0.7 10^3/uL (1.5-4.5); LYMPH % 8.5 % (24.0-44.0); MEAN CORPUSCULAR HEMOGLOBIN 34.2 pg (27.0-33.0); MEAN CORPUSCULAR HGB CONC 32.3 g/dl (32.0-36.5); MEAN CORPUSCULAR VOLUME 105.9 fl (80.0-96.0); MONO # 0.6 10^3/uL (0.0-0.8); MONO % 7.5 % (0.0-5.0); NEUTROPHILS # 6.8 10^3/uL (1.8-7.7); PLATELET COUNT, AUTOMATED 167 10^3/uL (150-450); RED BLOOD COUNT 2.72 10^6/uL (4.30-6.10); RED CELL DISTRIBUTION WIDTH 17.7 % (11.5-14.5); WHITE BLOOD COUNT 8.3 10^3/uL (4.0-10.0)
[2017-11-14 06:10] LABS: ANION GAP 9 MEQ/L (8-16); BLOOD UREA NITROGEN 39 MG/DL (7-18); CALCIUM LEVEL 8.2 MG/DL (8.8-10.2); CARBON DIOXIDE LEVEL 27 MEQ/L (21-32); CHLORIDE LEVEL 105 MEQ/L (98-107); GLOMERULAR FILTRATION RATE 38.7 (>35); GLUCOSE, FASTING 110 MG/DL (70-100); POTASSIUM SERUM 3.8 MEQ/L (3.5-5.1); SODIUM LEVEL 141 MEQ/L (136-145)
[2017-11-14] MEDS: ACETAMINOPHEN 650MG ER TAB (TYLENOL ARTHRITIS) PO ×2 (06:25→20:19)
[2017-11-14] MEDS: GABAPENTIN 300 MG CAP PO ×2 (10:29→20:20)
[2017-11-14] MEDS: ALLOPURINOL 100 MG TAB PO (10:29)
[2017-11-14] MEDS: PANTOPRAZOLE 40MG TAB (PROTONIX) PO (10:29)
[2017-11-14] MEDS: VITAMIN D 1,000 INTERNATIONAL UNITS TABLET PO (10:29)
[2017-11-14] MEDS: FEXOFENADINE 60 MG TAB PO (10:29)
[2017-11-14] MEDS: LIDOCAINE 5% (LIDODERM) PATCH TD (10:30)
[2017-11-14] MEDS: FAMOTIDINE 20 MG TAB PO (20:19)
[2017-11-14] MEDS: LevoFLOXacin IV 250 MG in APPROPRIATE DILUENT 1 EA IV (20:20)
[2017-11-14] MEDS: **NOTE PATIENT COMMENT** MISC XX (20:20)
[2017-11-15] MEDS: ALBUTEROL SULFATE 2.5 MG/0.5 ML INH NEB SOLN NEB ×7 (03:12→23:20)
[2017-11-15 06:10] LABS: BASO % 0.2 % (0.0-1.0); EOS # 0.1 10^3/uL (0.0-0.50); HEMATOCRIT 29.2 % (42.0-52.0); HEMOGLOBIN 9.6 g/dl (14.0-18.0); IMMATURE GRANULOCYTE % 4.5 % (0-3.0); LYMPH # 0.7 10^3/uL (1.5-4.5); LYMPH % 14.3 % (24.0-44.0); MEAN CORPUSCULAR HEMOGLOBIN 33.9 pg (27.0-33.0); MEAN CORPUSCULAR HGB CONC 32.9 g/dl (32.0-36.5); MEAN CORPUSCULAR VOLUME 103.2 fl (80.0-96.0); MONO # 0.5 10^3/uL (0.0-0.8); MONO % 9.8 % (0.0-5.0); NEUTROPHILS # 3.5 10^3/uL (1.8-7.7); NEUTROPHILS % 69.2 % (36.0-66.0); PLATELET COUNT, AUTOMATED 182 10^3/uL (150-450); RED BLOOD COUNT 2.83 10^6/uL (4.30-6.10); RED CELL DISTRIBUTION WIDTH 16.6 % (11.5-14.5); WHITE BLOOD COUNT 5.1 10^3/uL (4.0-10.0)
[2017-11-15 06:26] LABS: ANION GAP 9 MEQ/L (8-16); BLOOD UREA NITROGEN 37 MG/DL (7-18); CALCIUM LEVEL 8.4 MG/DL (8.8-10.2); CARBON DIOXIDE LEVEL 26 MEQ/L (21-32); CHLORIDE LEVEL 104 MEQ/L (98-107); CREATININE FOR GFR 1.56 MG/DL (0.70-1.30); GLOMERULAR FILTRATION RATE 45.7 (>35); GLUCOSE, FASTING 98 MG/DL (70-100); POTASSIUM SERUM 3.5 MEQ/L (3.5-5.1); SODIUM LEVEL 139 MEQ/L (136-145)
[2017-11-15] MEDS: FEXOFENADINE 60 MG TAB PO (09:25)
[2017-11-15] MEDS: LIDOCAINE 5% (LIDODERM) PATCH TD (09:25)
[2017-11-15] MEDS: PANTOPRAZOLE 40MG TAB (PROTONIX) PO (09:25)
[2017-11-15] MEDS: VITAMIN D 1,000 INTERNATIONAL UNITS TABLET PO (09:26)
[2017-11-15] MEDS: ACETAMINOPHEN 650MG ER TAB (TYLENOL ARTHRITIS) PO ×2 (09:26→20:07)
[2017-11-15] MEDS: ALLOPURINOL 100 MG TAB PO (09:26)
[2017-11-15] MEDS: GABAPENTIN 300 MG CAP PO ×2 (09:27→20:07)
[2017-11-15 16:10] LABS: TOTAL PROTEIN 5.6 GM/DL (6.4-8.2)
[2017-11-15 16:14] LABS: ERYTHROCYTE SEDIMENTATION RATE 128 mm/hr (0-20)
[2017-11-15] MEDS: LevoFLOXacin IV 250 MG in APPROPRIATE DILUENT 1 EA IV (20:07)
[2017-11-15] MEDS: FAMOTIDINE 20 MG TAB PO (20:07)
[2017-11-15] MEDS: **NOTE PATIENT COMMENT** MISC XX (20:07)
[2017-11-16] MEDS: ALBUTEROL SULFATE 2.5 MG/0.5 ML INH NEB SOLN NEB ×5 (02:35→19:40)
[2017-11-16 06:07] LABS: BASO % 0.3 % (0.0-1.0); EOS # 0.1 10^3/uL (0.0-0.50); EOS % 3.6 % (0.0-3.0); HEMATOCRIT 26.7 % (42.0-52.0); HEMOGLOBIN 8.9 g/dl (14.0-18.0); IMMATURE GRANULOCYTE % 4.7 % (0-3.0); LYMPH # 0.7 10^3/uL (1.5-4.5); LYMPH % 19.3 % (24.0-44.0); MEAN CORPUSCULAR HEMOGLOBIN 34.1 pg (27.0-33.0); MEAN CORPUSCULAR HGB CONC 33.3 g/dl (32.0-36.5); MEAN CORPUSCULAR VOLUME 102.3 fl (80.0-96.0); MONO # 0.5 10^3/uL (0.0-0.8); MONO % 13.5 % (0.0-5.0); NEUTROPHILS # 2.3 10^3/uL (1.8-7.7); NEUTROPHILS % 58.6 % (36.0-66.0); PLATELET COUNT, AUTOMATED 182 10^3/uL (150-450); RED BLOOD COUNT 2.61 10^6/uL (4.30-6.10); RED CELL DISTRIBUTION WIDTH 16.2 % (11.5-14.5); WHITE BLOOD COUNT 3.8 10^3/uL (4.0-10.0)
[2017-11-16 06:24] LABS: ANION GAP 8 MEQ/L (8-16); BLOOD UREA NITROGEN 38 MG/DL (7-18); CALCIUM LEVEL 8.1 MG/DL (8.8-10.2); CARBON DIOXIDE LEVEL 26 MEQ/L (21-32); CHLORIDE LEVEL 105 MEQ/L (98-107); CREATININE FOR GFR 1.33 MG/DL (0.70-1.30); GLOMERULAR FILTRATION RATE 54.9 (>35); GLUCOSE, FASTING 106 MG/DL (70-100); POTASSIUM SERUM 3.2 MEQ/L (3.5-5.1); SODIUM LEVEL 139 MEQ/L (136-145)
[2017-11-16] MEDS: predniSONE 20 MG TAB PO (06:57)
[2017-11-16] MEDS: FEXOFENADINE 60 MG TAB PO (08:26)
[2017-11-16] MEDS: ALLOPURINOL 100 MG TAB PO (08:26)
[2017-11-16] MEDS: VITAMIN D 1,000 INTERNATIONAL UNITS TABLET PO (08:26)
[2017-11-16] MEDS: ACETAMINOPHEN 650MG ER TAB (TYLENOL ARTHRITIS) PO ×2 (08:26→20:45)
[2017-11-16] MEDS: PANTOPRAZOLE 40MG TAB (PROTONIX) PO (08:26)
[2017-11-16] MEDS: GABAPENTIN 300 MG CAP PO ×2 (08:27→20:44)
[2017-11-16] MEDS: LIDOCAINE 5% (LIDODERM) PATCH TD (08:28)
[2017-11-16 11:17] LABS: ALBUMIN 2.82 GM/DL (3.29-5.55); ALBUMIN % 50.3 % (55.8-66.1); ALPHA-1-GLOBULIN % 9.2 % (2.9-4.9); ALPHA-1-GLOBULINS 0.52 GM/DL (0.17-0.41); ALPHA-2-GLOBULINS 0.89 GM/DL (0.42-0.99); ALPHA-2-GLOBULINS % 15.9 % (7.1-11.8); BETA-1-GLOBULINS 0.35 GM/DL (0.28-0.60); BETA-1-GLOBULINS % 6.3 % (4.7-7.2); BETA-2-GLOBULINS 0.44 GM/DL (0.19-0.55); BETA-2-GLOBULINS % 7.8 % (3.2-6.5); GAMMA GLOBULIN % 10.5 % (11.1-18.8); GAMMA GLOBULINS 0.59 GM/DL (0.65-1.58)
[2017-11-16] MEDS: LevoFLOXacin IV 250 MG in APPROPRIATE DILUENT 1 EA IV (20:44)
[2017-11-16] MEDS: FAMOTIDINE 20 MG TAB PO (20:45)
[2017-11-16] MEDS: **NOTE PATIENT COMMENT** MISC XX (20:46)
[2017-11-17] MEDS: ALBUTEROL SULFATE 2.5 MG/0.5 ML INH NEB SOLN NEB ×6 (04:00→19:35)
[2017-11-17 06:03] LABS: HEMATOCRIT 27.3 % (42.0-52.0); MEAN CORPUSCULAR HEMOGLOBIN 33.8 pg (27.0-33.0); MEAN CORPUSCULAR VOLUME 102.6 fl (80.0-96.0); PLATELET COUNT, AUTOMATED 180 10^3/uL (150-450); RED BLOOD COUNT 2.66 10^6/uL (4.30-6.10); RED CELL DISTRIBUTION WIDTH 16.1 % (11.5-14.5); WHITE BLOOD COUNT 4.1 10^3/uL (4.0-10.0)
[2017-11-17 06:17] LABS: ANION GAP 8 MEQ/L (8-16); BLOOD UREA NITROGEN 36 MG/DL (7-18); CALCIUM LEVEL 8.2 MG/DL (8.8-10.2); CARBON DIOXIDE LEVEL 26 MEQ/L (21-32); CHLORIDE LEVEL 107 MEQ/L (98-107); CREATININE FOR GFR 1.22 MG/DL (0.70-1.30); GLOMERULAR FILTRATION RATE > 60.0 (>35); GLUCOSE, FASTING 122 MG/DL (70-100); POTASSIUM SERUM 3.5 MEQ/L (3.5-5.1); SODIUM LEVEL 141 MEQ/L (136-145)
[2017-11-17] MEDS ORDERED: predniSONE 20 MG TAB PO (09:00)
[2017-11-17] MEDS: VITAMIN D 1,000 INTERNATIONAL UNITS TABLET PO (09:06)
[2017-11-17] MEDS: GABAPENTIN 300 MG CAP PO ×2 (09:06→21:05)
[2017-11-17] MEDS: ALLOPURINOL 100 MG TAB PO (09:07)
[2017-11-17] MEDS: ACETAMINOPHEN 650MG ER TAB (TYLENOL ARTHRITIS) PO ×2 (09:07→21:05)
[2017-11-17] MEDS: PANTOPRAZOLE 40MG TAB (PROTONIX) PO (09:07)
[2017-11-17] MEDS: FEXOFENADINE 60 MG TAB PO (09:07)
[2017-11-17] MEDS: predniSONE 20 MG TAB PO (09:07)
[2017-11-17] MEDS: LIDOCAINE 5% (LIDODERM) PATCH TD (09:08)
[2017-11-17] MEDS: LevoFLOXacin 250 MG TABLET PO (12:26)
[2017-11-17] MEDS: **NOTE PATIENT COMMENT** MISC XX (21:00)
[2017-11-17] MEDS: FAMOTIDINE 20 MG TAB PO (21:04)
[2017-11-18] MEDS: ALBUTEROL SULFATE 2.5 MG/0.5 ML INH NEB SOLN NEB ×4 (04:00→11:02)
[2017-11-18 05:39] LABS: HEMATOCRIT 26.4 % (42.0-52.0); HEMOGLOBIN 8.8 g/dl (13.5-17.5); MEAN CORPUSCULAR HGB CONC 33.3 g/dl (32.0-36.5); MEAN CORPUSCULAR VOLUME 101.9 fl (80.0-96.0); PLATELET COUNT, AUTOMATED 201 10^3/uL (150-450); RED BLOOD COUNT 2.59 10^6/uL (4.30-6.10); RED CELL DISTRIBUTION WIDTH 15.7 % (11.5-14.5); WHITE BLOOD COUNT 4.9 10^3/uL (4.0-10.0)
[2017-11-18] MEDS: LevoFLOXacin 250 MG TABLET PO (05:52)
[2017-11-18 05:55] LABS: ANION GAP 5 MEQ/L (8-16); BLOOD UREA NITROGEN 37 MG/DL (7-18); CALCIUM LEVEL 8.4 MG/DL (8.8-10.2); CARBON DIOXIDE LEVEL 27 MEQ/L (21-32); CHLORIDE LEVEL 107 MEQ/L (98-107); CREATININE FOR GFR 1.18 MG/DL (0.70-1.30); GLOMERULAR FILTRATION RATE > 60.0 (>35); GLUCOSE, FASTING 120 MG/DL (70-100); POTASSIUM SERUM 3.8 MEQ/L (3.5-5.1); SODIUM LEVEL 139 MEQ/L (136-145)
[2017-11-18] MEDS: ACETAMINOPHEN 650MG ER TAB (TYLENOL ARTHRITIS) PO (09:10)
[2017-11-18] MEDS: predniSONE 20 MG TAB PO (09:10)
[2017-11-18] MEDS: ALLOPURINOL 100 MG TAB PO (09:10)
[2017-11-18] MEDS: GABAPENTIN 300 MG CAP PO (09:11)
[2017-11-18] MEDS: VITAMIN D 1,000 INTERNATIONAL UNITS TABLET PO (09:11)
[2017-11-18] MEDS: LIDOCAINE 5% (LIDODERM) PATCH TD (09:11)
[2017-11-18] MEDS: FEXOFENADINE 60 MG TAB PO (09:11)
[2017-11-18] MEDS: PANTOPRAZOLE 40MG TAB (PROTONIX) PO (09:11)
[2017-11-19 00:07] LABS: FREE KAPPA LIGHT CHAINS SERUM 27.6 mg/L (3.3-19.4); FREE LAMBDA LIGHT CHAINS SERUM 18.9 mg/L (5.7-26.3); KAPPA/LAMBDA RATIO SERUM 1.46 (0.26-1.65)
== END 2017-11-18 14:42 | disposition home health service (06) | DRG 377 ==
LOC: M MSPAV 11-13 14:55 → M MS4PR 11-09 01:00 → M ED 18:52 → M MS5PR 11-09 18:25 → M ED INP 23:34
PROC: 0DBL8ZX Excision of Transverse Colon, Via Natural or Artificial Opening Endoscopic, Diagnostic (ICD-10-PCS; principal; 2017-11-11 11:13)
PROC: 0DBN8ZX Excision of Sigmoid Colon, Via Natural or Artificial Opening Endoscopic, Diagnostic (ICD-10-PCS; 2017-11-11 11:13)
PROC: 0DJ08ZZ Inspection of Upper Intestinal Tract, Via Natural or Artificial Opening Endoscopic (ICD-10-PCS; 2017-11-11 11:13)
PROC: 30253N1 (ICD-10-PCS; 2017-11-11 11:13)
DX: K92.2 Gastrointestinal hemorrhage, unspecified (principal); J18.9 Pneumonia, unspecified organism; A41.9 Sepsis, unspecified organism; R65.20 Severe sepsis without septic shock; N18.4 Chronic kidney disease, stage 4 (severe); K51.00 Ulcerative (chronic) pancolitis without complications; N17.9 Acute kidney failure, unspecified; I13.0 Hypertensive heart and chronic kidney disease with heart failure and stage 1 through stage 4 chronic kidney disease, or unspecified chronic kidney disease; E78.00 Pure hypercholesterolemia, unspecified; I25.10 Atherosclerotic heart disease of native coronary artery without angina pectoris; I48.91 Unspecified atrial fibrillation; J30.2 Other seasonal allergic rhinitis; E53.8 Deficiency of other specified B group vitamins; E66.9 Obesity, unspecified; G89.29 Other chronic pain; I50.9 Heart failure, unspecified; D63.1 Anemia in chronic kidney disease; R53.1 Weakness; M10.9 Gout, unspecified; K29.70 Gastritis, unspecified, without bleeding; K44.9 Diaphragmatic hernia without obstruction or gangrene; K57.30 Diverticulosis of large intestine without perforation or abscess without bleeding; D12.5 Benign neoplasm of sigmoid colon; D12.3 Benign neoplasm of transverse colon; Y95 Nosocomial condition; M54.5 Low back pain; M35.3 Polymyalgia rheumatica; D50.0 Iron deficiency anemia secondary to blood loss (chronic); Z95.5 Presence of coronary angioplasty implant and graft; Z79.01 Long term (current) use of anticoagulants; Z68.34 Body mass index [BMI] 34.0-34.9, adult; Z79.82 Long term (current) use of aspirin; Z95.0 Presence of cardiac pacemaker; Z85.828 Personal history of other malignant neoplasm of skin; Z88.0 Allergy status to penicillin; Z89.512 Acquired absence of left leg below knee; Z79.899 Other long term (current) drug therapy

== ENCOUNTER → 2017-11-08 | Outpatient (CLI) | payer MEDICARE, OTHER | LOC: M CLY 11:39 | DX: K57.92 Diverticulitis of intestine, part unspecified, without perforation or abscess without bleeding (principal); I51.7 Cardiomegaly; Z95.0 Presence of cardiac pacemaker | CPT/HCPCS: 71046 ==

== ENCOUNTER → 2017-11-08 | Outpatient (REF) | payer MEDICARE, OTHER ==
[2017-11-08 16:22] LABS: BASO % 0.3 % (0.0-1.0); EOS # 0.1 10^3/uL (0.0-0.50); EOS % 1.6 % (0.0-3.0); HEMATOCRIT 29.1 % (42.0-52.0); HEMOGLOBIN 9.5 g/dl (14.0-18.0); IMMATURE GRANULOCYTE % 0.3 % (0-3.0); LYMPH # 0.9 10^3/uL (1.5-4.5); LYMPH % 12.8 % (24.0-44.0); MEAN CORPUSCULAR HEMOGLOBIN 35.7 pg (27.0-33.0); MEAN CORPUSCULAR HGB CONC 32.6 g/dl (32.0-36.5); MEAN CORPUSCULAR VOLUME 109.4 fl (80.0-96.0); MONO # 0.9 10^3/uL (0.0-0.8); MONO % 13.5 % (0.0-5.0); NEUTROPHILS # 4.9 10^3/uL (1.8-7.7); NEUTROPHILS % 71.5 % (36.0-66.0); PLATELET COUNT, AUTOMATED 275 10^3/uL (150-450); RED BLOOD COUNT 2.66 10^6/uL (4.30-6.10); RED CELL DISTRIBUTION WIDTH 14.6 % (11.5-14.5); WHITE BLOOD COUNT 6.9 10^3/uL (4.0-10.0)
[2017-11-08 16:45] LABS: ALBUMIN 3.5 GM/DL (3.2-5.2); ALBUMIN/GLOBULIN RATIO 1.09 (1.00-1.93); ALKALINE PHOSPHATASE 76 U/L (45-117); ALT/SGPT 18 U/L (12-78); ANION GAP 9 MEQ/L (8-16); AST/SGOT 23 U/L (7-37); BILIRUBIN,TOTAL 0.3 MG/DL (0.2-1.0); BLOOD UREA NITROGEN 49 MG/DL (7-18); C REACTIVE PROTEIN QUANTITATIV 1.13 MG/DL (0.00-0.30); CALCIUM LEVEL 8.4 MG/DL (8.8-10.2); CARBON DIOXIDE LEVEL 31 MEQ/L (21-32); CHLORIDE LEVEL 97 MEQ/L (98-107); GLOMERULAR FILTRATION RATE 30.7 (>35); GLUCOSE, FASTING 121 MG/DL (70-100); POTASSIUM SERUM 4.5 MEQ/L (3.5-5.1); SODIUM LEVEL 137 MEQ/L (136-145); TOTAL PROTEIN 6.7 GM/DL (6.4-8.2)
== END ==
LOC: M SFHCCLAY 11:29
DX: K57.92 Diverticulitis of intestine, part unspecified, without perforation or abscess without bleeding (principal)
CPT/HCPCS: 80053

== ENCOUNTER → 2017-12-19 | Outpatient (CLI) | payer MEDICARE, OTHER ==
[2017-12-19 16:41] LABS: HEMATOCRIT 35.2 % (42.0-52.0); HEMOGLOBIN 11.6 g/dl (13.5-17.5); MEAN CORPUSCULAR HEMOGLOBIN 34.9 pg (27.0-33.0); PLATELET COUNT, AUTOMATED 183 10^3/uL (150-450); RED BLOOD COUNT 3.32 10^6/uL (4.30-6.10); RED CELL DISTRIBUTION WIDTH 17.5 % (11.5-14.5); WHITE BLOOD COUNT 8.6 10^3/uL (4.0-10.0)
[2017-12-19 17:11] LABS: ALBUMIN 3.8 GM/DL (3.2-5.2); ANION GAP 11 MEQ/L (8-16); BLOOD UREA NITROGEN 44 MG/DL (7-18); CALCIUM LEVEL 8.9 MG/DL (8.8-10.2); CARBON DIOXIDE LEVEL 33 MEQ/L (21-32); CHLORIDE LEVEL 97 MEQ/L (98-107); CREATININE FOR GFR 1.79 MG/DL (0.70-1.30); GLUCOSE, FASTING 229 MG/DL (70-100); MAGNESIUM LEVEL 2.6 MG/DL (1.8-2.4); PHOSPHORUS LEVEL 3.3 MG/DL (2.5-4.9); POTASSIUM SERUM 4.4 MEQ/L (3.5-5.1); SODIUM LEVEL 141 MEQ/L (136-145)
== END ==
LOC: M WUC 12:39
DX: I48.2 Chronic atrial fibrillation (principal); I50.33 Acute on chronic diastolic (congestive) heart failure
CPT/HCPCS: 83735

== ENCOUNTER → 2018-01-30 | Outpatient (CLI) | payer MEDICARE, OTHER | LOC: M PT 13:54 | DX: Z74.09 Other reduced mobility (principal) | CPT/HCPCS: 97163 ==

== ENCOUNTER → 2018-02-07 | Outpatient (REF) | payer MEDICARE, OTHER ==
[2018-02-07 17:48] LABS: ANION GAP 11 MEQ/L (8-16); BLOOD UREA NITROGEN 36 MG/DL (7-18); CALCIUM LEVEL 8.7 MG/DL (8.8-10.2); CARBON DIOXIDE LEVEL 32 MEQ/L (21-32); CHLORIDE LEVEL 98 MEQ/L (98-107); CREATININE FOR GFR 2.07 MG/DL (0.70-1.30); GLUCOSE, FASTING 300 MG/DL (70-100); POTASSIUM SERUM 5.1 MEQ/L (3.5-5.1); SODIUM LEVEL 141 MEQ/L (136-145)
== END ==
LOC: M SFHCCLAY 11:36
DX: E11.9 Type 2 diabetes mellitus without complications (principal)
CPT/HCPCS: 80048

== ENCOUNTER → 2018-03-06 | Outpatient (CLI) | payer MEDICARE, OTHER ==
[2018-03-06 13:47] LABS: ANION GAP 10 MEQ/L (8-16); BLOOD UREA NITROGEN 34 MG/DL (7-18); CALCIUM LEVEL 8.6 MG/DL (8.8-10.2); CARBON DIOXIDE LEVEL 31 MEQ/L (21-32); CHLORIDE LEVEL 100 MEQ/L (98-107); CREATININE FOR GFR 1.89 MG/DL (0.70-1.30); GLOMERULAR FILTRATION RATE 36.6 (>35); GLUCOSE, FASTING 289 MG/DL (70-100); MAGNESIUM LEVEL 2.6 MG/DL (1.8-2.4); PHOSPHORUS LEVEL 4.4 MG/DL (2.5-4.9); POTASSIUM SERUM 4.8 MEQ/L (3.5-5.1); SODIUM LEVEL 141 MEQ/L (136-145)
== END ==
LOC: M WUC 09:24
DX: I50.32 Chronic diastolic (congestive) heart failure (principal); I48.2 Chronic atrial fibrillation
CPT/HCPCS: 83735

== ENCOUNTER → 2018-03-16 | Outpatient (REF) | payer MEDICARE, OTHER | LOC: M SFHCCLAY 03-17 11:34 | DX: N48.1 Balanitis (principal) | CPT/HCPCS: 87186 ==

== ENCOUNTER → 2018-03-31 | Outpatient (CLI) | payer MEDICARE, OTHER | LOC: M RAD 11:58 | DX: N48.1 Balanitis (principal) | CPT/HCPCS: 76870 ==

== ENCOUNTER 2018-04-25 06:02 | Day surgery (SDC) | payer MEDICARE, OTHER ==
[~2018-04-25 06:02] MED LIST changes: -ALLE180T33 PO; -ASPI81TA85 PO; -CALC-196 PO; -CEFD1CAP8 PO; -CLAR10CA3 PO; -COUM1TAB17 PO; -FAMO20TA PO; -FERR140T PO; -FERR325T3 PO; -FISH1000 PO; -FURO40TA2 PO; -HYDR-3713 PO; -IRBE75TA5 PO; +LIDOCAINE 1% MDV 20ML VIAL SQ; -MELA5TAB20 PO; -NEUR300C PO; -NIAC1TAB5 PO; -NITR4TASL SL; -SPIR25TA2 PO; -TORS20TA2 PO; -TYLE650T35 PO; -VALS1TAB49 PO; -VITA-182 PO; -VITA500T53 PO; -ZOCO20TA PO; -ZYRT10CA PO
[2018-04-25] MEDS: BACTRIM 160MG/800MG DS TAB PO (06:50)
[2018-04-25] MEDS: LR 1,000 ML IV (07:15)
[2018-04-25] MEDS ORDERED: ONDANSETRON 4MG/2ML VIAL (J2405) As Ordered (07:30)
[2018-04-25] MEDS ORDERED: MIDAZOLAM INJ 2 MG/2 ML VIAL (J2250) As Ordered (07:30)
[2018-04-25] MEDS ORDERED: fentaNYL 100 MCG/2 ML INJECTION (J3010) As Ordered (07:30)
[2018-04-25] MEDS ORDERED: LIDOCAINE 2% INJ 100 MG/5 ML SDV (FOR ANES.) As Ordered (07:32)
[2018-04-25] MEDS ORDERED: PROPOFOL 200 MG/20 ML VIAL As Ordered (07:32)
[2018-04-25 07:33] LABS: BEDSIDE GLUCOSE 119 MG/DL (83-110)
[2018-04-25] MEDS: ASPIRIN 81 MG CHEW TABLET PO (07:35)
[2018-04-25] MEDS: LIDOCAINE 1% SDV INJ 30 ML VIAL As Ordered (09:20)
[2018-04-25] MEDS: BACITRACIN OINT 30GM As Ordered (09:27)
[2018-04-25 09:50] LABS: BEDSIDE GLUCOSE 119 MG/DL (83-110)
== END 2018-04-25 11:40 | disposition home or self-care (01) ==
LOC: M SDC 06:02
DX: N47.1 Phimosis (principal); I25.10 Atherosclerotic heart disease of native coronary artery without angina pectoris; I48.91 Unspecified atrial fibrillation; Z98.61 Coronary angioplasty status; Z95.0 Presence of cardiac pacemaker; Z79.899 Other long term (current) drug therapy; E11.9 Type 2 diabetes mellitus without complications; Z88.0 Allergy status to penicillin; Z79.82 Long term (current) use of aspirin
CPT/HCPCS: 54001

== ENCOUNTER → 2018-05-12 | Outpatient (REF) | payer MEDICARE, OTHER ==
[2018-05-12 14:31] LABS: FERRITIN 100 NG/ML (26-388); IRON (FE) 118 UG/DL (65-175); PERCENT SATURATION 39.9 % (19.7-50.0); TOTAL IRON BINDING CAPACITY 296 UG/DL (250-450)
== END ==
LOC: M LAB REF 13:45
DX: D64.9 Anemia, unspecified (principal)
CPT/HCPCS: 83550

== ENCOUNTER → 2018-06-05 | Outpatient (CLI) | payer MEDICARE, OTHER ==
[2018-06-05 15:05] LABS: ANION GAP 9 MEQ/L (8-16); BLOOD UREA NITROGEN 87 MG/DL (7-18); CALCIUM LEVEL 9.1 MG/DL (8.8-10.2); CARBON DIOXIDE LEVEL 33 MEQ/L (21-32); CHLORIDE LEVEL 96 MEQ/L (98-107); CREATININE FOR GFR 2.65 MG/DL (0.70-1.30); GLOMERULAR FILTRATION RATE 24.7 (>35); GLUCOSE, FASTING 208 MG/DL (70-100); POTASSIUM SERUM 4.1 MEQ/L (3.5-5.1); SODIUM LEVEL 138 MEQ/L (136-145)
== END ==
LOC: M WUC 12:00
DX: I50.32 Chronic diastolic (congestive) heart failure (principal)
CPT/HCPCS: 80048

== ENCOUNTER → 2018-08-17 | Outpatient (CLI) | payer MEDICARE, OTHER ==
[~2018-08-17] MED LIST changes: +ALLE180T33 PO; +ALLERGY MED PO; +ALLO100T PO; +ALLUPURINOL; +AMLO5TAB6 PO; +ASPI1TAB PO; +ASPI81TA85 PO; +ASPI81TAEC PO; +CALC-196 PO; +CEFD1CAP8 PO; +CIPR-250 PO; +CLAR10CA3 PO; +COUM1TAB17 PO; +DIPH25CA PO; +FAMO20TA PO; +FERR140T2 PO; +FERR1TAB8 PO; +FERR325T3 PO; +FISH1000 PO; +FLAG500T PO; +FURO40TA2 PO; +GLIP5TAB20 PO; +HYDR-3713 PO; +IRBE75TA5 PO; +K-TA10TA2 PO; +LEVA1TAB2 PO; +LEVA250T13 PO; -LIDOCAINE 1% MDV 20ML VIAL SQ; +MELA10TA4 PO; +MELA5TAB20 PO; +NEUR300C PO; +NIAC1TAB5 PO; +NITR4TASL SL; +PANT40TA3 PO; +PATIENT COMMENTS; +PEPC1TAB5 PO; +PRED20TA PO; +SIMV20TA2 PO; +SPIR-10 PO; +TORS100T PO; +TORS20TA2 PO; +TYLE500T78 PO; +TYLE650T35 PO; +VALS1TAB49 PO; +VITA-182 PO; +VITA500T53 PO; +ZOCO20TA PO; +ZYRT10CA PO; +[UNRECOGNIZED DRUG - OTHER] PO
--- NOTE | 2018-08-17 14:14 | REP ---
Clinical: Acute renal failure. Technique: Real time antonio scale ultrasound examination using curved array transducer. Findings: Kidneys demonstrate cortical thinning with increased central sinus fat consistent with chronic medical renal disease. There is no evidence for hydronephrosis, nephrolithiasis, or mass lesion. Right kidney measures 10.0 x 5.7 x 5.3 cm and includes 1.1 cm mid pole cyst. Left kidney measures 11.0 x 5.6 x 6.2 cm without cyst. Bladder is incompletely distended. Prevoid bladder measures 194 ml. Postvoid bladder measures 44 ml. Postvoid residual equals 23%. Impression: 1. Chronic medical renal disease without hydronephrosis. 2. 1.1 cm suspected right renal cyst. Consider follow-up examination at at 9-12 month to exclude complex cyst/mass. Electronically Signed by Ortiz Wheeler MD 08/17/2018 02:05 P
== END ==
LOC: M RAD 13:06
PROVIDERS: ATTEND Internal Medicine Nephrology
DX: N17.9 Acute kidney failure, unspecified (principal); I50.32 Chronic diastolic (congestive) heart failure; I13.0 Hypertensive heart and chronic kidney disease with heart failure and stage 1 through stage 4 chronic kidney disease, or unspecified chronic kidney disease; N18.9 Chronic kidney disease, unspecified

== ENCOUNTER → 2018-09-08 | Outpatient (CLI) | payer MEDICARE, OTHER ==
--- NOTE | 2018-09-08 14:43 | REP ---
Chest x-ray: Two views. History: Congestion. Failure. Comparison study: November 11, 2017. Findings: A unipolar pacemaker is seen in the right heart via the left side. The lungs are somewhat hyperinflated. Calcific pleural plaquing is noted. Interstitial markings are somewhat prominent diffusely consistent with interstitial fibrosis. No infiltrate is seen. There is no evidence of pulmonary edema or pleural effusion. Impression: Cardiomegaly with pacemaker. Calcific pleural plaquing and mild interstitial fibrosis pattern. Electronically Signed by Jamar Pascual MD 09/08/2018 02:35 P
== END ==
LOC: M CLY 13:58
PROVIDERS: ATTEND Nurse Practitioner Family
DX: I51.7 Cardiomegaly (principal); I50.32 Chronic diastolic (congestive) heart failure; Z95.0 Presence of cardiac pacemaker
CPT/HCPCS: 71046; G0463

== ENCOUNTER → 2019-01-19 | Outpatient (CLI) | payer MEDICARE, OTHER ==
[~2019-01-19] MED LIST changes: +ACET-683 PO; +ALB2.5NEB INH; -ASPI1TAB PO; +ASPI81TA26 PO; +COLA100C5 PO; +D3 H10002 PO; +FOLI1TAB11 PO; +LOVE1INJ2 SC; +MELA5TAB7 PO; +OXYB10TA PO; +VITA100T12 PO; +VITA500T17 PO; -VITA500T53 PO
--- NOTE | 2019-01-19 13:24 | REP ---
Nickel: Bronchitis. Technique: PA and lateral. Comparison: 09/08/2018. Findings: Cardiomegaly and large left pleural effusion with lower lobe opacities suggesting atelectasis/consolidation. Underlying elements of pulmonary vascular congestion and chronic changes are suggested. Skeletal structures are grossly stable and intact. Impression: Cardiomegaly with large left pleural effusion and elements of pulmonary vascular congestion.
== END ==
LOC: M CLY 12:47
PROVIDERS: ATTEND Nurse Practitioner Family
DX: I51.7 Cardiomegaly (principal); J90 Pleural effusion, not elsewhere classified; J40 Bronchitis, not specified as acute or chronic
CPT/HCPCS: 71046; G0463

== ENCOUNTER → 2019-01-24 | Outpatient (REF) | payer MEDICARE, OTHER ==
[~2019-01-24] MED LIST changes: -ACET-683 PO; -ALB2.5NEB INH; -COLA100C5 PO; -D3 H10002 PO; -FOLI1TAB11 PO; -LOVE1INJ2 SC; -MELA5TAB7 PO; -OXYB10TA PO; -VITA100T12 PO
[2019-01-24 11:53] LABS: ALBUMIN 3.1 GM/DL (3.2-5.2); BILIRUBIN,TOTAL 0.3 MG/DL (0.2-1.0); CALCIUM LEVEL 8.1 MG/DL (8.8-10.2); CREATININE FOR GFR 3.19 MG/DL (0.70-1.30); POTASSIUM SERUM 4.6 MEQ/L (3.5-5.1); TOTAL PROTEIN 6.4 GM/DL (6.4-8.2)
== END ==
LOC: M SFHCCLAY 09:14
PROVIDERS: ATTEND Nurse Practitioner Family
DX: R06.02 Shortness of breath (principal)

== ENCOUNTER 2019-02-01 14:34 | Inpatient (IN) | payer MEDICARE, OTHER ==
[~2019-02-01] VITALS: Ht 182.9 cm; Wt 108.9 kg
[2019-02-01] MEDS ORDERED: FOLI1TAB11 PO (15:02)
[2019-02-01] MEDS ORDERED: D3 H10002 PO (15:02)
[2019-02-01] MEDS ORDERED: OXYB10TA PO (15:02)
[2019-02-01] MEDS ORDERED: VITA100T12 PO (15:02)
[2019-02-01 15:30] LABS: BASO % 0.3 % (0.0-1.0); EOS # 0.3 10^3/uL (0.0-0.50); EOS % 4.3 % (0.0-3.0); HEMATOCRIT 32.6 % (42.0-52.0); HEMOGLOBIN 10.7 g/dl (13.5-17.5); LYMPH # 0.9 10^3/uL (1.5-4.5); LYMPH % 15.1 % (24.0-44.0); MEAN CORPUSCULAR HEMOGLOBIN 38.6 pg (27.0-33.0); MEAN CORPUSCULAR HGB CONC 32.8 g/dl (32.0-36.5); MONO # 0.8 10^3/uL (0.0-0.8); MONO % 13.3 % (0.0-5.0); PLATELET COUNT, AUTOMATED 288 10^3/uL (150-450); RED BLOOD COUNT 2.77 10^6/uL (4.30-6.10); WHITE BLOOD COUNT 6.1 10^3/uL (4.0-10.0)
[2019-02-01 15:32] LABS: MEAN CORPUSCULAR VOLUME 117.7 fl (80.0-96.0)
[2019-02-01 15:41] LABS: INR 1.13; PROTHROMBIN TIME 14.7 SECONDS (12.1-14.4)
[2019-02-01 15:42] LABS: PARTIAL THROMBOPLASTIN TIME 28.5 SECONDS (25.4-37.6)
[2019-02-01 15:53] LABS: PLATELET ESTIMATE NORMAL (NORMAL)
[2019-02-01 16:03] LABS: ALBUMIN 3.3 GM/DL (3.2-5.2); ALT/SGPT 20 U/L (12-78); BILIRUBIN,DIRECT 0.1 MG/DL (0.0-0.2); BILIRUBIN,TOTAL 0.3 MG/DL (0.2-1.0); BLOOD UREA NITROGEN 81 MG/DL (7-18); CALCIUM LEVEL 8.5 MG/DL (8.8-10.2); CARBON DIOXIDE LEVEL 29 MEQ/L (21-32); CHLORIDE LEVEL 97 MEQ/L (98-107); CK-MB VALUE MASS < 1.0 NG/ML (<3.6); CPK CREATINE PHOSPHOKINASE 48 U/L (39-308); CREATININE FOR GFR 3.59 MG/DL (0.70-1.30); FREE T4 1.14 NG/DL (0.76-1.46); GLOMERULAR FILTRATION RATE 17.4 (>35); GLUCOSE, FASTING 149 MG/DL (70-100); MB/CK RELATIVE INDEX 2.08 (< OR =4); NT-PRO BNP 2044 PG/ML (<450); POTASSIUM SERUM 4.1 MEQ/L (3.5-5.1); SODIUM LEVEL 136 MEQ/L (136-145); TOTAL PROTEIN 6.9 GM/DL (6.4-8.2); TROPONIN I 0.04 NG/ML (< 0.10)
--- NOTE | 2019-02-01 16:24 | REP ---
CHEST, TWO VIEWS: Two views of the chest are performed and compared to prior study of 01/19/2019. A large left pleural effusion is stable. Visualized lungs demonstrate stable interstitial prominence. Heart size is not well evaluated due to the large left effusion. There is calcification of the thoracic aorta. There is a left single lead pacemaker. There are mild degenerative changes of the spine. IMPRESSION: Stable exam. No change in large left effusion. Electronically Signed by Eliecer Velazquez MD 02/01/2019 04:51 P
[2019-02-01] MEDS ORDERED: FUROSEMIDE 40 MG/4 ML VIAL (J1940) IV ONE (17:15)
[2019-02-01] MEDS ORDERED: MELA5TAB7 PO (17:26)
[2019-02-01] MEDS ORDERED: ALB2.5NEB INH (17:26)
[2019-02-01] MEDS ORDERED: ACET-683 PO (17:26)
[2019-02-01] MEDS ORDERED: IPRATROPIUM 0.5MG/ALBUTEROL 2.5MG INH SOL UD 3ML (DUONEB)(J7620) NEB PRN (17:30)
[2019-02-01] MEDS ORDERED: DEXTROSE 50% 50 ML SYRINGE IV PRN (17:45)
[2019-02-01] MEDS ORDERED: GLUCAGON FOR INJ 1 MG VIAL (J1610) SC PRN (17:45)
[2019-02-01] MEDS ORDERED: NITROGLYCERIN 0.4 MG SUBL TABLET SL PRN (17:45)
[2019-02-01] MEDS ORDERED: GLUCOSE 4 GM CHEW TABLET PO PRN (17:45)
--- NOTE | 2019-02-01 17:51 | HPEPDOC ---
General Date of Admission 02/01/19 Date of Service: Feb 01, 2019 Primary Care Physician: Loretta Jacome [employer] Attending Physician: AMIRAH COLÓN MD Chief Complaint The patient is a 83-year-old male admitted with a reason for visit of Abnormal Labs. Source: Patient, Family Exam Limitations: No limitations Timing/Duration: Day(s) Severity: Moderate Associated Symptoms: Shortness of breath History of Present Illness 83 years old white male with past medical history of multiple medical problems including CK D, stage IV, history of her hypovolemia CHF, pleural effusion, hyperlipidemia, went to see his ways operator is Dr. Mac's office where he was found to be shortness of breath, etc. 4 to ER for him to be seen by nephrology and for diuresis. Patient denies any chest pain, nausea, vomiting but complaining of shortness of breath, which is persistent since last few days, not relieved with any medication exacerbated by exertion. No other associated symptoms, patient being admitted for IV diureses. Home Medications Scheduled Acetaminophen (Acetaminophen) 500 Mg Tablet, 1,000 MG PO BID, (Reported) Allopurinol (Allopurinol) 100 Mg Tab, 200 MG PO DAILY, (Reported) Aspirin (Aspirin EC) 81 Mg Tab, 81 MG PO QPM, (Reported) Cholecalciferol (Vitamin D3) (Vitamin D3) 1,000 Unit Capsule, 1,000 UNITS PO DAILY, (Reported) Cyanocobalamin (Vitamin B-12) (Vitamin B-12) 100 Mcg Tablet, 100 MCG PO DAILY, (Reported) Diphenhydramine HCl (Diphenhydramine HCl) 25 Mg Cap, 50 MG PO QHS, (Reported) Famotidine (Pepcid) 20 Mg Tab, 40 MG PO DAILY, (Reported) Ferrous Sulfate (Ferrous Sulfate) 325 Mg Tab, 325 MG PO DAILY, (Reported) Folic Acid (Folic Acid) 1 Mg Tablet, 1 MG PO DAILY, (Reported) Gabapentin (Neurontin) 300 Mg Cap, 300 MG PO BID, (Reported) Glipizide (Glipizide ER) 5 Mg Tab, 5 MG PO DAILY, (Reported) Melatonin (Melatonin) 5 Mg Tablet, 10 MG PO QHS, (Reported) Oxybutynin Chloride (Oxybutynin Chloride ER) 10 Mg Tab.er.24, 10 MG PO DAILY, (Reported) Simvastatin (Simvastatin) 20 Mg Tab, 20 MG PO QPM, (Reported) Spironolactone (Spironolactone) 25 Mg Tab, 25 MG PO DAILY, (Reported) Torsemide (Torsemide) 100 Mg Tab, 50 MG PO QAM, (Reported) Torsemide (Torsemide) 100 Mg Tab, 100 MG PO QPM, (Reported) [Nestor Formula] , 2 TABS PO QAM, (Reported) Scheduled PRN Albuterol Sulfate (Albuterol Sulfate) 2.5 Mg/0.5 Ml Vial.neb, 2.5 MG INH Q4H PRN for SHORTNESS OF BREATH, (Reported) Nitroglycerin (Nitrostat) 0.4 Mg Subl, 0.4 MG SL NITRO PRN for CHEST PAIN, (Repo rted) Allergies Coded Allergies: Penicillins (Verified Allergy, Unknown, HIVES, 02/01/19) Past Medical History Medical History As per HPI Surgical History Pacemaker placement, cataract surgery, appendectomy and left leg prosthesis after left leg amputation Family History Significant Family History: No pertinent family hx Social History * Smoker: Denies Alcohol: Denies Drugs: denies A-FIB/CHADSVASC A-FIB History Current/History of A-Fib/PAF?: No Review of Systems Constitutional: Denies: Chills, Fever, Malaise, Night Sweats, Weakness, Fatigue, Weight Loss, Lethargy, Other Eyes: Denies: Pain, Vision change, Conjunctivae inflammation, Eyelid inflammation, Redness, Other ENT: Denies: Head Aches, Ear Pain, Dysphagia, Sinus Congestion, Post Nasal Drip, Sore Throat, Epistaxis, Other Symptoms Skin: Denies: Rash, Lesions, Jaundice, Bruising, Itching, Dry, Breakdown, Nail Changes, Other Pulmonary: Reports: Dyspnea; Denies: Cough, Pleuritic Chest Pain, Other Symptoms Cardiovascular: Reports: Paroxysmal Noc. Dyspnea, Edema; Denies: Chest Pain, Palpitations, Orthopnea, Lt Headedness, Other Symptoms Gastrointestinal: Denies: Nausea, Vomiting, Abdominal Pain, Diarrhea, C onstipation, Melena, Hematochezia, Other Symptoms Genitourinary: Denies: Dysuria, Frequency, Incontinence, Hematuria, Retention, Other Symptoms Hematologic: Denies: Bruising, Bleeding Excessively, Petecchia, Purpura, Enlarged Lymph Nodes, Other Hematologic Endocrine: Denies: Polydipsia, Polyphagia, Polyuria, Heat Intolerance, Cold I ntolerance, Other Endocrine Sx Musculoskeletal: Denies: Neck Pain, Back Pain, Shoulder Pain, Arm Pain, Hand Pain, Leg Pain, Foot Pain, Joint Pain, Muscle Pain, Spasms, Other Symptoms Neurological: Denies: Weakness, Numbness, Incoordination, Change in speech, Confusion, Seizures, Other Symptoms Psych: Denies: Mood Normal, Anxiety, Depression, Memory Issues, Thoughts of Self Harm, Anger, Thoughts of Harming Other, Other Psych Physical Examination General Exam: Positive: Alert, Cooperative Eye Exam: Positive: PERRLA, Conjunctiva & lids normal Neck Exam: Positive: Supple, JVD Chest Exam: Positive: Other (decreased breath sounds bilaterally with) Heart Exam: Positive: Rate Normal, Normal S1, Normal S2 Abdomen Exam: Positive: Normal bowel sounds, Soft Extremity Exam: Positive: Normal pulses Skin Exam: Positive: Nl turgor and temperature Neuro Exam: Positive: Normal Speech Psych Exam: Positive: Mental status NL, Oriented x 3 Vital Signs Vital Signs Date Time Temp Pulse Resp B/P (MAP) Pulse Ox O2 Delivery O2 Flow Rate FiO2 02/01/19 16:34 59 98 02/01/19 16:31 132/62 (85) 02/01/19 15:47 Room Air 02/01/19 14:34 97.8 22 Laboratory Data Labs 24H Laboratory Tests 2 02/01/19 15:15: Immature Granulocyte % (Auto) 2.0, White Blood Count 6.1, Red Blood Count 2.77L, Hemoglobin 10.7L, Hematocrit 32.6L, Mean Corpuscular Volume 117.7H, Mean Corpuscular Hemoglobin 38.6H, Mean Corpuscular Hemoglobin Concent 32.8, Red Cell Distribution Width 14.7H, Platelet Count 288, Neutrophils (%) (Auto) 65.0, Lymphocytes (%) (Auto) 15.1L, Monocytes (%) (Auto) 13.3H, Eosinophils (%) (Auto) 4.3H, Basophils (%) (Auto) 0.3, Neutrophils # (Auto) 4.0, Lymphocytes # (Auto) 0.9L, Monocytes # (Auto) 0.8, Eosinophils # (Auto) 0.3, Basophils # (Auto) 0.0, Nucleated Red Blood Cells % (auto) 0.0, Platelet Estimate NORMAL, Macrocytosis 3+ 02/01/19 15:16: Prothrombin Time 14.7H, Prothromb Time International Ratio 1.13, Activated Partial Thromboplast Time 28.5, Anion Gap 10, Glomerular Filtration Rate 17.4L, Calcium Level 8.5L, Aspartate Amino Transf (AST/SGOT) 20, Alanine Aminotransferase (ALT/SGPT) 20, Alkaline Phosphatase 103, Total Bilirubin 0.3, Direct Bilirubin 0.1, Total Creatine Kinase 48, Creatine Kinase MB < 1.0, Creatine Kinase MB Relative Index 2.08, Troponin I 0.04, BT-Auj-E-Type Natriuretic Peptide 2044H, Total Protein 6.9, Albumin 3.3, Albumin/Globulin Ratio 0.92L, Thyroid Stimulating Hormone (TSH) 1.610, Free Thyroxine 1.14 CBC/BMP Laboratory Tests 02/01/19 15:15 Red Blood Count 2.77 L, Mean Corpuscular Volume 117.7 H, Mean Corpuscular Hemoglobin 38.6 H, Mean Corpuscular Hemoglobin Concent 32.8, Red Cell Distribution Width 14.7 H, Neutrophils (%) (Auto) 65.0, Lymphocytes (%) (Auto) 15.1 L, Monocytes (%) (Auto) 13.3 H, Eosinophils (%) (Auto) 4.3 H, Basophils (%) (Auto) 0.3, Neutrophils # (Auto) 4.0, Lymphocytes # (Auto) 0.9 L, Monocytes # (Auto) 0.8, Eosinophils # (Auto) 0.3, Basophils # (Auto) 0.0 02/01/19 15:16 Problems (1) Hqvqn-ym-kdknwes kidney injury Status: Acute (2) Afib Status: Chronic (3) Anemia Status: Chronic (4) CAD (coronary artery disease) Status: Chronic (5) S/P BKA (below knee amputation) unilateral Status: Chronic (6) HTN (hypertension) Status: Chronic (7) HLD (hyperlipidemia) Status: Chronic (8) Pacemaker Status: Chronic (9) Acute exacerbation of CHF (congestive heart failure) Status: Acute (10) S/P angioplasty with stent Status: Chronic Plan / VTE VTE Prophylaxis Ordered?: Yes Plan Plan Admit patient to PCU with telemetry Saline lock Lasix 80 mg IV every 12 hours Hold home torsemide and Aldactone Continue all other home meds Fingerstick blood sugar every before meals and at bedtime with coverage DVT prophylaxis with Lovenox Strict I and O Oxygen when necessary DuoNeb every 4 hours and every 2 hours when necessary Discussed with Dr. Wilcox and Dr. Quach over the phone Patient signed out to family practice And Dr. Singh will see patient in ED today AMIRAH COLÓN MD Feb 01, 2019 17:51
[2019-02-01] MEDS: IPRATROPIUM 0.5MG/ALBUTEROL 2.5MG INH SOL UD 3ML (DUONEB)(J7620) NEB SCH (20:00)
[2019-02-01 20:16] VITALS: BP 141/59
[2019-02-01] MEDS: HumaLOG INSULIN (NovoLOG) PER UNIT SC SCH (21:00)
[2019-02-01] MEDS ORDERED: FAMOTIDINE 20 MG TAB PO SCH (21:00)
[2019-02-01] MEDS: ACETAMINOPHEN 500 MG TAB PO SCH (21:57)
[2019-02-01] MEDS: GABAPENTIN 300 MG CAP PO SCH (21:57)
[2019-02-01] MEDS: ASPIRIN 81 MG ENTERIC TAB PO SCH (21:57)
[2019-02-01] MEDS: SIMVASTATIN 20 MG TAB PO SCH (21:58)
[2019-02-01 23:59] VITALS: BP 118/59
[2019-02-02] MEDS: IPRATROPIUM 0.5MG/ALBUTEROL 2.5MG INH SOL UD 3ML (DUONEB)(J7620) NEB SCH ×7 (03:25→23:26)
[2019-02-02 04:00] VITALS: BP 106/49
[2019-02-02 05:24] LABS: HEMATOCRIT 30.1 % (42.0-52.0); HEMOGLOBIN 9.8 g/dl (13.5-17.5); MEAN CORPUSCULAR HGB CONC 32.6 g/dl (32.0-36.5); PLATELET COUNT, AUTOMATED 248 10^3/uL (150-450); RED BLOOD COUNT 2.58 10^6/uL (4.30-6.10); WHITE BLOOD COUNT 5.2 10^3/uL (4.0-10.0)
[2019-02-02 05:33] LABS: MEAN CORPUSCULAR VOLUME 116.7 fl (80.0-96.0)
[2019-02-02 05:57] LABS: BILIRUBIN,TOTAL 0.4 MG/DL (0.2-1.0); CALCIUM LEVEL 8.4 MG/DL (8.8-10.2); CREATININE FOR GFR 3.35 MG/DL (0.70-1.30); GLOMERULAR FILTRATION RATE 18.9 (>35); MAGNESIUM LEVEL 2.5 MG/DL (1.8-2.4); POTASSIUM SERUM 3.6 MEQ/L (3.5-5.1); TOTAL PROTEIN 6.7 GM/DL (6.4-8.2); TROPONIN I 0.04 NG/ML (< 0.10)
[2019-02-02] MEDS ORDERED: FUROSEMIDE 40 MG/4 ML VIAL (J1940) IV SCH ×2 (06:00)
[2019-02-02 08:00] VITALS: BP 138/60
[2019-02-02] MEDS: HumaLOG INSULIN (NovoLOG) PER UNIT SC SCH ×4 (08:56→21:00)
[2019-02-02] MEDS: VITAMIN D 1,000 INTERNATIONAL UNITS TABLET PO SCH (08:57)
[2019-02-02] MEDS: ENOXAPARIN 30 MG/0.3 ML SYR (J1650) SC SCH (08:57)
[2019-02-02] MEDS: glipiZIDE XL 5 MG TABCR PO SCH (08:57)
[2019-02-02] MEDS: FERROUS SULFATE 325MG TAB PO SCH (08:58)
[2019-02-02] MEDS: FOLIC ACID 1 MG TAB PO SCH (08:58)
[2019-02-02] MEDS: ALLOPURINOL 100 MG TAB PO SCH (08:58)
[2019-02-02] MEDS: oxyBUTYnin *DITROPAN XL* 5 MG TABCR PO SCH (08:58)
[2019-02-02] MEDS: GABAPENTIN 300 MG CAP PO SCH ×2 (08:58→21:21)
[2019-02-02] MEDS: ACETAMINOPHEN 500 MG TAB PO SCH ×2 (08:59→21:21)
[2019-02-02] MEDS ORDERED: PNEUMOCOCCAL VACCINE 0.5ML SYRINGE(90732) PNEUMOVAX 23 IM ONE (09:00)
--- NOTE | 2019-02-02 10:44 | IPNPDOC ---
Subjective Date Seen The patient was seen on 02/02/19. Subjective Chief Complaint/HPI Pt this morning states that he cont to cough, + SOB, although states that he did alright moving about the room to the bathroom and the chair. He has family at bedside. General: Denies: Fatigue Constitutional: Denies: Chills, Fever Pulmonary: Reports: Dyspnea, Cough Gastrointestinal: Denies: Nausea, Vomiting, Diarrhea Neurological: Reports: Weakness Psych: Reports: Mood Normal Objective Physical Examination General Exam: Positive: Alert, Cooperative, No Acute Distress Neck Exam: Positive: Supple Chest Exam: Positive: Wheezing, Diminished; Negative: Clear to auscultation, Normal air movement Heart Exam: Positive: Rate Normal, Normal S1, Normal S2 Abdomen Exam: Positive: Normal bowel sounds, Soft Extremity Exam: Positive: Edema (trace BLE) Skin Exam: Positive: Nl turgor and temperature Neuro Exam: Positive: Normal Speech Psych Exam: Positive: Mental status NL, Mood NL, Oriented x 3 Assessment /Plan Problems (1) Pleural effusion Status: Chronic Problem Text: 02/02/19 CXR c large L pleural effusion-favor diagnostic/therapeutic tesis in AM, check CT prior not present 08/2018 (2) Acute exacerbation of CHF (congestive heart failure) Status: Acute Response to Treatment: Stable Problem Specific Plan: Monitor Clinically Problem Text: pt with known diastolic dysfunction, sent to ED for admission from Cardiology. He is on Lasix 80 mg IV BID, I & Os should be monitored as wel l as daily weights. monitor renal function. failed outpx torse 100/50 08/07 TTE [facility] with EF 60%, will repeat ECHO during admission. MINI diet. (3) Eowkv-lo-yorzsuz kidney injury Status: Acute Problem Text: Scr 3.35 this morning, slight improvement since yesterday, Scr 06/08 2.65, 12/07 Scr 1.79, he has had a persistent decline in renal function in the last year. 08/08 renal US medical renal diseased without hydronephrosis, + renal cyst, rec f/u US in 9-12 m. Neph has been consulted. (4) Afib Status: Chronic Response to Treatment: Stable Problem Specific Plan: Monitor Clinically Problem Text: Pt follows with [facility] as an outpt. He is not anticoagulated d/t h/o GI bleed on anticoag, fall risk with BKA and PMR. no med for rate control (5) Anemia Status: Chronic Response to Treatment: Stable Problem Specific Plan: Monitor Clinically, Repeat Labs Problem Text: 2 ACD/CKD/Fe def +/- MDS/MGUS given MCV 110s on HD Fe/B12 check gonzalez (6) CAD (coronary artery disease) Status: Chronic Response to Treatment: Stable Problem Text: Asymptomatic, cont with ASA, statin, rate controlled with beta lopez. (7) S/P BKA (below knee amputation) unilateral Status: Chronic Response to Treatment: Stable Problem Text: PT ordered. (8) Pacemaker Status: Chronic Plan/VTE VTE Prophylaxis Ordered?: Yes VS, I&O, 24H, Fishbone Vital Signs/I&O Vital Signs Date Time Temp Pulse Resp B/P (MAP) Pulse Ox O2 Delivery O2 Flow Rate FiO2 02/02/19 08:00 98.0 61 18 138/60 (86) 94 02/01/19 20:04 Room Air I&O- Last 24 Hours up to 6 AM 02/02/19 05:59 Intake Total 0 ml Output Total 750 ml Balance -750 ml Laboratory Data 24H LABS Laboratory Tests 2 02/01/19 15:15: Immature Granulocyte % (Auto) 2.0, White Blood Count 6.1, Red Blood Count 2.77L, Hemoglobin 10.7L, Hematocrit 32.6L, Mean Corpuscular Volume 117.7H, Mean Corpuscular Hemoglobin 38.6H, Mean Corpuscular Hemoglobin Concent 32.8, Red Cell Distribution Width 14.7H, Platelet Count 288, Neutrophils (%) (Auto) 65.0, Lymphocytes (%) (Auto) 15.1L, Monocytes (%) (Auto) 13.3H, Eosinophils (%) (Auto) 4.3H, Basophils (%) (Auto) 0.3, Neutrophils # (Auto) 4.0, Lymphocytes # (Auto) 0.9L, Monocytes # (Auto) 0.8, Eosinophils # (Auto) 0.3, Basophils # (Auto) 0.0, Nucleated Red Blood Cells % (auto) 0.0, Platelet Estimate NORMAL, Macrocytosis 3+ 02/01/19 15:16: Prothrombin Time 14.7H, Prothromb Time International Ratio 1.13, Activated Partial Thromboplast Time 28.5, Anion Gap 10, Glomerular Filtration Rate 17.4L, Calcium Level 8.5L, Aspartate Amino Transf (AST/SGOT) 20, Alanine Aminotransferase (ALT/SGPT) 20, Alkaline Phosphatase 103, Total Bilirubin 0.3, Direct Bilirubin 0.1, Total Creatine Kinase 48, Creatine Kinase MB < 1.0, Creatine Kinase MB Relative Index 2.08, Troponin I 0.04, CK-Wqh-U-Type Natriuretic Peptide 2044H, Total Protein 6.9, Albumin 3.3, Albumin/Globulin Ratio 0.92L, Thyroid Stimulating Hormone (TSH) 1.610, Free Thyroxine 1.14 02/01/19 22:04: Bedside Glucose (Misc Panel) 116H 02/01/19 22:54: Troponin I 0.04 02/02/19 05:08: Nucleated Red Blood Cells % (auto) 0.0, Anion Gap 12, Glomerular Filtration Rate 18.9L, Blood Urea Nitrogen 84H, Creatinine 3.35H, Sodium Level 145#, Potassium Level 3.6, Chloride Level 106, Carbon Dioxide Level 27, Calcium Level 8.4L, Aspartate Amino Transf (AST/SGOT) 16, Alanine Aminotransferase (ALT/SGPT) 15, Alkaline Phosphatase 81, Total Bilirubin 0.4, Total Protein 6.7, Albumin 3.0L, Magnesium Level 2.5H, Troponin I 0.04, Albumin/Globulin Ratio 0.81L CBC/BMP Laboratory Tests 02/01/19 15:15 Red Blood Count 2.77 L, Mean Corpuscular Volume 117.7 H, Mean Corpuscular Hemo globin 38.6 H, Mean Corpuscular Hemoglobin Concent 32.8, Red Cell Distribution Width 14.7 H, Neutrophils (%) (Auto) 65.0, Lymphocytes (%) (Auto) 15.1 L, Monocytes (%) (Auto) 13.3 H, Eosinophils (%) (Auto) 4.3 H, Basophils (%) (Auto) 0.3, Neutrophils # (Auto) 4.0, Lymphocytes # (Auto) 0.9 L, Monocytes # (Auto) 0.8, Eosinophils # (Auto) 0.3, Basophils # (Auto) 0.0 02/01/19 15:16 02/02/19 05:08 Red Blood Count 2.58 L, Mean Corpuscular Volume 116.7 H, Mean Corpuscular Hemoglobin 38.0 H, Mean Corpuscular Hemoglobin Concent 32.6, Red Cell Distribution Width 14.7 H, Calcium Level 8.4 L, Aspartate Amino Transf (AST/SGOT) 16, Alanine Aminotransferase (ALT/SGPT) 15, Alkaline Phosphatase 81, Total Bilirubin 0.4, Total Protein 6.7, Albumin 3.0 L JUAN ANTONIO JULES PA-C Feb 02, 2019 10:44 Javier Armenta M.D. Feb 02, 2019 17:50
[2019-02-02] MEDS ORDERED: BENZONATATE 100 MG CAP PO PRN (11:00)
[2019-02-02 12:00] VITALS: BP 134/72
--- NOTE | 2019-02-02 13:15 | ECGEPIP ---
[facility] - ED Test Date: 2019-02-01 Pat Name: BERENICE ROSALES Department: Room: - Gender: Male Report Analyst: : 1935 Requested By: CHUCK Pereyra Order Number: [id number] Reading MD: Mo Olmstaed Measurements Intervals [place] Rate: 60 P: LA: -1 QRS: QRSD: 178 T: 62 QT: 524 QTc: 524 Interpretive Statements ELECTRONIC VENTRICULAR PACEMAKER RHYTHM/RATE CHANGE COMPARED TO 11/08/17 Electronically Signed on 02-02-2019 13:15:21 EDT by Mo Olmstead
[2019-02-02] MEDS: FUROSEMIDE 100 MG/10 ML VIAL (J1940) IV SCH ×2 (14:04→21:19)
[2019-02-02] MEDS: guaiFENesin ER 600 MG TAB PO SCH ×2 (14:04→21:21)
--- NOTE | 2019-02-02 14:31 | CR ---
DATE OF CONSULTATION: 02/02/2019 REQUESTING PHYSICIAN: Kevin Wilcox MD REASON FOR CONSULTATION: Acute renal failure superimposed on chronic kidney disease in this gentleman with decompensated congestive heart failure. HISTORY OF PRESENT ILLNESS: Mr. De Anda is an 83-year-old male with multiple chronic medical problems including stage IV of chronic kidney disease, history of congestive heart failure, hyperlipidemia and coronary artery disease. He is followed by cardiology for his cardiac issues and was seen in the cardiology office yesterday. He was found to be decompensated and sent to the emergency room for admission. He was found to have a large left pleural effusion in addition to decompensated congestive heart failure. He was admitted by the hospitalist service and a nephrology consultation was requested. Patient is seen this morning. PAST MEDICAL AND SURGICAL HISTORY: Significant for: 1. History of stage IV of chronic kidney disease. 2. History of congestive heart failure. 3. Hyperlipidemia. 4. History of gout. 5. History of type 2 diabetes. 6. Peripheral neuropathy. 7. History of anemia. PAST SURGICAL HISTORY: Significant for: 1. Pacemaker placement. 2. Cataract surgery. 3. Appendectomy. 4. Left [id number]-[id number] amputation. MEDICATIONS: Home medications include: - Tylenol 500 mg 2 tablets b.i.d. as needed for pain - allopurinol 200 mg daily - aspirin 81 mg daily - vitamin D 1000 units daily - B12 1000 mcg daily - Pepcid 40 mg daily - ferrous sulfate 325 mg daily - folic acid 1 mg daily - Neurontin 300 mg b.i.d. - glipizide ER 5 mg daily - oxybutynin 10 mg daily - simvastatin 20 mg daily - spironolactone 25 mg daily - torsemide 50 mg in a.m. and 100 mg in p.m. - He also uses albuterol nebulizers as needed. - nitroglycerin PERSONAL AND SOCIAL HISTORY: The patient has no history of smoking, alcohol or drug use. FAMILY HISTORY: Negative for end-stage renal disease. ALLERGIES 1. The patient has allergy to PENICILLIN. REVIEW OF SYSTEMS: He is short of breath but denies any fever or chills. He has not been feeling well generally. Ears, nose and throat are unremarkable. Cardiovascular system is significant for congestive heart failure and some peripheral edema. He is quite short of breath. Respiratory system is significant for a large left-sided pleural effusion. The patient denies any hemoptysis or pleuritic type of chest pain. Gastrointestinal (GI) system is negative for vomiting or diarrhea. He denies any abdominal pain. Genitourinary () system is negative for dysuria or hematuria. Endocrine system is significant for type 2 diabetes and secondary hyperparathyroidism. Hematological system is significant for anemia. He is not on any chronic anticoagulation. Neurological system is significant for peripheral neuropathy. He denies any seizures. Psychosocial system is negative for depression or anxiety. PHYSICAL EXAMINATION: The patient is awake and alert. Temperature is 98 degrees Fahrenheit, heart rate 60 per minute and respiratory rate 18 per minute. Blood pressure 138/60 mmHg and oxygen saturation 94%. Head is atraumatic. There is no oral thrush or ulcers. Ears, nose and throat are unremarkable. Neck veins are about 6-7 cm above sternal angle. Lungs with markedly diminished breath sounds at left lower half. Few basilar creps are on the right side also. Heart sounds are regular and without a pericardial friction rub. Abdomen soft and nontender. Bowel sounds are normal. Extremities have no cyanosis or clubbing. He has left lavrx-ubm-uqkg amputation. Right leg has at least 1+ edema. Neurologically he is awake, alert and at his baseline mentation. LABORATORY DATA: On admission WBC count was 6.1, hemoglobin 10.7 and hematocrit 32.6. Platelets 288. BUN was 81 and creatinine 3.59. Glucose 149, sodium 136 and potassium 4.1. Today's sodium is 145, potassium 3.6, CO2 27, BUN 84 and creatinine 3.35. Calcium is 8.4 and magnesium 2.5. Total protein 6.7 and albumin 3.0. Chest x-ray reviewed independently. Patient is noticed to have a large left-sided pleural effusion and mild interstitial congestion on the right side. PROBLEMS: 1. Acute on chronic congestive heart failure. The patient has decompensated volume status. He is being diuresed with IV Lasix. He is currently receiving Lasix 80 mg every 12 hours. He did not have any significant urine output. I am going to change his Lasix to 80 mg every 8 hours and would like to get a negative fluid balance of about at least 1 liter a day. It remains to be seen how he responds. 2. Acute renal failure superimposed on chronic kidney disease. Slight improvement in kidney function is noticed over last 24 hours. The patient will need aggressive diuresis and will and kidney function will need to be monitored on a daily basis. 3. Large left pleural effusion. I suggest to consider thoracentesis which will help to expedite his resolution of symptoms. The patient will certainly need diuresis, but left thoracentesis will be more efficient for resolving his dyspnea. 4. Hypokalemia. His potassium level is trending down with diuresis. I am going to put him on potassium chloride 20 mEq b.i.d. Thank you for involving me in the care of Mr. De Anda. He will be followed up by the nephrology team.
[2019-02-02 16:00] VITALS: BP 140/60
[2019-02-02 20:00] VITALS: BP 131/60
[2019-02-02] MEDS: POTASSIUM CHLORIDE 10 MEQ SR TABLET PO SCH (21:20)
[2019-02-02] MEDS: ASPIRIN 81 MG ENTERIC TAB PO SCH (21:20)
[2019-02-02] MEDS: SIMVASTATIN 20 MG TAB PO SCH (21:21)
[2019-02-02 23:59] VITALS: BP 127/59
[2019-02-03] VITALS (7 sets, daily range): BP systolic 110–168; BP diastolic 58–75
[2019-02-03] MEDS: IPRATROPIUM 0.5MG/ALBUTEROL 2.5MG INH SOL UD 3ML (DUONEB)(J7620) NEB SCH ×5 (04:00→20:04)
[2019-02-03 05:15] LABS: BASO % 0.4 % (0.0-1.0); EOS # 0.3 10^3/uL (0.0-0.50); EOS % 5.3 % (0.0-3.0); HEMATOCRIT 28.6 % (42.0-52.0); HEMOGLOBIN 9.3 g/dl (13.5-17.5); LYMPH # 0.9 10^3/uL (1.5-4.5); LYMPH % 17.1 % (24.0-44.0); MEAN CORPUSCULAR HEMOGLOBIN 37.5 pg (27.0-33.0); MEAN CORPUSCULAR HGB CONC 32.5 g/dl (32.0-36.5); MONO # 0.9 10^3/uL (0.0-0.8); MONO % 16.9 % (0.0-5.0); NEUTROPHILS # 3.1 10^3/uL (1.8-7.7); NEUTROPHILS % 58.4 % (36.0-66.0); PLATELET COUNT, AUTOMATED 260 10^3/uL (150-450); RED BLOOD COUNT 2.48 10^6/uL (4.30-6.10); WHITE BLOOD COUNT 5.3 10^3/uL (4.0-10.0)
[2019-02-03 05:16] LABS: MEAN CORPUSCULAR VOLUME 115.3 fl (80.0-96.0)
[2019-02-03 05:36] LABS: PLATELET ESTIMATE NORMAL (NORMAL)
[2019-02-03 05:38] LABS: OVALOCYTES 1+
[2019-02-03] MEDS: FUROSEMIDE 100 MG/10 ML VIAL (J1940) IV SCH ×3 (06:09→17:41)
[2019-02-03] MEDS ORDERED: ONDANSETRON 4MG/2ML VIAL (J2405) IV PRN ×2 (09:15)
[2019-02-03] MEDS: glipiZIDE XL 5 MG TABCR PO SCH (09:18)
[2019-02-03] MEDS: FOLIC ACID 1 MG TAB PO SCH (09:19)
[2019-02-03] MEDS: ALLOPURINOL 100 MG TAB PO SCH (09:19)
[2019-02-03] MEDS: guaiFENesin ER 600 MG TAB PO SCH ×2 (09:19→21:49)
[2019-02-03] MEDS: FERROUS SULFATE 325MG TAB PO SCH (09:19)
[2019-02-03] MEDS: POTASSIUM CHLORIDE 10 MEQ SR TABLET PO SCH ×2 (09:19→21:48)
[2019-02-03] MEDS: VITAMIN D 1,000 INTERNATIONAL UNITS TABLET PO SCH (09:19)
[2019-02-03] MEDS: GABAPENTIN 300 MG CAP PO SCH ×2 (09:20→21:48)
[2019-02-03] MEDS: oxyBUTYnin *DITROPAN XL* 5 MG TABCR PO SCH (09:20)
[2019-02-03] MEDS: ACETAMINOPHEN 500 MG TAB PO SCH ×2 (09:20→21:48)
[2019-02-03] MEDS: HumaLOG INSULIN (NovoLOG) PER UNIT SC SCH ×4 (09:23→21:00)
[2019-02-03] MEDS: ENOXAPARIN 30 MG/0.3 ML SYR (J1650) SC SCH (09:31)
[2019-02-03 09:40] LABS: ALBUMIN 3.2 GM/DL (3.2-5.2); BLOOD UREA NITROGEN 88 MG/DL (7-18); CALCIUM LEVEL 8.3 MG/DL (8.8-10.2); CARBON DIOXIDE LEVEL 27 MEQ/L (21-32); CHLORIDE LEVEL 98 MEQ/L (98-107); CREATININE FOR GFR 3.13 MG/DL (0.70-1.30); GLOMERULAR FILTRATION RATE 20.4 (>35); GLUCOSE, FASTING 113 MG/DL (70-100); PHOSPHORUS LEVEL 4.8 MG/DL (2.5-4.9); POTASSIUM SERUM 4.1 MEQ/L (3.5-5.1); SODIUM LEVEL 136 MEQ/L (136-145); TOTAL PROTEIN 6.2 GM/DL (6.4-8.2)
--- NOTE | 2019-02-03 10:57 | REPVR ---
EXAM: CT Chest Without Contrast EXAM DATE/TIME: 02/03/2019 7:22 AM CLINICAL HISTORY: 83 years old, male; Signs and symptoms; Cough; Additional info: L pleural effusion TECHNIQUE: Imaging protocol: Axial computed tomography images of the chest without intravenous contrast. Coronal and sagittal reformatted images were created and reviewed. 3D rendering: MIP reconstructed images were created and reviewed. Radiation optimization: All CT scans at this facility use at least one of these dose optimization techniques: automated exposure control; mA and/or kV adjustment per patient size (includes targeted exams where dose is matched to clinical indication); or iterative reconstruction. COMPARISON: CT Chest without contrast 08/05/2017 10:06 AM FINDINGS: Tubes, catheters and devices: Left chest pacemaker. Lungs: Dependent atelectasis at the right base. Patchy peripherally distributed bilateral in bud opacities suggestive of bronchiolitis. Pleural space: Coarse bilateral calcified pleural plaques. Moderate left pleural effusion with adjacent compressive atelectasis. Heart: Atherosclerotic disease of the coronary arteries. Aorta: Atherosclerotic disease of the thoracic aorta. Lymph nodes: Unremarkable. No enlarged lymph nodes. Bones/joints: Osteopenia. Severe degenerative changes in the bilateral shoulders. Severe multilevel degenerative disease of the thoracic spine. Soft tissues: Unremarkable. Stomach and bowel: Diverticulosis of the visualized colon. IMPRESSION: Moderate left pleural effusion with adjacent compressive atelectasis. Coarse bilateral calcified pleural plaques. Asbestos exposure is considered. Patchy peripherally distributed bilateral in bud opacities suggestive of bronchiolitis. Electronically signed by: Richard Golden On 02/03/2019 10:57:29 AM
--- NOTE | 2019-02-03 16:09 | IPNPDOC ---
Subjective Date Seen The patient was seen on 02/03/19. Subjective Chief Complaint/HPI breathing is a bit better. Constitutional: Denies: Chills ENT: Denies: Head Aches Pulmonary: Denies: Cough Cardiovascular: Denies: Chest Pain, Paroxysmal Noc. Dyspnea Gastrointestinal: Denies: Nausea, Vomiting Hematologic: Denies: Bruising Psych: Reports: Mood Normal Objective Physical Examination General Exam: Positive: Alert, Cooperative, No Acute Distress Eye Exam: Positive: PERRLA, Conjunctiva & lids normal Neck Exam: Positive: Supple Chest Exam: Positive: Wheezing, Diminished (dull especially left base); Negative: Clear to auscultation, Normal air movement Heart Exam: Positive: Rate Normal, Normal S1, Normal S2 Abdomen Exam: Positive: Normal bowel sounds, Soft Extremity Exam: Positive: Edema (trace BLE) Skin Exam: Positive: Nl turgor and temperature Neuro Exam: Positive: Normal Speech Psych Exam: Positive: Mental status NL, Mood NL, Oriented x 3 Assessment /Plan Problems (1) Pleural effusion Status: Chronic Problem Text: 02/03 symptoms somewhat improved. thoracentesis was not ordered for yesterday. can't be done today by IR (no staff). not acutely in crisis so doesn't justify urgent consult with Thoracic surgery or Pulmonary 02/02/19 CXR c large L pleural effusion-favor diagnostic/therapeutic tesis in AM, check CT prior not present 08/2018 (2) Acute exacerbation of CHF (congestive heart failure) Status: Acute Response to Treatment: Stable Problem Specific Plan: Monitor Clinically Problem Text: pt with known diastolic dysfunction, sent to ED for admission from Cardiology. He is on Lasix 80 mg IV BID, I & Os should be monitored as well as daily weights. monitor renal function. failed outpx torse 100/50 08/07 TTE CANNY with EF 60%, will repeat ECHO during admission. MINI diet. (3) Peicq-ps-komioyk kidney injury Status: Acute Problem Text: 02/03: improved to 3.13. this am. Scr 3.35 this morning, slight improvement since yesterday, Scr 06/08 2.65, 12/07 Scr 1.79, he has had a persistent decline in renal function in the last year. 08/08 renal US medical renal diseased without hydronephrosis, + renal cyst, rec f/u US in 9-12 m. Neph has been consulted. (4) Afib Status: Chronic Response to Treatment: Stable Problem Specific Plan: Monitor Clinically Problem Text: Pt follows with [facility] as an outpt. He is not anticoagulated d/t h/o GI bleed on anticoag, fall risk with BKA and PMR. no med for rate control (5) Anemia Status: Chronic Response to Treatment: Stable Problem Specific Plan: Monitor Clinically, Repeat Labs Problem Text: 2 ACD/CKD/Fe def +/- MDS/MGUS given MCV 110s on HD Fe/B12 check gonzalez (6) CAD (coronary artery disease) Status: Chronic Response to Treatment: Stable Problem Text: Asymptomatic, cont with ASA, statin, rate controlled with beta lopez. (7) S/P BKA (below knee amputation) unilateral Status: Chronic Response to Treatment: Stable Problem Text: PT ordered. (8) Pacemaker Status: Chronic Plan/VTE VTE Prophylaxis Ordered?: Yes VS, I&O, 24H, Fishbone Vital Signs/I&O Vital Signs Date Time Temp Pulse Resp B/P (MAP) Pulse Ox O2 Delivery O2 Flow Rate FiO2 02/03/19 12:00 97.6 71 20 150/65 (93) 97 02/01/19 20:04 Room Air I&O- Last 24 Hours up to 6 AM 02/03/19 06:00 Intake Total 900 ml Output Total 1475 ml Balance -575 ml Laboratory Data 24H LABS Laboratory Tests 2 02/02/19 17:42: Bedside Glucose (Misc Panel) 109 02/02/19 20:44: Bedside Glucose (Misc Panel) 129H 02/03/19 04:57: Immature Granulocyte % (Auto) 1.9, White Blood Count 5.3, Red Blood Count 2.48L, Hemoglobin 9.3L, Hematocrit 28.6L, Mean Corpuscular Volume 115.3H, Mean Corpuscular Hemoglobin 37.5H, Mean Corpuscular Hemoglobin Concent 32.5, Red Cell Distribution Width 14.8H, Platelet Count 260, Neutrophils (%) (Auto) 58.4, Lymphocytes (%) (Auto) 17.1L, Monocytes (%) (Auto) 16.9H, Eosinophils (%) (Auto) 5.3H, Basophils (%) (Auto) 0.4, Neutrophils # (Auto) 3.1, Lymphocytes # (Auto) 0.9L, Monocytes # (Auto) 0.9H, Eosinophils # (Auto) 0.3, Basophils # (Auto) 0.0, Reticulocyte # (auto) 71.2, Nucleated Red Blood Cells % (auto) 0.0, Platelet Estimate NORMAL, Basophilic Stippling 1+, Macrocytosis 2+, Ovalocytes 1+, Percent Reticulocyte Count 2.9H, Reticulocyte Hemoglobin Equivalent 40.0H, Blood Urea Nitrogen 88H, Creatinine 3.13H, Sodium Level 136#, Potassium Level 4.1, Chloride Level 98, Carbon Dioxide Level 27, Anion Gap 11, Glomerular Filtration Rate 20.4L, Calcium Level 8.3L, Phosphorus Level 4.8, Total Protein (PEP) 6.2L, Albumin 3.2 02/03/19 08:02: Bedside Glucose (Misc Panel) 141H 02/03/19 11:55: Bedside Glucose (Misc Panel) 147H CBC/BMP Laboratory Tests 02/03/19 04:57 Red Blood Count 2.48 L, Mean Corpuscular Volume 115.3 H, Mean Corpuscular Hemoglobin 37.5 H, Mean Corpuscular Hemoglobin Concent 32.5, Red Cell Distribution Width 14.8 H, Neutrophils (%) (Auto) 58.4, Lymphocytes (%) (Auto) 17.1 L, Monocytes (%) (Auto) 16.9 H, Eosinophils (%) (Auto) 5.3 H, Basophils (%) (Auto) 0.4, Neutrophils # (Auto) 3.1, Lymphocytes # (Auto) 0.9 L, Monocytes # (Auto) 0.9 H, Eosinophils # (Auto) 0.3, Basophils # (Auto) 0.0, Anion Gap 11 Hans Mustafa MD Feb 03, 2019 16:09
[2019-02-03] MEDS: ASPIRIN 81 MG ENTERIC TAB PO SCH (21:49)
[2019-02-03] MEDS: SIMVASTATIN 20 MG TAB PO SCH (21:49)
[2019-02-03] MEDS ORDERED: CHLOROTHIAZIDE 500 MG VIAL (J1205) IV ONE (23:30)
[2019-02-04] VITALS (8 sets, daily range): BP systolic 120–168; BP diastolic 54–69
[2019-02-04] MEDS: FUROSEMIDE 100 MG/10 ML VIAL (J1940) IV SCH ×3 (03:19→22:01)
[2019-02-04] MEDS: IPRATROPIUM 0.5MG/ALBUTEROL 2.5MG INH SOL UD 3ML (DUONEB)(J7620) NEB SCH ×7 (04:00→23:23)
[2019-02-04] MEDS: FOLIC ACID 1 MG TAB PO SCH (08:34)
[2019-02-04] MEDS: FERROUS SULFATE 325MG TAB PO SCH (08:35)
[2019-02-04] MEDS: ALLOPURINOL 100 MG TAB PO SCH (08:35)
[2019-02-04] MEDS: ACETAMINOPHEN 500 MG TAB PO SCH ×2 (08:35→22:03)
[2019-02-04] MEDS: GABAPENTIN 300 MG CAP PO SCH ×2 (08:41→22:03)
[2019-02-04] MEDS: glipiZIDE XL 5 MG TABCR PO SCH (08:42)
[2019-02-04] MEDS: POTASSIUM CHLORIDE 10 MEQ SR TABLET PO SCH ×2 (08:42→22:03)
[2019-02-04] MEDS: oxyBUTYnin *DITROPAN XL* 5 MG TABCR PO SCH (08:42)
[2019-02-04] MEDS: guaiFENesin ER 600 MG TAB PO SCH ×2 (08:42→22:03)
[2019-02-04] MEDS: VITAMIN D 1,000 INTERNATIONAL UNITS TABLET PO SCH (08:42)
[2019-02-04] MEDS: ENOXAPARIN 30 MG/0.3 ML SYR (J1650) SC SCH (08:50)
[2019-02-04] MEDS: HumaLOG INSULIN (NovoLOG) PER UNIT SC SCH ×4 (08:51→21:00)
[2019-02-04 09:10] LABS: CALCIUM LEVEL 9.2 MG/DL (8.8-10.2); CREATININE FOR GFR 3.16 MG/DL (0.70-1.30); GLOMERULAR FILTRATION RATE 20.2 (>35); POTASSIUM SERUM 3.8 MEQ/L (3.5-5.1)
[2019-02-04] MEDS ORDERED: SLF 3 ML SYR IV PRN (10:30)
--- NOTE | 2019-02-04 13:34 | IPNPDOC ---
Subjective Date Seen The patient was seen on 02/04/19. Subjective Chief Complaint/HPI sleeping, no pain, breathing a little better but little change Constitutional: Denies: Chills ENT: Denies: Head Aches Skin: Denies: Rash Pulmonary: Denies: Cough, Pleuritic Chest Pain Cardiovascular: Denies: Chest Pain, Palpitations Gastrointestinal: Denies: Nausea, Vomiting Genitourinary: Denies: Dysuria Hematologic: Denies: Bruising Objective Physical Examination General Exam: Positive: Alert, Cooperative, No Acute Distress Eye Exam: Positive: PERRLA, Conjunctiva & lids normal Neck Exam: Positive: Supple Chest Exam: Positive: Wheezing (heard best or larynx (consistent with auto- PEEP)), Diminished (dull especially left base); Negative: Clear to auscultation, Normal air movement Heart Exam: Positive: Rate Normal, Normal S1, Normal S2 Abdomen Exam: Positive: Normal bowel sounds, Soft Extremity Exam: Positive: Edema (trace BLE) Skin Exam: Positive: Nl turgor and temperature Neuro Exam: Positive: Normal Speech Psych Exam: Positive: Mental status NL, Mood NL, Oriented x 3 Assessment /Plan Problems (1) Pleural effusion Status: Chronic Problem Text: 02/04 thoracentesis ordered for tomorrow. order placed to hold lovenox in am 02/03 symptoms somewhat improved. thoracentesis was not ordered for yesterday. can't be done today by IR (no staff). not acutely in crisis so doesn't justify urgent consult with Thoracic surgery or Pulmonary 02/02/19 CXR c large L pleural effusion-favor diagnostic/therapeutic tesis in AM, check CT prior not present 08/2018 (2) Acute exacerbation of CHF (congestive heart failure) Status: Acute Response to Treatment: Stable Problem Specific Plan: Monitor Clinically Problem Text: 02/04 modest diuresis continues but Creat is starting to edge upward pt with known diastolic dysfunction, sent to ED for admission from Cardiology. He is on Lasix 80 mg IV BID, I & Os should be monitored as well as daily weights. monitor renal function. failed outpx torse 100/50 08/07 TTE CANNY with EF 60%, will repeat ECHO during admission. MINI diet. (3) Qxcyc-ax-egifbdi kidney injury Status: Acute Problem Text: 02/04 slightly higher creat today, Nephrology aware. 02/03: improved to 3.13. this am. Scr 3.35 this morning, slight improvement since yesterday, Scr 06/08 2.65, 12/07 Scr 1.79, he has had a persistent decline in renal function in the last year. 08/08 renal US medical renal diseased without hydronephrosis, + renal cyst, rec f/u US in 9-12 m. Neph has been consulted. (4) Afib Status: Chronic Response to Treatment: Stable Problem Specific Plan: Monitor Clinically Problem Text: Pt follows with [facility] as an outpt. He is not anticoagulated d/t h/o GI bleed on anticoag, fall risk with BKA and PMR. no med for rate control (5) Anemia Status: Chronic Response to Treatment: Stable Problem Specific Plan: Monitor Clinically, Repeat Labs Problem Text: 2 ACD/CKD/Fe def +/- MDS/MGUS given MCV 110s on HD Fe/B12 check gonzalez (6) CAD (coronary artery disease) Status: Chronic Response to Treatment: Stable Problem Text: Asymptomatic, cont with ASA, statin, rate controlled with beta lopez. (7) S/P BKA (below knee amputation) unilateral Status: Chronic Response to Treatment: Stable Problem Text: PT ordered. (8) Pacemaker Status: Chronic Plan/VTE VTE Prophylaxis Ordered?: Yes Plan Advance Directives: DNR VS, I&O, 24H, Michael Vital Signs/I&O Vital Signs Date Time Temp Pulse Resp B/P (MAP) Pulse Ox O2 Delivery O2 Flow Rate FiO2 02/04/19 08:00 96.8 67 20 130/60 (83) 95 02/01/19 20:04 Room Air I&O- Last 24 Hours up to 6 AM 02/04/19 06:00 Intake Total 420 ml Output Total 1225 ml Balance -805 ml Laboratory Data 24H LABS Laboratory Tests 2 02/03/19 17:09: Bedside Glucose (Misc Panel) 112H 02/03/19 21:44: Bedside Glucose (Misc Panel) 140H 02/04/19 08:31: Anion Gap 9, Glomerular Filtration Rate 20.2L, Blood Urea Nitrogen 90H, Creatinine 3.16H, Sodium Level 136, Potassium Level 3.8, Chloride Level 98, Carbon Dioxide Level 29, Calcium Level 9.2 02/04/19 08:48: Bedside Glucose (Misc Panel) 122H 02/04/19 12:13: Bedside Glucose (Misc Panel) 116H CBC/BMP Laboratory Tests 02/04/19 08:31 Calcium Level 9.2 Hans Mustafa MD Feb 04, 2019 13:34
[2019-02-04] MEDS: SLF 3 ML SYR IV SCH ×2 (14:12→22:01)
[2019-02-04] MEDS: SIMVASTATIN 20 MG TAB PO SCH (22:03)
[2019-02-04] MEDS: ASPIRIN 81 MG ENTERIC TAB PO SCH (22:03)
[2019-02-05] VITALS (9 sets, daily range): BP systolic 126–158; BP diastolic 52–82
[2019-02-05] MEDS: IPRATROPIUM 0.5MG/ALBUTEROL 2.5MG INH SOL UD 3ML (DUONEB)(J7620) NEB SCH ×6 (03:28→23:43)
[2019-02-05 04:29] LABS: HEMATOCRIT 29.7 % (42.0-52.0); HEMOGLOBIN 9.6 g/dl (13.5-17.5); MEAN CORPUSCULAR HEMOGLOBIN 38.2 pg (27.0-33.0); MEAN CORPUSCULAR HGB CONC 32.3 g/dl (32.0-36.5); PLATELET COUNT, AUTOMATED 251 10^3/uL (150-450); RED BLOOD COUNT 2.51 10^6/uL (4.30-6.10); WHITE BLOOD COUNT 5.6 10^3/uL (4.0-10.0)
[2019-02-05 04:30] LABS: MEAN CORPUSCULAR VOLUME 118.3 fl (80.0-96.0)
[2019-02-05 04:42] LABS: CALCIUM LEVEL 9.3 MG/DL (8.8-10.2); CREATININE FOR GFR 3.02 MG/DL (0.70-1.30); GLOMERULAR FILTRATION RATE 21.3 (>35); POTASSIUM SERUM 4.2 MEQ/L (3.5-5.1)
[2019-02-05] MEDS: SLF 3 ML SYR IV SCH ×3 (06:00→21:18)
--- NOTE | 2019-02-05 06:53 | IPN ---
DATE OF SERVICE: 02/03/2019 SUBJECTIVE: The patient was seen and examined at the bedside today morning. His was also present at the bedside. He reports that he is still feeling short of breath. He reports very mild improvement in his symptoms since the time he was admitted to the hospital. He is on IV diuretics, but his urine output is still close to about 1 liter a day. Renal function is stable and slightly improving. Creatinine is down to 3.1 today. The patient has not had left sided thoracentesis done today. OBJECTIVE: Vital Signs: Temperature is 97 degrees Fahrenheit, blood pressure 139/64, pulse is 53, respiratory rate of 20, saturating 97% on room air. Intake and Output: Urine output recorded as 1.2 liters yesterday and 1.2 liters so far today since overnight. PHYSICAL EXAMINATION: General: The patient is awake, alert, oriented times three, laying in bed, in moderate respiratory distress. Head and Neck Exam: Extraocular muscles intact. Pupils are equally round and reactive to light. Mucous membranes are moist. Neck is supple. He has jugular venous distention (JVD). Cardiovascular: S1 and S2, 1+ edema of the right lower extremity. Respiratory: Decreased breath sounds at the bases. Decreased breath sounds at the left base up to the mid lung zone, decreased vocal resonance at the left base up to the left lung zone. Abdomen is soft. Positive bowel sounds. Mild amount of abdominal wall edema. Musculoskeletal: He has a left below-knee amputation. 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 Power is 5/5 in all extremities. LAB REVIEW: CBC showed a WBC of 5.3, hemoglobin 9.3 and platelets are 260. BMP showed sodium 136, potassium 4.1, chloride 98, bicarb 27, BUN 88, creatinine is 3.1 and it was 3.5 yesterday. IMAGING: The patient got a CT of the chest done today which showed moderate left pleural effusion with adjacent compressive atelectasis, coarse bilateral calcified pleural plaques, asbestos exposure is considered. CURRENT INPATIENT MEDICATIONS: The patient's medications were all reviewed by me. He is currently on Lasix 80 mg IV every 8 hours. I have ordered a dose of Diuril 500 mg IV to be given one dose today. No other change in the medications today as compared with yesterday. ASSESSMENT/PLAN: 1. Acute kidney injury superimposed on chronic kidney disease stage 4. Patient's renal function shows slight improvement, creatinine is down to 3.1. The patient's volume status is decompensated. Okay to continue current dose of diuretics. I have discussed the possibility of hemodialysis with the patient. The patient reports that he is considering to make himself comfort measures. He does not want any machines or resuscitation. He wants to try the medications first. If medications do not work then he would consider doing renal replacement therapy over the next 24 or 48 hours, but he still wants some time to think about it. Continue the fluid optimization at this point. 2. Acute on chronic decompensated diastolic congestive heart failure. The patient is currently getting Lasix 80 mg IV every 8 hours. I have ordered Diuril 500 mg IV times one dose for sequential nephron blockage. Continue current dose of potassium as well. 3. Large left-sided pleural effusion. The patient would not be able to get thoracentesis done today. I have ordered for the thoracentesis to be done on Tuesday under ultrasound guidance.
--- NOTE | 2019-02-05 09:20 | IPNPDOC ---
Subjective Date Seen The patient was seen on 02/05/19. Subjective Chief Complaint/HPI pleural effusion. Events since last encounter Planned thoracentesis today. Denies c/o. Constitutional: Denies: Chills, Fever, Night Sweats Pulmonary: Reports: Dyspnea Cardiovascular: Denies: Chest Pain, Palpitations, Orthopnea, Paroxysmal Noc. Dyspnea, Edema, Lt Headedness, Other Symptoms Genitourinary: Denies: Dysuria, Frequency, Incontinence, Retention Psych: Reports: Mood Normal; Denies: Depression, Memory Issues Objective Physical Examination General Exam: Positive: Alert, Cooperative, No Acute Distress Eye Exam: Positive: PERRLA, Conjunctiva & lids normal Neck Exam: Positive: Supple Chest Exam: Positive: Wheezing (heard best or larynx (consistent with auto- PEEP)), Diminished (dull especially left base); Negative: Clear to auscultation, Normal air movement Heart Exam: Positive: Rate Normal, Normal S1, Normal S2 Abdomen Exam: Positive: Normal bowel sounds, Soft Extremity Exam: Positive: Edema (trace RLE), Other (Left AKA) Skin Exam: Positive: Nl turgor and temperature Neuro Exam: Positive: Normal Speech Psych Exam: Positive: Mental status NL, Mood NL, Oriented x 3 Assessment /Plan Problems (1) Pleural effusion Status: Chronic Problem Text: 02/05/19: thoracentesis today 02/04 thoracentesis ordered for tomorrow. order placed to hold lovenox in am 02/03 symptoms somewhat improved. thoracentesis was not ordered for yesterday. can't be done today by IR (no staff). not acutely in crisis so doesn't justify urgent consult with Thoracic surgery or Pulmonary 02/02/19 CXR c large L pleural effusion-favor diagnostic/therapeutic tesis in AM, check CT prior not present 08/2018 (2) Acute exacerbation of CHF (congestive heart failure) Status: Acute Response to Treatment: Stable Problem Specific Plan: Monitor Clinically Problem Text: 02/05/19: appears stable today. 02/04 modest diuresis continues but Creat is starting to edge upward pt with known diastolic dysfunction, sent to ED for admission from Cardiology. He is on Lasix 80 mg IV BID, I & Os should be monitored as well as daily weights. monitor renal function. failed outpx torse 100/50 08/07 TTE ABBIE with EF 60%, will repeat ECHO during admission. MINI diet. (3) Mtrbu-kh-bvcovqv kidney injury Status: Acute Problem Text: 02/04 slightly higher creat today, Nephrology aware. 02/03: improved to 3.13. this am. Scr 3.35 this morning, slight improvement since yesterday, Scr 06/08 2.65, 12/07 Scr 1.79, he has had a persistent decline in renal function in the last year. 08/08 renal US medical renal diseased without hydronephrosis, + renal cyst, rec f/u US in 9-12 m. Neph has been consulted. (4) Afib Status: Chronic Response to Treatment: Stable Problem Specific Plan: Monitor Clinically Problem Text: Pt follows with [facility] as an outpt. He is not anticoagulated d/t h/o GI bleed on anticoag, fall risk with BKA and PMR. no med for rate control (5) Anemia Status: Chronic Response to Treatment: Stable Problem Specific Plan: Monitor Clinically, Repeat Labs Problem Text: 2 ACD/CKD/Fe def +/- MDS/MGUS given MCV 110s on HD Fe/B12 check gonzalez (6) CAD (coronary artery disease) Status: Chronic Response to Treatment: Stable Problem Text: Asymptomatic, cont with ASA, statin, rate controlled with beta lopez. (7) S/P BKA (below knee amputation) unilateral Status: Chronic Response to Treatment: Stable Problem Text: PT ordered. (8) Pacemaker Status: Chronic Plan/VTE VTE Prophylaxis Ordered?: Yes Plan Advance Directives: DNR VS, I&O, 24H, Fishbone Vital Signs/I&O Vital Signs Date Time Temp Pulse Resp B/P (MAP) Pulse Ox O2 Delivery O2 Flow Rate FiO2 02/05/19 08:00 98.1 72 18 136/82 (100) 96 02/01/19 20:04 Room Air I&O- Last 24 Hours up to 6 AM 02/05/19 06:00 Intake Total 360 ml Output Total 950 ml Balance -590 ml Laboratory Data 24H LABS Laboratory Tests 2 02/04/19 12:13: Bedside Glucose (Misc Panel) 116H 02/04/19 17:06: Bedside Glucose (Misc Panel) 173H 02/04/19 20:22: Bedside Glucose (Misc Panel) 142H 02/05/19 04:00: Nucleated Red Blood Cells % (auto) 0.0, Anion Gap 8, Glomerular Filtration Rate 21.3L, Blood Urea Nitrogen 92H, Creatinine 3.02H, Sodium Level 135L, Potassium Level 4.2, Chloride Level 98, Carbon Dioxide Level 29, Calcium Level 9.3 CBC/BMP Laboratory Tests 02/05/19 04:00 Red Blood Count 2.51 L, Mean Corpuscular Volume 118.3 H, Mean Corpuscular Hemoglobin 38.2 H, Mean Corpuscular Hemoglobin Concent 32.3, Red Cell Distribution Width 14.9 H, Calcium Level 9.3 Loretta Jacome [facility] Feb 05, 2019 09:20
[2019-02-05] MEDS: glipiZIDE XL 5 MG TABCR PO SCH (09:51)
[2019-02-05] MEDS: VITAMIN D 1,000 INTERNATIONAL UNITS TABLET PO SCH (09:52)
[2019-02-05] MEDS: ACETAMINOPHEN 500 MG TAB PO SCH ×2 (09:52→21:18)
[2019-02-05] MEDS: ALLOPURINOL 100 MG TAB PO SCH (09:53)
[2019-02-05] MEDS: FERROUS SULFATE 325MG TAB PO SCH (09:53)
[2019-02-05] MEDS: oxyBUTYnin *DITROPAN XL* 5 MG TABCR PO SCH (09:53)
[2019-02-05] MEDS: POTASSIUM CHLORIDE 10 MEQ SR TABLET PO SCH ×2 (09:53→21:17)
[2019-02-05] MEDS: guaiFENesin ER 600 MG TAB PO SCH ×2 (09:53→21:18)
[2019-02-05] MEDS: FOLIC ACID 1 MG TAB PO SCH (09:53)
[2019-02-05] MEDS: GABAPENTIN 300 MG CAP PO SCH ×2 (09:54→21:18)
[2019-02-05] MEDS: FUROSEMIDE 100 MG/10 ML VIAL (J1940) IV SCH ×2 (09:55→21:16)
[2019-02-05] MEDS: HumaLOG INSULIN (NovoLOG) PER UNIT SC SCH ×4 (09:56→21:00)
[2019-02-05 10:03] LABS: VITAMIN B12 LEVEL 589 PG/ML (247-911)
--- NOTE | 2019-02-05 11:14 | IPN ---
DATE OF SERVICE: 02/04/2019 SUBJECTIVE: Patient was seen and examined at the bedside today morning. The patient reports no significant improvement in the symptoms even though he is being diuresed with IV Lasix he reports persistent shortness of breath. His and other family members were also present at the bedside. Renal function almost continues to be same with a GFR of around 20 with IV diuretics, BUN level is high at 90. OBJECTIVE: VITAL SIGNS: Temperature is 97.6 degrees Fahrenheit, blood pressure 124/54, pulse is 73, respiratory rate of 20, saturating 97%. INTAKE AND OUTPUT: Urine output recorded as 1.2 liters yesterday, 1 liter so far today since overnight. Weight on the bed scale is 109.8 kg. PHYSICAL EXAMINATION: GENERAL: Patient is awake, alert, oriented times three, laying in bed, mild respiratory distress. HEAD AND NECK EXAM: Extraocular muscles are intact. Pupils equally round and reactive to light. Mucous membranes are moist. Neck is supple. There is mildly evaluation of JVD. CARDIOVASCULAR: S1, S2 regular rate. 1+ edema of the right lower extremity. RESPIRATORY: Decreased breath sounds at the bases. Decreased vocal resonance from left base to left mid lung zone. ABDOMEN: Soft, obese, positive bowel sounds. MUSCULOSKELETAL: Left below-knee amputation. The right leg has 1+ edema. 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 Power is 5/5 in bilateral upper extremities. However, he does have resting tremors of the bilateral upper extremities. LABORATORY REVIEW: CBC showed WBC of 5.3 and hemoglobin 9.3 and that was from yesterday. Today morning, BMP showed sodium 136, potassium 3.8, chloride 98, bicarb 29, BUN 90, creatinine is 3.16, calcium is 9.2. CURRENT INPATIENT MEDICATIONS: The patient's medications were all reviewed by me. His Lasix dose was decreased to 80 mg IV q. 12 hourly. No other change in the medications today as compared with yesterday. ASSESSMENT/PLAN: 1. Acute kidney injury superimposed on chronic kidney disease stage IV. The patient continues to be on high-dose diuretics. I have decreased the Lasix dose to 80 mg IV twice a day. Dialysis was already discussed with the patient. If he does not have any improvement in his symptoms after left pleural tap then dialysis would be considered. 2. Large left pleural effusion. The patient is going to have ultrasound guided left-sided pleurocentesis tomorrow morning. Lovenox is on hold. 3. Acute decompensated congestive heart failure. The patient is on diuretics. He was already given a dose of Diuril yesterday as well. Lasix dose is being decreased because his BUN level is rising now and left-sided pleural effusion is not expected to improve with diuretics only, he is going for tap tomorrow. 4. Chronic gout secondary to chronic kidney disease. Continue current dose of allopurinol 200 mg p.o. daily.
[2019-02-05 11:45] LABS: MAGNESIUM LEVEL 2.6 MG/DL (1.8-2.4)
[2019-02-05] MEDS: DOCUSATE SODIUM 100 MG CAP PO SCH ×2 (12:45→21:18)
[2019-02-05] MEDS: MIRALAX *UNIT DOSE* 17GM PACKET PO PRN (13:08)
[2019-02-05] MEDS ORDERED: CHLOROTHIAZIDE 500 MG VIAL (J1205) IV ONE (14:00)
[2019-02-05 14:56] LABS: APPEARANCE, BODY FLUID TURBID (CLEAR); PLEURAL FL COLOR RED (COLORLESS); SOURCE, BODY FLUID PLEURAL
[2019-02-05 15:28] LABS: LDH, BODY FLUID 468 U/L (NOT ESTABLISHED); SOURCE, BODY FLUID GLUCOSE PLEURAL; SOURCE, BODY FLUID LDH PLEURAL; SOURCE, BODY FLUID TOT PROTEIN PLEURAL; TOTAL PROTEIN, BODY FLUID 4.4 G/DL (NOT ESTABLISHED)
--- NOTE | 2019-02-05 16:58 | REP ---
CHEST, TWO VIEWS: Two views of the chest are performed status-post left thoracentesis. There is no pneumothorax. There is a decreased amount of left pleural fluid. Residual opacity is seen in the left lung base. Calcified pleural plaques are again seen bilaterally. Left single lead pacemaker is again noted. IMPRESSION: No pneumothorax status-post left thoracentesis. Electronically Signed by Eliecer Velazquez MD 02/06/2019 04:23 P
--- NOTE | 2019-02-05 17:03 | REP ---
ULTRASOUND GUIDED LEFT THORACENTESIS The procedure was performed under the direct supervision of Dr. Velazquez. The risks and benefits of the procedure were explained to the patient and informed consent was obtained. The left pleural effusion was localized using ultrasound guidance. The skin was prepped and draped in a sterile fashion. 1% lidocaine was used as a local anesthetic. An 8-Swedish multi side-hole catheter was inserted using trocar technique. 1250 ml of low viscosity red colored fluid was withdrawn with a sample sent to the lab for analysis. The patient tolerated the procedure well and there were no immediate complications. After the appropriate amount of monitored convalescence the patient was discharged from the department. Reviewed by MARVIN Tabor 02/05/2019 04:42 P Electronically Signed by Eliecer Velazquez MD 02/05/2019 04:54 P
[2019-02-05] MEDS: SIMVASTATIN 20 MG TAB PO SCH (21:17)
[2019-02-05] MEDS: ASPIRIN 81 MG ENTERIC TAB PO SCH (21:18)
--- NOTE | 2019-02-06 00:02 | IPN ---
DATE: 02/05/2019 SUBJECTIVE: The patient was seen and examined at the bedside today, morning. He is afebrile. He is hemodynamically stable. He continues to complain of mild shortness of breath and intermittent cough. The patient is going for a left-sided pleural tap to be done today under ultrasound guidance. He continues to be on IV diuretics. Renal function is stable with a creatinine fluctuating close to 3 for the last 3-4 days. He denies any other active complaints. OBJECTIVE: VITAL SIGNS: Temperature is 98.1 degrees Fahrenheit, blood pressure 136/82, pulse is 72, respiratory rate of 18, saturating 96% on room air. INTAKE/OUTPUT: Urine output recorded as 1 liter yesterday, 500 mL so far today since overnight. Weight on the bed scale is 110.2 kg. PHYSICAL EXAMINATION: GENERAL: The patient is awake, alert, oriented times three, laying in bed having intermittent episodes of coughing. HEAD AND NECK EXAM: Extraocular muscles intact. Pupils equally round and reactive to light. Mucous membranes are moist. Neck is supple. Mild elevation of jugular venous distention (JVD). CARDIOVASCULAR: S1, S2, regular rate. Trace edema of the right lower extremity. RESPIRATORY: Decreased breath sounds at the bases. Decreased vocal resonance from the left base up to the left mid lung zone. ABDOMEN: Soft, obese, positive bowel sounds, nontender. MUSCULOSKELETAL: He has a left below-knee amputation and right lower extremity has 1+ edema. CENTRAL NERVOUS SYSTEM (BUSINESS PLANNER): No focal deficit. Power is 5/5 in bilateral upper extremities. LAB REVIEW: CBC showed a WBC of 5.6, hemoglobin 9.6, platelets are 251. BMP showed sodium 135, potassium 4.2, chloride 98, bicarbonate 29, BUN 92, creatinine is 3, calcium 9.3, magnesium is 2.6. CURRENT INPATIENT MEDICATIONS: The patient's medications were all reviewed by me. He continues to be on Lasix 80 mg; frequency was decreased to every 12 hours yesterday. No other change in the medication today as compared with yesterday. ASSESSMENT AND PLAN: 1. Acute kidney injury superimposed on chronic kidney disease stage IV. Patient continues to be on high-dose diuretics. His glomerular filtration rate (GFR) is fluctuating close to 20. He continues to be on IV diuretics. 2. Large left-sided pleural effusion. Patient is going to have an ultrasound-guided pleural tap done today. 3. Acute decompensated congestive heart failure with diastolic dysfunction. Patient is on Lasix 80 mg IV every 12 hours. I will give him a dose Diuril today as well. 4. Hyponatremia. The patient has hypervolemic hyponatremia. Sodium is expected to improve with further diuresis. 5. Disposition: Given patient's high BUN levels, GFR of hardly 18 to 20, large left-sided pleural effusion, if patient's symptomatically does not get better, then I would offer hemodialysis to the patient.
[2019-02-06 04:00] VITALS: BP 138/60
[2019-02-06] MEDS: IPRATROPIUM 0.5MG/ALBUTEROL 2.5MG INH SOL UD 3ML (DUONEB)(J7620) NEB SCH ×6 (04:00→23:59)
[2019-02-06] MEDS: SLF 3 ML SYR IV SCH ×3 (05:15→20:04)
[2019-02-06 05:52] LABS: HEMOGLOBIN 9.8 g/dl (13.5-17.5); MEAN CORPUSCULAR HEMOGLOBIN 37.3 pg (27.0-33.0); MEAN CORPUSCULAR HGB CONC 32.7 g/dl (32.0-36.5); PLATELET COUNT, AUTOMATED 276 10^3/uL (150-450); RED BLOOD COUNT 2.63 10^6/uL (4.30-6.10); WHITE BLOOD COUNT 5.9 10^3/uL (4.0-10.0)
[2019-02-06 05:53] LABS: MEAN CORPUSCULAR VOLUME 114.1 fl (80.0-96.0)
[2019-02-06 06:12] LABS: CALCIUM LEVEL 9.2 MG/DL (8.8-10.2); CREATININE FOR GFR 2.75 MG/DL (0.70-1.30); GLOMERULAR FILTRATION RATE 23.7 (>35); POTASSIUM SERUM 4.2 MEQ/L (3.5-5.1)
[2019-02-06] MEDS: HumaLOG INSULIN (NovoLOG) PER UNIT SC SCH ×4 (07:30→20:00)
[2019-02-06 08:00] VITALS: BP 145/65
[2019-02-06] MEDS: VITAMIN D 1,000 INTERNATIONAL UNITS TABLET PO SCH (10:08)
[2019-02-06] MEDS: ALLOPURINOL 100 MG TAB PO SCH (10:09)
[2019-02-06] MEDS: glipiZIDE XL 5 MG TABCR PO SCH (10:09)
[2019-02-06] MEDS: POTASSIUM CHLORIDE 10 MEQ SR TABLET PO SCH ×2 (10:10→20:03)
[2019-02-06] MEDS: ACETAMINOPHEN 500 MG TAB PO SCH ×2 (10:11→23:30)
[2019-02-06] MEDS: guaiFENesin ER 600 MG TAB PO SCH ×2 (10:11→20:03)
[2019-02-06] MEDS: FOLIC ACID 1 MG TAB PO SCH (10:12)
[2019-02-06] MEDS: oxyBUTYnin *DITROPAN XL* 5 MG TABCR PO SCH (10:12)
[2019-02-06] MEDS: GABAPENTIN 300 MG CAP PO SCH ×2 (10:12→20:03)
[2019-02-06] MEDS: FUROSEMIDE 100 MG/10 ML VIAL (J1940) IV SCH (10:13)
[2019-02-06] MEDS: DOCUSATE SODIUM 100 MG CAP PO SCH ×2 (10:13→20:03)
[2019-02-06] MEDS: FERROUS SULFATE 325MG TAB PO SCH (10:13)
[2019-02-06] MEDS: ENOXAPARIN 30 MG/0.3 ML SYR (J1650) SC SCH (10:14)
--- NOTE | 2019-02-06 10:43 | IPNPDOC ---
Subjective Date Seen The patient was seen on 02/06/19. Subjective Chief Complaint/HPI ESRD/CHF Events since last encounter S/p thoracentesis with 1250ml output. Patient denies improvement in symptoms. c/o constipation. no improvement with prn meds yesterday. Noting severe weakness. 3 assist to get OOB. Constitutional: Reports: Weakness; Denies: Chills, Fever, Night Sweats Pulmonary: Reports: Dyspnea; Denies: Cough Cardiovascular: Denies: Chest Pain, Palpitations, Edema Gastrointestinal: Reports: Constipation; Denies: Nausea, Vomiting, Abdominal Pain, Diarrhea Psych: Reports: Mood Normal; Denies: Depression, Memory Issues Objective Physical Examination General Exam: Positive: Alert, Cooperative, No Acute Distress Eye Exam: Positive: PERRLA, Conjunctiva & lids normal Neck Exam: Positive: Supple Chest Exam: Positive: Wheezing (heard best or larynx (consistent with auto-PEE P)), Diminished (dull especially left base); Negative: Clear to auscultation, Normal air movement Heart Exam: Positive: Rate Normal, Normal S1, Normal S2 Abdomen Exam: Positive: Normal bowel sounds, Soft Extremity Exam: Positive: Edema (trace RLE), Other (Left AKA) Skin Exam: Positive: Nl turgor and temperature Neuro Exam: Positive: Normal Speech Psych Exam: Positive: Mental status NL, Mood NL, Oriented x 3 Assessment /Plan Problems (1) Pleural effusion Status: Chronic Problem Text: 02/06/19: Minimal improvement post-thoracentesis. Will monitor. PT/OT eval for weakness. 02/05/19: thoracentesis today 02/04 thoracentesis ordered for tomorrow. order placed to hold lovenox in am 02/03 symptoms somewhat improved. thoracentesis was not ordered for yesterday. can't be done today by IR (no staff). not acutely in crisis so doesn't justify urgent consult with Thoracic surgery or Pulmonary 02/02/19 CXR c large L pleural effusion-favor diagnostic/therapeutic tesis in AM, check CT prior not present 08/2018 (2) Right upper quadrant abdominal pain Problem Text: has rt flank and RUQ pain on exam. CT a/p ordered (3) Acute exacerbation of CHF (congestive heart failure) Status: Acute Response to Treatment: Stable Problem Specific Plan: Monitor Clinically Problem Text: 02/05/19: appears stable today. 02/04 modest diuresis continues but Creat is starting to edge upward pt with known diastolic dysfunction, sent to ED for admission from Cardiology. He is on Lasix 80 mg IV BID, I & Os should be monitored as well as daily weights. monitor renal function. failed outpx torse 100/50 08/07 TTE [facility] with EF 60%, will repeat ECHO during admission. MINI diet. (4) Qqxnr-[id number] kidney injury Status: Acute Problem Text: 02/06/19: Cr improved at 2.5. Nephro following and managing. 02/04 slightly higher creat today, Nephrology aware. 02/03: improved to 3.13. this am. Scr 3.35 this morning, slight improvement since yesterday, Scr 06/08 2.65, 12/07 Scr 1.79, he has had a persistent decline in renal function in the last year. 08/08 renal US medical renal diseased without hydronephrosis, + renal cyst, rec f/u US in 9-12 m. Neph has been consulted. (5) Afib Status: Chronic Response to Treatment: Stable Problem Specific Plan: Monitor Clinically Problem Text: Pt follows with [facility] as an outpt. He is not anticoagulated d/t h/o GI bleed on anticoag, fall risk with BKA and PMR. no med for rate control (6) Anemia Status: Chronic Response to Treatment: Stable Problem Specific Plan: Monitor Clinically, Repeat Labs Problem Text: 2 ACD/CKD/Fe def +/- MDS/MGUS given MCV 110s on HD Fe/B12 check gonzalez (7) CAD (coronary artery disease) Status: Chronic Response to Treatment: Stable Problem Text: Asymptomatic, cont with ASA, statin, rate controlled with beta lopez. (8) S/P BKA (below knee amputation) unilateral Status: Chronic Response to Treatment: Stable Problem Text: PT ordered. (9) Pacemaker Status: Chronic (10) Diabetes Problem Text: BS down to 80s. Stop Glipizide while in hospital Plan/VTE VTE Prophylaxis Ordered?: Yes Plan Advance Directives: DNR VS, I&O, 24H, Fishbone Vital Signs/I&O Vital Signs Date Time Temp Pulse Resp B/P (MAP) Pulse Ox O2 Delivery O2 Flow Rate FiO2 02/06/19 08:00 98.3 77 18 145/65 (91) 97 02/01/19 20:04 Room Air I&O- Last 24 Hours up to 6 AM 02/06/19 06:00 Intake Total 1120 ml Output Total 1525 ml Balance -405 ml Laboratory Data 24H LABS Laboratory Tests 2 02/05/19 11:34: Bedside Glucose (Misc Panel) 133H 02/05/19 14:30: Body Fluid WBC (Auto) 1396H, Body Fluid RBC (Auto) 126, Body Fluid Mononuclear Cells % Auto 88.8H, Fluid Polymorphonuclear Cell % Auto 11.2H, Body Fluid Glucose Source PLEURAL, Body Fluid Glucose 124, Body Fluid Protein Source PLEURAL, Body Fluid Total Protein 4.4, Body Fluid LDH Source PLEURAL, Body Fluid Lactate Dehydrogenase 468, Pleural Fluid Source PLEURAL, Pleural Fluid Color RED, Pleural Fluid Appearance TURBID 02/05/19 17:18: Bedside Glucose (Misc Panel) 84 02/05/19 20:56: Bedside Glucose (Misc Panel) 135H 02/06/19 05:36: Nucleated Red Blood Cells % (auto) 0.0, Anion Gap 10, Glomerular Filtration Rate 23.7L, Blood Urea Nitrogen 94H, Creatinine 2.75H, Sodium Level 135L, Potassium Level 4.2, Chloride Level 98, Carbon Dioxide Level 27, Calcium Level 9.2 CBC/BMP Laboratory Tests 02/06/19 05:36 Red Blood Count 2.63 L, Mean Corpuscular Volume 114.1 H, Mean Corpuscular Hemoglobin 37.3 H, Mean Corpuscular Hemoglobin Concent 32.7, Red Cell Distribution Width 14.6 H, Calcium Level 9.2 Microbiology Microbiology 02/05/19 Gram Stain - Final, Resulted 02/05/19 Body Fluid Culture, Resulted Pending Loretta Jacome [employer] Feb 06, 2019 10:43 Kevin Wilcox MD Feb 06, 2019 14:10
[2019-02-06] MEDS: MIRALAX *UNIT DOSE* 17GM PACKET PO PRN (10:46)
[2019-02-06 12:00] VITALS: BP 141/65
[2019-02-06] MEDS: SPIRONOLACTONE 25 MG TAB PO SCH (12:26)
[2019-02-06 12:27] LABS: ALBUMIN % 52.4 % (55.8-66.1)
[2019-02-06 12:28] LABS: ALBUMIN 3.25 GM/DL (3.29-5.55); ALPHA-1-GLOBULIN % 7.9 % (2.9-4.9); ALPHA-1-GLOBULINS 0.49 GM/DL (0.17-0.41); ALPHA-2-GLOBULINS 1.08 GM/DL (0.42-0.99); ALPHA-2-GLOBULINS % 17.4 % (7.1-11.8); BETA-1-GLOBULINS 0.42 GM/DL (0.28-0.60); BETA-1-GLOBULINS % 6.8 % (4.7-7.2); BETA-2-GLOBULINS 0.42 GM/DL (0.19-0.55); BETA-2-GLOBULINS % 6.8 % (3.2-6.5); GAMMA GLOBULIN % 8.9 % (11.1-18.8); GAMMA GLOBULINS 0.54 GM/DL (0.65-1.58)
--- NOTE | 2019-02-06 15:27 | REP ---
CT of the abdomen and pelvis without IV or bowel contrast for right abdomen/flank pain: Comparison is 11/11/2017. In the visualized lower lung [place]. There is a moderate left pleural effusion and tiny right pleural effusion. There is bilateral calcific pleural plaque. The hepatic parenchyma is homogeneous. The gallbladder, pancreas and spleen are unremarkable. The adrenals are unremarkable. There are no renal calculi. There is no hydronephrosis. There are no ureteral calculi. There are no bladder calculi. The abdominal aorta is unremarkable except for calcified atheroma. There is calcified atheroma at the origins of the celiac artery, SMA and right and left renal arteries. There is calcific plaque at the origin of the JORGE. There is no bowel distension or obstruction. There are colonic diverticula a from the cecum to the distal sigmoid colon. There is no CT evidence of diverticulitis. Pelvis: The the patient has an appendectomy. There is no ascites or adenopathy. The bladder is unremarkable. The pelvic bowel loops are unremarkable. Impression: Bilateral pleural effusions, larger on the left. Bilateral calcific pleural plaque. Diverticulosis universalis. No diverticulitis. No hydronephrosis. No renal, ureteral or bladder calculi. No adenopathy, mass or ascites. Electronically Signed by Eliecer Bullard MD 02/06/2019 03:18 P
[2019-02-06 16:00] VITALS: BP 114/73
[2019-02-06] MEDS: TORSEMIDE (DEMADEX) 50 MG PER 1/2 TAB PO SCH (18:22)
[2019-02-06 20:00] VITALS: BP 153/67
[2019-02-06] MEDS: SIMVASTATIN 20 MG TAB PO SCH (20:03)
[2019-02-06] MEDS: ASPIRIN 81 MG ENTERIC TAB PO SCH (20:03)
[2019-02-06 23:59] VITALS: BP 117/90
[2019-02-07 04:00] VITALS: BP 132/53
[2019-02-07] MEDS: IPRATROPIUM 0.5MG/ALBUTEROL 2.5MG INH SOL UD 3ML (DUONEB)(J7620) NEB SCH ×5 (04:00→19:40)
[2019-02-07] MEDS: SLF 3 ML SYR IV SCH ×3 (05:10→21:55)
[2019-02-07 06:15] LABS: HEMATOCRIT 29.9 % (42.0-52.0); HEMOGLOBIN 9.6 g/dl (13.5-17.5); MEAN CORPUSCULAR HEMOGLOBIN 37.4 pg (27.0-33.0); MEAN CORPUSCULAR HGB CONC 32.1 g/dl (32.0-36.5); PLATELET COUNT, AUTOMATED 264 10^3/uL (150-450); RED BLOOD COUNT 2.57 10^6/uL (4.30-6.10); WHITE BLOOD COUNT 4.7 10^3/uL (4.0-10.0)
[2019-02-07 06:22] LABS: MEAN CORPUSCULAR VOLUME 116.3 fl (80.0-96.0)
[2019-02-07 06:39] LABS: CALCIUM LEVEL 9.2 MG/DL (8.8-10.2); CREATININE FOR GFR 2.64 MG/DL (0.70-1.30); GLOMERULAR FILTRATION RATE 24.8 (>35); POTASSIUM SERUM 4.2 MEQ/L (3.5-5.1)
[2019-02-07] MEDS: HumaLOG INSULIN (NovoLOG) PER UNIT SC SCH ×4 (07:30→20:56)
[2019-02-07 08:00] VITALS: BP 133/63
[2019-02-07] MEDS: oxyBUTYnin *DITROPAN XL* 5 MG TABCR PO SCH (08:37)
[2019-02-07] MEDS: TORSEMIDE (DEMADEX) 50 MG PER 1/2 TAB PO SCH ×2 (08:37→17:00)
[2019-02-07] MEDS: VITAMIN D 1,000 INTERNATIONAL UNITS TABLET PO SCH (08:37)
[2019-02-07] MEDS: guaiFENesin ER 600 MG TAB PO SCH ×2 (08:38→20:56)
[2019-02-07] MEDS: FERROUS SULFATE 325MG TAB PO SCH (08:38)
[2019-02-07] MEDS: SPIRONOLACTONE 25 MG TAB PO SCH (08:38)
[2019-02-07] MEDS: GABAPENTIN 300 MG CAP PO SCH ×2 (08:38→20:56)
[2019-02-07] MEDS: ALLOPURINOL 100 MG TAB PO SCH (08:38)
[2019-02-07] MEDS: POTASSIUM CHLORIDE 10 MEQ SR TABLET PO SCH ×2 (08:38→20:54)
[2019-02-07] MEDS: FOLIC ACID 1 MG TAB PO SCH (08:38)
[2019-02-07] MEDS: DOCUSATE SODIUM 100 MG CAP PO SCH ×2 (08:41→20:56)
[2019-02-07] MEDS: MIRALAX *UNIT DOSE* 17GM PACKET PO PRN (08:42)
[2019-02-07] MEDS: ENOXAPARIN 30 MG/0.3 ML SYR (J1650) SC SCH (08:42)
--- NOTE | 2019-02-07 08:52 | IPNPDOC ---
Subjective Date Seen The patient was seen on 02/07/19. Subjective Chief Complaint/HPI CHF/CKD Events since last encounter Continues to slowly improve. Participating in PT. Has profound weakness. Nephrology managing diuretic and fluid management. patient continues to decline dialysis. Constitutional: Denies: Chills, Fever, Night Sweats Pulmonary: Denies: Dyspnea, Cough Cardiovascular: Reports: Edema (significant improvement.); Denies: Chest Pain, Palpitations, Orthopnea, Paroxysmal Noc. Dyspnea, Lt Headedness Objective Physical Examination General Exam: Positive: Alert, Cooperative, No Acute Distress Eye Exam: Positive: PERRLA, Conjunctiva & lids normal Neck Exam: Positive: Supple Chest Exam: Positive: Wheezing (heard best or larynx (consistent with auto- PEEP)), Diminished (dull especially left base); Negative: Clear to auscultation, Normal air movement Heart Exam: Positive: Rate Normal, Normal S1, Normal S2 Abdomen Exam: Positive: Normal bowel sounds, Soft Extremity Exam: Positive: Edema (trace RLE), Other (Left AKA) Skin Exam: Positive: Nl turgor and temperature Neuro Exam: Positive: Normal Speech Psych Exam: Positive: Mental status NL, Mood NL, Oriented x 3 Assessment /Plan Problems (1) Pleural effusion Status: Chronic Problem Text: 02/07/19: patient admits to marked improvement today. OOB and tolerating meals. 02/06/19: Minimal improvement post-thoracentesis. Will monitor. PT/OT eval for weakness. 02/05/19: thoracentesis today 02/04 thoracentesis ordered for tomorrow. order placed to hold lovenox in am 02/03 symptoms somewhat improved. thoracentesis was not ordered for yesterday. can't be done today by IR (no staff). not acutely in crisis so doesn't justify urgent consult with Thoracic surgery or Pulmonary 02/02/19 CXR c large L pleural effusion-favor diagnostic/therapeutic tesis in AM, check CT prior not present 08/2018 (2) Right upper quadrant abdominal pain Problem Text: has rt flank and RUQ pain on exam. CT a/p ordered (3) Acute exacerbation of CHF (congestive heart failure) Status: Acute Response to Treatment: Stable Problem Specific Plan: Monitor Clinically Problem Text: 01/1919: currently stable volume status 02/05/19: appears stable today. 02/04 modest diuresis continues but Creat is starting to edge upward pt with known diastolic dysfunction, sent to ED for admission from Cardiology. He is on Lasix 80 mg IV BID, I & Os should be monitored as well as daily weights. monitor renal function. failed outpx torse 100/50 08/07 TTE ABBIE with EF 60%, will repeat ECHO during admission. MINI diet. (4) Sojtz-dr-vzrated kidney injury Status: Acute Problem Text: 02/06/19: Cr improved at 2.5. Nephro following and managing. 02/04 slightly higher creat today, Nephrology aware. 02/03: improved to 3.13. this am. Scr 3.35 this morning, slight improvement since yesterday, Scr 06/08 2.65, 12/07 Scr 1.79, he has had a persistent decline in renal function in the last year. 08/08 renal US medical renal diseased without hydronephrosis, + renal cyst, rec f/u US in 9-12 m. Neph has been consulted. (5) Afib Status: Chronic Response to Treatment: Stable Problem Specific Plan: Monitor Clinically Problem Text: Pt follows with [facility] as an outpt. He is not anticoagulated d/t h/o GI bleed on anticoag, fall risk with BKA and PMR. no med for rate control (6) Anemia Status: Chronic Response to Treatment: Stable Problem Specific Plan: Monitor Clinically, Repeat Labs Problem Text: 2 ACD/CKD/Fe def +/- MDS/MGUS given MCV 110s on HD Fe/B12 check gonzalez (7) CAD (coronary artery disease) Status: Chronic Response to Treatment: Stable Problem Text: Asymptomatic, cont with ASA, statin, rate controlled with beta lopez. (8) S/P BKA (below knee amputation) unilateral Status: Chronic Response to Treatment: Stable Problem Text: PT ordered. (9) Pacemaker Status: Chronic (10) Diabetes Problem Text: BS down to 80s. Stop Glipizide while in hospital Plan/VTE VTE Prophylaxis Ordered?: Yes Plan Advance Directives: DNR VS, I&O, 24H, Fishbone Vital Signs/I&O Vital Signs Date Time Temp Pulse Resp B/P (MAP) Pulse Ox O2 Delivery O2 Flow Rate FiO2 02/07/19 04:00 98.1 64 18 132/53 (79) 94 02/01/19 20:04 Room Air I&O- Last 24 Hours up to 6 AM 02/07/19 06:00 Intake Total 350 ml Output Total 750 ml Balance -400 ml Laboratory Data 24H LABS Laboratory Tests 2 02/06/19 12:30: Bedside Glucose (Misc Panel) 231H 02/06/19 17:06: Bedside Glucose (Misc Panel) 119H 02/06/19 20:00: Bedside Glucose (Misc Panel) 96 02/07/19 05:51: Nucleated Red Blood Cells % (auto) 0.0, Anion Gap 10, Glomerular Filtration Rate 24.8L, Blood Urea Nitrogen 98H, Creatinine 2.64H, Sodium Level 135L, Potassium Level 4.2, Chloride Level 99, Carbon Dioxide Level 26, Calcium Level 9.2 CBC/BMP Laboratory Tests 02/07/19 05:51 Red Blood Count 2.57 L, Mean Corpuscular Volume 116.3 H, Mean Corpuscular Hemoglobin 37.4 H, Mean Corpuscular Hemoglobin Concent 32.1, Red Cell Distribution Width 14.6 H, Calcium Level 9.2 Microbiology Microbiology 02/05/19 Gram Stain - Final, Resulted 02/05/19 Body Fluid Culture, Resulted Pending Loretta Jacome [facility] Feb 07, 2019 08:52
[2019-02-07] MEDS ORDERED: TORS100T PO (11:38)
[2019-02-07] MEDS ORDERED: LOVE1INJ2 SC (11:38)
[2019-02-07] MEDS: ACETAMINOPHEN 500 MG TAB PO SCH ×2 (11:38→20:56)
[2019-02-07] MEDS ORDERED: COLA100C5 PO (11:38)
[2019-02-07 12:00] VITALS: BP 142/66
[2019-02-07 15:15] VITALS: BP 155/66
--- NOTE | 2019-02-07 15:53 | IPN ---
DATE: 02/06/2019 SUBJECTIVE: The patient was seen and examined at the bedside today morning. He is afebrile, hemodynamically stable. He got thoracentesis done yesterday on the left side 1.2 liters of fluid was removed. The patient reports that there is no significant improvement in his symptoms today as compared with yesterday. There is slight improvement in his renal function. Creatinine is down to 2.7. OBJECTIVE: Vital signs: Temperature is 97.4 degrees Fahrenheit, blood pressure 114/73, pulse is 62, respiratory rate of 18, saturating 96% on room air. Intake and output: Urine output recorded is 1275 mL yesterday and 950 mL so far today since overnight. Weight in the bed scale is 108 kg. PHYSICAL EXAMINATION: GENERAL: The patient is awake, alert, oriented x3, laying in bed. No apparent distress. HEAD AND NECK EXAM: Extraocular muscles intact. Pupils equally round and reactive to light. Mucous membranes are moist. Neck is supple. There is no jugular venous distention (JVD). CARDIOVASCULAR: S1, S2 regular rate. No edema of the right lower extremity. RESPIRATORY: Decreased breath sounds at the left base. No active rales or rhonchi. ABDOMEN: Soft, obese, positive bowel sounds. Nontender. MUSCULOSKELETAL: He has a left below-knee amputation and right lower extremity has trace edema. CENTRAL NERVOUS SYSTEM (STONE FABRICATOR): No focal deficit. Power is 5/5 in bilateral upper extremities. LABORATORY REVIEW: Complete blood count (CBC) showed a white blood cell (WBC) of 5.9, hemoglobin 9.8, platelets of 176. Basic metabolic panel (BMP) showed sodium 135, potassium 4.2, chloride 98, bicarbonate 27, BUN 94, creatinine is 2.7, it was 3.02 yesterday. IMAGING STUDIES: Left-sided ultrasound guided thoracentesis was done, 1250 mL of fluid was removed. CAT scan of the abdomen and pelvis without contrast was done today. No acute pathology was seen. CURRENT INPATIENT MEDICATIONS: The patient's medications were all reviewed by me. - Lasix - His IV Lasix has been stopped. - torsemide - The patient has been started on torsemide 50 mg by mouth twice a day - spironolactone 25 mg by mouth daily. - glipizide - His glipizide has been stopped. ASSESSMENT/PLAN: 1. Acute kidney injury superimposed on chronic kidney disease stage IV. Patient's glomerular filtration rate (GFR) continues to be around 20. Given his history of left-sided below-knee amputation most likely this is an overestimation of his GFR. I believe is true GFR will be around 16-17. I have offered dialysis to this patient. However, he is not mentally ready to start hemodialysis. His volume status is optimal. I have switched his diuretics to oral now. 2. Left-sided pleural effusion. The patient is status post left-sided pleural tap. Volume status is okay. He has currently been switched to torsemide 50 mg by mouth twice a day and spironolactone 25 mg daily. 3. Chronic diastolic congestive heart failure. IV Lasix is stopped. Continue torsemide 50 mg by mouth twice a day, spironolactone 25 mg daily and continue to monitor intake and output. 4. Anemia and chronic kidney disease. Hemoglobin is 9.8 which is optimal. 5. Diabetes mellitus type 2. The patient's sulfonylurea has been stopped because of low blood sugars. The rest of the management is as per primary team. DISPOSITION: The patient has not decided about dialysis. He is debating between hospice versus going home on current medications. Continue maximum medical optimization at this time. I will continue to follow the patient on daily basis.
[2019-02-07 20:00] VITALS: BP 143/65
[2019-02-07] MEDS: ASPIRIN 81 MG ENTERIC TAB PO SCH (20:56)
[2019-02-07] MEDS: SIMVASTATIN 20 MG TAB PO SCH (20:56)
[2019-02-08] MEDS: IPRATROPIUM 0.5MG/ALBUTEROL 2.5MG INH SOL UD 3ML (DUONEB)(J7620) NEB SCH ×4 (00:01→11:09)
[2019-02-08] MEDS: SLF 3 ML SYR IV SCH (05:18)
[2019-02-08 06:00] VITALS: BP 150/62
[2019-02-08 07:23] LABS: HEMATOCRIT 29.7 % (42.0-52.0); HEMOGLOBIN 9.7 g/dl (13.5-17.5); MEAN CORPUSCULAR HEMOGLOBIN 38.2 pg (27.0-33.0); MEAN CORPUSCULAR HGB CONC 32.7 g/dl (32.0-36.5); PLATELET COUNT, AUTOMATED 289 10^3/uL (150-450); RED BLOOD COUNT 2.54 10^6/uL (4.30-6.10); WHITE BLOOD COUNT 4.8 10^3/uL (4.0-10.0)
[2019-02-08 07:49] LABS: CREATININE FOR GFR 2.76 MG/DL (0.70-1.30); GLOMERULAR FILTRATION RATE 23.6 (>35); POTASSIUM SERUM 4.5 MEQ/L (3.5-5.1)
[2019-02-08] MEDS: FERROUS SULFATE 325MG TAB PO SCH (07:57)
[2019-02-08] MEDS: guaiFENesin ER 600 MG TAB PO SCH (07:57)
[2019-02-08] MEDS: VITAMIN D 1,000 INTERNATIONAL UNITS TABLET PO SCH (07:57)
[2019-02-08] MEDS: DOCUSATE SODIUM 100 MG CAP PO SCH (07:57)
[2019-02-08] MEDS: POTASSIUM CHLORIDE 10 MEQ SR TABLET PO SCH (07:57)
[2019-02-08] MEDS: FOLIC ACID 1 MG TAB PO SCH (07:57)
[2019-02-08] MEDS: TORSEMIDE (DEMADEX) 50 MG PER 1/2 TAB PO SCH (07:58)
[2019-02-08] MEDS: ACETAMINOPHEN 500 MG TAB PO SCH (07:58)
[2019-02-08] MEDS: GABAPENTIN 300 MG CAP PO SCH (07:58)
[2019-02-08] MEDS: SPIRONOLACTONE 25 MG TAB PO SCH (07:58)
[2019-02-08] MEDS: ALLOPURINOL 100 MG TAB PO SCH (07:58)
[2019-02-08] MEDS: ENOXAPARIN 30 MG/0.3 ML SYR (J1650) SC SCH (07:59)
[2019-02-08] MEDS: HumaLOG INSULIN (NovoLOG) PER UNIT SC SCH (07:59)
[2019-02-08] MEDS: oxyBUTYnin *DITROPAN XL* 5 MG TABCR PO SCH (07:59)
[2019-02-08] MEDS: MIRALAX *UNIT DOSE* 17GM PACKET PO PRN (08:03)
[2019-02-08 08:07] LABS: MEAN CORPUSCULAR VOLUME 116.9 fl (80.0-96.0)
--- NOTE | 2019-02-08 17:01 | IPN ---
DATE: 02/07/2019 SUBJECTIVE: The patient was seen and examined at the bedside today, morning. He was actually sitting on the sofa. His family members were also present at the bedside. The patient has an optimal urine output. Renal function is stable. Creatinine is slightly down to 2.6 today. He reports that he is feeling slightly better today as compared with yesterday. OBJECTIVE: Vital signs: Temperature is 96.3 degrees Fahrenheit, blood pressure 155/66, pulse is 61, respiratory rate of 20, saturating 98% on room air. Intake and output: Urine output recorded as 1300 mL yesterday, 375 mL so far today since overnight. Weight on the bed scale is 108.9 kg. PHYSICAL EXAMINATION: General: The patient is awake, alert, oriented times three, sitting up on the sofa in no apparent distress. Head and neck exam: Extraocular muscles intact. Pupils equally round and reactive to light. Mucous membranes are moist. Neck is supple. There is no jugular venous distention (JVD). Cardiovascular: S1, S2, regular rate. Trace edema of the right lower extremity. Respiratory: Chest is clear to auscultation at the right lung base. There is mildly decreased breath sounds at the left lung base. Abdomen: Soft, obese, positive bowel sounds. Nontender. Musculoskeletal: He has a left below-knee amputation and right lower extremity has trace edema. Central Nervous System (FABRIC WORKER FITTER): No focal deficit. Power is 5/5 in bilateral upper extremities. LAB REVIEW: CBC showed a WBC of 4.7, hemoglobin 9.6, platelets are 264. BMP showed sodium 135, potassium 4.2, chloride 99, bicarbonate 26, BUN 98, creatinine is 2.6. CURRENT INPATIENT MEDICATIONS: The patient's medications were all reviewed by me. There is no change in the medications today as compared with yesterday. He continues to be on spironolactone 25 mg by mouth daily. He is on torsemide 50 mg by mouth twice a day. No other change in the medications today as compared with yesterday. ASSESSMENT/PLAN: 1. Acute kidney injury superimposed on chronic kidney disease stage IV. The patient is tolerating the current dose of diuretics. His creatinine has improved to 2.6. Okay to continue current dose of torsemide and spironolactone. No urgent need of dialysis at this point. 2. Chronic diastolic congestive heart failure. Patient's volume status is optimal. Continue torsemide 50 mg by mouth twice a day and spironolactone 25 mg by mouth daily. Further adjustment of diuretics will be done according to the patient's lab results and daily weights. 3. Left-sided pleural effusion. Volume status is optimal. The patient is status post left-sided pleural tap, which is negative for malignancy. 1.2 liters of fluid was removed. 4. Anemia in chronic kidney disease. Hemoglobin is 9.6, which is optimal. No need of Aranesp administration. 5. Chronic gout secondary to chronic kidney disease. Continue allopurinol 200 mg by mouth daily. 6. Disposition. The patient is adamant that he wants to go home. He reports that he has a lot of help available at home. He is refusing to go to rehab. The patient is optimized from a nephrology standpoint to be discharged home. He will be followed up as outpatient in the clinic.
--- NOTE | 2019-02-08 19:25 | IPN ---
DATE: 02/08/2019 SUBJECTIVE: The patient was seen and examined at the bedside today morning. He was sitting up in the sofa. The patient's family members were also present at the bedside. Acute rehabilitation unit was recommended, but the patient and the family members wanted to take the patient home. He is getting ready to be discharged today. Renal function is stable. Creatinine has been fluctuating at around 2.6 to 2.7. His volume status is optimal at this point. OBJECTIVE: Vital signs: Temperature is 97.4 degrees Fahrenheit, blood pressure 150/62, pulse is 60, respiratory rate of 18, saturating 97% on room air. Intake and output: Urine output recorded is 550 mL yesterday, 250 mL so far today since overnight. Weight in the bed scale is not available. PHYSICAL EXAMINATION: GENERAL: The patient is awake, alert, oriented times three, sitting up in the chair in no apparent distress. HEAD AND NECK: Extraocular muscles intact. Pupils equally round and reactive to light. Mucous membranes are moist. Neck is supple. There is no jugular venous distention (JVD). CARDIOVASCULAR: S1, S2, regular rate. He has trace edema of the right lower extremity. RESPIRATORY: Decreased breath sounds at the left base, otherwise no active rales or rhonchi. ABDOMEN: Soft. Positive bowel sounds. Nontender. No organomegaly. MUSCULOSKELETAL: He has a left below-knee amputation. Right lower extremity has trace edema. CENTRAL NERVOUS SYSTEM: No focal deficit. Power is 5/5 in all extremities. LABORATORY REVIEW: CBC showed WBC of 4.8, hemoglobin 9.7, platelets are 289. BMP showed sodium 135, potassium is 4.5, chloride 98, bicarbonate 28, BUN 97, creatinine is 2.7. It was 2.6 yesterday. CURRENT INPATIENT MEDICATIONS: The patient's medications were all reviewed by me. He continues to be on torsemide 50 mg by mouth twice a day and spironolactone 25 mg by mouth daily. No other change in the medications today as compared with yesterday. ASSESSMENT AND PLAN: 1. Acute kidney injury superimposed on chronic kidney disease, stage IV. The patient's creatinine has been stable at around 2.7 now. His BUN level is very high. I offered hemodialysis, but the patient refused to have dialysis done. His volume status is being optimized with high dose of diuretics. Electrolytes and acid base status are within the acceptable limits. 3. Chronic diastolic congestive heart failure. The patient came in with volume overload, decompensated heart failure, and left-sided effusion. He got the effusion tapped. He is currently on torsemide 50 mg twice a day and spironolactone 25 mg daily. He will be discharged on this dose, and he will be seen in nephrology clinic in 2 weeks, and diuretic will be adjusted as outpatient. 4. Anemia and chronic kidney disease. Hemoglobin level is optimal. The patient is not requiring erythropoietin stimulating agent (JOSH) at this time. 5. Chronic gout secondary to chronic kidney disease. Continue current dose of allopurinol 200 mg by mouth daily. DISPOSITION: It is okay to discharge the patient from nephrology standpoint. He will be seen in the nephrology clinic in 2 weeks.
--- NOTE | 2019-02-09 12:40 | DSES ---
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 PAST MEDICAL HISTORY: Past medical history is significant for chronic kidney disease stage IV, history of congestive heart failure (CHF), pleural effusions, hyperlipidemia. PERTINENT LABORATORIES ON ADMISSION: White count 6.1, hemoglobin 10.7, platelets 288,000. Sodium 136, potassium 4.1, BUN 81, creatinine 3.59, glucose 149, Pro-BNP 2044. TSH was normal. Chest x-ray shows a large left effusion unchanged. HOSPITAL COURSE: The patient was admitted for: 1. Acute renal failure superimposed on chronic kidney disease with decompensated congestive heart failure and large left pleural effusion. Nephrology was consulted and recommendations regarding IV diuretics were guided by them, and he did have successful diuresis; however, he had persistent large left pleural effusion for which a thoracentesis was performed on 02/05/2019, at which time 1250 mL of low viscosity red color fluid was withdrawn. He tolerated the procedure well. Per patient report on the date of discharge, his breathing feels comfortable and improved. His oxygen saturations are 97% on the date of discharge. His blood pressure is stable. His renal function also improved with diuresis and his BUN is now 96. The creatinine is 2.76. Nephrology did have discussion with him about the severity of his kidney disease and dialysis was offered, it was felt that because of his [id number] amputation that his GFR is overestimated and that his true GFR of the more around 16 or 17. The patient is not willing to pursue dialysis at this time. He will be maintained on torsemide 50 mg twice a day and spironolactone 25 mg daily. He is adamant that he is going home and will be discharged with home health today. It was recommended that he go to acute rehab but he declines this and will be going home with family and his , who feel they are able to manage him there. Physical therapy came and worked with him today. The family was at the bedside at that time and observed his mobility and feel that they can manage him at home. 2. Atrial fibrillation. He follows with [facility] as an outpatient. He is not anticoagulation due to history of GI bleed, fall risk with his below the knee amputation. He is not requiring any medication for rate control. 3. Anemia secondary to chronic kidney disease, iron deficiency. He did have a SPEP and immunotyping. He did not show monoclonal bands in the immunotyping. Hemoglobin is stable. DISPOSITION: The patient is stable for discharge home to follow up with Loretta Jacome as an outpatient. Followup with nephrology and cardiology as previous. MEDICATIONS: - Colace 100 mg twice a day - torsemide 50 mg twice a day - acetaminophen 1000 mg twice a day - albuterol nebulizer every 4 hours as needed for shortness of breath - allopurinol 200 mg daily - aspirin 81 mg daily - vitamin D 1000 international units daily - B12 100 mcg daily - Pepcid 40 mg daily - iron sulfate 325 mg - folic acid 1 mg daily - gabapentin 300 mg twice a day - glipizide 5 mg daily - melatonin 5 mg at bedtime - nitroglycerin sublingual as needed - oxybutynin 10 mg daily - simvastatin 20 mg in the evening - spironolactone 25 mg daily - torsemide dose has been adjusted, he is on 50 mg twice a day currently and that will be his medication upon discharge DISCHARGE DIAGNOSES: 1. Acute kidney injury superimposed on chronic kidney disease stage IV. 2. Left pleural effusion status post thoracentesis. 3. Chronic diastolic congestive heart failure. 4. Anemia of chronic disease. 5. Diabetes mellitus type 2. 6. Atrial fibrillation. 7. Fall risk. 8. Bilateral amputee.
== END 2019-02-08 11:50 | disposition home or self-care (01) | DRG 291 ==
LOC: M ED 14:34 → M ED INP 17:48 → M PCU 20:16 → M MS5PR 02-07 15:00
PROVIDERS: ADMIT Internal Medicine; ATTEND Family Medicine
PROC: 0W9B3ZZ Drainage of Left Pleural Cavity, Percutaneous Approach (ICD-10-PCS; principal; 2019-02-05)
DX: I13.0 Hypertensive heart and chronic kidney disease with heart failure and stage 1 through stage 4 chronic kidney disease, or unspecified chronic kidney disease (principal); I50.33 Acute on chronic diastolic (congestive) heart failure; N18.4 Chronic kidney disease, stage 4 (severe); N17.9 Acute kidney failure, unspecified; E87.1 Hypo-osmolality and hyponatremia; J90 Pleural effusion, not elsewhere classified; I48.91 Unspecified atrial fibrillation; D63.1 Anemia in chronic kidney disease; D50.9 Iron deficiency anemia, unspecified; Z79.899 Other long term (current) drug therapy; E11.51 Type 2 diabetes mellitus with diabetic peripheral angiopathy without gangrene; E78.5 Hyperlipidemia, unspecified; Z79.82 Long term (current) use of aspirin; Z88.0 Allergy status to penicillin; I25.10 Atherosclerotic heart disease of native coronary artery without angina pectoris; Z89.511 Acquired absence of right leg below knee; Z89.512 Acquired absence of left leg below knee; Z95.0 Presence of cardiac pacemaker; Z95.2 Presence of prosthetic heart valve; M10.30 Gout due to renal impairment, unspecified site; E87.6 Hypokalemia

== ENCOUNTER → 2019-06-26 | Outpatient (CLI) | payer MEDICARE, OTHER ==
[~2019-06-26] MED LIST changes: +ACET-683 PO; +ALB2.5NEB INH; +COLA100C5 PO; +D3 H10002 PO; -DIPH25CA PO; +DIPH25CA32 PO; +FOLI1TAB11 PO; +LOVE1INJ2 SC; +MELA5TAB7 PO; +OXYB10TA2 PO; +VITA100T12 PO
[2019-06-26 13:28] LABS: CALCIUM LEVEL 8.3 MG/DL (8.8-10.2); CREATININE FOR GFR 2.83 MG/DL (0.70-1.30); GLOMERULAR FILTRATION RATE 22.9 (>35); MAGNESIUM LEVEL 2.4 MG/DL (1.8-2.4); POTASSIUM SERUM 4.8 MEQ/L (3.5-5.1)
== END ==
LOC: M WUC 11:48
PROVIDERS: ATTEND Physician Assistant
DX: I50.32 Chronic diastolic (congestive) heart failure (principal)

== ENCOUNTER → 2019-09-23 | Outpatient (CLI) | payer MEDICARE, OTHER ==
[~2019-09-23] MED LIST changes: -OXYB10TA2 PO; +OXYB10TA23 PO; -SIMV20TA2 PO; +SIMV20TA22 PO; -VALS1TAB49 PO; +VALS40TA9 PO
[2019-09-23 13:26] LABS: CALCIUM LEVEL 8.7 MG/DL (8.8-10.2); CREATININE FOR GFR 2.76 MG/DL (0.70-1.30); GLOMERULAR FILTRATION RATE 23.5 (>35); MAGNESIUM LEVEL 2.3 MG/DL (1.8-2.4); POTASSIUM SERUM 4.6 MEQ/L (3.5-5.1)
== END ==
LOC: M WUC 11:48
PROVIDERS: ATTEND Physician Assistant
DX: I50.32 Chronic diastolic (congestive) heart failure (principal)

== ENCOUNTER → 2021-01-05 | Outpatient (CLI) | payer MEDICARE, OTHER ==
[~2021-01-05] MED LIST changes: +ACET650T61 PO; +AMLO1TAB24 PO; -AMLO5TAB6 PO; +ASPI-569 PO; -ASPI81TA85 PO; +ASPI81TA86 PO; -ASPI81TAEC PO; +IRBE75TA4 PO; -IRBE75TA5 PO; +PANT40TA29 PO; -PANT40TA3 PO; -TYLE650T35 PO; -VITA100T12 PO; +VITA1TAB35 PO
--- NOTE | 2021-01-05 15:34 | REP ---
INDICATION: URGE INCONTINENCE. COMPARISON: 08/17/2018. TECHNIQUE: Real-time sonographic evaluation of bladder performed. FINDINGS: Bladder measures 8.5 x 8.2 x 7.6 cm for total volume of 346 cc. No bladder mass or calculus is seen. Ureteral jets could not be visualized in the urinary bladder with Doppler color evaluation. Postvoid residual is 157 cc which is 45% of the original volume. IMPRESSION: No evidence of bladder mass or calculus. Postvoid residual 45%. <Electronically signed by Eliecer Velazquez > 01/05/21 [id number]
== END ==
LOC: M RAD 14:51
PROVIDERS: ATTEND Nurse Practitioner Family
DX: N39.41 Urge incontinence (principal)